=== PATIENT | female | born 1945 | race Caucasian/White ===

== ENCOUNTER → 2021-02-19 12:51 | Outpatient (BNVA) | payer MEDICARE, SELFPAY | PROVIDERS: PCP Internal Medicine; Visit Provider Hospitalist | DX: J41.0 Simple chronic bronchitis (principal); J18.9 Pneumonia, unspecified organism; R91.8 Other nonspecific abnormal finding of lung field | CPT/HCPCS: 99212 ==

== ENCOUNTER → 2021-11-19 12:44 | Outpatient (BNVA) | payer MEDICARE, SELFPAY | PROVIDERS: PCP Internal Medicine; Visit Provider Hospitalist | DX: J41.0 Simple chronic bronchitis (principal); J18.9 Pneumonia, unspecified organism; R91.8 Other nonspecific abnormal finding of lung field | CPT/HCPCS: 99212 ==

== ENCOUNTER → 2022-08-15 13:11 | Outpatient (BNVA) | payer MEDICARE, SELFPAY | PROVIDERS: PCP Internal Medicine; Visit Provider Hospitalist | DX: J41.0 Simple chronic bronchitis (principal); R91.8 Other nonspecific abnormal finding of lung field; J18.9 Pneumonia, unspecified organism | CPT/HCPCS: 99212 ==

== ENCOUNTER → 2022-11-26 08:20 | Outpatient (BNVA) | payer MEDICARE, SELFPAY | PROVIDERS: PCP Internal Medicine; Visit Provider Hospitalist | DX: J44.0 Chronic obstructive pulmonary disease with (acute) lower respiratory infection (principal); J18.9 Pneumonia, unspecified organism; R91.8 Other nonspecific abnormal finding of lung field; Z79.52 Long term (current) use of systemic steroids; Z79.899 Other long term (current) drug therapy | CPT/HCPCS: 99212 ==

== ENCOUNTER → 2023-01-27 13:59 | Outpatient (BNVA) | payer MEDICARE, SELFPAY | PROVIDERS: PCP Internal Medicine; Visit Provider Hospitalist | DX: J44.0 Chronic obstructive pulmonary disease with (acute) lower respiratory infection (principal); J18.9 Pneumonia, unspecified organism; R91.8 Other nonspecific abnormal finding of lung field | CPT/HCPCS: 99212 ==

== ENCOUNTER → 2023-05-07 13:11 | Outpatient (BNVA) | payer MEDICARE, SELFPAY | PROVIDERS: PCP Internal Medicine; Visit Provider Nurse Practitioner Family | DX: Z01.811 Encounter for preprocedural respiratory examination (principal); J44.0 Chronic obstructive pulmonary disease with (acute) lower respiratory infection; R91.8 Other nonspecific abnormal finding of lung field | CPT/HCPCS: 99212 ==

== ENCOUNTER 2023-07-31 14:06 | Outpatient (AMB) | payer MEDICARE, SELFPAY ==
[2023-07-31 14:14] VITALS: BP 128/60; PULSE 81; O2SAT 99; BMI 24.2
--- NOTE | 2023-07-31 14:14 | MHC.OFFVIS ---
Intake Vital Signs 07/31/23 14:14 Height 5 ft 6 in Weight 150 lb BMI 24.2 BP 128/60 Blood Pressure Location Lt brachial Position Sitting Pulse 81 Pulse Source Pulse Oximeter Pulse Oximetry (%) 99 Oxygen Delivery Method Room Air Intake Visit Reasons: COPD Hitcher Required: No Allergies Penicillins Allergy (Severe, Uncoded 07/31/23 14:17) Rash and Hives Sulfa Drugs Allergy (Severe, Uncoded 07/31/23 14:17) Rash and Hives HPI HPI Comments History of Present Illness Details The patient is a 78-year-old woman known COPD and pulmonary nodules. Apparently the last time is are was back in March and she required a prednisone taper. After that visit the patient apparently developed worsening respiratory symptoms was admitted to [facility] with influenza B and sepsis. She was treated for pneumonia. She was subsequently discharged. Overall she stabilized and she had a repeat CT scan of the chest in June of 2019 demonstrating stable subsolid pulmonary nodules. In August she had knee surgery which she had without any difficulties. More recently she did have influenza a and she was treated appropriately at home for that. She is now recovering feeling back to close to her baseline. Unfortunately, her daughter who lives with her started having fevers and was concerned for the possibility of covid 19 infection. At this point she will be monitor her temperature for any evidence of infection herself. In the meantime respiratory status has been stable on the current respiratory regimen. She was recently hospitalized at [facility] with the COVID-19 illness. She developed hypoxic respiratory failure and currently discharged on oxygen 2 L at rest and 3 L with activity. She is complaining a course of doxycycline. She already completed azythromycin and Plaquenil. Did review her chest x-ray demonstrating patchy areas of hazy opacities consistent with viral pneumonia. Her white count was elevated also inflammatory marker for elevated. I will make sure to repeat those. She is at home she still having a barky cough. She feels better. We talked about wake prone in which is going to tried home. She was stopped using the incentive spirometer. 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 08/07/2020 the patient is here for pulmonary follow-up visit. Overall the patient is doing lot better. The oxygen was discontinued and she has been doing very well on room air. Her respiratory medications have not changed. She denies any significant coughing or any shortness of breath. She does not have any residual symptoms from the COVID-19 infection. She did undergo a repeat CT scan of the chest demonstrating interval decrease in the right upper lobe ground-glass the nodular density which is reassuring. This may have been a remnant from her previous pneumonia back in 2017 when she presented to the hospital with a postviral multilobar pneumonia. 02/19/2021 the patient is here for pulmonary follow-up visit. Overall the patient has been doing better. She has not recovered completely from COVID-19. The patient had been using oxygen for appeared of time but now the oxygen has been removed in the house. The cough is improved dramatically. The patient has continued to use her respiratory therapy. She has not required any prednisone. We did review her last CT scan of the chest demonstrating interval improvement of the ground-glass opacities. However, the changes are still present. Therefore, the patient should have a repeat CT scan of the chest sometime in the fall 2020. She should have an same place. The patient is otherwise without any other complaints. 11/19/2021 the patient is here for a pulmonary follow-up visit. Overall the patient is doing well from a respiratory status. She continues use her Symbicort with good effect. She has not require her short-acting beta agonist. She again did undergo a CT scan of the chest. It appears that her ground-glass nodular density has increased in size from 5 mm not to 8 mm in size. At this point is still too small for any type of invasive diagnostic intervention. I also believe is too small to undergo PET scan. Therefore will follow the CT scan in 8 months to see if there is any progression. In the meantime the patient develops any worsening respiratory symptoms prior to that she is to call for an earlier evaluation. 08/15/2022 the patient is here for a pulmonary follow-up visit. Overall she is doing well from a respiratory status. She continues uses Symbicort daily. She has not had to use her rescue inhaler. She has not had any exacerbations. She is wondering about her diagnosis of COPD. Explained to her that she has not had pulmonary function studies and while. Indeed she does have a component of obstructive airway disease. She is currently taking a very small dose of Symbicort. Will plan to continue that dose specially since she has had recent surgery. Will have her return in a year and will perform pulmonary function studies to see if she can wean off completely from the Symbicort. In the meantime she is status post laminectomy and has significant back pain postoperatively. She actually was admitted to the hospital with severe pain she could not walk. Now she is doing a little better she is tolerating some physical therapy. She will be following up with neurosurgeon soon. We did review her CT scan of the chest. Appears that her ground-glass nodular densities still measuring about 8 mm in size. It appears to wax and wane some. No solid component. At this point will plan to follow-up up with at 1 year based on the fact that smoldering malignancies are still differential. 11/26/2022 the patient is here for a hospital follow-up visit. The patient overall has been doing a little better. She was exposed to a family member with RSV. Ultimately ended up with COPD exacerbation. She was admitted to [facility]. There she did have a CT scan of the chest demonstrating bronchiolitis which is consistent with her RSV infection. She also had her underlying nodular density. She completed a course of Vantin. The patient also is on prednisone 30 mg with a taper. She still complained of cough in addition to shortness of breath. She is using her nebulizer several times a day. Will go ahead and extend her prednisone course. Will also switch her antibiotics to doxycycline to treat her for postviral strep and staph infections. The patient also should be getting a cough syrup. She did bring a copy of the CT scan. I will going to try to look at the images myself. In the meantime it appears that the findings are consistent with her acute infectious process. 01/27/2023 the patient is here for a pulmonary follow-up visit. She is doing a lot better. She is back to her baseline. She is not with prednisone and the antibiotics. She continues use respiratory therapy. We did review get her CT scan that she had at [facility] demonstrating the 9 mm right upper lobe ground-glass nodular density. We also compare that to her previous CT scan from the summer of 2021 demonstrating stability in that ground-glass nodular density without any solid component which is reassuring. The other nodules are stable. Her breathing is back baseline. At this point going to continue with respiratory therapy and will plan to repeat the CT scan in 6 months. 07/31/2023 the patient is here for pulmonary follow-up visit. Overall the patient has been feeling much better. 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 This resulted in significant pain discomfort for the patient. Finally she is feeling better. Her respiratory status was stable throughout the whole period. She continues on the Symbicort. She has been able to cut down significantly. The patient had RSV back in the winter. At this point I did recommend she vaccinated for RSV in addition to the flu and for that matter COVID-19. The patient is also up-to-date with pneumonia vaccine. We did review her recent CT scan of the chest. She does have a ground-glass subsolid nodule. It appears to be unchanged from last year. In view of the ground-glass the nature of the nodule and the size of a cm will plan to repeat it in a year's time. If the patient develops any new or concerning symptoms she is to call the office for an earlier assessment. [facility] Medical History (Updated 05/07/23 @ 13:56 by Sarah Parker NP) Pneumonitis Pulmonary nodules COVID-19 COPD (chronic obstructive pulmonary disease) Social History (Updated 11/19/21 @ 13:11 by SHABNAM Grant) Patient Tobacco Use Status: Former Tobacco user Tobacco use type: Cigarette Years Smoked: 30 years Review of Systems Const Reports difficulty sleeping and Denies night sweats ENT Denies change in voice, Denies lip swelling, Denies mouth pain, Reports nasal congestion, Reports nasal discharge and Denies tongue swelling Card Denies chest pain Resp Reports chest congestion, Reports cough and Reports wheezing GI Denies abdominal pain Musc Reports back pain, Reports arthralgias and Reports joint swelling Neuro Denies Neuro-related abnormal movements Psych Denies no additional complaints Raf/Lymph Denies easy bleeding and Denies lymphadenopathy Aller/Immun Denies lip swelling, Denies tongue swelling and Reports wheezing Physical Exam Vital Signs: Last Vital Signs Pulse 81 07/31/23 14:14 BP 128/60 07/31/23 14:14 Pulse Ox 99 07/31/23 14:14 Oxygen Delivery Method Room Air 07/31/23 14:14 BMI result Body Mass Index 24.2 Const General: alert Neck Neck: Yes normal visual inspection, Yes full ROM and Yes no lymphadenopathy Chest Chest palpation & inspection: normal inspection of the chest Resp Auscultation: no rhonchi, no wheezes and diminished lung sounds Cardio Rate: regular rate Rhythm: regular rhythm Heart sounds: S1 normal heart sound present and S2 normal heart sound present GI Palpation (GI): Soft to palpation and nontender Auscultation: normal bowel sounds Skin General skin exam: rashes and/or lesions noted Assessment & Plan Assessment & Plan (1) COPD (chronic obstructive pulmonary disease): Code(s): J44.9 - Chronic obstructive pulmonary disease, unspecified Qualifiers: COPD type: COPD with acute lower respiratory infection Qualified Code(s): J44.0 - Chronic obstructive pulmonary disease with (acute) lower respiratory infection (2) Pulmonary nodules: Code(s): R91.8 - Other nonspecific abnormal finding of lung field (3) Pneumonitis: Code(s): J18.9 - Pneumonia, unspecified organism Plan Repeat CT scan of the chest in 07/2024 continue Symbicort continue short-acting beta agonist as needed F/U 12 months Orders: Orders CT chest wo IV con 06/21/24 R91.8 - Other nonspecific abnormal finding of lung field Coding Level of Care Code Est Pt Level 4 (88423) Diagnoses Chronic obstructive pulmonary disease with acute lower respiratory infection J44.0 COPD type: COPD with acute lower respiratory infection Pulmonary nodules R91.8 Pneumonitis J18.9 Time Spent (min) 18
== END 2023-07-31 14:38 | disposition home or self-care (01) ==
PROVIDERS: PCP Internal Medicine; Visit Provider Hospitalist
DX: J44.0 Chronic obstructive pulmonary disease with (acute) lower respiratory infection (principal); R91.8 Other nonspecific abnormal finding of lung field; J18.9 Pneumonia, unspecified organism
CPT/HCPCS: 99214

== ENCOUNTER → 2023-07-31 14:06 | Outpatient (BNVA) | payer MEDICARE, SELFPAY | PROVIDERS: PCP Internal Medicine; Visit Provider Hospitalist | DX: J44.0 Chronic obstructive pulmonary disease with (acute) lower respiratory infection (principal); J18.9 Pneumonia, unspecified organism; R91.8 Other nonspecific abnormal finding of lung field | CPT/HCPCS: 99212 ==

== ENCOUNTER 2024-07-09 14:15 | Outpatient (REF) | payer MEDICARE, SELFPAY ==
--- NOTE | ~2024-07-09 | CT_ITS ---
EXAMINATION: CT CHEST WITHOUT CONTRAST CLINICAL INFORMATION: Nodule. Abnormal finding in the lung. COMPARISON: CT dated November 20, 2022 TECHNIQUE: Multidetector volumetric CT imaging of the chest was done. Axial MIP volume rendering provided. Sagittal and coronal reformatted images were obtained. This CT examination was performed using dose optimization techniques as appropriate, variously including the following: *Automated exposure control *Adjustment of mA and/or kV according to patient size (this includes techniques or standardized protocols for targeted exams where dose is matched to indication/reason for exam; i.e. extremities or head) *Use of iterative reconstruction technique DLP: 127 mGy-cm FINDINGS: LUNGS: 8 mm patchy groundglass, right upper lobe. No bronchiectasis. No honeycombing. Subsegmental atelectasis versus scarring, lung bases and lingula. Upper respiratory airway is patent. MEDIASTINUM: No lymphadenopathy. No pericardial effusion. Calcified plaque throughout the thoracic aorta wall and its main branches. Calcified mitral valve.. CORONARY ARTERY CALCIFICATION: Calcified plaques in the coronary arteries. PLEURA: No pleural effusion or pneumothorax. AXILLA: No lymphadenopathy. UPPER ABDOMEN: Multifocal different size partially calcified cystic lesions in the kidneys. Calcified plaques in the abdominal aorta wall of the origin of the main renal arteries and to the mesenteric arteries. Dystrophic calcifications in the left hepatic lobe. Punctate calcifications in the right thyroid lobe. OSSEOUS STRUCTURES: Multilevel spondylosis more conspicuous at T8-9 and T9-10 levels without acute fracture or listhesis S-shaped curvature of the thoracolumbar spine. No lytic or blastic lesions. CT/CT chest wo IV con IMPRESSION: Focal airspace disease, right upper lobe. Neoplasm cannot be excluded. Coronary artery disease and atherosclerosis disease. Calcified mitral valve. Complex cystic lesions in the kidneys. Calcified plaques in the origin main renal arteries. Fleischner guidelines were followed. Electronically signed by: Chriss Shah MD 09/15/2024 03:15 PM EDT
== END 2024-07-09 14:16 | disposition home or self-care (01) ==
LOC: HO.CT 14:15
PROVIDERS: PCP Internal Medicine; Visit Provider Hospitalist
DX: R91.8 Other nonspecific abnormal finding of lung field (principal)
CPT/HCPCS: 71250

== ENCOUNTER → 2024-07-09 14:17 | Outpatient (BNV) | payer MEDICARE, SELFPAY | PROVIDERS: PCP Internal Medicine; Visit Provider Radiology Diagnostic Radiology | DX: R91.8 Other nonspecific abnormal finding of lung field (principal) | CPT/HCPCS: 71250 ==

== ENCOUNTER 2024-08-26 09:45 | Outpatient (AMB) | payer MEDICARE, SELFPAY ==
[2024-08-26 10:13] VITALS: BP 126/60; PULSE 80; O2SAT 99; BMI 26.0
--- NOTE | 2024-08-26 10:13 | MHC.OFFVIS ---
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 Apparently the last time is are was back in March and she required a prednisone taper. After that visit the patient apparently developed worsening respiratory symptoms was admitted to [facility] with influenza B and sepsis. She was treated for pneumonia. She was subsequently discharged. Overall she stabilized and she had a repeat CT scan of the chest in June of 2019 demonstrating stable subsolid pulmonary nodules. In August she had knee surgery which she had without any difficulties. More recently she did have influenza a and she was treated appropriately at home for that. She is now recovering feeling back to close to her baseline. Unfortunately, her daughter who lives with her started having fevers and was concerned for the possibility of covid 19 infection. At this point she will be monitor her temperature for any evidence of infection herself. In the meantime respiratory status has been stable on the current respiratory regimen. She was recently hospitalized at [facility] with the COVID-19 illness. She developed hypoxic respiratory failure and currently discharged on oxygen 2 L at rest and 3 L with activity. She is complaining a course of doxycycline. She already completed azythromycin and Plaquenil. Did review her chest x-ray demonstrating patchy areas of hazy opacities consistent with viral pneumonia. Her white count was elevated also inflammatory marker for elevated. I will make sure to repeat those. She is at home she still having a barky cough. She feels better. We talked about wake prone in which is going to tried home. She was stopped using the incentive spirometer. She does have the Tessalon Perles not appear to be effective and she is going to last picker some Mucinex DM. 08/07/2020 the patient is here for pulmonary follow-up visit. Overall the patient is doing lot better. The oxygen was discontinued and she has been doing very well on room air. Her respiratory medications have not changed. She denies any significant coughing or any shortness of breath. She does not have any residual symptoms from the COVID-19 infection. She did undergo a repeat CT scan of the chest demonstrating interval decrease in the right upper lobe ground-glass the nodular density which is reassuring. This may have been a remnant from her previous pneumonia back in 2017 when she presented to the hospital with a postviral multilobar pneumonia. 02/19/2021 the patient is here for pulmonary follow-up visit. Overall the patient has been doing better. She has not recovered completely from COVID-19. The patient had been using oxygen for appeared of time but now the oxygen has been removed in the house. The cough is improved dramatically. The patient has continued to use her respiratory therapy. She has not required any prednisone. We did review her last CT scan of the chest demonstrating interval improvement of the ground-glass opacities. However, the changes are still present. Therefore, the patient should have a repeat CT scan of the chest sometime in the fall 2020. She should have an same place. The patient is otherwise without any other complaints. 11/19/2021 the patient is here for a pulmonary follow-up visit. Overall the patient is doing well from a respiratory status. She continues use her Symbicort with good effect. She has not require her short-acting beta agonist. She again did undergo a CT scan of the chest. It appears that her ground-glass nodular density has increased in size from 5 mm not to 8 mm in size. At this point is still too small for any type of invasive diagnostic intervention. I also believe is too small to undergo PET scan. Therefore will follow the CT scan in 8 months to see if there is any progression. In the meantime the patient develops any worsening respiratory symptoms prior to that she is to call for an earlier evaluation. 08/15/2022 the patient is here for a pulmonary follow-up visit. Overall she is doing well from a respiratory status. She continues uses Symbicort daily. She has not had to use her rescue inhaler. She has not had any exacerbations. She is wondering about her diagnosis of COPD. Explained to her that she has not had pulmonary function studies and while. Indeed she does have a component of obstructive airway disease. She is currently taking a very small dose of Symbicort. Will plan to continue that dose specially since she has had recent surgery. Will have her return in a year and will perform pulmonary function studies to see if she can wean off completely from the Symbicort. In the meantime she is status post laminectomy and has significant back pain postoperatively. She actually was admitted to the hospital with severe pain she could not walk. Now she is doing a little better she is tolerating some physical therapy. She will be following up with neurosurgeon soon. We did review her CT scan of the chest. Appears that her ground-glass nodular densities still measuring about 8 mm in size. It appears to wax and wane some. No solid component. At this point will plan to follow-up up with at 1 year based on the fact that smoldering malignancies are still differential. 11/26/2022 the patient is here for a hospital follow-up visit. The patient overall has been doing a little better. She was exposed to a family member with RSV. Ultimately ended up with COPD exacerbation. She was admitted to [facility]. There she did have a CT scan of the chest demonstrating bronchiolitis which is consistent with her RSV infection. She also had her underlying nodular density. She completed a course of Vantin. The patient also is on prednisone 30 mg with a taper. She still complained of cough in addition to shortness of breath. She is using her nebulizer several times a day. Will go ahead and extend her prednisone course. Will also switch her antibiotics to doxycycline to treat her for postviral strep and staph infections. The patient also should be getting a cough syrup. She did bring a copy of the CT scan. I will going to try to look at the images myself. In the meantime it appears that the findings are consistent with her acute infectious process. 01/27/2023 the patient is here for a pulmonary follow-up visit. She is doing a lot better. She is back to her baseline. She is not with prednisone and the antibiotics. She continues use respiratory therapy. We did review get her CT scan that she had at [facility] demonstrating the 9 mm right upper lobe ground-glass nodular density. We also compare that to her previous CT scan from the summer of 2021 demonstrating stability in that ground-glass nodular density without any solid component which is reassuring. The other nodules are stable. Her breathing is back baseline. At this point going to continue with respiratory therapy and will plan to repeat the CT scan in 6 months. 07/31/2023 the patient is here for pulmonary follow-up visit. Overall the patient has been feeling much better. 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 This resulted in significant pain discomfort for the patient. Finally she is feeling better. Her respiratory status was stable throughout the whole period. She continues on the Symbicort. She has been able to cut down significantly. The patient had RSV back in the winter. At this point I did recommend she vaccinated for RSV in addition to the flu and for that matter COVID-19. The patient is also up-to-date with pneumonia vaccine. We did review her recent CT scan of the chest. She does have a ground-glass subsolid nodule. It appears to be unchanged from last year. In view of the ground-glass the nature of the nodule and the size of a cm will plan to repeat it in a year's time. If the patient develops any new or concerning symptoms she is to call the office for an earlier assessment. 08/26/2024 the patient is here for a pulmonary follow-up visit. Overall the patient has been doing okay. She was recently diagnosed with CMML and initially her white count was elevated but then significantly increased. She did follow-up with bread distributor and she was started on hydroxyurea were now the white count coming down nicely. Denies any shortness of breath denies any ongoing respiratory symptoms. She did undergo a CT scan of the chest that I personally reviewed. It appears that the ground-glass nodular densities stable in size. This is compared to the CT scan from last year. Will go ahead and plan to repeat the CT scan again in a year's time. If the patient develops any worsening symptoms prior to the next visit she will call for an earlier assessment. [facility] Medical History (Updated 05/07/23 @ 13:56 by Sarah Parker NP) Pneumonitis Pulmonary nodules COVID-19 COPD (chronic obstructive pulmonary disease) Social History (Updated 11/19/21 @ 13:11 by SHABNAM Grant) Patient Tobacco Use Status: Former Tobacco user Tobacco use type: Cigarette Years Smoked: 30 years Review of Systems Const Reports difficulty sleeping and Denies night sweats ENT Denies change in voice, Denies lip swelling, Denies mouth pain, Reports nasal congestion, Reports nasal discharge and Denies tongue swelling Card Denies chest pain Resp Denies chest congestion, Reports cough and Denies wheezing GI Denies abdominal pain Musc Reports back pain, Reports arthralgias and Reports joint swelling Neuro Denies Neuro-related abnormal movements Psych Denies no additional complaints Raf/Lymph Denies easy bleeding and Denies lymphadenopathy Aller/Immun Denies lip swelling, Denies tongue swelling and Denies wheezing Physical Exam Vital Signs: Last Vital Signs Pulse 80 08/26/24 10:13 BP 126/60 08/26/24 10:13 Pulse Ox 99 08/26/24 10:13 Oxygen Delivery Method Room Air 08/26/24 10:13 BMI result Body Mass Index 26.0 Const General: alert Neck Neck: Yes normal visual inspection, Yes full ROM and Yes no lymphadenopathy Chest Chest palpation & inspection: normal inspection of the chest Resp Effort & Inspection: normal respiratory effort Auscultation: clear to auscultation bilaterally, no rhonchi and no wheezes Cardio Rate: regular rate Rhythm: regular rhythm Heart sounds: S1 normal heart sound present and S2 normal heart sound present GI Palpation (GI): Soft to palpation and nontender Auscultation: normal bowel sounds Skin General skin exam: rashes and/or lesions noted Assessment & Plan Assessment & Plan (1) COPD (chronic obstructive pulmonary disease): Code(s): J44.9 - Chronic obstructive pulmonary disease, unspecified Category: Medical Qualifiers: COPD type: COPD with acute lower respiratory infection Qualified Code(s): J44.0 - Chronic obstructive pulmonary disease with (acute) lower respiratory infection (2) Pulmonary nodules: Code(s): R91.8 - Other nonspecific abnormal finding of lung field Category: Medical (3) Pneumonitis: Code(s): J18.9 - Pneumonia, unspecified organism Category: Medical Plan Repeat CT scan of the chest in 07/2025 (awaiting final read of CT chest) continue Symbicort continue short-acting beta agonist as needed F/U 12 months Orders: Orders CT chest wo IV con 1 Year R91.8 - Other nonspecific abnormal finding of lung field Coding Level of Care Code Est Pt Level 4 (95997) Diagnoses Chronic obstructive pulmonary disease with acute lower respiratory infection J44.0 COPD type: COPD with acute lower respiratory infection Pulmonary nodules R91.8 Pneumonitis J18.9 Time Spent (min) 17
== END 2024-08-26 10:35 | disposition home or self-care (01) ==
PROVIDERS: PCP Internal Medicine; Visit Provider Hospitalist
DX: J44.0 Chronic obstructive pulmonary disease with (acute) lower respiratory infection (principal); R91.8 Other nonspecific abnormal finding of lung field; J18.9 Pneumonia, unspecified organism
CPT/HCPCS: 99214

== ENCOUNTER → 2024-08-26 09:45 | Outpatient (BNVA) | payer MEDICARE, SELFPAY | PROVIDERS: PCP Internal Medicine; Visit Provider Hospitalist | DX: J44.0 Chronic obstructive pulmonary disease with (acute) lower respiratory infection (principal); J18.9 Pneumonia, unspecified organism; R91.8 Other nonspecific abnormal finding of lung field | CPT/HCPCS: 99212 ==

== ENCOUNTER 2025-01-26 15:46 | Outpatient (REF) | payer MEDICARE, SELFPAY ==
--- NOTE | ~2025-01-26 | XR_ITS ---
EXAMINATION: XR SCREENING FILM FOR MR HISTORY: pre mri x-ray- [facility] COMPARISON: There are no prior studies for comparison. FINDINGS: Two supine views of the abdomen are submitted. The bowel gas pattern is unremarkable, without evidence of mechanical obstruction. There are vascular calcifications in the pelvis. Rounded calcifications in the pelvis likely represent retained contrast within colonic diverticula. The patient is status post right total hip arthroplasty. There are embolization coils in the right inguinal region. There is degenerative disc disease of the spine. XR/XR pre mri screening IMPRESSION: Status post right total hip arthroplasty. Embolization coils in the right inguinal region. Electronically signed by: Jayden Snider MD 01/27/2025 07:47 AM EDT
--- NOTE | ~2025-01-26 | MR_ITS ---
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 Subsequently, fat suppressed axial and coronal T1-weighted images were obtained after the intravenous administration of 7 mL Gadavist. FINDINGS: There is no significant loss of signal intensity within the liver on opposed phase imaging to suggest steatosis. There is an 8 mm T2 hyperintense focus in the right lobe which does not enhance, and may represent a small cyst. The hepatic and portal veins are patent. There is no intra or extrahepatic biliary ductal dilatation. The gallbladder is unremarkable. There is a 1.5 cm T2 hyperintense rim enhancing lesion in the spleen which may represent a hemangioma. The pancreas and adrenal glands are unremarkable. There is a cluster of cysts at the upper pole of the right kidney. The largest cyst measures 2.9 x 2.3 x 1.9 cm. There is an additional 2.0 cm cyst and a subcentimeter cyst. A 10 mm cyst is noted at the upper pole of the left kidney. No enhancing renal mass is identified. No retroperitoneal lymphadenopathy or ascites is identified in the upper abdomen. There is scoliosis and degenerative disc disease of the spine. MR/MR abdomen wo/w con IMPRESSION: 1. Cluster of cysts at the upper pole of the right kidney. No suspicious renal lesion is identified. 2. Probable 1.5 cm splenic hemangioma. Electronically signed by: Jayden Snider MD 01/27/2025 07:28 AM EDT
[2025-01-26] MEDS: gadobutroL 7.5 ML VIAL IVPUSH (17:11)
--- OUTSIDE RECORDS SUMMARY | 2025-01-26 18:24 | XMS_ITS | Encounter Summary ---
Author Organization [facility] Address [address] [place] [address] Care Team Providers Care Apprentice Stylist Name Role Phone Giles Campo MD Primary Care Provider [phone] Reason for Visit * Reason Comments Weakness - Generalized Dizziness Encounter Details Date Type Department Care Team ([facility] st Contact Info) Description 01/10/2025 2:34 PM EST - 01/10/2025 7:49 PM EST Emergency [facility] Emergency [address] [place] [id number] Shahram Tripathi MD [address] [place] [address] Secondary hypertension (Primary Dx) Discharge Disposition: Home or Self Care Social History Tobacco Use Types Packs/Day Years Used Date Smoking Tobacco: Former Cigarettes 2 32 0 11/17/1962 - 11/17/1994 Smokeless Tobacco: Never Alcohol Use Standard Drinks/Week Comments Yes 0 (1 standard drink = 0.6 oz pur e alcohol) Housing Instability Answer Date Recorde d Are you worried that in the next 2 months you may not have stable housing? No 11/29/2024 Food Access & Nutrition Answer Date Rec orded Do you have access to a vari ety of food including fruits and vegetables? Yes 11/29/2024 Access to Healthcare Answer Date Record ed Within the last 3 months, shira w many times did you visit the emergency department for your medical care? 1 11/29/2024 Health Literacy Answer Date Recorded How often do you need to hav e someone help you when you read instructions, pamphlets, or other written material from your doctor or pharmacy? Never 11/29/2024 Caregiver: How often do you need to have someone help you when you read instructions, pamphlets, or other written material from your doctor or pharmacy? Not on file 11/29/2024 Financial Risk Answer Date Recorded How hard is it for you to pa y for the very basics like food, housing, medical care, and air conditioning / heating? Not very hard 11/29/2024 Transportation Answer Date Recorded Has the lack of transportati on kept you from meetings, work, or from getting things needed for daily living? No Has the lack of transportati on kept you from medical appointments or from getting medications? No 11/29/2024 Social Isolation Answer Date Recorded How often do you feel lonely or isolated from th ose around you? Never 11/29/2024 Food Risk Answer Date Recorded Within the past 12 months we worried whether our food would run out before we got money to buy more. Never true 11/29/2024 Within the past 12 months th e food we bought just didn't last and we didn't have money to get more. Never true 11/29/2024 Dependent Care Answer Date Recorded Do you need help finding or paying for care for your loved ones. For example, child and family counselor or elderly care for an older adult? No 11/29/2024 Education Answer Date Recorded Do you think completing more education or training, like finishing a GED, going to college, or learning a trade, would be helpful for you? No 11/29/2024 Employment and Income Answer Date Recor ded During the last four weeks, have you been actively looking for work? No 11/29/2024 Living Situation Answer Date Recorded What is your living situation? 0 11/29/2024 Comments No Sex and Gender Information Value Date Recorded Sex Assigned at Female 12/22/2024 12:47 PM EST Legal Sex Female 10:31 AM EST Gender Identity Female 12/22/2024 12:47 PM EST Sexual Orientation Straight 12/22/2024 12 :47 PM EST documented as of this encounter Last Filed Vital Signs Vital Sign Reading Time Taken Comments Blood Pressure 125/65 01/10/2025 6:24 PM EST Pulse 71 01/10/2025 6:24 PM EST Temperature 37 ??C (98.6 ??F) 01/10/2025 6:24 PM EST Respiratory Rate 18 01/10/2025 6:24 PM EST Oxygen Saturation 97% 01/10/2025 6:24 PM EST Inhaled Oxygen Concentration - - Weight 68 kg (150 lb) 01/10/2025 2:39 PM EST Height 165.1 cm (5' 5 ) 01/10/2025 2:39 PM EST Body Mass Index 24.96 01/10/2025 2:39 PM EST documented in this encounter Discharge Instructions * Discharge Instructions* TITI Ragland - 01/10/2025 7:07 PM EST You were seen in the ER today for an episode of high blood pressure after surgery. We did do a fullworkup including lab work. Most of your lab work appeared to be at its normal baseline. I believe you could have had a reaction to the surgery or this could be a pain response from the surgery, either way your blood pressure has returned to normal and safe level at 125/80. Please follow-up with your PCP. Please return immediately for chest pain, shortness of breath, dizziness, headache, or lightheadedness. It was a pleasure caring for you today in the emergency department. Please return to the emergency department if you begin to experience any new onset chest pain, shortness of breath, uncontrolled fevers, severe abdominal pain, loss of consciousness, uncontrolled vomiting, uncontrolled diarrhea, or for any other reason you feel is necessary. Please follow-up with your PCP about this visit. Examination and treatment you received in the emergency department has been rendered on an EMERGENCY basis only. It is not intended to be a substitute for or an effort to provide complete medical care. You should follow-up with your primary care provider. Please report to your physician any new or remaining problems, because it is impossible to recognize and treat all elements of injury or illness in a single emergency department visit. If you do not have a primary care provider or require a referral, a follow-up doctor legal entity controller for the emergency department will be provided in your discharge packet. In the event that you're unable to obtain a followup appointment in a timely fashion, OR you are not getting any better, OR you are getting worse, OR you develop any symptoms of concern, please return here immediately for further evaluation. The emergency department is open 24 hours a day, 7 days aweek. Your discharge report is based on information that was available when you were in the emergency department If you do not have a primary care provider, please contact one of the following to make arrangements to follow up. Keyanna Ashby Keyanna Lopez Keyannakeyon Rodriguez Keyanna Lakesha * Attachments The following attachments cannot be sent through Care Everywhere. * Hypertension: General Info (Thai) documented in this encounter Medications at Time of Discharge albuterol HFA (PROAIR HFA ; PROVENTIL HFA ; VENTOLIN HFA) 90 mcg/actuation inhaler Inhale 2 puffs by mouth every 4 (four) hours if needed. amLODIPine (NORVASC) 2.5 mg tablet Take 1 tablet (2.5 mg total) by mouth 1 (one) time each day. 90 tablet 10/28/2024 aspirin 81 mg EC tablet Take 1 tablet (81 mg total) by mouth 1 (one) time each day. 11/23/2022 budesonide-formoter oL (SYMBICORT) 160-4.5 mcg/actuation inhaler 1 inhalation. daily. 10/26/2021 calcium carbonate-vitamin D3 600 mg-12.5 mcg (500 unit) capsule Take 1,500 mg by mouth. cetirizine (ZyrTEC) 10 mg tablet Take 1 tablet (10 mg total) by mouth 1 (one) time each day. 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 Swallow tablet whole; do not cut, crush, or chew. Administer on an empty stomach. Take for 5 days and then 23 days off in a 28 day cycle. 5 tablet 5 01/13/2025 12:08 PM EST 12/06/2024 ipratropium (ATROVENT) 42 mcg (0.06 %) nasal spray USE 1 SPRAY NASALLY 3 TIMES DAILY 60 mL 2 11/18/2024 ketorolac (ACULAR) 0.5 % ophthalmic solution Administer 1 drop into both eyes 4 (four) times a day. 12/13/2024 loperamide (IMODIUM A-D) 2 mg tablet Take 1 tablet (2 mg total) by mouth lovastatin (MEVACOR) 20 mg tablet TAKE 1 TABLET BY MOUTH AT BEDTIME 100 tablet 1 12/31/2024 melatonin-theanine 10-5.5 mg tablet Take by mouth. metoprolol succinate (TOPROL-XL) 25 mg 24 hr tablet TAKE 1 TABLET BY MOUTH ONCE DAILY 100 tablet 1 12/31/2024 documented as of this encounter Discharge Disposition Disposition Code Departure Means Destination Comment s Home or Self Care documented in this encounter Progress Notes * Perla Beltrán RN - 01/10/2025 2:36 PM EST Pt arrives via ems from Dr Gamble office s/p lt eye cataract surgery. After surgery she stared to feel weak and her bp was elevated and they gave Metoprolol 5mg IVP. She also received Versed 1mg and Fentanyl 50mcg prior to surgery. This morning she received a platelet transfusion. * Shahram Tripathi MD - 01/10/2025 2:20 PM EST Emergency Medicine Note Patient Name: eL Salcido Initial Evaluation: 01/10/2025 : 1945 Patient's PCP: Giles Campo MD Emergency Physician: TITI Ragland History of Present Illness Chief Complaint: Chief Complaint Patient presents with Weakness - Generalized Dizziness HPI: This 79-year-old female patient history of CML, asthma, COPD, hyperlipidemia, hypertension, osteopenia, underwent cataract surgery this morning by Dr. Gamble, presents to the ER sent in by Dr. Gamble's office for elevated blood pressure after surgery with reported sensation of dizziness. Patient reports that she had a platelet transfusion this morning prior to her cataract surgery. Review ofchart shows that patient tolerated the transfusion very well and had stable vitals, blood pressure of 148/82 at that time. Patient reports that after her cataract surgery and she woke up from anesthesia that she had elevated blood pressure. Did speak with Dr. Gamble's legal entity controller RN who reports that the anesthesiologist did give the patient 5 mg of IV metoprolol for elevated blood sugar of 196/94. Patient reports that at that time she was feeling dizzy, she believes from the anesthesia. She also reports she only slept 2 hours last night as she had trouble sleeping and was nervous for the cataract surgery today. Reports she has not had anything to eat or drink since yesterday and that is why shebelieves she is feeling unwell. Denies any associated headache, vision changes to her good eye, chest pain, shortness of breath. At time my evaluation patient has no complaints. Denying any dizzinessat the time even with movement and head turning. Denies fever or chills. ROS: I have performed a ROS with the pertinent positives and negatives documented in the history ofpresent illness. Previous History Past Medical History: Diagnosis Date Anemia DX:Anemia Asthma DX:Asthma COPD (chronic obstructive pulmonary disease) ([facility]/HCC) DX:COPD (chronic obstructive pulmonary disease) ([facility]) HLD (hyperlipidemia) DX:HLD (hyperlipidemia) HTN (hypertension) DX:HTN (hypertension) Hypertension DX:Hypertension Osteopenia DX:Osteopenia Pneumonia DX:Pneumonia Sigmoid diverticulosis DX:Sigmoid diverticulosis Stenosis of left subclavian artery (CMS/HCC) DX:Stenosis of left subclavian artery (HCC);COMMENT:followed by Vascular Thrombocytopenia (CMS/HCC) DX:Thrombocytopenia (HCC) Thrombocytopenia (CMS/HCC) 06/30/2017 DX:Thrombocytopenia (HCC) Vitamin D deficiency DX:Vitamin D deficiency Past Surgical History: Procedure Laterality Date BACK SURGERY 06/2022 PROCEDURE:BACK SURGERY;COMMENT:LAMINECTOMY COLONOSCOPY PROCEDURE:COLONOSCOPY TONSILLECTOMY PROCEDURE:TONSILLECTOMY TOTAL KNEE ARTHROPLASTY Left 08/2019 PROCEDURE:TOTAL KNEE ARTHROPLASTY TUBAL LIGATION PROCEDURE:TUBAL LIGATION Social History Tobacco Use Smoking status: Former Current packs/day: 0.00 Average packs/day: 2.0 packs/day for 32.0 years (64.0 ttl pk-yrs) Types: Cigarettes Start date: 11/17/1962 Quit date: 11/17/1994 Years since quittin.1 Smokeless tobacco: Never Substance Use Topics Alcohol use: Yes Drug use: No No family history on file. is allergic to penicillins and sulfa (sulfonamide antibiotics). Current Facility-Administered Medications on File Prior to Encounter Medication Dose Route Frequency Provider Last Rate Last Admin sodium chloride 0.9 % infusion 20 mL/hr intravenous PRN Jairo Garvey MD Current Outpatient Medications on File Prior to Encounter Medication Sig Dispense Refill albuterol HFA (PROAIR HFA ; PROVENTIL HFA ; VENTOLIN HFA) 90 mcg/actuation inhaler Inhale 2 puffs by mouth every 4 (four) hours if needed. amLODIPine (NORVASC) 2.5 mg tablet Take 1 tablet (2.5 mg total) by mouth 1 (one) time each day. 90 tablet 0 aspirin 81 mg EC tablet Take 1 tablet (81 mg total) by mouth 1 (one) time each day. budesonide-formoteroL (SYMBICORT) 160-4.5 mcg/actuation inhaler 1 inhalation. daily. calcium carbonate-vitamin D3 600 mg-12.5 mcg (500 unit) capsule Take 1,500 mg by mouth. cetirizine (ZyrTEC) 10 mg tablet Take 1 tablet (10 mg total) by mouth 1 (one) time each day. [] decitabine-cedazuridine (INQOVI) 35-100 mg Take 1 tablet (35 mg total) by mouth 1 (one) time each day. Swallow tablet whole; do not cut, crush, or chew. Administer on an empty stomach. Takefor 5 days and then 23 days off in a 28 day cycle. 5 tablet 5 ipratropium (ATROVENT) 42 mcg (0.06 %) nasal spray USE 1 SPRAY NASALLY 3 TIMES DAILY 60 mL 2 ketorolac (ACULAR) 0.5 % ophthalmic solution Administer 1 drop into both eyes 4 (four) times a day. loperamide (IMODIUM A-D) 2 mg tablet Take 1 tablet (2 mg total) by mouth lovastatin (MEVACOR) 20 mg tablet TAKE 1 TABLET BY MOUTH AT BEDTIME 100 tablet 1 melatonin-theanine 10-5.5 mg tablet Take by mouth. metoprolol succinate (TOPROL-XL) 25 mg 24 hr tablet TAKE 1 TABLET BY MOUTH ONCE DAILY 100 tablet 1 Physical Exam Physical Exam Constitutional: General: She is not in acute distress. Appearance: Normal appearance. She is not ill-appearing, toxic-appearing or diaphoretic. HENT: Head: Normocephalic and atraumatic. Ears: Comments: Left eye has a vision guard, pupil is dilated at 5 mm compared to the right pupil which is more so constricted at 2 to 3 mm. Eyes: Extraocular Movements: Extraocular movements intact. Pupils: Pupils are equal, round, and reactive to light. Cardiovascular: Rate and Rhythm: Normal rate and regular rhythm. Pulmonary: Effort: Pulmonary effort is normal. No respiratory distress. Breath sounds: Normal breath sounds. No stridor. No wheezing, rhonchi or rales. Abdominal: General: Abdomen is flat. Palpations: Abdomen is soft. Tenderness: There is no abdominal tenderness. There is no guarding. Skin: General: Skin is warm. Neurological: General: No focal deficit present. Mental Status: She is alert and oriented to person, place, and time. Mental status is at baseline. Cranial Nerves: No cranial nerve deficit. Sensory: No sensory deficit. Motor: No weakness. Coordination: Coordination normal. Gait: Gait normal. Deep Tendon Reflexes: Reflexes normal. Psychiatric: Mood and Affect: Mood normal. Behavior: Behavior normal. Thought Content: Thought content normal. Judgment: Judgment normal. ED Triage Vitals [01/10/25 1517] Temp Heart Rate Resp BP 36.9 ??C (98.4 ??F) 73 16 (!) 177/78 SpO2 Temp Source Heart Rate Source Patient Position 97 % Oral -- -- BP Location FiO2 (%) -- -- Results Labs Reviewed CBC AND DIFFERENTIAL Narrative: The following orders were created for panel order CBC and differential. Procedure Abnormality Status --------- ------ CBC auto differential[[id number]] Please view results for these tests on the individual orders. BASIC METABOLIC PANEL MAGNESIUM CBC WITH AUTO DIFFERENTIAL POCT GLUCOSE, BLOOD Abnormal Labs Reviewed - No abnormal labs to display No orders to display I have discussed the incidental/abnormal imaging and/or lab abnormalities with the patient and haveinstructed them the need for further evaluation and workup with their primary care doctor. I have provided the patient with a paper copy of the abnormality. The laboratory results, imaging results and other diagnostic exam results were reviewed in the EMR. EKG Interpretation Critical Care Time None ? Medical Decision Making Medications ondansetron ODT (ZOFRAN-ODT) disintegrating tablet 4 mg (4 mg oral Given 01/10/251625) Medical Decision Making Differential diagnose include but not limited to: Hypertension Hypertensive emergency Medication reaction Pain response In short 79-year-old female patient presenting to the ER today after cataract surgery for hypertension. On arrival patient is hypertensive at 177/78, heart rate of 73, nontoxic no acute distress, afebrile. Patient sitting comfortably in bed without any complaints and no focal neurologic deficits, denying any chest pain, dizziness, shortness of breath. Did discuss with nursing staff blood pressure was 196/94 and metoprolol was given. Will get basic labs, screening EKG. Patient is reporting that she is very hungry and has not had anything to eat or drink today. Will give some Zofran, gentle p.o. hydration and crackers, and ambulate patient. Will anticipate discharge home pending full workup. ED Course as of 01/10/251906 Mon Jan 10, [id number] EKG shows sinus rhythm at a rate of 72, evidence of left bundle branch block as seen on previous as well. Sgarbossa negative, no evidence of ischemia, nondiagnostic for STEMI. [ES] 182 patient given patient passed ambulation trial without difficulty. Not reporting any dizziness and steady on her feet. Repeat blood pressure is 125/65. Blood sugar 110, leukopenia at 4.3 otherwise lab work appears to be at baseline. Pending BMP and magnesium, anticipate discharge home. [ES] 1904 BMP is back, no electrolyte abnormalities. Magnesium is 2.3.Will discharge patient homeWith follow-up to your PCP. Patient evaluated by Dr. Tripathi as well. Given strict return precautions and agrees with plan. [ES] ED Course User Index [ES] TITI Ragland Clinical Impressions as of 01/10/251906 Secondary hypertension Procedures Procedures Diagnosis No diagnosis found. Disposition Data Unavailable ED Prescriptions None Physician Attestation This is a split/shared visit with TITI Ragland. I personally performed the medical decision making (MDM) for the care of this patient on 01/10/25 as documented below 79-year-old female with a past medical history as below now presents with a chief complaint of weakness and dizziness. Patient reports that all the symptoms started immediately after she got medications for her left eye cataract surgery that she had this morning. The surgery was done under an anesthesiologist. She was hypertensive to 190s and was given IV metoprolol 5 mg. During this time, she did feel dizziness. She also reports that she did not sleep well last night. On my evaluation, patientdenies any complaints of headache, neck stiffness, chest pain, shortness of breath, abdominal pain,nausea, vomiting or diarrhea. Patient denies any numbness of the upper extremities or lower extremities. Patient denies any focal weakness. Patient with that she has ambulated in the emergency department to the bathroom. Shahram Tripathi MD 01/10/25 7:08 PM EST Shahram Tripathi MD Past Medical History: Diagnosis Date Anemia DX:Anemia Asthma DX:Asthma COPD (chronic obstructive pulmonary disease) ([facility]) DX:COPD (chronic obstructive pulmonary disease) ([facility]) HLD (hyperlipidemia) DX:HLD (hyperlipidemia) HTN (hypertension) DX:HTN (hypertension) Hypertension DX:Hypertension Osteopenia DX:Osteopenia Pneumonia DX:Pneumonia Sigmoid diverticulosis DX:Sigmoid diverticulosis Stenosis of left subclavian artery ([facility]) DX:Stenosis of left subclavian artery ([facility]);COMMENT:followed by Vascular Thrombocytopenia ([facility]) DX:Thrombocytopenia (HCC) Thrombocytopenia ([facility]) 06/30/2017 DX:Thrombocytopenia ([facility]) Vitamin D deficiency DX:Vitamin D deficiency GENERAL: Well-Appearing, well-nourished patient. SKIN: [place], warm, dry. No rashes. HEENT: No stridor, no lymphadenopathy. NECK: Soft, supple, full ROM. CHEST: Heart regular rate and rhythm. PULMONARY: Clear to auscultation bilaterally without any adventitious lung sounds. ABDOMINAL: Soft, nondistended non-tender. MUSCULOSKELETAL: Normal tone full range of motion, 5 x 5 motor. NEURO: Alert and oriented x3, Cranial nerves II through XII are intact, extraocular motions are intact, bicipital reflexes and patellar reflexes are normal. PSYCHIATRIC: Normal affect, fluid speech, good eye contact and appropriate demeanor. Patient has a nonfocal neuroexam. She is asymptomatic on our evaluation. Her labs are overall unremarkable, and shows chronic findings. Patient to be discharged. Patient was given strict return cautions. Patient was advised to follow-up with primary care doctor. Patient understood and agreed with plan. TITI Ragland 01/10/25 1620 TITI Ragland 01/10/25 1630 Shahram Tripathi MD 01/10/25 1911 documented in this encounter Plan of Treatment Upcoming Encounters Date Type Department Care Team (Late st Contact Info) Description 02/28/2025 2:45 PM EDT Office Visit [facility] Hematology Oncology [address] [place] [phone] Jairo Bosch MD [address] [place] [phone] 04/28/2025 2:30 PM EDT Office Visit Internal Medicine - [facility] [address] [place] [address] Giles Campo MD [address] [place] [id number] 11/11/2025 3:30 PM EST Office Visit Vascular Surgery - [place] [address] [address] Winston Barrett MD [address] [address] documented as of this encounter Procedures Procedure Name Priority Date/Time Associated Diagnosis Comments POCT GLUCOSE BLOOD Routine 01/10/2025 5: 59 PM EST CBC WITH AUTO DIFFERENTIAL STAT 01/10/2025 5:55 PM EST CBC AND DIFFERENTIAL STAT 01/10/2025 5:55 PM EST MAGNESIUM STAT 01/10/2025 5:55 PM EST BASIC METABOLIC PANEL STAT 01/10/2025 5:55 PM EST documented in this encounter Results * (ABNORMAL) POCT Glucose, blood (01/10/2025 5:59 PM EST) Pathologist [facility] [place] Glucose POCT 110(H) 70 - 100 mg/dL 01/10/2025 5:[address] [facility] Blood Capillary blood specimen / Unknown 01/10/2025 5:59 PM EST 01/10/2025 6:[address] [facility] POINT OF CARE TE ST DOCKED DEVICE UNSOLICITED RESULTS Final Result [facility] [address] [place] [address], * (ABNORMAL) CBC auto differential (01/10/2025 5:55 PM EST) [facility] WBC 4.3(L) 4.8 - 10.8 K/mcL LAB HEMETOLOGY METHOD 01/10/2025 6:26 PM [facility] RBC 3.30(L) 3.80 - 4.80 M/mcL LAB HEMETOLOGY METHOD 01/10/2025 6:26 PM [facility] Hemoglobin 10.8(L) 11.5 - 16.0 g/dL LAB HEMETOLOGY METHOD 01/10/2025 6:26 PM [facility] Hematocrit 34.2(L) 35.0 - 47.0 % LAB HEMETOLOGY METHOD 01/10/2025 6:26 PM [facility] MCV 104.3(H) 79.0 - 98.0 FL LAB HEMETOLOGY METHOD 01/10/2025 6:26 PM [facility] MCH 32.9(H) 27.0 - 32.0 pcg LAB HEMETOLOGY METHOD 01/10/2025 6:26 PM [facility] MCHC 31.6(L) 32.0 - 37.0 g/dL LAB HEMETOLOGY METHOD 01/10/2025 6:26 PM [facility] RDW 16.7(H) 11.0 - 15.0 % LAB HEMETOLOGY METHOD 01/10/2025 6:26 PM [facility] Platelets 59(L) 130 - 400 K/mcL LAB HEMETOLOGY METHOD 01/10/2025 6:26 PM [facility] Comment:previously verified by slide MPV 11.8(H) 7.0 - 11.0 FL LAB HEMETOLOGY METHOD 01/10/2025 6:26 PM [facility] NRBC 0.0 <1.0 % LAB HEMETOLOGY METHOD 01/10/2025 6:26 PM [facility] NRBC Absolute 0.00 <0.10 K/mcL LAB HEMETOLOGY METHOD 01/10/2025 6:26 PM [facility] Neutrophils Relative 86.0 % LAB HEMETOLOGY METHOD 01/10/2025 6:26 PM [facility] Lymphocytes Relative 8.1 % LAB HEMETOLOGY METHOD 01/10/2025 6:26 PM [facility] Monocytes Relative 4.0 % LAB HEMETOLOGY METHOD 01/10/2025 6:26 PM [facility] Eosinophils Relative 0.0 % LAB HEMETOLOGY METHOD 01/10/2025 6:26 PM [facility] Basophils Relative 0.0 % LAB HEMETOLOGY METHOD 01/10/2025 6:26 PM [facility] [facility] Immature Granulocytes Relative 1.9 % LAB HEMETOLOGY METHOD 01/10/2025 6:26 PM [facility] Neutrophils Absolute 3.70 1.50 - 7.00 K/mcL LAB HEMETOLOGY METHOD 01/10/2025 6:[address] [facility] Lymphocytes Absolute 0.35(L) 1.00 - 5.00 K/mcL LAB HEMETOLOGY METHOD 01/10/2025 6:[address] [facility] Monocytes Absolute 0.17(L) 0.20 - 1.00 K/[facility] LAB HEMETOLOGY METHOD 01/10/2025 6:[address] [facility] Eosinophils Absolute 0.00 0.00 - 0.50 K/[facility] HEMETOLOGY METHOD 01/10/2025 6:[address] [facility] Basophils Absolute 0.00 0.00 - 0.20 K/[facility] HEMETOLOGY METHOD 01/10/2025 6:[address] [facility] Immature Granulocytes Absolute 0.08(H) 0.00 - 0.03 K/[facility] LAB HEMETOLOGY METHOD 01/10/2025 6:[address] [facility] Blood Venous blood specimen / Unknown Venipuncture / Unknown 01/10/2025 5:55 PM EST 01/10/2025 6:05 PM EST Shahram Tripathi MD LAB BLOOD ORDERABLES Final Resu lt [facility]) [facility] [address] [place] [address], * Magnesium (01/10/2025 5:55 PM EST) Magnesium 2.3 1.9 - 2.6 mg/dL LAB CHEMISTRY METHOD 01/10/2025 6:[address] [facility] Blood Venous blood specimen / Unknown Venipuncture / Unknown 01/10/2025 5:55 PM EST 01/10/2025 6:05 PM EST us Shahram Tripathi MD LAB BLOOD ORDERABLES Final Resu lt [facility] [address] [place] [address], * (ABNORMAL) Basic metabolic panel (01/10/2025 5:55 PM EST) Sodium 138 133 - 145 mmol/L LAB CHEMISTRY METHOD 01/10/2025 6:[address] [facility] Potassium 4.8 3.5 - 5.5 mmol/L LAB CHEMISTRY METHOD 01/10/2025 6:36 PM [facility] Chloride 106 96 - 110 mmol/L LAB CHEMISTRY METHOD 01/10/2025 6:36 PM [facility] CO2 25 21 - 32 mmol/L LAB CHEMISTRY METHOD 01/10/2025 6:36 PM [facility] Anion Gap 7 3 - 11 LAB CHEMISTRY METHOD 01/10/2025 6:36 PM [facility] Glucose 130(H) 70 - 100 mg/dL LAB CHEMISTRY METHOD 01/10/2025 6:36 PM [facility] BUN 13 5 - 25 mg/dL LAB CHEMISTRY METHOD 01/10/2025 6:36 PM [facility] Creatinine 0.76 0.50 - 1.10 mg/dL LAB CHEMISTRY METHOD 01/10/2025 6:36 PM [facility] eGFR 80 >=60 mL/min/1. 73m2 LAB CHEMISTRY METHOD 01/10/2025 6:36 PM [facility] Comment:Calculation based on the??Chronic Kidney Disease Epidemiology Collaboration (CKD-EPI) equation refit??without adjustment for race. BUN/Creatinine Ratio 17.1 LAB CHEMISTRY METHOD 01/10/2025 6:36 PM [facility] Calcium 9.4 8.5 - 10.5 mg/dL LAB CHEMISTRY METHOD 01/10/2025 6:[address] [facility] Blood Venous blood specimen / Unknown Venipuncture / Unknown 01/10/2025 5:55 PM EST 01/10/2025 6:05 PM EST us Shahram Avinash Tripathi MD LAB BLOOD ORDERABLES Final Resu lt [facility] [address] [place] [address], [place] [phone] documented in this encounter Visit Diagnoses Diagnosis Secondary hypertension- Primary Other secondary hypertension, unspecified documented in this encounter Administered Medications Inactive Administered Medications - up to 3 most recent administrations Medication Order MAR Action Action Date Dose Rate Site ondansetron ODT (ZOFRAN-ODT) disintegrating tablet 4 mg 4 mg, oral, Once, On Fri01/10/25 at 1622, For 1 dose Given 01/10/2025 4:26 PM EST 4 mg documented in this encounter Active and Recently Administered Medications Times are shown in EST. Scheduled Medication Order 01/08/2025 01/09/2025 01/10/2025 ondansetron ODT (ZOFRAN-ODT) disintegrating tablet 4 mg (COMPLETED) 4 mg, oral, Once, On Fri01/10/25 at 1622, For 1 dose 1626 (Given - Provid er: Jennifer Jordan RN) documented in this encounter Orders Medications Ordered That Kirit ht Not Have Been Administered Count Last Ordered Date First Ordered Date ondansetron ODT (ZOFRAN-ODT) disintegrating tablet 4 mg 1 01/10/2025 Lab Orders Without Results Count Last Ordered D ate First Ordered Date POCT GLUCOSE, BLOOD 1 01/10/2025 EKG Orders Without Results Count Last Ordered D ate First Ordered Date ECG 12-LEAD 1 01/10/2025 Nursing Count Last Ordered Date First Orde red Date ACTIVITY 01/10/2025 documented in this encounter Additional Health Concerns Assessment Noted Time PHQ-9 Depression Total Score: 0 12/30/19 12:00 PM EST documented as of this encounter Care Teams Apprentice Stylist Relationship Specialty Start Date End Date Giles Campo MD [address] [place] [phone] PCP - General Internal Medicine 02/07/17 documented as of this encounter
--- OUTSIDE RECORDS SUMMARY | 2025-01-26 18:24 | XMS_ITS | Encounter Summary ---
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 For example, children's aide or elderly care for an older adult? [...] Sign Reading Time Taken Comments Blood Pressure 146/82 01/10/2025 9:48 AM EST Pulse 80 01/10/2025 9:48 AM EST Temperature 36.7 ??C (98.1 ??F) 01/10/2025 9:48 AM ES T Respiratory Rate 12 01/10/2025 9:48 AM EST Oxygen Saturation 100% 01/10/2025 8:10 AM EST Inhaled Oxygen Concentration - - Weight - - Height - - Body Mass Index - - documented in this encounter Medications at Time [...] Discharge Disposition Disposition Code Departure Means Destination Home or Self Care documented in this encounter Progress Notes * Renu Alexander RN - 01/10/2025 8:00 AM EST 0810 Patient arrives ambulatory with daughter for platelet infusion prior to cataract surgery today. Pt reports feeling well, she reports bruising to bilat arms/hands but no active bleeding. She denies gums bleeding, nose bleeding, or bleeding when using the bathroom. She states she has her procedure today 01/10/25 1130 and is NPO after 930am. Pt given water to sip prior to npo status. 0830 Peripheral IV started in left upper forearm, pt tolerated well. Pt asking when she needs to come for her next lab draw, message sent to and pt has an appt Wednesday 01/17 and per ok for labs to be done that Wednesday 01/17. This was explained to pt and daughter and she knows to have labs prior to appointment. 0856 Platelet transfusion began, pt feeling well and comfortable chairside. Daughter present with pt anddeepak grubbs within reach. 0912 Vitals obtained and infusion continuing. Pt feels comfortable chairside, no needs at this time. 0948 Platelet transfusion complete, pt tolerated well. No adverse reaction noted. Flush running. Pt aware of her appt on 01/17 and labs prior. 0953 Peripheral IV removed without difficulty, dry dressing applied. Pt ambulated to bathroom prior to leaving. 0955 Pt ambulated off unit in stable condition for cataract surgery. documented in this encounter Plan of Treatment Upcoming Encounters Date Type Department Care Team (Late st Contact Info) Description 02/28/2025 2:45 PM EDT Office Visit [facility] Hematology Oncology [address] [place] [phone] Jairo Bosch MD [address] [place] [phone] 04/28/2025 2:30 PM EDT Office Visit Internal Medicine - [facility] [address] [place] [address] Giles Campo MD [address] [place] [phone] 11/11/2025 3:30 PM EST Office Visit Vascular Surgery - [place] [address] [phone] Winston Barrett MD [address] [phone] documented as of this encounter Procedures Procedure Name Priority Date/Time Associated Diagnosis Comments TRANSFUSE PLATELETS Routine 01/10/2025 8:57 AM EST 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) Thrombocytopenia (CMS/HCC) PREPARE PLATELETS Routine 01/10/2025 8:1 9 AM EST 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) Thrombocytopenia (CMS/HCC) documented in this encounter Results * Transfuse platelets (01/10/2025 9:49 AM EST) us Subramony Danitza KENNEDY BLOOD TRANSFUSION O RDERABLES Final Result * Transfuse platelets: 1 Product (01/10/2025 9:49 AM EST) us Jairo Bosch MD BLOOD TRANSFUSION O RDERABLES Final Result * Prepare platelets: 1 Product (01/10/2025 8:19 AM EST) Product Code [id number] 01/10/2025 8:56 AM EST [facility] Unit Number [id number] 01/10/20 8:56 AM EST [facility] Dispense Status Transfused 01/10/2025 8:56 AM [facility] Unit ABO Rh APOS 01/10/2025 8:56 AM EST [facility] Unit Expiration Date Time [id number] 01/10/2025 8:56 AM EST [facility] Unit Blood Type 6200 01/10/2025 8:56 AM [facility] Blood Venous blood specimen / Unknown 01/10/2025 8:19 AM EST us Subramony Danitza KENNEDY BLOOD BANK PRODUCT ORDERABLES Final Result [facility] [address] [place] [address], documented in this encounter Visit Diagnoses Diagnosis 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)- Primary Thrombocytopenia (CMS/HCC) Unspecified thrombocytopenia documented in this encounter Orders Medications Ordered That Kirit ht Not Have Been Administered Count Last Ordered Date First Ordered Date sodium chloride 0.9 % infusion 1 01/10/2025 Nursing Count Last Ordered Date First Orde red Date ONC NURSING COMMUNICATION 10 1 01/10/2025 ONC NURSING COMMUNICATION 5 1 01/10/2025 ONC NURSING COMMUNICATION TRANSFUSION 1 documented in this encounter Additional Health Concerns Assessment Noted Time PHQ-9 Depression Total Score: 0 12/30/19 25 12:00 PM EST documented as of this encounter Care Teams Sporting Goods Salesperson Relationship Specialty Start Date End Date Giles Campo MD [address] [place] [phone] PCP - General Internal Medicine 02/07/17 documented as of this encounter
--- OUTSIDE RECORDS SUMMARY | 2025-01-26 18:24 | XMS_ITS | Data Portability ---
Author Organization [place] [facility] [place] Address [address] [place] [address] Care Team Providers Care Package Worker Name Role Phone GALLITO DEAN Primary Care Provider Assessment Encounter Date Assessment Date Assessment LastModified by Organization Details LastModified Time 06/17/2023 06/17/2023 Stiven MAN, 05/22/23 CJRI. Patient was last seen in [facility] ER on 06/11/2023 with CAT scan which revealed a ill-defined hematoma within the anterior aspect of the right hip arthroplasty with subcutaneous edema around the right hip. Patient notes notable improvement she is having discomfort however tolerable level. She will continue with her physical therapy exercise she can go back to physical therapy formally s. She understands will take antibiotic prophylaxis. She will start back on her 81 mg baby aspirin daily. She can discontinue her morphine sulfate that was prescribed by the emergency department. She has a scheduled follow-up visit at the end of the month with Dr. Roy should she have any questions or concerns she should contact our office. Regarding her dizziness I did recommend that she be seen at the ER for further work-up for which she declined which was witnessed by Shey Noriega. She understands that if she has worsening symptoms she should call an ambulance for transport. nonsteroidal anti-inflammatory regimen (discussed were the pros, cons, benefits and risks as well as any black box warnings) in patients over 60 years old they should be very cautious in taking these medications due to potential decreased kidney function and or elevated blood pressure. - Analgesic pain medication for pain suppression (discussed were the pros, cons, benefits and risks as well as any black box warnings) - The use of topical pain relieving medication were discussed - The use of ice to decrease inflammation and pain - The use of assistive ambulatory devices for ambulation and fall prevention - Formal specific guided physical therapy program I reviewed my findings at length with the patient today. ? ? ?We discussed the nature and etiology of this problem along with current treatment options. We discussed the expected course and outcomes and what to expect. We also discussed risks and benefits. ? ? ? All of their questions were answered today, and there was exhibited understanding and comprehension of all that was discussed. Time Spent: 10 minutes were spent reviewing previous imaging and charting. ? ? ?10 minutes were spent obtaining patient history. ? ? ?5 minutes were spent on physical exam. ? ? ?5? ? ?minutes were spent explaining diagnosis and assessment. Today's documentation was made using voice recognition software. This note may contain grammatical errors secondary to the software. [email or web address] Not available 06/17/2023 13:14:32 07/04/2023 07/04/2023 HPI : Patient is here for follow-up for her right hip pain. She has had a difficult course. 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 She is now recovering appropriately at rehab. Pain is improving. Thigh swelling is improving. Physical Exam : Patient is well nourished, well- developed, in no acute distress, with appropriate mood and affect. The patient is AAOx3. The patient demonstrates good hip motion and strength. The incision is well healing. Thigh swelling is down compared to last week. She is neurovascular intact. Assessment/Plan : The patient is functioning well 6 weeks from total hip arthroplasty. That was complicated by development of pseudo aneurysm that required embolization. I recommend weightbearing as tolerated. I recommend range of motion as tolerated. Okay to go to pool exercises. I recommend staying off aspirin for the next 2 weeks. I will see her again in 1 month for recheck. Not available 07/04/2023 14:08:32 08/01/2023 08/01/2023 Pat is feeling much better now about 2 months from right total hip replacement, that was complicated by development of pseudoaneurysm. She has really minimal to no pain about the hip. She is building up her strength. She is stretching. She is working with physical therapy. Incision is clean dry intact. There is no significant hematoma over the right thigh. She does have some SI area pain. She had had that preoperatively. Happy with her progress. Continue physical therapy as needed. Follow-up in 2 months with x-rays of the right hip at that time. Not available 08/01/2023 11:34:27 09/26/2023 09/26/2023 HPI : ? Patient is here for 4 month(s) follow-up for a RIGHT total hip replacement.? this was complicated by development of hematoma which required pseudoaneurysm embolization. Overall she reports really no pain around the hip. She does have occasional groin discomfort. She does have SI joint pain with known SI joint issues in the past. She does report numbness laterally. She says standing up she feels unsteady at first. She has been working with physical therapy. Overall, patient reports good pain relief in the hip and satisfactory sabianist of function in terms of activities of daily living. Physical Exam : Patient is well nourished, well-developed, in no acute distress, with appropriate mood and affect. The patient is oriented to time, place, and person. Respirations are even and unlabored. There is no inguinal adenopathy. Examination of the contralateral hip shows normal range of motion, strength, no tenderness, and intact skin. The operative limb is well-perfused, with well healed skin incision. The patient demonstrates good hip motion, stability, and strength. There is no pain with ROM Muscle strength is normal. Pedal pulses are palpable. Assessment/Plan : This patient is functioning well after RIGHT total hip arthroplasty. Continue to work on hip conditioning exercises. Qvwi-gax-ophbves medications as needed. We discussed things that I expect improved. We discussed that having numbness laterally is normal and this will shrink with time although there will be an area that is always numb. We discussed that I encouraged her to continue to work on strengthening. We discussed some of the discomforts do go away throughout 1 year from surgery. Ultimate failure may occur due to mechanical wear, loosening or breakage. Follow-up is recommended to assess for the possibility of failure. Follow-up at 1 year from surgery with repeat x-rays of the right hip at that time. Not available 09/26/2023 10:15:00 05/28/2024 05/28/2024 HPI : ? Patient is here for 1 year follow-up from right total hip replacement which was complicated by hematoma formation. She has recovered very well now. She states earlier after January 2024 was when she really turned a corner. She is walking well. She has minimal pain at baseline. Certain movements can cause some increase in pain although it is minor. Overall patient reports good pain relief in the hip and satisfactory sabianist of function in terms of activities of daily living. Physical Exam : Patient is well nourished, well-developed, in no acute distress, with appropriate mood and affect. The patient is oriented to time, place, and person. Respirations are even and unlabored. There is no inguinal adenopathy. Examination of the contralateral hip shows normal range of motion, strength, no tenderness, and intact skin. The operative limb is well-perfused, with well healed skin incision. The patient demonstrates good hip motion, stability, and strength. There is no pain with ROM Muscle strength is normal. Pedal pulses are palpable. Assessment/Plan : This patient is functioning well after RIGHT total hip arthroplasty. Continue to work on hip conditioning exercises. Fane-wbn-qbyfasa medications as needed. Ultimate failure may occur due to mechanical wear, loosening or breakage. Follow-up is recommended to assess for the possibility of failure. Plan for follow-up at 5 years from surgery with repeat x-rays of the right hip at that time. Not available 05/28/2024 13:29:40 Plan of Treatment Reminders Order Date Submit Date Provider Last Modified By Organization Details Last Modified Time Details Appointments None record ed. Lab None record ed. Referral None record ed. Procedures None record ed. Surgeries None record ed. Imaging XR, hip, unilat eral, 2 or 3 view 024 05/28/20 24 [email or web address] [facility], [address], [address], [place], [address], 4 13:41:39 XR, hip, unilat eral, 2 or 3 view 023 09/26/20 23 YAZAN [facility], [address], [address], [place], [address], 3 10:15:37 Medication Orders None record ed. Patient TargetsNo targets recorded. Patient Instructions Encounter Date Encounter Id Patient Instructions Last Modified By Organization Details Last Modified Time 09/26/2023 [id number] AP pelvis, AP an d lateral radiographs of the right hip taken today demonstrate a right total hip replacement with components in appropriate position without any signs of hardware related complication. Not available 09/26/2023 10:15:32 05/28/2024 [id number] AP pelvis, AP an d lateral radiographs of the right hip taken today demonstrate a right total hip replacement with components in appropriate position without any signs of hardware related complication. Not available 05/28/2024 13:29:53 Reason for Referral None Reported. Results Created Date Observation Date Name Description Value Unit Range Abnormal Flag Note LastModifiedBy Organization Detail LastModifiedTime 07/07/2006/28/2023 imagi ng/helder thaoos tic resul t No observ ation record ed. [email or web address] [facility] ([facility]) [address], [place], [address], 07/08/2023 09:28:44 Result Notes None recorded. Problems Name Problem SNOMED Code Status Onset Date Resolution Date Notes Provider Name and Address Organization Details Recorded Time History of total replacement of right hip joint 6213955597325 00 Active [address] [place] - [facility] 3 13:45:12 Electrocard iogram abnormal 477473435 Active [address] [place] - [facility] 3 13:45:12 Benign essential hypertensio n 0443048 Active [address] [place] - [facility] 3 13:45:12 Chronic obstructive pulmonary disease 64715088 Active [address] [place] - [facility] 3 13:45:12 History of artificial joint 060452818 Active 2022 Sharath Li null, [place] - [facility] 3 13:45:12 Monocytosis 33273253 Active 2016 Sharath Li null, [place] - [facility] 3 13:45:12 Gastroesoph ageal reflux disease without esophagitis 290388419 Active 2017 Sharath Li null, [place] - [facility] 3 13:45:12 Mixed hyperlipide ana 301798585 Active 2022 Sharath Li null, [place] - [facility] 3 13:45:12 First degree atrioventri cular block 561056962 Active 2022 Sharath Li null, [place] - [facility] 3 13:45:12 Subclavian artery stenosis 638493630 Active 2022 Sharath Li null, [place] - [facility] 3 13:45:12 Thrombocyto penic disorder 573897192 Active 2016 Sharath Li null, [place] [facility] 13:45:12 Osteopenia 621325968 Active 2016 Sharath Li null, [place] - [facility] 3 13:45:12 Midline cystocele 064372530 Active 2017 Sharath Li null, [place] - [facility] 3 13:45:12 Coronary atheroscler osis 813249860 Active 2017 Sharath Li null, [place] - [facility] 3 13:45:12 Tubular adenoma of colon 381821553 Active 2017 Sharath Li null, [place] - [facility] 3 13:45:12 Multiple nodules of lung 564519506 Active 2016 Sharath Li null, [place] - [facility] 3 13:45:12 Preprocedur al examination done 1413691238492 04 Active 2022 Sharath Li null, [place] - [facility] 3 13:45:12 Hyperlipide ana 10003432 Active 2016 Sharath Beattynchard null, [place] [facility] 13:45:12 Dyspnea on exertion 91164900 Active 2022 Sharathpete BeattyLi null, [place] - [facility] 3 13:45:12 Allergic rhinitis 56316718 Active 2016 Sharath Li null, [place] - [facility] 3 13:45:12 Simple chronic bronchitis 46851395 Active 2019 Sharathpete BeattyLi [facility], [facility] 13:45:12 Left bundle branch block 81893335 Active 2022 Sharath Li jeanne, [place] - [facility] 13:45:12 Osteoarthri tis of right hip joint 7112684456577 07 Active 2022 Sharath Beattynchard [facility], [place] [facility] 3 13:45:12 Problem Notes None recorded. Procedures Surgical History Date Name Laterality Status Provider Name and Address Organization Details Recorded Time Knee Surgery completed Sharath Boateng - [facility] 04/11/2023 14:02:59 Imaging Results Imaging Date Name Status LastModified by Organiz ation Details LastModified Time 06/28/2023 imaging/diag nostic result completed [email or web address] [facility] ([facility] [address] [facility], [place], [address], 07/08/2023 09:28:44 Procedure Notes None recorded. Medical Equipment None Reported. Allergies Allergen ID Allergen Name Allergen Category Reaction Reaction Severity Criticality Documentation Date Start Date Code Code System Note Provider Name and Address Organization Details Recorded Time 4541 Substance with sulfonami de structure and antibacte rial mechanism of action (substanc e) medicatio n Not available Not available Not available 04/11/2023 20041 8003 SNOMED Sharath angel, [place] - [facility] 3 14:01:47 4542 Product containin g penicilli n (product) medicatio n Not available Not available Not available 04/11/2023 66243 8001 SNOMED Sharath Milianhard [facility], [place] - [facility] 3 14:01:56 Medications Name Sig Start Date Stop Date Status Note LastModified by Organization Details LastModified Time nystatin 100,000 unit/mL oral suspension SHAKE LIQUID AND TAKE 5 ML BY MOUTH FOUR TIMES DAILY FOR 10 DAYS 05/27 completed Not Available Not Available Not Available prednisone 10 mg tablet TAKE 3 TABLETS BY MOUTH EVERY DAY FOR 3 DAYS THEN 2 EVERY DAY FOR 3 DAYS THEN 1 EVERY DAY FOR 3 DAYS 05/27 completed Not Available Not Available Not Available doxycycline hyclate 100 mg capsule TAKE 1 CAPSULE BY MOUTH TWICE DAILY FOR 10 DAYS 05/27 completed Not Available Not Available Not Available albuterol sulfate 2.5 mg/3 mL (0.083 %) solution for nebulizatio n Inhale 2.5 mg every 6 hours by inhalatio n route. 09/26 completed Not Available Not Available Not Available cetirizine 10 mg tablet 10 mg by oral route. active Not Available Not Available No t Available cefpodoxime 200 mg tablet TAKE 1 TABLET BY MOUTH TWICE DAILY. START 11/24/22 MORNING 05/27 completed Not Available Not Available Not Available benzonatate 200 mg capsule TAKE 1 CAPSULE BY MOUTH EVERY 8 HOURS FOR 7 DAYS NEEDED FOR COUGH 05/27 completed Not Available Not Available Not Available diclofenac ER 100 mg tablet,exte nded release 24 hr 05/11 completed Not Available Not Available Not Available prednisone 20 mg tablet TAKE 1 TABLET BY MOUTH DAILY FOR 5 DAYS 05/27 completed Not Available Not Available Not Available loperamide 2 mg tablet 2 mg as needed by oral route. active Not Available Not Available No t Available clindamycin HCl 150 mg capsule TAKE 4 CAPSULES BY MOUTH 1 HOUR PRIOR TO DENTAL APPOINTME NT active Not Available Not Available No t Available amlodipine 2.5 mg tablet TAKE 1 TABLET BY MOUTH DAILY active Not Available Not Available No t Available aspirin 81 mg tablet,andres yed release TAKE 1 TABLET BY MOUTH DAILY active Not Available Not Available No t Available tramadol 50 mg tablet TAKE 1 TABLET BY MOUTH DAILY NEEDED FOR PAIN active Not Available Not Available No t Available acetaminoph en 500 mg tablet Take 1000 mg as needed by oral route. 09/26 completed Not Available Not Available Not Available ondansetron 8 mg disintegrat ing tablet 8 mg every 8 hours by oral route. 09/20 completed Not Available Not Available Not Available meloxicam 7.5 mg tablet 09/20 completed Not Available Not Available Not Available famotidine 20 mg tablet TAKE 1 TABLET BY MOUTH TWICE DAILY WHILE ON STEROIDS 05/27 completed Not Available Not Available Not Available methocarbam ol 750 mg tablet 750 mg every 6 hours by oral route. 06/30 completed Not Available Not Available Not Available Ear Wax Removal Drops 6.5 % PLACE 5 DROPS INTO BOTH EARS 2 TIMES DAILY FOR 10 DAYS. TILT HEAD SO EAR TO BE TREATED POINTS TOWARDS CEILING. HOLD MEDICATIO N IN EAR USING COTTON 05/27 completed Not Available Not Available Not Available dexamethaso ne 2 mg tablet TAKE 1 TABLET BY MOUTH THREE TIMES DAILY WITH MEALS FOR 3 DAYS 05/27 completed Not Available Not Available Not Available oseltamivir 75 mg capsule TAKE 1 CAPSULE BY MOUTH TWICE DAILY FOR 5 DAYS active Not Available Not Available No t Available lidocaine 5 % topical patch 05/27 completed Not Available Not Available Not Available docusate sodium 100 mg capsule TAKE 1 CAPSULE BY MOUTH TWICE DAILY 05/27 completed Not Available Not Available Not Available gabapentin 300 mg capsule 05/27 completed Not Available Not Available Not Available metoprolol succinate ER 25 mg tablet,exte nded release 24 hr 25 mg by oral route. active Not Available Not Available No t Available lorazepam 1 mg tablet TAKE 1 TABLET BY MOUTH NEEDED FOR ANXIETY FOR UP TO 2 DOSES. TAKE 1 TABLET JUST PRIOR TO IMAGING PROCEDURE 05/27 completed Not Available Not Available Not Available lovastatin 20 mg tablet 20 mg by oral route. active Not Available Not Available No t Available ipratropium bromide 42 mcg (0.06 %) nasal spray USE 1 SPRAY IN EACH NOSTRIL THREE TIMES DAILY active Not Available Not Available No t Available morphine 15 mg immediate release tablet TAKE 1 TABLET BY MOUTH EVERY 4 TO 6 HOURS NEEDED FOR PAIN 09/20 completed Not Available Not Available Not Available ondansetron 4 mg disintegrat ing tablet DISSOLVE 1 TABLET ON THE TONGUE EVERY 8 HOURS NEEDED FOR NAUSEA 09/20 completed Not Available Not Available Not Available fluticasone propionate 50 mcg/actuati on nasal spray,suspe nsion INSTILL 2 SPRAYS IN EACH NOSTRIL DAILY FOR 30 DAYS 05/27 completed Not Available Not Available Not Available oxycodone 5 mg tablet TAKE 1 TO 2 TABLETS BY MOUTH EVERY 4 HOURS NEEDED FOR MODERATE PAIN SCALE 4-6 05/27 completed Not Available Not Available Not Available azithromyci n 500 mg tablet TAKE 1 TABLET BY MOUTH DAILY FOR 5 DAYS active Not Available Not Available No t Available Senokot-S 8.6 mg-50 mg tablet 1 {tbl} by oral route. 06/30 completed Not Available Not Available Not Available tizanidine 2 mg capsule TAKE 1 CAPSULE BY MOUTH EVERY 6 HOURS NEEDED FOR MUSCLE SPASMS 05/27 completed Not Available Not Available Not Available Symbicort 160 mcg-4.5 mcg/actuati on HFA aerosol inhaler INHALE 2 PUFFS INTO THE LUNGS TWICE DAILY active Not Available Not Available No t Available Calcium 500 + D 500 mg-10 mcg (400 unit) tablet 2 tablets every day by oral route. active Not Available Not Available No t Available BinaxNOW COVID-19 Ag Self Test kit TEST DIRECTED TODAY 09/20 completed Not Available Not Available Not Available Vitals Date Recorded Body height Body mass index (BMI) Body weight Provider Name and Address Organization Details Last Updated DateTime 09/26/2023 165.1 cm 26.1 kg/m2 [id number] jame Sharath Li [facility] 09/26/2023 09:44:49 Date Recorded Body height Body mass index (BMI) Body weight Provider Name and Address Organization Details Last Updated DateTime 07/04/2023 165.1 cm 26.1 kg/m2 31035 g Sharath Li [facility], [facility] 07/04/2023 13:45:22 Social History Question Answer Notes LastModified by Organizat ion Details LastModified Time Tobacco Smoking Status Former Smoker Sharath angel, [facility] 04/11/2023 14:02:34 What Is Your Level Of Alcohol Consumption? Occasional [email or web address] Information not available 04/11/2023 How Many Times Per Week Do You Consume Alcohol? Less Than 1 Time Per Week [email or web address] Information not available 04/11/2023 When Did You Quit Smoking? 16+yearssincel carl [email or web address] Information not available 09/26/2023 Do You Use Any Illicit Or Recreational Drugs? No [email or web address] Information not available 04/11/2023 How Many Years Have You Smoked Tobacco? 32 [email or web address] Information not available 04/11/2023 Do You Or Have You Ever Used Any Other Forms Of Tobacco Or Nicotine? No [email or web address] Information not available 04/11/2023 Sex: Unknown Functional Status None recorded. Mental Status None recorded. Family History Nothing Reported. Medical History Condition Response COPD Y Hypertension Y Gynecological HistoryNo gynecological history recorded. Obstetrics History GPAL:G 0 P 0 0 0 0 Past Encounters Encounter ID Performer Location Encounter Start Date Encounter Closed Date Diagnosis/Indication Diagnosis SNOMED-CT Code Diagnosis ICD10 Code Diagnosis Note [id number] MD MEJIA Armenta [address] [facility] [address] [place] [address] 04/11/2023 13:23:30 04/11/2023 14:50:49 Pain in right hip joint 6473470408 66835 M25.551 Osteoarthr itis of right hip joint 4882819685 27046 M16.11 Arthritis of hip 2696462 6 M13.859 [id number] [facility] [address] [facility] [address] [place] [address] 06/02/2023 12:58:32 06/02/2023 13:30:34 History of total replacement of right hip joint 7740598153 98991 Z96.641 [id number] MD MEJIA Armenta [address] [facility] [address] [place] [address] 06/17/2023 12:43:59 06/17/2023 13:08:42 Postoperative care 803540311 Z48.89 [id number] MD MEJIA Armenta [address] [facility] [address] [place] [address] 07/04/2023 13:39:38 07/04/2023 14:09:49 Aftercare 763673723 Z47.1 History of total replacement of right hip joint 3046808281 06046 Z96.641 [id number] MD MEJIA Armenta [facility] [address] [facility] [address] [place] [address] 08/01/2023 11:27:00 08/01/2023 11:43:18 Aftercare 345376740 Z47.1 History of total replacement of right hip joint 1510328045 21183 Z96.641 [id number] MD MEJIA Armenta [facility] [address] [address] 09/26/2023 09:38:26 09/26/2023 10:10:26 History of right hip replacement 4294656643 366732 Z96.641 Aftercare 176731994 Z47. 1 [id number] MD MEJIA Armenta [facility] [address] [address] 05/28/2024 13:01:40 05/28/2024 13:32:47 History of repair of hip joint 926467001 Z96.641 Additional diagnosis detail: History of right hip replacemen t Surgical follow-up 55041 4000 Z47.1 Z96.641 Additional diagnosis detail: Aftercare following right hip joint replacemen t surgery Health Concerns Section Related Observation LastModified by Organization Detai ls LastModified Time None Recorded Concern Status LastModified by Organization Details LastModified Time None Recorded Advance Directives Directive None Recorded Payers Encounter Date Sequence Insurance Name Policy Number Policy Price Covered Member ID Price Member ID Guarantor Name 06/17/[address] [facility] (MEDICARE REPLACEMENT/A DVANTAGE - PPO) [id number] [place] [id number] [place] 07/04/[address] [facility] (MEDICARE REPLACEMENT/A DVANTAGE - PPO) [id number] [place] [id number] [place] 08/01/[address] [facility] (MEDICARE REPLACEMENT/A DVANTAGE - PPO) [id number] [place] [id number] [place] 09/26/[address] [facility] (MEDICARE REPLACEMENT/A DVANTAGE - PPO) [id number] [place] [id number] [place] 05/28/[address] [facility] (MEDICARE REPLACEMENT/A DVANTAGE - PPO) [id number] [place] [id number] [place] Notes Date Note Type Note Provider Name and Address Organization Details Recorded Time 06/17/2023 text/html Last Note : This is a very pleasant 78-year-old female status post Stiven robotic assisted right total hip arthroplasty by Dr. Roy on 03/22/2023.?Patient states she was doing well up until the last 24 hours. She states she did her second physical therapy she had sudden onset of right hip pain and notable swelling which prompted her to go to [facility] ER.?In the ER did a full work-up which included plain x-rays as well as a CAT scan which revealed a ill-defined hematoma within the anterior aspect of the right hip arthroplasty with subcutaneous edema around the right hip.?Her emergency care was managed by Dr. Sprgaue. He did a work-up which included ESR and CRP.?ESR was 3, CRP was 0.3. She did not exhibit any red flag symptoms. Denies paresthesia. Should her pain control was with oral morphine in the ER which gave her good relief.?Patient ER room 16.?Awake alert and oriented x3 no acute distress. She appears to be comfortable she is with her daughter.?There was an Taran wrap on the right thigh. This was taken down she has a well-healed surgical anterior incision within the groin without obvious signs of infection she has minimal discomfort. She does not have any tenderness, erythema or induration. Gentle range of motion of the hip appears to be normal. She is neurovascularly intact distally.?Taran wrap was reapplied with neurovascularity checked afterwards for which she has strong DP and PT pulses and excellent sensation.?She notes notable improvement.?Curr ent plan after speaking with the ER attending as well as Dr. Roy's patient is to go home she can hold off on physical therapy. She can discontinue her 81 mg baby aspirin twice daily per Dr. Roy.?I will see her back in my office next week for reevaluation. Should her symptoms worsen she should contact our office immediately or go to the ER if it is significant discomfort.?Debi d,?Patti Medina MS, BLANCA HPI:Female technical service rep present throughout the interview, exam and exiting the room was Shey Noriega 78-year-old female following up on her ER visit 06/11/2023 for which she had hematoma anterior right thigh. She discontinued her 81 mg baby aspirin twice daily at that time due to the finding. Her pain is well under control she is states she no longer wants to take her morphine sulfate which they prescribed her in the ER. She did states some intermittent dizziness today however she is not dizzy now denies chest pain, shortness of breath, jaw pain back pain or arm pain. She is also requesting to start back on 181 mg baby aspirin for her known subclavian artery occlusion managed by vascular surgery here at [facility]. PATTI MEDINA PA-C [address] [place] [address], [place], [address], [place] [facility], P 06/17/2023 13:14:39 OBGyn Episode No OBEpisode recorded.
--- OUTSIDE RECORDS SUMMARY | 2025-01-26 18:24 | XMS_ITS | Encounter Summary ---
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 For example, summer child caregiver or elderly care for an older adult? [...] Sign Reading Time Taken Comments Blood Pressure 110/64 12/30/2024 3:37 PM EST Pulse 67 12/30/2024 3:37 PM EST Temperature 37.4 ??C (99.3 ??F) 12/30/2024 3:37 PM ES T Respiratory Rate 18 12/30/2024 3:37 PM EST Oxygen Saturation 100% 12/30/2024 11:00 AM EST Inhaled Oxygen Concentration - - [...] MOUTH ONCE DAILY 100 tablet 1 12/31/2024 lovastatin (MEVACOR) 20 mg tablet Take 1 tablet (20 mg total) by mouth 1 (one) time each day. 02/06/2023 metoprolol succinate (TOPROL-XL) 25 mg 24 hr tablet Take 1 tablet (25 mg total) by mouth. 12/16/2017 5 documented as of this encounter Discharge Disposition Disposition Code Departure Means Destination Home or Self Care documented in this encounter Progress Notes * Amelia Marcus MA - 12/30/2024 11:00 AM ESTEncounter addended by: Amelia Marcus MA on: 01/04/2025 2:54 PM Actions taken: Charge Capture section accepted * Shruthi Cordova RN - 12/30/2024 11:00 AM EST Pt arrives for blood transfusion for Hgb 7.9 on 12/28. Pt reports some dizziness with changing positions too quickly as well as mild fatigue. Pt reports I actually feel better now than I have in the past 4 years. Pt notes she had cataract surgery on right eye 12/27 and second one will be on 01/10. Pt will continue weekly labs- confirmed with Dr Garvey she should have next labs on Wednesday 01/03. Pt agrees to plan. Pt on new medication regimen per Dr Garvey. See home med list. Pt resting with items in reach. Type and screen bracelet applied and tube sent down stat. Pt had blood transfusion previously during a hospital admission last year. Education provided and consent obtained. 1230- Pt enjoyed lunch with friend, Carlos at side. Watching Tv, resting comfortably. 1338- Blood ready and now infusing. Pt resting with items in reach. Will call with any concerns. 1545- Pt completed blood transfusion without incident. Pt left ambulatory in stable condition with Carlos at side. Steady, strong gait observed/. documented in this encounter Plan of Treatment Upcoming Encounters Date Type Department Care Team (Late st Contact Info) Description 02/28/2025 2:45 PM EDT Office Visit [facility] Hematology Oncology [address] [place] [phone] Ivan-Jairo Garvey MD [address] [place] [phone] 04/28/2025 2:30 PM EDT Office Visit Internal Medicine - [address] [phone] Giles Campo MD [address] [place] [address] 11/11/2025 3:30 PM EST Office Visit Vascular Surgery - [place] [address] [address] Winston Barrett MD [address] [address] documented as of this encounter Procedures Procedure Name Priority Date/Time Associated Diagnosis Comments TRANSFUSE RED BLOOD CELLS Routine 12/30/2024 1:38 PM EST 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) Thrombocytopenia (CMS/HCC) TYPE AND SCREEN Routine 12/30/2024 11:13 AM EST 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) Thrombocytopenia (CMS/HCC) PREPARE RBC Routine 12/30/2024 11:12 AM EST 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) Thrombocytopenia (CMS/HCC) documented in this encounter Results * Transfuse RBC: 1 Units (12/30/2024 3:38 PM EST) us Jairo Bosch MD BLOOD TRANSFUSION O RDERABLES Final Result * Transfuse RBC (12/30/2024 3:38 PM EST) us Jairo Bosch MD BLOOD TRANSFUSION O RDERABLES Final Result * Type and screen (12/30/2024 11:13 AM EST) ABO Group A 12/30/2024 1:27 PM EST [facility] Rh Type Negative 12/30/2024 1:27 PM EST [facility] Antibody Screen Negative 12/30/2024 1:27 PM EST [facility] Blood Venous blood specimen / Unknown Venipuncture / Unknown 12/30/2024 11:13 AM EST 12/30/2024 11:24 AM EST us Jairo Bosch MD LAB BLOOD BANK TEST ORDERABLES Final Result Performing Organization Address City/State/[facility] Co de Phone Number [facility] [address] [place] [address], * Prepare RBC: 1 Units (12/30/2024 11:12 AM EST) Product Code [id number] 12/30/2024 1:42 PM EST [facility] Unit Number [id number] 12/30/19 1:42 PM EST [facility] Crossmatch Compatible 12/30/2024 1:30 PM EST [facility] Dispense Status Transfused 12/30/2024 1:42 PM [facility] Unit ABO Rh ANEG 12/30/2024 1:42 PM EST [facility] Unit Expiration Date Time [id number] 12/30/2024 1:42 PM EST [facility] Unit Blood Type 0600 12/30/2024 1:42 PM EST [facility] Blood Venous blood specimen / Unknown 12/30/2024 11:12 AM EST 12/27/2024 8:30 AM EST Jairo Bosch MD BLOOD BANK PRODUCT ORDERABLES Final Result [facility]) [facility] [address] [place] [address], documented in this encounter Visit Diagnoses Diagnosis 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
--- OUTSIDE RECORDS SUMMARY | 2025-01-26 18:24 | XMS_ITS ---
Author Organization [facility] Address [address] [place] [address] Phone Care Team Providers Care Tire And Lube Technician Name Role Phone Giles Campo MD Primary Care Provider [phone] [phone] Active Problems Problem Noted Date Diagnosed Date Abnormal EKG 08/05/2024 Chronic myelomonocytic leuke ana not having achieved remission 08/05/2024 Dyspnea on exertion 08/05/2024 Essential hypertension, benign 08/05/2024 First degree AV block 08/05/2024 Gastroesophageal reflux disease without esophagi tis 08/05/2024 HLD (hyperlipidemia) 08/05/2024 Mixed hyperlipidemia 08/05/2024 Kidney cysts 06/15/2024 S/P joint replacement 06/28/2023 Osteoarthritis of right hip 05/15/2023 Subclavian artery stenosis, left 01/14/2023 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 Salcido returns for her second postop visit since an L2-3 decompression with a right L4-5 decompression foraminotomy on 07/08/2022. Unfortunately, she was readmitted for 8 days after her initial discharge due to excruciating back pain. She is now home and doing better than that but not too much better than her baseline. She is currently in physical therapy and trying to keep up with her aquatic classes and doing more exercise at home. Overall, her activity tolerance is improving and she states that just yesterday was the first time that she used a grocery cart instead of a scooter and she was able to do some vacuuming. She continues to describe transverse lower back pain into her buttock and right proximal leg/hip. She has had rare episodes of losing control of her bowels. She has some urinary urgency but maintains sensation and control. She has not noticed any improvement in her pain on gabapentin. Taking 400 mg of Motrin at night helps her sleep. On exam, her incision is well-healed with slight fullness at the cranial end which is typical of some muscle crowding at that point. There is no fluctuance or erythema. She is mildly tender over the bilateral SI joints and her transverse back pain is at this level. Strength is 5 out of 5 except right hip flexion at 4+/5. She stands and walks with her feet pointed in neutral, and improvement from when the right foot turned laterally. I encouraged Ms. Salcido to continue her physical therapy and to use good body mechanics while performing activities at home. It can take up to a year to see the full benefits of surgery. We discussed how to taper off of her gabapentin over the next 1 to 2 weeks and I recommended that she take the Motrin 400 mg twice a day as this will also help her during the daytime. She has a prescription for diclofenac which she was taking preoperatively, she cannot double up on these it is either diclofenac or Motrin. Cervical spondylosis 11/30/2021 Overview (01/02/2024): Last Assessment & Plan: This is a 76-year-old woman who describes a 2-1/2-week history of severe neck pain and intense headache starting on September 22, 2021. She reports that the pain has since resolved. She has tried nonsteroidals in the past and been to physical therapy for her low back and had some chiropractic treatments for her neck. Unfortunately nothing was helping with this problem. Fortunately it did seem to resolve on its own. Given her a prescription for physical therapy including cervical traction which she will use at her discretion. I also gave her a paper on natural anti- inflammatory agents for pain relief in athletes as she takes diclofenac but can only take it every other day. She will call us for follow-up if her pain returns. 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 Diverticulosis 12/25/2017 Overview (01/02/2024): Moderate 11/2015 Fatty liver 12/25/2017 Overview (01/02/2024): 05/2016 Tubular adenoma of colon 12/25/2017 Overview (01/02/2024): L colon tubular adenoma 08/2000, hyperplastic polyp 05/2004, 2009 and 08/2016 neg. Overview: L colon tubular adenoma 08/2000, hyperplastic polyp 05/2004, 2009 and 08/2016 neg. Nephrolithiasis 12/25/2017 Overview (01/02/2024): and renal cysts R kidney 05/2016 DDD (degenerative disc disease), lumbosacral 06/2018 Overview (01/02/2024): L3-4, L5-S1 Actinic keratosis 12/25/2017 Overview (01/02/2024): forehead and face 08/2017 Rupture of biceps tendon 12/25/2017 Overview (01/02/2024): R shoulder, 03/2015 Coronary atherosclerosis 12/01/2017 HTN (hypertension) 12/01/2017 COPD (chronic obstructive pulmonary disease) 01/2018 Overview (01/02/2024): 08/18/2017 hospitalized [place], COPD exacerbation secondary to rhinovirus/enterovirus resp infection. Allergic rhinitis 09/15/2017 Pneumonitis 09/15/2017 Multiple pulmonary nodules 09/15/2017 Thrombocytopenia 06/30/2017 Overview (01/02/2024): Onc(06/22/18): followed by Dr Telles.continue surveillance for thrombocytopenia. F/u in 4 months Onc (02/23/18): counts stable. Current level of thrombocytopenia or monocytois does not warrant treatment initiation. Return in 3 months and repeat labs in 3 months with PCP. Due to recurrent infections, will evlauate for humoral immunodeficiency and hypogammaglobulinemia, she may need IV Ig. Hem/onc(12/22/17): mild lymphocytosis and thrombocytopenia. Differential include MDS vs ITP vs CMML. Counts were stable, recent elevation in WBC 2/2 infection. Continue to monitor without intervention, f/u in 3 months. Does not warrant treatment with current level of thrombocytopenia or monocytosis. Repeat CBC in 3 months with PCP and if levels decline , refere back. Due to Recurrent infections , will be evaluated for humoral immunodeficiency and hypogammaglobulinemia. She may need IVIG. Overview: Currently, Hem/onc(12/22/17): mild lymphocytosis and thrombocytopenia. Differential include MDS vs ITP vs CMML. Counts were stable, recent elevation in WBC 2/2 infection. Continue to monitor without intervention, f/u in 3 months. Does not warrant treatment with current level of thrombocytopenia or monocytosis. Repeat CBC in 3 months with PCP and if levels decline , refere back. Due to Recurrent infections , will be evaluated for humoral immunodeficiency and hypogammaglobulinemia. She may need IVIG. Overview: Onc (02/23/18): counts stable. Current level of thrombocytopenia or monocytois does not warrant treatment initiation. Return in 3 months and repeat labs in 3 months with PCP. Due to recurrent infections, will evlauate for humoral immunodeficiency and hypogammaglobulinemia, she may need IV Ig. Hem/onc(12/22/17): mild lymphocytosis and thrombocytopenia. Differential include MDS vs ITP vs CMML. Counts were stable, recent elevation in WBC 2/2 infection. Continue to monitor without intervention, f/u in 3 months. Does not warrant treatment with current level of thrombocytopenia or monocytosis. Repeat CBC in 3 months with PCP and if levels decline , refere back. Due to Recurrent infections , will be evaluated for humoral immunodeficiency and hypogammaglobulinemia. She may need IVIG. Overview: Onc(06/22/18): followed by Dr Telles.continue surveillance for thrombocytopenia. F/u in 4 months Onc (02/23/18): counts stable. Current level of thrombocytopenia or monocytois does not warrant treatment initiation. Return in 3 months and repeat labs in 3 months with PCP. Due to recurrent infections, will evlauate for humoral immunodeficiency and hypogammaglobulinemia, she may need IV Ig. Hem/onc(12/22/17): mild lymphocytosis and thrombocytopenia. Differential include MDS vs ITP vs CMML. Counts were stable, recent elevation in WBC 2/2 infection. Continue to monitor without intervention, f/u in 3 months. Does not warrant treatment with current level of thrombocytopenia or monocytosis. Repeat CBC in 3 months with PCP and if levels decline , refere back. Due to Recurrent infections , will be evaluated for humoral immunodeficiency and hypogammaglobulinemia. She may need IVIG. Monocytosis 06/30/2017 Vasomotor rhinitis 03/24/2017 Hypercholesterolemia 03/14/2017 Osteopenia 03/14/2017 Overview (01/02/2024): 07/2020: 10 year major fracture risk 14.7%, 10 year hip fracture risk 4.2% Current Oncology Plans OUTPATIENT TRANSFUSION (PRN)* Plan Start Date:12/22/2024 Plan Provider:Jairo Bosch MD Linked Problems Chronic myelomonocytic leuke ana not having achieved remission (CMS/HCC)Thrombocytopenia (CMS/HCC) Treatment Medications No medications scheduled. Past Plans No past plan information found. Radiation Treatments * No radiation treatments are documented for this patient in [facility]. Treatments may have been administered in another system.
--- OUTSIDE RECORDS SUMMARY | 2025-01-26 18:24 | XMS_ITS | Encounter Summary ---
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 For example, child support officer or elderly care for an older adult? [...] Sign Reading Time Taken Comments Blood Pressure 104/52 12/27/2024 10:32 AM EST Pulse 75 12/27/2024 10:32 AM EST Temperature 36.9 ??C (98.4 ??F) 12/27/2024 10:[address] Respiratory Rate 12 12/27/2024 10:32 AM EST Oxygen Saturation 100% 12/27/2024 10:10 AM EST Inhaled Oxygen Concentration - - [...] 1 tablet (2 mg total) by mouth melatonin-theanine 10-5.5 mg tablet Take by mouth. lovastatin (MEVACOR) 20 mg tablet Take 1 tablet (20 mg total) by mouth 1 (one) time each day. 02/06/2023 5 metoprolol succinate (TOPROL-XL) 25 mg 24 hr tablet Take 1 tablet (25 mg total) by mouth. 12/16/2017 5 documented as of this encounter Discharge Disposition Disposition Code Departure Means Destination Home or Self Care documented in this encounter Progress Notes * Renu Alexander RN - 12/27/2024 8:00 AM EST 0810 Patient arrives ambulatory with for platelet transfusion. She feels in her usual state of health, she has a cataract surgery scheduled for 1130am today and is receiving this prior to procedure. She is aware we will draw a type and screen and then infuse platelets once ready. She is comfortable chairside and agrees with the plan for treatment. 0820 Peripheral IV started in left upper arm, labs drawn as needed and typenex band applied. Platelets released and blood bank called to notify. 0943 Call received from blood bank, platelets are ready. Slip printed and platelets requested for pick and shovel worker. 0955 Platelet infusion began, pt reviewed transfusion reaction signs and instructed to use call grubbs if she has any symptoms. She is aware vitals will be rechecked in 15 mins. She is comfortable chairsidewith no needs at this time. 1032 Platelet infusion complete with no adverse reaction noted. Pt continues to feel in her usual state of health. Vitals obtained, line flushed with NS 1040 Peripheral IV removed and dry dressing applied. Pt feels well and will leave her and go to the cataract center to have her procedure. 1045 Pt ambulated off unit with . documented in this encounter Plan of Treatment Upcoming Encounters Date Type Department Care Team (Late st Contact Info) Description 02/28/2025 2:45 PM EDT Office Visit [facility] Hematology Oncology [address] [place] [phone] Jairo Bosch MD [address] [place] [phone] 04/28/2025 2:30 PM EDT Office Visit Internal Medicine - [facility] [address] [place] [address] Giles Camop MD [address] [place] [address] 11/11/2025 3:30 PM EST Office Visit Vascular Surgery - [place] [address] [place] [phone] Winston Barrett MD [address] [address] documented as of this encounter Procedures Procedure Name Priority Date/Time Associated Diagnosis Comments TRANSFUSE PLATELETS Routine 12/27/2024 9:55 AM EST 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) Thrombocytopenia (CMS/HCC) PREPARE PLATELETS Routine 12/27/2024 8:2 9 AM EST 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) Thrombocytopenia (CMS/HCC) TYPE AND SCREEN Routine 12/27/2024 8:24 AM EST 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) Thrombocytopenia (CMS/HCC) documented in this encounter Results * Transfuse platelets (12/27/2024 10:41 AM EST) us Jairo Bosch MD BLOOD TRANSFUSION O RDERABLES Final Result * Transfuse platelets: 1 Product (12/27/2024 10:41 AM EST) us Jairo Bosch MD BLOOD TRANSFUSION O RDERABLES Final Result * Prepare platelets: 1 Product (12/27/2024 8:29 AM EST) Product Code [id number] 12/27/2024 9:57 AM EST [facility] Unit Number [id number] 12/27/19 9:57 AM [facility] Dispense Status Transfused 12/27/2024 9:57 AM [facility] Unit ABO Rh APOS 12/27/2024 9:57 AM [facility] Unit Expiration Date Time [id number] 12/27/2024 9:57 AM [facility] Unit Blood Type 6200 12/27/2024 9:57 AM [facility] Blood Venous blood specimen / Unknown 12/27/2024 8:29 AM EST Subramsamara Bosch MD BLOOD BANK PRODUCT ORDERABLES Final Result [facility] [address] [place] [address], [place] [phone] * Type and screen (12/27/2024 8:24 AM EST) ABO Group A 12/27/2024 9:21 AM EST [facility] Rh Type Negative 12/27/2024 9:21 AM EST [facility] Antibody Screen Negative 12/27/2024 9:21 AM EST [facility] Blood Venous blood specimen / Unknown Venipuncture / Unknown 12/27/2024 8:24 AM EST 12/27/2024 8:30 AM EST us Subramsamara Bosch MD LAB BLOOD BANK TEST ORDERABLES Final Result [facility] [address] [place] [address], [place] [phone] documented in this encounter Visit Diagnoses Diagnosis Thrombocytopenia (CMS/HCC)- Primary Unspecified thrombocytopenia 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
--- OUTSIDE RECORDS SUMMARY | 2025-01-26 18:24 | XMS_ITS | Encounter Summary ---
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 [address] & [address] [place] [phone] Phone: tel: fax: Referral ID Status Reason Start Date Expiration Date Visits Requested Visits Authorized [id number] Authorized Specialty Services Required 01/18/2025 01/18/2026 10 10 Scheduling Instructions CI to schedule consult appt direct with the patient. 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 For example, child caregiver or elderly care for an [...] Sign Reading Time Taken Comments Blood Pressure 143/67 01/17/2025 3:26 PM EST Pulse 70 01/17/2025 3:26 PM EST Temperature 36.7 ??C (98.1 ??F) 01/17/2025 3:26 PM ES T Respiratory Rate - - Oxygen Saturation 100% 01/17/2025 3:26 PM EST Inhaled Oxygen Concentration - - Weight 70.7 kg (155 lb 12.8 oz) 01/17/2025 3:26 PM EST Height - - Body Mass Index 25.93 01/10/2025 2:39 PM EST documented in this encounter Progress Notes * Emilia Gan RN - 01/17/2025 3:15 PM ESTAddended by: EMILIA GAN on: 01/18/2025 01:46 PM Modules accepted: Orders * Jairo Bosch MD - 01/17/2025 3:15 PM EST Images from the original note were not included. CHIEF COMPLAINT: Chief Complaint Patient presents with Follow-up CMML Monocytosis Anemia, thrombocytopenia Regimen #2-Xylbkv-unxwflldlml/side effects, DC 11/2024 Regimen #2-Inqovi Cycle #1-November 2024-12/06/2024 cycle #2-planned for-01/17/2025 IDENTIFIER:Le Salcido is a 79 y.o. female. HPI: The patient returns for follow up of CMML, leukocytosis For details of initial diagnosis and follow up until SEP 17, 2024- please refer to notes from prior [facility] EMR last note dated 08/04/2024 The patient returns for follow up of hematology abnormalities, low platelet count and elevated monocyte count She had a recent bone marrow aspiration/biopsy and was diagnosed with CMML. Patient was started on hydroxyurea. However 2 weeks later she had lab work that showed WBC count dropping to 3 and anemia. hydroxyurea was held then thereafter restarted it-take 1 tablet 500 Mg on Friday, Friday, Friday 3 times a week previously was on 2 tablets daily. However she developed progressive thrombocytopenia with a worsening leukocytosis therefore Hydrea was discontinued In November, discussed with patient regarding potential treatment with intravenous hypomethylating agent out of the oral form, decitabine/Inqovi. Side effects are discussed in detail. She is likely toexperience fatigue, low blood counts, may need transfusions, at risk for febrile neutropenia. Risk of transformation to acute myeloid leukemia approximately 20%, also discussed with her CMML risk stratification-reviewed She started cycle #1 of treatment on 12/06/2024. Thereafter she had profound thrombocytopenia. She had excellent response with drop in WBC count. She needed platelet transfusion prior to cataract surgery as a precautionary measure. She has now completed cataract surgery. She continues to feel well other than mild fatigue. She is planning a trip to [place]. Discussion today regarding bone marrow transplant evaluation. Patient is concerned her age. She does not have any siblings. Discussed regarding the principles of unrelated matched such. Patient had questions whether her daughter would be a potential transplant donor. That will be haploidentical, will defer discussion to team at [facility] Patient was started on oral medication, Inqovi, first dose on 12/06/2024. Platelet count reviewed from today has returned to normal range Discussed with patient regarding potential need for evaluation at that transplant program and allogenic bone marrow transplantation, she is agreeable but wishes to defer it to the spring Patient's daughter again had a question about the use of ivermectin for this condition. Unfortunately not to my knowledge, but surprisingly looks like a lot of progress in the research as we are heading in that direction in the next few months The following is copied, reviewed and edited Cancer Staging No matching staging information was found for the patient. Oncology History No history exists. 01/2020 - Dr Telles 74 y.o. year old female who returns for scheduled follow up visit. She follows with me for mild monocytosis and thrombocytopenia Patient has been experiencing elevated WBC counts. It was first noticed in August 2019. I had checked her labs on August 23, 2019 where her WBC count was 11.2 absolute monocytes 9900. On August she had knee surgery and on September 02 her total WBC count was elevated to 31.2 a differentialcount was not checked at that time. Patient was told that her white blood cell count is high from her knee surgery which is a reasonable explanation. More recently she had labs done in the ER because she was sick with influenza A. WBC count was 25,000 at that time and absolute monocyte count was 6000 absolute neutrophil count was 17,000 platelets stable at 111 hemoglobin 13.9. Patient is still recovering from her new symptoms but feels a lot better 1. PLAN -- Although differential diagnosis of CML/CMML and MDS is possible every time we check her WBC count it is during infective episode. Therefore I would recommend a repeat CBC in 3 to 4 weeks and her symptoms have completely resolved 10/2023 - Patient returns after a year. During this time she had back surgery, laminectomy in June that sherecovered quickly. Thereafter she also had hospitalization for pneumonia in November after being sick for about 10 days. WBC count was quite high. She also developed a mild anemia. Thereafter lab workin January revealed normalization of WBC count, and normal platelets as well. Monocyte count which had increased significantly has returned to slightly above normal At the last visit patient was advised to continue follow-up with PCP and return as needed. In May 2023, she underwent right total hip replacement. On 06/28/2023, she presented with increasing swelling and pain of the right leg/thigh. She had an angiogram that showed bleeding femoral vessel and a pos toperative hematoma. There was a pseudoaneurysm. She completed an IR procedure at [facility] on 06/29 and was thereafter discharged. During the last 4 months, the swelling has decreased significantly. During that time she was noted to have thrombocytopenia down to 97, and thereafter had serial lab work that showed resolution of thrombocytopenia. Currently she feels well except for intermittent pain in the right leg. She is ambulatory using a cane for stability. She has completed physical therapy. Latest lab work is reviewed and a copy is provided to her 10/2024 - Patient is accompanied by her daughter today, who had questions regarding use of ivermectin for CMML. I do not recommend it ROS: GENERAL: No malaise, significant weight loss or fever NECK: No lumps, goiter, pain or significant neck swelling RESPIRATORY: No cough, wheezing or shortness of breath CARDIOVASCULAR: No chest pain, leg swelling or palpitations GI: No abdominal discomfort, blood in stools or black stools MUSCULOSKELETAL: No joint pain or swelling, back pain, or muscle pain. HEMATOLOGY/LYMPHOLOGY No prolonged bleeding, easy bruisability or swollen nodes Other Systems review is non contributory PAST MEDICAL HISTORY: Active Ambulatory Problems Diagnosis Date Noted Coronary atherosclerosis 12/01/2017 HTN (hypertension) 12/01/2017 Internal hemorrhoids 12/25/2017 Left bundle branch block (LBBB) 04/19/2019 Subclavian artery stenosis, left ([facility]) 01/14/2023 Hypercholesterolemia 03/14/2017 Diverticulosis 12/25/2017 Fatty liver 12/25/2017 Thrombocytopenia ([facility]) 06/30/2017 Tubular adenoma of colon 12/25/2017 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 07/17/2021 Monocytosis 06/30/2017 Nephrolithiasis 12/25/2017 Osteopenia 03/14/2017 DDD (degenerative disc disease), lumbosacral 12/25/2017 Cervical spondylosis 11/30/2021 Spinal stenosis of lumbar region with radiculopathy 06/13/2022 Osteoarthritis of right hip 05/15/2023 Allergic rhinitis 09/15/2017 Vasomotor rhinitis 03/24/2017 Actinic keratosis 12/25/2017 COPD (chronic obstructive pulmonary disease) ([facility]) 11/19/2017 Pneumonitis 09/15/2017 Multiple pulmonary nodules 09/15/2017 Rupture of biceps tendon 12/25/2017 S/P total knee arthroplasty, left 09/20/2019 History of COVID-19 02/24/2020 Midline cystocele 09/29/2018 Simple chronic bronchitis ([facility]) 07/31/2020 Kidney cysts 06/15/2024 S/P joint replacement 06/28/2023 Abnormal EKG 08/05/2024 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 ([facility]) 08/05/2024 Dyspnea on exertion 08/05/2024 Essential hypertension, benign 08/05/2024 First degree AV block 08/05/2024 Gastroesophageal reflux disease without esophagitis 08/05/2024 HLD (hyperlipidemia) 08/05/2024 Mixed hyperlipidemia 08/05/2024 Resolved Ambulatory Problems Diagnosis Date Noted No Resolved Ambulatory Problems Past Medical History: Diagnosis Date Anemia Asthma Hypertension Pneumonia Sigmoid diverticulosis Stenosis of left subclavian artery ([facility]) Vitamin D deficiency SOCIAL HISTORY: Social History Tobacco Use Smoking status: Former Current packs/day: 0.00 Average packs/day: 2.0 packs/day for 32.0 years (64.0 ttl pk-yrs) Types: Cigarettes Start date: 11/17/1962 Quit date: 11/17/1994 Years since quittin.1 Smokeless tobacco: Never Substance Use Topics Alcohol use: Yes FAMILY HISTORY: No family history on file. Current Outpatient Medications: albuterol HFA (PROAIR HFA ; PROVENTIL HFA ; VENTOLIN HFA) 90 mcg/actuation inhaler, Inhale 2 puffs by mouth every 4 (four) hours if needed., Disp: , Rfl: amLODIPine (NORVASC) 2.5 mg tablet, Take 1 tablet (2.5 mg total) by mouth 1 (one) time each day., Disp: 90 tablet, Rfl: 0 aspirin 81 mg EC tablet, Take 1 tablet (81 mg total) by mouth 1 (one) time each day., Disp: , Rfl: budesonide-formoteroL (SYMBICORT) 160-4.5 mcg/actuation inhaler, 1 inhalation. daily., Disp: , Rfl: calcium carbonate-vitamin D3 600 mg-12.5 mcg (500 unit) capsule, Take 1,500 mg by mouth., Disp: , Rfl: cetirizine (ZyrTEC) 10 mg tablet, Take 1 tablet (10 mg total) by mouth 1 (one) time each day., Disp: , Rfl: decitabine-cedazuridine (INQOVI) 35-100 mg, Take 1 tablet (35 mg total) by mouth 1 (one) time each day. Swallow tablet whole; do not cut, crush, or chew. Administer on an empty stomach. Take for 5 days and then 23 days off in a 28 day cycle., Disp: 5 tablet, Rfl: 5 ipratropium (ATROVENT) 42 mcg (0.06 %) nasal spray, USE 1 SPRAY NASALLY 3 TIMES DAILY, Disp: 60 mL,Rfl: 2 ketorolac (ACULAR) 0.5 % ophthalmic solution, Administer 1 drop into both eyes 4 (four) times a day., Disp: , Rfl: loperamide (IMODIUM A-D) 2 mg tablet, Take 1 tablet (2 mg total) by mouth, Disp: , Rfl: lovastatin (MEVACOR) 20 mg tablet, TAKE 1 TABLET BY MOUTH AT BEDTIME, Disp: 100 tablet, Rfl: 1 melatonin-theanine 10-5.5 mg tablet, Take by mouth., Disp: , Rfl: metoprolol succinate (TOPROL-XL) 25 mg 24 hr tablet, TAKE 1 TABLET BY MOUTH ONCE DAILY, Disp: 100 tablet, Rfl: 1 Allergies Allergen Reactions Penicillins Itching and Rash Other reaction(s): RASH ALL OVER BODY Sulfa (Sulfonamide Antibiotics) Patient not sure of the side effect PHYSICAL EXAM: Visit Vitals BP (!) 143/67 (BP Location: Left arm, Patient Position: Sitting, BP Cuff Size: Small adult) Pulse 70 Temp 36.7 ??C (98.1 ??F) (Temporal) Wt 70.7 kg (155 lb 12.8 oz) SpO2 100% BMI 25.93 kg/m?? OB Status Postmenopausal Smoking Status Former BSA 1.78 m?? APPEARANCE: Alert and in no acute distress EYES: PERRL, conjunctiva pink and sclera are Normal without icterus ORAL CAVITY: No erythema or exudates NECK: Neck supple, no adenopathy, HEART: RRR with normal S1 and S2, no murmurs, no gallops, no JVD appreciated LUNG: clear to auscultation bilaterally Percussion note normal LYMPH NODES: No palpable superficial adenopathy ABDOMEN: Bowel sounds normoactive, no bruits, soft, non-tender, without organomegaly or palpable masses EXTREMITIES: Extremities warm and well perfused without clubbing, cyanosis, rash or edema NEURO: Oriented X 3, no focal weakness; sensation is normal LABS: Review of Lab results , interpreted Lab Results Component Value Date WBC 5.7 01/17/2025 HGB 11.3 (L) 01/17/2025 HCT 36.5 01/17/2025 MCV 103.1 (H) 01/17/2025 PLT 196 01/17/2025 Lab Results Component Value Date NA 141 01/17/2025 K 4.0 01/17/2025 CL 108 01/17/2025 CO2 27 01/17/2025 GLUCOSE 78 01/17/2025 BUN 20 01/17/2025 CREATININE 0.88 01/17/2025 CALCIUM 9.2 01/17/2025 PROT 6.8 01/17/2025 ALBUMIN 3.9 01/17/2025 BILITOT 0.5 01/17/2025 AST 21 01/17/2025 ALT 16 01/17/2025 MG 2.3 01/10/2025 ALKPHOS 81 01/17/2025 EGFR 67 01/17/2025 CMML restratification Absolute monocyte count-17, 1 point, Circulating immature cells-myelocytes 20, 1 point, Low hemoglobin less than 10, 1 point Low platelets less than 100,000, 1 point Mutation-ASX L1-1 point -Greater than 3 points, therefore high risk, overall survival approximately 16 months CPSS-MRI scoring CMML-proliferative subtype, WBC count greater than 13, 1 point Blasts-bone marrow not increased 0 Transfusion requirement-none, 0 Cytogenetic risk-normal, 0 Mutations-ASX 1-1 point, R UN X1-2 points Total points-4, high risk, overall survival approximately 17 months Review of Imaging, interpreted CT NECK ANGIOGRAPHY [facility] Diagnostic Imaging Department [address] [place] [address] Patient: LE SALCIDO/Age/Sex: 1945 - 79 - F Unit#: [id number] Location/Status: SPDICAT/REG CLI Mnemonic/Ordering Site: CTANECK/SPCT Ordering Physician: CARLY MEEHAN CT Neck Angiography - 09/09/24 - 1547 Report Status:Signed CT angiogram of the neck, 09/09/2024. HISTORY: B/L CAROTID STENOSIS. COMPARISON: 06/19/2023. TECHNIQUE: CT angiogram of the neck with multiplanar reformats. IV contrast dose: 90 mL ISOVUE. Dose length product: 349 mGy-cm. FINDINGS: Moderate atherosclerotic calcification of the aortic arch. Common origin of the brachiocephalic trunk and left common carotid artery. Scattered calcified plaque in the right subclavian artery without associated stenosis. There is both hard and soft plaque in the left subclavian artery, with a large amount of soft plaque in the proximal subclavian (proximal to the left vertebral artery origin) narrowing the lumen by approximately 50%. The appearance is similar to the previous exam. Atherosclerotic plaque in the proximal left internal carotid artery results in luminal irregularity with approximately 50% stenosis. This area is suboptimally evaluated on the previous study due to streak artifact; the degree of narrowing is similar. There is prominent calcified plaque at the left carotid bulb but no associated stenosis. Dominant left vertebral artery. Atherosclerotic plaque in the left V4 segment results in at least moderate stenosis. The right vertebral artery terminates in the PICA. Visualized portions of the brain appear normal. Minimal hyperostosis frontalis interna. Paranasal sinuses are clear. Mastoids and middle ear spaces are clear. Debris in the external auditory canals. Mild degenerative changes of the temporomandibular joints. Small calcification in the right thyroid lobe. Soft tissues of the neck are otherwise unremarkable. Visualized portions of the superior mediastinum are normal. There is a small ill-defined area of groundglass opacity in the right upper lobe of the lung (series 4, image 116) which appears similar to the previous exam. Multilevel degenerative changes of the cervical and upper thoracic spine, most prominent at C4-5 and C5-6. IMPRESSION: 1. Stable approximately 50% stenosis of the proximal left subclavian artery. 2. No significant change in approximately 50% stenosis of the proximal right internal carotid artery. 3. Calcified plaque results in at least moderate stenosis of the left V4 segment. The right vertebral artery terminates in the PICA. 4. Nonspecific focus of groundglass opacity in the right upper lobe of the lung, similar to the previous exam. Dictating Physician: MAMADOU JACK MD Electronically Signed by: MAMADOU JACK MD Dic Date/Time: 09/09/24 1559 Sign date/Time: 09/09/24 8619 Review of External Documentation Notes from PCP office Tests ordered - Lab work will be done weekly when she starts Inqovi IMPRESSION: 1. 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 Thrombocytopenia (CMS/HCC) 3. Monocytosis 4. Simple chronic bronchitis (CMS/HCC) 5. Spinal stenosis of lumbar region with radiculopathy PLAN: #1 CMML--in clinical remission after cycle #1 of Inqovi Type I, no increase in blasts, reassured However final scoring after cytogenetics/FISH demonstrates high risk CMML Bone marrow aspiration/biopsy results reviewed in detail with the patient and a copy provided. BCR-ABL was negative Patient has initially started on hydroxyurea, however had to dose reduce due to drop in blood counts -- Poor response to lower dose of hydroxyurea -- Therefore I recommend switching to oral hypomethylating agent, Inqovi Oral/decitabine 35 Mg dose day 1-5, q. 28-day cycles 11/2024-patient received the medication, nurse navigator involved in obtaining a saleem, it has been approved for a year, Cycle #1 started on , tolerating well with expected side effects particularly thrombocytopenia mild fatigue and bruising Further cycle is delayed due to severe thrombocytopenia, and also patient's need for cataract surgery which has now been completed Discussed with patient regarding resuming to either this week or next, platelet count has improved,now in the normal range Discussed regarding further cycles of treatment, she has cataract surgery appointment on 12/27/2024 After 3-4 cycles of treatment, can obtain another bone marrow evaluation to assess response Will need to consider bone marrow transplant evaluation as well, with her advanced age, at risk fordevelopment of acute leukemia, however would not tolerate standard aloe transplant may be a candidate for reduced intensity conditioning. After discussion today, patient agrees to referral #2 thrombocytopenia Likely part of the CMML Resolved nearly 6 weeks after completion of first cycle of Inqovi She received platelet transfusion prior to cataract surgeries #3 anemia-monitor closely transfuse PRBC if hematocrit less than 25 Hold off now #4 arthritis-completed hip replacement, however her recovery was punctuated by. Postoperative hematoma, and pseudoaneurysm formation that was embolized by IR #5-plans for cataract surgery noted, okay to go ahead with ophthalmology evaluation, will monitor the pattern of blood counts over the next month #6 further plans of care, discussed with the patient regarding potential need for evaluation at thetransplant center and allogenic bone marrow transplantation, she is accepting the need for consultation but wishes to defer to the spring after her travel in January. -- Patient's daughter requests referral to a center in [place], will refer to 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 Infusion room team involved for supportive care Pain Control--no issues Health Care Proxy--her daughter Jairo Bosch MD Cc Giles Campo MD documented in this encounter Plan of Treatment Upcoming Encounters Date Type Department Care Team (Late st Contact Info) Description 02/28/2025 2:45 PM EDT Office Visit [facility] Hematology Oncology [address] [place] [phone] Jairo Bosch MD [address] [place] [phone] 04/28/2025 2:30 PM EDT Office Visit Internal Medicine - [facility] [address] [place] [address] Giles Campo MD [address] [place] [phone] 11/11/2025 3:30 PM EST Office Visit Vascular Surgery - [place] [address] [place] [phone] Winston Barrett MD [address] [facility] [address] [place] [address] Scheduled Referrals Name Type Priority Associated Diagnoses Orde r Schedule Ambulatory referral to Hematology / Oncology Outpatient Referral Routine 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) Expected: 02/01/2025, Expires: 01/18/2026 documented as of this encounter Visit Diagnoses Diagnosis 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
--- OUTSIDE RECORDS SUMMARY | 2025-01-26 18:24 | XMS_ITS ---
Author Name [facility] Organization Unknown History of Medication Use Medication Directions Dispensed Refills Start Date End Date Stat Stimulant Laxative Plus 8.6 mg-50 mg tablet active prednisone 10 mg tablet TAKE 3 TABLETS BY MOUTH EVERY DAY FOR 3 DAYS THEN 2 EVERY DAY FOR 3 DAYS THEN 1 EVERY DAY FOR 3 DAYS 05/27/2023 completed Ear Wax Removal Drops 6.5 % PLACE 5 DROPS INTO BOTH EARS 2 TIMES DAILY FOR 10 DAYS. TILT HEAD SO EAR TO BE TREATED POINTS TOWARDS CEILING. HOLD MEDICATION IN EAR USING COTTON 05/27/2023 completed benzonatate 200 mg capsule TAKE 1 CAPSULE BY MOUTH EVERY 8 HOURS FOR 7 DAYS NEEDED FOR COUGH 05/27/2023 completed oseltamivir 75 mg capsule TAKE 1 CAPSULE BY MOUTH TWICE DAILY FOR 5 DAYS active lidocaine 5 % topical patch 05/27/2023 completed [id number] COVID-19 Ag Self Test kit TEST DIRECTED TODAY 09/20/2023 completed ipratropium bromide 42 mcg (0.06 %) nasal spray 08/18/2017 active albuterol sulfate 2.5 mg/3 mL (0.083 %) solution for nebulization INHALE 1 VIAL VIA NEBULIZER EVERY 4 HOURS NEEDED FOR SHORTNESS OF BREATH OR WHEEZING 09/26/2023 active tramadol 50 mg tablet Take 1 tablet every 6 hours by oral route. 05/23/2023 06/30/2023 active nystatin 100,000 unit/mL oral suspension SHAKE LIQUID AND TAKE 5 ML BY MOUTH FOUR TIMES DAILY FOR 10 DAYS 05/27/2023 completed meloxicam 7.5 mg tablet 09/20/2023 active Allergies Allergen Reaction Severity Comment Documented Date Source Statu s SULFA (SULFONAMIDE ANTIBIOTICS) [facility] PENICILLINS [facility] Problems Problem Status Onset Date Problem Type Date of Resoluti on Source Osteoarthritis of right hip joint active 2023-04-11 ProblemAct [facility] Allergic rhinitis active 2017-09-15 ProblemAct [facility] Tubular adenoma of colon active 2017-12-25 ProblemAct [facility] Subclavian artery stenosis active 2023-05-12 ProblemAct [facility] Hyperlipidemia active 2017-03-14 ProblemAct [facility] Mixed hyperlipidemia active 2023-05-12 ProblemAct [facility] Left bundle branch block active 2023-05-12 ProblemAct [facility] Multiple nodules of lung active 2017-09-15 ProblemAct [facility] Gastroesophageal reflux disease without esophagitis active 2017-11-19 ProblemAct [facility] Electrocardiogram abnormal active 2023-05-12 ProblemAct [facility] History of artificial joint active 2023-06-28 ProblemAct [facility] Osteopenia active 2017-03-14 ProblemAct [facility] E[facility] Preprocedural examination done active 2023-05-12 ProblemAct [facility] Midline cystocele active 2018-09-29 ProblemAct [facility] Simple chronic bronchitis active 2020-07-31 ProblemAct [facility] Chronic obstructive pulmonary disease active 2017-11-19 ProblemAct [facility] Thrombocytopenic disorder active 2017-06-30 ProblemAct [facility] Coronary atherosclerosis active 2017-12-01 ProblemAct [facility] Monocytosis active 2017-06-30 ProblemAct [facility] NE[facility] Dyspnea on exertion active 2023-05-12 ProblemAct [facility] History of total replacement of right hip joint active 2023-06-02 ProblemAct [facility] First degree atrioventricular block active 2023-05-12 ProblemAct [facility] Benign essential hypertension active 2017-12-01 ProblemAct [facility] Encounters Encounter Type Encounter Reason Primary Diagnosis Location Date Ambulatory [facility] 05/31/2024 Ambulatory [facility] 05/28/2024 Ambulatory [facility] 05/27/2024 Ambulatory [facility] 09/26/2023 Ambulatory [facility] 08/05/2023 Ambulatory [facility] 07/04/2023 Ambulatory [facility] 07/03/2023 Inpatient Presence of unspecified orthopedic joint implant Presence of unspecified orthopedic joint implant [facility] 06/28/2023 Ambulatory [facility] 06/17/2023 Ambulatory [facility] 06/17/2023 Ambulatory [facility] 06/16/2023 Ambulatory [facility] 06/13/2023 Ambulatory [facility] 05/27/2023 Ambulatory Left bundle-bran ch block, unspecified [facility] 05/22/2023 Ambulatory [facility] 05/14/2023 Ambulatory [facility] 05/13/2023 Ambulatory [facility] 04/11/2023 Ambulatory [facility] 04/11/2023 Ambulatory [facility] 04/11/2023 Ambulatory [facility] 04/11/2023 Ambulatory [facility] 04/05/2023 Care Team Organization Name Specialty Phone Email Start Date End Da te [facility] 12/07/2023 [facility] 05/07/2023 [facility] GALLITO DEAN Primary Care 04/29/2023 04/29/2023
--- OUTSIDE RECORDS SUMMARY | 2025-01-26 18:24 | XMS_ITS | Encounter Summary ---
Author Organization [facility] Address [address] [place] [address] Care Team Providers Care Hemodialysis Charge Nurse Name Role Phone Giles Campo MD Primary Care Provider [phone] Reason for Visit * Reason Onset Date Comments Referral Anne Carter 01/18/2025 Encounter Details Date Type Department Care Team (Late st Contact Info) Description 01/18/2025 Telephone Hematology Oncology [address] [place] [address] Emilia Hebert, county adviser Anne Carter Social History Tobacco Use Types Packs/Day Years [...] for your loved ones. For example, child welfare social worker or elderly care for an older adult? [...] PM EST documented as of this encounter Progress Notes * Emilia Hebert RN - 01/24/2025 9:53 AM EDT Future Appointments 01/24/2025 - 03/04/2029 Date Visit Type Department Provider 01/26/2025 8:30 AM FINANCIAL COUNSELING DF ACCESS MANAGEMENT Arrive at: PHONE APPOINTMENT DF BMT FINANCIAL COUNSELOR Appointment Notes: allo HLA referred by Dr. 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 * Emilia Hebert RN - 01/18/2025 8:58 AM EST ----- Message from Chance Bosch MD sent at 01/17/2025 3:42 PM EST ----- Please refer to [facility] - _ Myeloid leukemia division -- CMML , on [place], to discuss re: [place] transplant documented in this encounter Plan of Treatment Upcoming Encounters Date Type Department Care Team (Late st Contact Info) Description 02/28/2025 2:45 PM EDT Office Visit Hematology Oncology [address] [place] [address] Jairo Bosch MD [address] [place] [id number] 04/28/2025 2:30 PM EDT Office Visit Internal Medicine - [facility] [address] [place] [address] Giles Campo MD [address] [place] [id number] 11/11/2025 3:30 PM EST Office Visit Vascular Surgery - [place] [address] [place] [phone] Winston Barrett MD [address] [address] documented as of this encounter Visit Diagnoses Not on filedocumented in this encounter Additional Health Concerns Assessment Noted Time PHQ-9 Depression Total Score: 0 12/30/19 25 12:00 PM EST documented as of this encounter Care Teams Hemodialysis Charge Nurse Relationship Specialty Start Date End Date Giles Campo MD [address] [place] [id number] PCP - General Internal Medicine 02/07/17 documented as of this encounter
--- OUTSIDE RECORDS SUMMARY | 2025-01-26 18:25 | XMS_ITS ---
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 Coronary atherosclerosis 12/01/2017 Essential hypertension, benign 12/01/2017 COPD (chronic obstructive pulmonary disease) 01/2018 Gastroesophageal reflux disease without esophagi tis 11/19/2017 Allergic rhinitis 09/15/2017 Multiple pulmonary nodules 09/15/2017 Thrombocytopenia 06/30/2017 Overview: Overview: Currently, Hem/onc(12/22/17): mild lymphocytosis and thrombocytopenia. [...] hypogammaglobulinemia. She may need IVIG. Monocytosis 06/30/2017 Hyperlipidemia 03/14/2017 Osteopenia 03/14/2017 Current Oncology Plans No current plan information found. Past Plans No past plan information found. Radiation Treatments * No radiation treatments are documented for this patient in [facility]. Treatments may have been administered in another system. Lifetime Dose Tracking * Chemical Lifetime Dose Automatic Entry Manual Entr y Radiation 192.17 mSv 192.17 mSv 0 mSv
--- OUTSIDE RECORDS SUMMARY | 2025-01-26 18:25 | XMS_ITS | Clinical Summary ---
Author Organization [facility] Address [address] [place] [address] Phone Care Team Providers Care Vehicle Dismantler Name Role Phone Giles Dean MD Primary Care Provider [phone] Allergies Active Allergy Reactions Criticality Noted Date Comments Penicillins Itching,Rash Medium 12/01/2015 Other reaction(s): RASH ALL OVER BODY Sulfa (Sulfonamide Antibiotics) 03/14/2017 Patient not sure of the side effect Medications albuterol HFA (PROAIR HFA ; PROVENTIL HFA ; VENTOLIN HFA) 90 mcg/actuation inhaler Inhale 2 puffs by mouth every 4 (four) hours if needed. Active aspirin 81 mg EC tablet Take 1 tablet (81 mg total) by mouth 1 (one) time each day. 11/23/19 23 Active cetirizine (ZyrTEC) 10 mg tablet Take 1 tablet (10 mg total) by mouth 1 (one) time each day. Active loperamide (IMODIUM A-D) 2 mg tablet Take 1 tablet (2 mg total) by mouth Active budesonide-formot Sridhar (SYMBICORT) 160-4.5 mcg/actuation inhaler 1 inhalation. daily. 10/26/20 21 Active calcium carbonate-vitamin D3 600 mg-12.5 mcg (500 unit) capsule Take 1,500 mg by mouth. Active amLODIPine (NORVASC) 2.5 mg tablet Take 1 tablet (2.5 mg total) by mouth 1 (one) time each day. 90 tablet 10/28/20 24 Active ipratropium (ATROVENT) 42 mcg (0.06 %) nasal spray USE 1 SPRAY NASALLY 3 TIMES DAILY 60 mL 2 11/18/19 25 Active melatonin-theanin e 10-5.5 mg tablet Take by mouth. 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 Swallow tablet whole; do not cut, crush, or chew. Administer on an empty stomach. Take for 5 days and then 23 days off in a 28 day cycle. 5 tablet 5 5 12:08 PM EST 12/06/19 25 2024 Active ketorolac (ACULAR) 0.5 % ophthalmic solution Administer 1 drop into both eyes 4 (four) times a day. 12/13/19 25 Active lovastatin (MEVACOR) 20 mg tablet TAKE 1 TABLET BY MOUTH AT BEDTIME 100 tablet 1 12/31/19 25 Active metoprolol succinate (TOPROL-XL) 25 mg 24 hr tablet TAKE 1 TABLET BY MOUTH ONCE DAILY 100 tablet 1 12/31/19 25 Active lovastatin (MEVACOR) 20 mg tablet Take 1 tablet (20 mg total) by mouth 1 (one) time each day. 02/07/20 23 2024 Discontinued metoprolol succinate (TOPROL-XL) 25 mg 24 hr tablet Take 1 tablet (25 mg total) by mouth. 12/16/19 18 2024 Discontinued Active Problems Problem Noted Date Diagnosed Date [...] Overview (01/02/2024): Last Assessment & Plan: Ms. Camargo returns for her second postop visit since [...] right foot turned laterally. I encouraged Ms. 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) (Primary Dx); Thrombocytopenia (CMS/HCC); Monocytosis; Simple chronic bronchitis (CMS/HCC); Spinal stenosis of lumbar region with radiculopathy 01/10/2025 2:34 PM EST - 01/10/2025 7:49 PM EST Emergency [facility] Emergency [address] [place] [phone] Shahram Tripathi MD Secondary hypertension (Primary Dx) Discharge Disposition: Home or Self Care 01/10/2025 8:00 AM EST - 01/10/2025 11:59 PM EST Hospital Encounter [facility] [address] [place] [phone] Fengramonia-Iy Jairo kahn MD 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) (Primary Dx); Thrombocytopenia (CMS/HCC) Discharge Disposition: Home or Self Care 12/30/2024 10:57 AM EST - 12/30/2024 11:59 PM EST Hospital Encounter [facility] [address] [place] [phone] Fengramonia-Iy Jairo kahn MD 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) (Primary Dx); Thrombocytopenia (CMS/HCC) Discharge Disposition: Home or Self Care 12/27/2024 7:47 AM EST - 12/27/2024 11:59 PM EST Hospital Encounter [facility] [address] [place] [phone] Ivan-Iy Jairo kahn MD Thrombocytopenia (CMS/HCC) (Primary Dx); 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) Discharge Disposition: Home or Self Care 12/22/2024 3:00 PM EST Office Visit [facility] Hematology Oncology [address] [place] [phone] Ivan-Iy Jairo kahn MD 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) (Primary Dx); Monocytosis; Thrombocytopenia (CMS/HCC); Osteopenia of multiple sites; Gastroesophageal reflux disease without esophagitis; Simple chronic bronchitis (CMS/HCC); Multiple pulmonary nodules; First degree AV block; Essential hypertension, benign 12/22/2024 12:50 PM EST - 12/22/2024 11:59 PM EST Hospital Encounter [address] [phone] Ivan-Iy Jairo kahn MD 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) (Primary Dx); Thrombocytopenia (CMS/HCC) Discharge Disposition: Home or Self Care 12/16/2024 10:00 AM EST Consult Internal Medicine - [address] [phone] Giles Dean MD Preop examination (Primary Dx) 12/06/2024 1:05 PM EST Lab Draw Station - [address] 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) 12/02/2024 Telephone Internal Medicine - [address] [phone] Giles Dean MD Pre-op Visit 11/25/2024 11:15 AM EST Office Visit [facility] Hematology Oncology [address] [place] [phone] Jairo Landry MD 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) (Primary Dx); Multiple pulmonary nodules; Simple chronic bronchitis (CMS/HCC); Spinal stenosis of lumbar region with radiculopathy; Essential hypertension, benign; First degree AV block 11/11/2024 3:30 PM EST Office Visit [facility] - [place] [address] [place] [phone] Winston Barrett MD Subclavian artery stenosis, left (CMS/HCC) (Primary Dx) 11/03/2024 Telephone [facility] Hematology Oncology [address] [place] [phone] Jairo Landry MD 10/28/2024 Telephone Internal Medicine - [facility] [address] [place] [phone] Giles Dean MD Pre-op Visit from Last 3 Months Immunizations Name Administration Dates Next Due Influenza trivalent, 0.5mL ( Fluzone High-dose) 65yo and older 07/17/2021,08/02/2020,08/13/2019,09/08,09/05/2017 Influenza trivalent, with pr eservative (Fluzone; Afluria) 6mo and older 08/15/2014 Moderna SARS-CoV-2 COVID-19, mRNA, LNP-S, preservative free 08/16/2022,04/18/2022,09/11/2021 Pneumococcal conjugate 13 va lent (Prevnar 13, PCV13) 2mo and older 09/21/2014,02/11/2011 Pneumococcal polysaccharide 23 valent (Pneumovax 23) 2yo and older 01/19/2018 Td Tetanus diptheria (Tdvax) 7yo and older 07/31/2010 Tdap Tetanus diptheria acell ular pertussis (Boostrix; Adacel) 7yo and older 10/26/2015 Zoster Live 06/04/2013 Surgical History Surgery Date Site/Laterality Comments TONSILLECTOMY PROCEDURE:TONSILLECTOMY TUBAL LIGATION PROCEDURE:TUBAL LIGATION COLONOSCOPY PROCEDURE:COLONOSCOPY TOTAL KNEE ARTHROPLASTY 08/2019 Left PROCEDURE:TOTAL KNEE ARTHROPLASTY BACK SURGERY 06/2022 PROCEDURE:BACK SURGERY;COMMENT:LAMINECTOMY Medical History Medical History Date Comments Anemia DX:Anemia Thrombocytopenia (CMS/HCC) DX:Th rombocytopenia (HCC) Hypertension DX:Hypertension Pneumonia DX:Pneumonia Asthma DX:Asthma Osteopenia DX:Osteopenia Sigmoid diverticulosis DX:Sigmoi d diverticulosis Vitamin D deficiency DX:Vitamin D deficiency Thrombocytopenia (CMS/HCC) 06/30/2017 DX:Th rombocytopenia (HCC) COPD (chronic obstructive pu lmonary disease) (CMS/HCC) DX:COPD (chronic obstructive pulmonary disease) (HCC) Stenosis of left subclavian artery (CMS/HCC) DX:Stenosis of left subclavi an artery (HCC);COMMENT:followed by Vascular HTN (hypertension) DX:HTN (hyper tension) HLD (hyperlipidemia) DX:HLD (hyp erlipidemia) Social History Tobacco Use Types Packs/Day Years [...] ed Within the last 3 months, shira godoy many times did you visit the emergency [...] care for your loved ones. For example, early childhood teacher assistant or elderly care for an older adult? [...] Orientation Straight 12/22/2024 12 :47 PM EST Obstetrics History Last Filed Vital Signs Vital Sign Reading Time Taken Comments Blood Pressure 143/67 01/17/2025 3:26 PM EST Pulse 70 01/17/2025 3:26 PM EST Temperature 36.7 ??C (98.1 ??F) 01/17/2025 3:26 PM ES T Respiratory Rate 18 01/10/2025 6:24 PM EST Oxygen Saturation 100% 01/17/2025 3:26 PM EST Inhaled Oxygen Concentration - - Weight 70.7 kg (155 lb 12.8 oz) 01/17/2025 3:26 PM EST Height 165.1 cm (5' 5 ) 01/10/2025 2:39 PM EST Body Mass Index 25.93 01/10/2025 2:39 PM EST Plan of Treatment Upcoming Encounters Date Type Department Care Team (Late st Contact Info) Description 02/28/2025 2:45 PM EDT Office Visit [facility] Hematology Oncology [address] [place] [phone] Jairo Bosch MD [address] [place] [phone] 04/28/2025 2:30 PM EDT Office Visit Internal Medicine - [facility] [address] [place] [phone] Giles eDan MD [address] [place] [address] 11/11/2025 3:30 PM EST Office Visit [facility] - [place] [address] [place] [phone] Winston Barrett MD [address] [phone] Health Maintenance Due Date Last Done Comments Hepatitis A Vaccines (1 of 2 - Risk 2-dose series) 1964 Hepatitis B Vaccines (1 of 3 - Risk 3-dose series) 2005 Hepatitis C Screening 10/24/2022 Medicare Annual Wellness Visit 10/24/2022 COVID-19 Vaccine ( season) 2024 08/18/2024, 08/12/2024, 04/21/2024, Additional history exists Osteoporosis Screening (Bone Density Screening) 01/24/2025 01/24/2023, 01/23/2023, 07/31/2020, Additional history exists DTaP,Tdap,and Td Vaccines (3 - Td or Tdap) 10/26/2025 10/26/2015, 07/31/2010 Social Influencers of Health Screening 11/29/2025 11/29/2024 Depression Screening 12/30/2025 12/30/2024 Falls Risk Assessment 01/10/2026 01/10/2025, 025 Hypertension/CHF/CAD Annual BMP Blood Test 01/17/2026 01/17/2025, 01/10/2025, 01/03/2025, Additional history exists Cholesterol Screening (Lipid Panel) 12/16/2028 12/16/2023 Pneumococcal Vaccine: 50+ Years Completed 08/10/2023, 01/19/2018, 09/21/2014, Additional history exists RSV Immunization Patients 60+ Years Old Completed 08/17/2023 Zoster Vaccines Completed 03/26/2024, 02/2024, 09/11/2023, Additional history exists Influenza Vaccine Completed 08/18/2024, , 08/16/2022, Additional history exists HIB Vaccines Aged Out No longer eligi ble based on patient's age to complete this topic HPV Vaccines Aged Out No longer eligi ble based on patient's age to complete this topic IPV Vaccines Aged Out No longer eligi ble based on patient's age to complete this topic MMR Vaccines Aged Out No longer eligi ble based on patient's age to complete this topic Meningococcal ACWY Vaccine Aged Out N o longer eligible based on patient's age to complete this topic Meningococcal B Vacine Aged Out No lo nger eligible based on patient's age to complete this topic RSV Immunization Patients Under 20 months Aged Out No longer eligible based on patient's age to complete this topic Varicella Vaccines Aged Out No longer eligible based on patient's age to complete this topic Medical Devices Implanted Type Area Wafer Production Lead Worker Device Identifier Shelf Expiration Date Model / Serial / Lot Liner Trident X3 0 Deg 36mm 5.9mm Sz E [facility] [id number] Implanted:Qty: 1 on 05/22/2023 by Edmundo Roy MD [employer] [id number] 02/19/2028 723-00-36E / / [id number] Cement Bone Surg Simplex Radiopq [facility] [id number] Implanted:Qty: 1 on 05/22/2023 by Edmundo Roy MD Right: Hip [employer] [id number] 6191-1-010 / / [id number] Cement Bone Surg Simplex Radiopq Stry-Howm [id number] 092 Implanted:Qty: 1 on 05/22/2023 by Edmundo Roy MD Right: Hip [employer] [id number] / / [id number] Tritanium Cluster Hole Shell 52mm Stry-Howm [id number] Implanted:Qty: 1 on 05/22/2023 by Edmundo Roy MD Right: Hip [employer] [id number] 01/14/2028 702-04-52E / / [id number] Lp Hex Screw 6.5x25mm Stry-Howm [id number] 58 Implanted:Qty: 1 on 05/22/2023 by Edmundo Roy MD Right: Hip [employer] [id number] 03/01/2028 [id number] / / [id number] Lp Hex Screw 6.5x20mm Stry-Howm [id number] Implanted:Qty: 1 on 05/22/2023 by Edumndo Roy MD Right: Hip [employer] [id number] 01/07/20283349-8222 / / [id number] Lp Hex Screw 6.5x20mm Stry-Howm [id number] 57 Implanted:Qty: 1 on 05/22/2023 by Edmundo Roy MD Right: Hip [employer] [id number] 01/30/2028 [id number] / / [id number] Hip Spacer Distl Univ 11mm Stry-Howm [id number] 61 Implanted:Qty: 1 on 05/22/2023 by Edmundo Roy MD Right: Hip [employer] [id number] 03/25/20284611-3041 / / [id number] Hip Stem Acco-C 132deg #5 Stry-Howm [id number] Implanted:Qty: 1 on 05/22/2023 by Edmundo Roy MD Right: Hip [employer] [id number] 07/29/2027 [id number] / / [id number] Kit Prep Total Hip Bone Imp Smn-Orth [id number] Implanted:Qty: 1 on 05/22/2023 by Edmundo Roy MD Right: Hip [employer] [id number] 11/09/2032 [id number] / / [id number] Description:Medium plug Hip Head Delta Dorcas 36mm +2.5 Stry-Howm [id number] [id number] Implanted:Qty: 1 on 05/22/2023 by Edmundo Roy MD Right: Hip [employer] [id number] 08/18/2027 6570-0-536 / / [id number] Coil Penumbra 400 [id number] Soft Pnbr-Manu [id number] Implanted:Qty: 2 on 06/29/2023 by Raul Trejo MD [employer] 04/22/2031 [id number] / / [id number] Coil Penumbra 400 [id number] Soft Pnbr-Manu [id number] Implanted:Qty: 1 on 06/29/2023 by Raul Trejo MD [employer] 03/30/2031 [id number] / / [id number] Procedures Procedure Name Priority Date/Time Associated Diagnosis Comments MANUAL DIFFERENTIAL - [facility] Routine 01/24/2025 1:48 PM EDT 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) Thrombocytopenia (CMS/HCC) CBC WITH AUTO DIFFERENTIAL Routine 01/24/2025 1:48 PM EDT 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) Thrombocytopenia (CMS/HCC) CBC AND DIFFERENTIAL Routine 01/24/2025 1:48 PM EDT 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) Thrombocytopenia (CMS/HCC) MANUAL DIFFERENTIAL - [facility] WAM Routine 01/17/2025 3:59 PM EST 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) CBC WITH AUTO DIFFERENTIAL Routine 01/17/2025 3:59 PM EST 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) TYPE AND SCREEN Routine 01/17/2025 3:59 PM EST 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) Thrombocytopenia (CMS/HCC) COMPREHENSIVE METABOLIC PANEL Routine 01/17/2025 3:59 PM EST 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) CBC AND DIFFERENTIAL Routine 01/17/2025 3:59 PM EST 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) POCT GLUCOSE BLOOD Routine 01/10/2025 5: 59 PM EST CBC WITH AUTO DIFFERENTIAL STAT 01/10/2025 5:55 PM EST MAGNESIUM STAT 01/10/2025 5:55 PM EST BASIC METABOLIC PANEL STAT 01/10/2025 5:55 PM EST CBC AND DIFFERENTIAL STAT 01/10/2025 5:55 PM EST TRANSFUSE PLATELETS Routine 01/10/2025 8 :57 AM EST 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) Thrombocytopenia (CMS/HCC) PREPARE PLATELETS Routine 01/10/2025 8:1 9 AM EST 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) Thrombocytopenia (CMS/HCC) CBC WITH AUTO DIFFERENTIAL Routine 01/07/2025 1:32 PM EST 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) Thrombocytopenia (CMS/HCC) CBC AND DIFFERENTIAL Routine 01/07/2025 1:32 PM EST 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) Thrombocytopenia (CMS/HCC) TYPE AND SCREEN Routine 01/07/2025 1:32 PM EST 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) Thrombocytopenia (CMS/HCC) LACTATE DEHYDROGENASE Routine 01/03/2025 1:55 PM EST 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) CBC WITH AUTO DIFFERENTIAL Routine 01/03/2025 1:55 PM EST 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) COMPREHENSIVE METABOLIC PANEL Routine 01/03/2025 1:55 PM EST 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) CBC AND DIFFERENTIAL Routine 01/03/2025 1:55 PM EST 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) TRANSFUSE RED BLOOD CELLS Routine 12/30/2024 1:38 PM EST 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) Thrombocytopenia (CMS/HCC) TYPE AND SCREEN Routine 12/30/2024 11:13 AM EST 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) Thrombocytopenia (CMS/HCC) PREPARE RBC Routine 12/30/2024 11:12 AM EST 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) Thrombocytopenia (CMS/HCC) CBC WITH AUTO DIFFERENTIAL Routine 12/28/2024 1:12 PM EST 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) Thrombocytopenia (CMS/HCC) CBC AND DIFFERENTIAL Routine 12/28/2024 1:12 PM EST 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) Thrombocytopenia (CMS/HCC) TRANSFUSE PLATELETS Routine 12/27/2024 9 :55 AM EST 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) Thrombocytopenia (CMS/HCC) PREPARE PLATELETS Routine 12/27/2024 8:2 9 AM EST 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) Thrombocytopenia (CMS/HCC) TYPE AND SCREEN Routine 12/27/2024 8:24 AM EST 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) Thrombocytopenia (CMS/HCC) MANUAL DIFFERENTIAL - [facility] WAM Routine 12/24/2024 10:36 AM EST 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) Thrombocytopenia (CMS/HCC) CBC WITH AUTO DIFFERENTIAL Routine 12/24/2024 10:36 AM EST 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) Thrombocytopenia (CMS/HCC) CBC AND DIFFERENTIAL Routine 12/24/2024 10:36 AM EST 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) Thrombocytopenia (CMS/HCC) TRANSFUSE PLATELETS Routine 12/22/2024 1 :31 PM EST 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) Thrombocytopenia (CMS/HCC) PREPARE PLATELETS Routine 12/22/2024 12: 52 PM EST 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) Thrombocytopenia (CMS/HCC) TYPE AND SCREEN Routine 12/21/2024 12:47 PM EST 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) Thrombocytopenia (CMS/HCC) MANUAL DIFFERENTIAL - SYSMEX WAM Routine 12/20/2024 12:18 PM EST 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) CBC WITH AUTO DIFFERENTIAL Routine 12/20/2024 12:18 PM EST 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) COMPREHENSIVE METABOLIC PANEL Routine 12/20/2024 12:18 PM EST 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) LACTATE DEHYDROGENASE Routine 12/20/2024 12:18 PM EST 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) CBC AND DIFFERENTIAL Routine 12/20/2024 12:18 PM EST 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) MANUAL DIFFERENTIAL - S[facility]MEX WAM Routine 12/13/2024 1:01 PM EST 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) CBC WITH AUTO DIFFERENTIAL Routine 12/13/2024 1:01 PM EST 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) LACTATE DEHYDROGENASE Routine 12/13/2024 1:01 PM EST 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) CBC AND DIFFERENTIAL Routine 12/13/2024 1:01 PM EST 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) COMPREHENSIVE METABOLIC PANEL Routine 12/13/2024 1:01 PM EST 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) MANUAL DIFFERENTIAL - SYSMEX WAM Routine 12/06/2024 1:10 PM EST 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) CBC WITH AUTO DIFFERENTIAL Routine 12/06/2024 1:10 PM EST 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) LACTATE DEHYDROGENASE Routine 12/06/2024 1:10 PM EST 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) CBC AND DIFFERENTIAL Routine 12/06/2024 1:10 PM EST 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) COMPREHENSIVE METABOLIC PANEL Routine 12/06/2024 1:10 PM EST 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) ..MISCELLANEOUS REFERENCE LAB TEST 12/06/2024 MANUAL DIFFERENTIAL - [facility] WAM Routine 11/29/2024 12:13 PM EST 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) CBC WITH AUTO DIFFERENTIAL Routine 11/29/2024 12:13 PM EST 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) LACTATE DEHYDROGENASE Routine 11/29/2024 12:13 PM EST 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) COMPREHENSIVE METABOLIC PANEL Routine 11/29/2024 12:13 PM EST 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) CBC AND DIFFERENTIAL Routine 11/29/2024 12:13 PM EST 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) MANUAL DIFFERENTIAL - [facility] WAM Routine 11/15/2024 12:06 PM EST 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) CBC WITH AUTO DIFFERENTIAL Routine 11/15/2024 12:06 PM EST 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) CBC AND DIFFERENTIAL Routine 11/15/2024 12:06 PM EST 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) COMPREHENSIVE METABOLIC PANEL Routine 11/15/2024 12:06 PM EST 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) LACTATE DEHYDROGENASE Routine 11/15/2024 12:06 PM EST 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) MANUAL DIFFERENTIAL - [facility] WAM Routine 11/01/2024 11:42 AM EST 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) CBC WITH AUTO DIFFERENTIAL Routine 11/01/2024 11:42 AM EST 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) CBC AND DIFFERENTIAL Routine 11/01/2024 11:42 AM EST 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 Neutrophils % 39.0 % LAB HEMETOLOGY METHOD 5 3:40 PM EDT [facility] Bands % 13.0 % LAB HEMETOLOGY METHOD 5 3:40 PM EDT [facility] Lymphocytes % 12.0 % LAB HEMETOLOGY METHOD 5 3:40 PM EDT [facility] Monocytes % 13.0 % LAB HEMETOLOGY METHOD 5 3:40 PM EDT [facility] Eosinophils % 1.0 % LAB HEMETOLOGY METHOD 5 3:40 PM EDT [facility] Basophils % 0.0 % LAB HEMETOLOGY METHOD 5 3:40 PM EDT [facility] Metamyelocytes % 3.0(H) % LAB HEMETOLOGY METHOD 5 3:40 PM EDT [facility] Myelocytes % 19.0(H) % LAB HEMETOLOGY METHOD 5 3:40 PM EDT [facility] Neutrophils Absolute Manual 15.33(H) 1.50 - 7.00 K/mcL LAB HEMETOLOGY METHOD 5 3:40 PM EDT [facility] Bands Absolute Manual 5.11(H) 0.00 - 0.00 K/mcL LAB HEMETOLOGY METHOD 5 3:40 PM EDT [facility] Lymphocytes Absolute 4.72 1.00 - 5.00 K/mcL LAB HEMETOLOGY METHOD 5 3:40 PM EDT [facility] Monocytes Absolute Manual 5.11(H) 0.20 - 1.00 K/mcL LAB HEMETOLOGY METHOD 5 3:40 PM EDT [facility] Eosinophils Absolute Manual 0.39 0.00 - 0.50 K/mcL LAB HEMETOLOGY METHOD 5 3:40 PM EDT [facility] Basophils Absolute Manual 0.00 0.00 - 0.20 K/mcL LAB HEMETOLOGY METHOD 5 3:40 PM EDT [facility] Metamyelocytes Absolute Manual 1.18(H) 0.00 - 0.00 K/mcL LAB HEMETOLOGY METHOD 5 3:40 PM EDT [facility] Myelocytes Absolute Manual 7.47(H) 0.00 - 0.00 K/mcL LAB HEMETOLOGY METHOD 5 3:40 PM EDT [facility] Rbc Morphology Consistent with indices Consistent with indices, Normal for [place] LAB HEMETOLOGY METHOD 5 3:40 PM EDT [facility] Platelet Morphology - WAM Large Platelets Seen(A) Normal LAB HEMETOLOGY METHOD 5 3:40 PM EDT [facility] Blood Venous blood specimen / Unknown Venipuncture / Unknown 01/24/2025 1:48 PM EDT 01/24/2025 1:48 PM EDT Jairo Bosch MD LAB BLOOD ORDERABLE S Final Result [facility] [address] [place] [address], * (ABNORMAL) CBC auto differential (01/24/2025 1:48 PM EDT) Only the most recent of13 resultswithin the time period is included. WBC 39.3(H) 4.8 - 10.8 K/mcL LAB HEMETOLOGY METHOD 01/24/2025 3:40 PM EDT [facility] RBC 4.00 3.80 - 4.80 M/mcL LAB HEMETOLOGY METHOD 01/24/2025 3:40 PM EDT [facility] Hemoglobin 12.5 11.5 - 16.0 g/dL LAB HEMETOLOGY METHOD 01/24/2025 3:40 PM EDT [facility] Hematocrit 40.8 35.0 - 47.0 % LAB HEMETOLOGY METHOD 01/24/2025 3:40 PM EDT [facility] MCV 101.7(H) 79.0 - 98.0 FL LAB HEMETOLOGY METHOD 01/24/2025 3:40 PM EDT [facility] MCH 31.2 27.0 - 32.0 pcg LAB HEMETOLOGY METHOD 01/24/2025 3:40 PM EDT [facility] MCHC 30.6(L) 32.0 - 37.0 g/dL LAB HEMETOLOGY METHOD 01/24/2025 3:40 PM EDT [facility] RDW 17.4(H) 11.0 - 15.0 % LAB HEMETOLOGY METHOD 01/24/2025 3:40 PM EDT [facility] Platelets 200 130 - 400 K/mcL LAB HEMETOLOGY METHOD 01/24/2025 3:40 PM EDT [facility] MPV 12.7(H) 7.0 - 11.0 FL LAB HEMETOLOGY METHOD 01/24/2025 3:40 PM EDT [facility] NRBC 0.0 <1.0 % LAB HEMETOLOGY METHOD 01/24/2025 3:40 PM EDT [facility] NRBC Absolute 0.00 <0.10 K/mcL LAB HEMETOLOGY METHOD 01/24/2025 3:40 PM EDT [facility] Blood Venous blood specimen / Unknown Venipuncture / Unknown 01/24/2025 1:48 PM EDT 01/24/2025 1:48 PM EDT us Jairo Bosch MD LAB BLOOD ORDERABLE S Final Result Performing Organization Address City/State/[facility] Co de Phone Number [facility] [address] [place] [address], [place] [phone] * Type and screen (01/17/2025 3:59 PM EST) Only the most recent of5 resultswithin the time period is included. ABO Group A 01/18/2025 8:09 AM EST [facility] Rh Type Negative 01/18/2025 8:09 AM EST [facility] Antibody Screen Negative 01/18/2025 8:09 AM EST [facility] Blood Venous blood specimen / Unknown Venipuncture / Unknown 01/17/2025 3:59 PM EST 01/17/2025 5:15 PM EST us Jairo Bosch MD LAB BLOOD BANK TEST ORDERABLES Final Result [facility] [address] [place] [address], * Comprehensive metabolic panel (01/17/2025 3:59 PM EST) Only the most recent of8 resultswithin the time period is included. Sodium 141 133 - 145 mmol/L LAB CHEMISTRY METHOD 01/17/2025 6:21 PM [facility] Potassium 4.0 3.5 - 5.5 mmol/L LAB CHEMISTRY METHOD 01/17/2025 6:21 PM [facility] Chloride 108 96 - 110 mmol/L LAB CHEMISTRY METHOD 01/17/2025 6:21 PM [facility] CO2 27 21 - 32 mmol/L LAB CHEMISTRY METHOD 01/17/2025 6:21 PM [facility] Anion Gap 6 3 - 11 LAB CHEMISTRY METHOD 01/17/2025 6:21 PM [facility] Glucose 78 70 - 100 mg/dL LAB CHEMISTRY METHOD 01/17/2025 6:21 PM [facility] BUN 20 5 - 25 mg/dL LAB CHEMISTRY METHOD 01/17/2025 6:21 PM [facility] Creatinine 0.88 0.50 - 1.10 mg/dL LAB CHEMISTRY METHOD 01/17/2025 6:21 PM [facility] eGFR 67 >=60 mL/min/1. 73m2 LAB CHEMISTRY METHOD 01/17/2025 6:21 PM [facility] Comment:Calculation based on the??Chronic Kidney Disease Epidemiology Collaboration (CKD-EPI) equation refit??without adjustment for race. BUN/Creatinine Ratio 22.7 LAB CHEMISTRY METHOD 01/17/2025 6:21 PM [facility] Calcium 9.2 8.5 - 10.5 mg/dL LAB CHEMISTRY METHOD 01/17/2025 6:21 PM [facility] AST (SGOT) 21 10 - 42 unit/L LAB CHEMISTRY METHOD 01/17/2025 6:21 PM EST [facility] ALT (SGPT) 16 10 - 60 unit/L LAB CHEMISTRY METHOD 01/17/2025 6:21 PM EST [facility] Alkaline Phosphatase 81 42 - 121 unit/L LAB CHEMISTRY METHOD 01/17/2025 6:21 PM [facility] Total Protein 6.8 6.0 - 8.0 g/dL LAB CHEMISTRY METHOD 01/17/2025 6:21 PM EST [facility] Albumin 3.9 3.2 - 5.0 g/dL LAB CHEMISTRY METHOD 01/17/2025 6:21 PM [facility] Total Bilirubin 0.5 0.0 - 1.4 mg/dL LAB CHEMISTRY METHOD 01/17/2025 6:21 PM EST [facility] Blood Venous blood specimen / Unknown Venipuncture / Unknown 01/17/2025 3:59 PM EST 01/17/2025 5:21 PM EST Jairo Bosch MD LAB BLOOD ORDERABLE S Final Result Performing Organization Address [facility]/ZIP Co de Phone Number [facility] [address] [place] [address], [place] [phone] * (ABNORMAL) POCT Glucose, blood (01/10/2025 5:59 PM EST) Glucose POCT 110(H) 70 - 100 mg/dL 01/10/2025 5:59 PM EST [facility] Blood Capillary blood specimen / Unknown 01/10/2025 5:59 PM EST 01/10/2025 6:00 PM EST us Shahram Tripathi MD LAB POINT OF CARE TE ST DOCKED DEVICE UNSOLICITED RESULTS Final Result Performing Organization Address City/[facility]/ZIP Co de Phone Number [facility] [address] [place] [address], [place] [phone] * Magnesium (01/10/2025 5:55 PM EST) [facility] Magnesium 2.3 1.9 - 2.6 mg/dL LAB CHEMISTRY METHOD 01/10/2025 6:36 PM EST [facility] Blood Venous blood specimen / Unknown Venipuncture / Unknown 01/10/2025 5:55 PM EST 01/10/2025 6:05 PM EST [facility] Avinash Tripathi MD LAB BLOOD ORDERABLES Final Resu lt [facility] [address] [place] [address], [place] [phone] * (ABNORMAL) Basic metabolic panel (01/10/2025 5:55 PM EST) [facility] Sodium 138 133 - 145 mmol/L LAB CHEMISTRY METHOD 01/10/2025 6:36 PM [facility] Potassium 4.8 3.5 - 5.5 mmol/L LAB CHEMISTRY METHOD 01/10/2025 6:36 PM [facility] Chloride 106 96 - 110 mmol/L LAB CHEMISTRY METHOD 01/10/2025 6:36 PM [facility] CO2 25 21 - 32 mmol/L LAB CHEMISTRY METHOD 01/10/2025 6:36 PM [facility] Anion Gap 7 3 - 11 LAB CHEMISTRY METHOD 01/10/2025 6:36 PM [facility] Glucose 130(H) 70 - 100 mg/dL LAB CHEMISTRY METHOD 01/10/2025 6:36 PM [facility] BUN 13 5 - 25 mg/dL LAB CHEMISTRY METHOD 01/10/2025 6:36 PM [facility] Creatinine 0.76 0.50 - 1.10 mg/dL LAB CHEMISTRY METHOD 01/10/2025 6:36 PM EST [facility] eGFR 80 >=60 mL/min/1. 73m2 LAB CHEMISTRY METHOD 01/10/2025 6:36 PM EST [facility] Comment:Calculation based on the??Chronic Kidney Disease Epidemiology Collaboration (CKD-EPI) equation refit??without adjustment for race. BUN/Creatinine Ratio 17.1 LAB CHEMISTRY METHOD 01/10/2025 6:36 PM EST [facility] Calcium 9.4 8.5 - 10.5 mg/dL LAB CHEMISTRY METHOD 01/10/2025 6:36 PM [facility] Blood Venous blood specimen / Unknown Venipuncture / Unknown 01/10/2025 5:55 PM EST 01/10/2025 6:05 PM EST Shahram Tripathi MD LAB BLOOD ORDERABLES Final Resu lt [facility] [address] [place] [address], * Transfuse platelets (01/10/2025 9:49 AM EST) Only the most recent of3 resultswithin the time period is included. Jairo Bosch MD BLOOD TRANSFUSION O RDERABLES Final Result * Prepare platelets: 1 Product (01/10/2025 8:19 AM EST) Only the most recent of3 resultswithin the time period is included. Product Code [id number] 01/10/2025 8:56 AM [facility] Unit Number [id number] 01/10/20 8:56 AM [facility] Dispense Status Transfused 01/10/2025 8:56 AM [facility] Unit ABO Rh APOS 01/10/2025 8:56 AM [facility] Unit Expiration Date Time [id number] 01/10/2025 8:56 AM EST [facility] Unit Blood Type 6200 01/10/2025 8:56 AM EST [facility] Blood Venous blood specimen / Unknown 01/10/2025 8:19 AM EST us Jairo Bosch MD BLOOD BANK PRODUCT ORDERABLES Final Result Performing Organization Address City/[facility]/ZIP Co de Phone Number [facility] [address] [place] [address], [place] [phone] * (ABNORMAL) Lactate dehydrogenase (01/03/2025 1:55 PM EST) Only the most recent of7 resultswithin the time period is included. [facility] LDH 87(L) 120 - 246 unit/L LAB CHEMISTRY METHOD 01/03/2025 4:08 PM EST [facility] Blood Venous blood specimen / Unknown Venipuncture / Unknown 01/03/2025 1:55 PM EST 01/03/2025 1:55 PM EST Subjoel Bosch MD LAB BLOOD ORDERABLE S Final Result Performing Organization Address City/[facility]/ZIP Co de Phone Number [facility] [address] [place] [address], [place] [phone] * Transfuse RBC (12/30/2024 3:38 PM EST) Jairo Bosch MD BLOOD TRANSFUSION O RDERABLES Final Result * Prepare RBC: 1 Units (12/30/2024 11:12 AM EST) Pathologist [facility] Product Code [id number] 12/30/2024 1:42 PM EST [facility] Unit Number [id number] 12/30/19 1:42 PM EST [facility] Crossmatch Compatible 12/30/2024 1:30 PM EST [facility] Dispense Status Transfused 12/30/2024 1:42 PM EST [facility] Unit ABO Rh ANEG 12/30/2024 1:42 PM [facility] Unit Expiration Date Time [id number] 12/30/2024 1:42 PM [facility] Unit Blood Type 0600 12/30/2024 1:42 PM [facility] Blood Venous blood specimen / Unknown 12/30/2024 11:12 AM EST 12/27/2024 8:30 AM EST Jairo Bosch MD BLOOD BANK PRODUCT ORDERABLES Final Result [facility] [address] [place] [address], * Miscellaneous reference lab test (12/06/2024) Provider Onbase LAB BLOOD ORDERABLES Final Re sult * Lipid panel (12/16/2023) LDL/HDL Ratio 3 Triglycerides 90 mg/dL Cholesterol 138 mg/dL HDL 48 mg/dL LDL Cholesterol 72 mg/dL Blood Venous blood specimen / Unknown Historical Provider LAB BLOOD ORDERABLES Viviana l Result * AGNES DEXA AXIAL SKELETON (01/24/2023 8:50 AM EST) Anatomical Region Laterality Modality Mammography 01/23/2023 3:07 PM EST Narrative 01/24/2023 8:50 AM EST [facility] Diagnostic Imaging Department [address] [place] [address] Patient: ??KATHRYN CAMARGO ?/Age/Sex: 1945 - 77 - F Unit#: ??[id number] ? Location/Status: ??SPDIMAM/REG CLI ? Mnemonic/Ordering Site: ??MAMDEXAAX/SPMAM Ordering Physician: ??GILES DEAN MD Agnes Dexa Axial Skeleton - 01/23/231533 HISTORY: ??The patient is a 77-year-old postmenopausal female with clinical concern for metabolic bone disease. FINDINGS: ??Dual energy x-ray absorptiometry of the lumbar spine and femurs is performed. The mean bone mineral density at L1-2 is 1.186 gm/cm2 which is 102% of that of young normals and 122% of that of age matched controls. This yields a T-score of 0.2 and a Z-score of 1.8 and there is therefore no evidence of osteoporosis or osteopenia here. The mean bone mineral density of the femurs bilaterally is 0.793 gm/cm2 which is 79% of that of young normals and 101% of that of age matched controls. ??This yields a T-score of -1.7 and a Z-score of 0.0 which is diagnostic of osteopenia. IMPRESSION: 1. Osteopenia. ??There has been a decrease of 2.2% in bone mineral density in the lumbar spine since the prior examination of 07/31/2020. ??There has been an increase of 0.7% in bone mineral density in the right femur and an increase of 4.6% in bone mineral density in the left femur. 2. FRAX analysis yields a 10-year probability of major osteoporotic fracture of 10.5% and a 10-year probability of hip fracture of 1.8%. Code 17258 Dictating Physician: ??HILDA MONTERO MD Electronically Signed by: ??HILDA MONTERO MD Dic Date/Time: ??01/24/2349 Sign date/Time: ??01/24/23 0850 Procedure Note Hilda Montero MD - 12/19/2023 [facility] Diagnostic Imaging Department [address] [place], [place] [id number] Patient: KATHRYN CAMARGO D.O.B./Age/Sex: 1945 - 77 - F Unit#: [id number] [facility] Ordering Physician: GILES DEAN MD [facility] Dexa Axial Skeleton - 01/23/23 9964 HISTORY: The patient is a 77-year-old postmenopausal female withclinical concern for metabolic bone disease. FINDINGS: Dual energy x-ray absorptiometry of the lumbar spine and femursis performed. The mean bone mineral density at L1-2 is 1.186 gm/cm2 which is102% of that of young normals and 122% of that of age matched controls. Thisyields a T-score of 0.2 and a Z-score of 1.8 and there is therefore no evidenceof osteoporosis or osteopenia here. The mean bone mineral density of the femurs bilaterally is 0.793 gm/ys8yjblf is 79% of that of young normals and 101% of that of age matched controls.This yields a T-score of -1.7 and a Z-score of 0.0 which is diagnostic ofosteopenia. IMPRESSION: 1. Osteopenia. There has been a decrease of 2.2% in bone mineral densityin the lumbar spine since the prior examination of 07/31/2020. There has beenan increase of 0.7% in bone mineral density in the right femur and anincrease of 4.6% in bone mineral density in the left femur. 2. FRAX analysis yields a 10-year probability of major osteoporoticfracture of 10.5% and a 10-year probability of hip fracture of 1.8%. 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 (hx) 07/16/2022 AD VITAL DIRECTIVE Health Care Decision (hx) 07/16/2022 AD VITAL DIRECTIVE Health Care Decision (hx) 07/16/2022 AD VITAL DIRECTIVE Health Care Decision (hx) 07/16/2022 AD VITAL DIRECTIVE Health Care Decision (hx) 07/16/2022 AD VITAL DIRECTIVE Health Care Decision (hx) 07/16/2022 AD VITAL DIRECTIVE Health Care Decision (hx) 07/16/2022 AD VITAL DIRECTIVE Health Care Decision (hx) 07/16/2022 AD VITAL DIRECTIVE Health Care Decision (hx) 07/16/2022 AD VITAL DIRECTIVE Health Care Decision (hx) 07/16/2022 AD VITAL DIRECTIVE Health Care Decision (hx) 07/16/2022 AD VITAL DIRECTIVE Health Care Decision (hx) 02/22/2020 AD VITAL DIRECTIVE Health Care Decision (hx) 02/22/2020 AD VITAL DIRECTIVE Health Care Decision (hx) 02/22/2020 AD IVTAL DIRECTIVE Health Care Decision (hx) 02/22/2020 AD VITAL DIRECTIVE Health Care Decision (hx) 02/22/2020 AD VITAL DIRECTIVE Health Care Decision (hx) 02/22/2020 AD VITAL DIRECTIVE Health Care Decision (hx) 02/22/2020 AD VITAL DIRECTIVE Health Care Decision (hx) 02/22/2020 AD VITAL DIRECTIVE Health Care Decision (hx) 02/22/2020 AD VITAL DIRECTIVE Health Care Decision (hx) 02/22/2020 AD VITAL DIRECTIVE Health Care Decision (hx) 02/22/2020 AD VITAL DIRECTIVE Health Care Decision (hx) 02/22/2020 AD VITAL DIRECTIVE Health Care Decision (hx) 02/22/2020 AD VITAL DIRECTIVE Health Care Decision (hx) 02/22/2020 AD VITAL DIRECTIVE Health Care Decision (hx) 02/22/2020 AD VITAL DIRECTIVE Health Care Decision (hx) 02/22/2020 AD VITAL DIRECTIVE Health Care Decision (hx) 02/22/2020 AD VITAL DIRECTIVE Health Care Decision (hx) 02/22/2020 AD VITAL DIRECTIVE Health Care Decision (hx) 02/22/2020 AD VITAL DIRECTIVE Health Care Decision (hx) 02/22/2020 AD VITAL DIRECTIVE Health Care Decision (hx) 02/22/2020 AD VITAL DIRECTIVE Health Care Decision (hx) 02/22/2020 AD VITAL DIRECTIVE Health Care Decision (hx) 02/22/2020 AD VITAL DIRECTIVE Health Care Decision (hx) 02/22/2020 AD VITAL DIRECTIVE Health Care Decision (hx) 02/22/2020 AD VITAL DIRECTIVE Health Care Decision (hx) 02/22/2020 AD VITAL DIRECTIVE Health Care Decision (hx) 02/22/2020 AD VITAL DIRECTIVE Health Care Decision (hx) 02/22/2020 AD VITAL DIRECTIVE Health Care Decision (hx) 02/22/2020 AD VITAL DIRECTIVE Health Care Decision (hx) 02/22/2020 AD VITAL DIRECTIVE Health Care Decision (hx) 02/22/2020 AD VITAL DIRECTIVE Health Care Decision (hx) 02/22/2020 AD VITAL DIRECTIVE Health Care Decision (hx) 02/22/2020 AD VITAL DIRECTIVE Health Care Decision (hx) 02/22/2020 AD VITAL DIRECTIVE Health Care Decision (hx) 02/22/2020 AD VITAL DIRECTIVE Health Care Decision (hx) 02/22/2020 AD VITAL DIRECTIVE Health Care Decision (hx) 02/22/2020 AD VITAL DIRECTIVE Health Care Decision (hx) 02/22/2020 AD VITAL DIRECTIVE Health Care Decision (hx) 02/22/2020 AD VITAL DIRECTIVE Health Care Decision (hx) 02/22/2020 AD VITAL DIRECTIVE Health Care Decision (hx) 02/22/2020 AD VITAL DIRECTIVE Health Care Decision (hx) 02/22/2020 AD VITAL DIRECTIVE Health Care Decision (hx) 02/22/2020 AD VITAL DIRECTIVE Health Care Decision (hx) 02/22/2020 AD VITAL DIRECTIVE Health Care Decision (hx) 02/22/2020 AD VITAL DIRECTIVE Health Care Decision (hx) 02/22/2020 AD VITAL DIRECTIVE Health Care Decision (hx) 02/22/2020 AD VITAL DIRECTIVE Health Care Decision (hx) 02/22/2020 AD VITAL DIRECTIVE Health Care Decision (hx) 02/22/2020 AD VITAL DIRECTIVE Health Care Decision (hx) 02/22/2020 AD VITAL DIRECTIVE Health Care Decision (hx) 02/22/2020 AD VITAL DIRECTIVE Health Care Decision (hx) 02/22/2020 AD VITAL DIRECTIVE Health Care Decision (hx) 02/22/2020 AD VITAL DIRECTIVE Health Care Decision (hx) 02/22/2020 AD VITAL DIRECTIVE Health Care Decision (hx) 02/08/2017 AD VITAL DIRECTIVE Health Care Decision (hx) 02/08/2017 AD VITAL DIRECTIVE Health Care Decision (hx) 02/08/2017 AD VITAL DIRECTIVE Health Care Decision (hx) 02/08/2017 AD VITAL DIRECTIVE Health Care Decision (hx) 02/08/2017 AD VITAL DIRECTIVE Health Care Decision (hx) 02/08/2017 AD VITAL DIRECTIVE Health Care Decision (hx) 02/08/2017 AD VITAL DIRECTIVE Health Care Decision (hx) 02/08/2017 AD VITAL DIRECTIVE Health Care Decision (hx) 02/08/2017 AD VITAL DIRECTIVE Health Care Decision (hx) 02/08/2017 AD VITAL DIRECTIVE Health Care Decision (hx) 02/08/2017 AD VITAL DIRECTIVE Health Care Decision (hx) 02/08/2017 AD VITAL DIRECTIVE Health Care Decision (hx) 02/08/2017 AD VITAL DIRECTIVE Health Care Decision (hx) 02/08/2017 AD VITAL DIRECTIVE Health Care Decision (hx) 02/08/2017 AD VITAL DIRECTIVE Health Care Decision (hx) 02/08/2017 AD VITAL DIRECTIVE Health Care Decision (hx) 02/08/2017 AD VITAL DIRECTIVE Health Care Decision (hx) 02/08/2017 AD VITAL DIRECTIVE Health Care Decision (hx) 02/08/2017 AD VITAL DIRECTIVE Health Care Decision (hx) 02/08/2017 AD VITAL DIRECTIVE Health Care Decision (hx) 02/08/2017 AD VITAL DIRECTIVE Health Care Decision (hx) 02/08/2017 AD VITAL DIRECTIVE Health Care Decision (hx) 02/08/2017 AD VITAL DIRECTIVE Health Care Decision (hx) 02/08/2017 AD VITAL DIRECTIVE Health Care Decision (hx) 02/08/2017 AD VITAL DIRECTIVE Health Care Decision (hx) 02/08/2017 AD VITAL DIRECTIVE Health Care Decision (hx) 02/08/2017 AD VITAL DIRECTIVE Health Care Decision (hx) 02/08/2017 AD VITAL DIRECTIVE Health Care Decision (hx) 02/08/2017 AD VITAL DIRECTIVE Health Care Decision (hx) 02/08/2017 AD VITAL DIRECTIVE Health Care Decision (hx) 02/08/2017 AD VITAL DIRECTIVE Care Teams Vehicle Dismantler Relationship Specialty Start Date End Date Giles Dean MD [address] [place] [id number] PCP - General Internal Medicine 02/07/17
--- OUTSIDE RECORDS SUMMARY | 2025-01-26 18:25 | XMS_ITS | Clinical Summary ---
Author Organization [facility] Address [address] [place] [address] Care Team Providers Care Mechanical Maintenance Instructor Name Role Phone Giles Campo MD Primary Care Provider [phone] Allergies Active Allergy Reactions Criticality Noted Date Comments Penicillins Rash Medium 12/01/2015 Other reaction(s): RASH ALL OVER BODY Oxycodone-Acetaminophen Nausea And Vomiting Sulfa Antibiotics 12/01/2015 Other reaction(s): UNKNOWN Medications Medication Sig Dispensed Refills Start Date End Date Status Calcium Carbonate-Vitamin D (CALCIUM 600/VITAMIN D PO) Take 1,500 mg by mouth daily. 0 Active metoprolol succinate (TOPROL-XL) 24 hr tablet 25 mg Take 1 tablet (25 mg total) by mouth. 0 12/16/2017 Active cetirizine (ZyrTEC) 10 MG tablet Take 1 tablet (10 mg total) by mouth daily. 0 Active budesonide-formotero l (SYMBICORT) 160-4.5 MCG/ACT inhaler 1 inhalation. daily. 0 Active ipratropium (ATROVENT) 0.06 % nasal spray 2-3 Times Daily 0 08/18/2017 Active loperamide (IMODIUM A-D) 2 MG tablet Take 1 tablet (2 mg total) by mouth. 0 Active lovastatin (MEVACOR) 20 MG tablet Take 1 tablet (20 mg total) by mouth daily. 0 02/06/2023 Active Albuterol Sulfate (PROAIR HFA IN) Inhale into the lungs. 0 Active amLODIPine (NORVASC) tablet 2.5 mg Take 1 tablet (2.5 mg total) by mouth daily. 0 Active hydroxyurea (Hydrea) 500 MG capsule Take 1 capsule (500 mg total) by mouth 2 (two) times a day 60 capsule 1 08/17/2024 Active Active Problems Problem Noted Date Diagnosed Date [...] need IVIG. Overview: Onc(06/22/18): followed by Dr Telels.continue surveillance for thrombocytopenia. F/u in 4 months [...] IVIG. Monocytosis 06/30/2017 Hyperlipidemia 03/14/2017 Osteopenia 03/14/2017 Social History Tobacco Use Types Packs/Day Years Used Date Smoking Tobacco: Former Cigarettes 2 64 1 963 - 1994 Smokeless Tobacco: Never Tobacco Cessation:Counseling Given: Not Answered Alcohol Use Standard Drinks/Week Comments Yes 0 (1 standard drink = 0.6 oz pur e alcohol) social ONE A MONTH Sex and Gender Information Value Date Recorded Sex Assigned at Female 04/29/2023 11:36 AM EDT Gender Identity Female 04/29/2023 11:36 AM EDT Sexual Orientation Choose not to disclose 2022 6:00 AM EDT Job Start Date Occupation Industry Not on file Not on file Not on file Last Filed Vital Signs Vital Sign Reading Time Taken Comments Blood Pressure 145/76 08/04/2024 2:26 PM EDT Pulse 71 08/04/2024 2:26 PM EDT Temperature 37.1 ??C (98.8 ??F) 08/04/2024 2:26 PM ED T Respiratory Rate 20 07/01/2023 3:21 PM EDT Oxygen Saturation 100% 08/04/2024 2:26 PM EDT Inhaled Oxygen Concentration - - Weight 71.2 kg (157 lb) 08/04/2024 2:26 PM EDT Height 165.1 cm (5' 5 ) 06/28/2023 8:19 PM EDT Body Mass Index 26.13 06/28/2023 8:19 PM EDT Plan of Treatment Health Maintenance Due Date Last Done Comments Hepatitis C Screening 1945 COVID-19 Vaccine (#1) 1950 Depression Screening 1957 Preventative Health Evaluation 1963 Shingrix-Zoster Vaccine (1 of 2) 1964 Fall Risk Assessment 2010 Osteoporosis Screening (DEXA Scan) 2010 RSV Adult > 60+ Yrs or (1 - 1-dose 75+ series) 2020 Influenza Vaccine (#1) 2024 , 08/02/2020, 08/13/2019, Additional history exists DTap / Tdap / Td (2 - Td or Tdap) 10/26/2025 10/26/2015, 07/31/2010 Pneumococcal Vaccine Completed 01/19/2018, 09/21/2014, 09/21/2014, Additional history exists Hepatitis B Vaccines Aged Out No long er eligible based on patient's age to complete this topic RSV Ped < 20 months Aged Out No longe r eligible based on patient's age to complete this topic Medical Devices Implanted Type Area Wrapper Stemmer Operator Device Identifier Shelf Expiration Date Model / Serial / Lot Liner Trident X3 0 Deg 36mm 5.9mm Sz E [facility] [id number] - [id number] Implanted:Qty: 1 on 05/22/2023 by Edmundo Roy MD [place] [facility] [employer] [id number] 02/19/2028 723-00-36E / / [id number] Cement Bone Surg Simplex Radiopq [facility] 7234-0-516-114 092 - [id number] Implanted:Qty: 1 on 05/22/2023 by Edmundo Roy MD at [facility] Right: Hip [employer] [id number] 6191-1-010 / / [id number] Cement Bone Surg Simplex Radiopq Stry-Howm 1497-5-009-114 092 - [id number] Implanted:Qty: 1 on 05/22/2023 by Edmundo Roy MD at [facility] Right: Hip [employer] [id number] 6191-1-010 / / [id number] Tritanium Cluster Hole Shell 52mm Stry-Howm 994-55-62k-770 473 - [id number] Implanted:Qty: 1 on 05/22/2023 by Edmundo Roy MD at [facility] Right: Hip [employer] [id number] 01/14/2028 702-04-52E / / [id number] Lp Hex Screw 6.5x25mm Stry-Howm 3780-4709-3598 58 - [id number] Implanted:Qty: 1 on 05/22/2023 by Edmundo Roy MD at [facility] Right: Hip [employer] [id number] 03/01/2028 2679-9650 / / [id number] Lp Hex Screw 6.5x20mm Stry-Howm 6971-1701-7405 57 - [id number] Implanted:Qty: 1 on 05/22/2023 by Edmundo Roy MD at [facility] Right: Hip [employer] [id number] 01/07/2028 4309-8296 / / [id number] Lp Hex Screw 6.5x20mm Stry-Howm 2703-4251-8811 57 - [id number] Implanted:Qty: 1 on 05/22/2023 by Edmundo Roy MD at [facility] Right: Hip [employer] [id number] 01/30/2028 8103-7248 / / [id number] Hip Spacer Distl Univ 11mm Stry-Howm 5843-6824-1159 61 - [id number] Implanted:Qty: 1 on 05/22/2023 by Edmundo Roy MD at [facility] Right: Hip [employer] [id number] 03/25/2028 2564-0299 / / [id number] Hip Stem Acco-C 132deg #5 Stry-Howm 7738-3261x-247 232 - [id number] Implanted:Qty: 1 on 05/22/2023 by Edmundo Roy MD at [facility] Right: Hip [employer] [id number] 07/29/2027 6058-0537D / / [id number] Kit Prep Total Hip Bone Imp [facility]Or[facility] [id number] - [id number] Implanted:Qty: 1 on 05/22/2023 by Edmundo Roy MD at [facility] Right: Hip [employer] [id number] 11/09/2032 [id number] / / [id number] Description:Medium plug Hip Head Delta Dorcas 36mm +2.5 Stry-How 4557-5-151-532 963 - [id number] Implanted:Qty: 1 on 05/22/2023 by Edmundo Roy MD at [facility] Right: Hip [employer] [id number] 08/18/2027 6570-0-536 / / [id number] Coil Penumbra 400 [id number] Soft Pnbr-Manu [id number] 93 - [id number] Implanted:Qty: 2 on 06/29/2023 by Raul Trejo MD at [facility] [employer] 04/22/2031 [id number] / / [id number] Coil Penumbra 400 [id number] Soft Pnbr-Manu [id number] 93 - [id number] Implanted:Qty: 1 on 06/29/2023 by Raul Trejo MD at [facility] [employer] 03/30/2031 [id number] / / [id number] Advance Directives For more information, please contact: [phone] Latest Code Status on File Code Status Date Activated Date Inactivated Comments Full Code 06/28/2023 7:20 PM 07/01/2023 11:24 PM This code status was ascertained in the following way: discussion with healthcare sales promotion representative . Code Status History Code Status Date Activated Date Inactivated Comments Full Code 05/22/2023 8:47 AM 05/23/2023 9:36 PM This co de status was ascertained in the following way: discussion with patient . Full Code 05/22/2023 5:51 AM 05/22/2023 8:47 AM This co de status was ascertained in the following way: discussion with patient . Care Teams Mechanical Maintenance Instructor Relationship Specialty Start Date End Date Giles Campo MD [address] [place] [id number] PCP - General Internal Medicine 12/22/17
== END 2025-01-26 15:47 | disposition home or self-care (01) ==
LOC: HO.MRI 15:46
PROVIDERS: PCP Internal Medicine; Visit Provider Urology
DX: D41.00 Neoplasm of uncertain behavior of unspecified kidney (principal)
CPT/HCPCS: 74183; A9585

== ENCOUNTER → 2025-01-26 16:47 | Outpatient (BNV) | payer MEDICARE, SELFPAY | PROVIDERS: PCP Internal Medicine; Visit Provider Radiology Diagnostic Radiology | DX: N28.1 Cyst of kidney, acquired (principal); D18.03 Hemangioma of intra-abdominal structures | CPT/HCPCS: 74183 ==

== ENCOUNTER 2025-08-10 12:48 | Outpatient (REF) | payer MEDICARE, SELFPAY ==
--- OUTSIDE RECORDS SUMMARY | 2025-08-07 07:03 | XMS_ITS | Encounter Summary ---
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 Role Phone Cori Simmons MD Primary Care Provider [phone] Reason for Referral * Consultation (Routine) - Closed Specialty Diagnoses / Procedures Referred By Yen topete Referred To Contact Urology Diagnoses Renal colic on right side Kidney stone Vaibhav Elizabeth MD [address] [place] [phone] Phone: tel: fax: [facility] [address] [address] Phone: tel: fax: Referral ID Status Reason Start Date Expiration Date V isits Requested Visits Authorized [id number] Closed Specialty Services Required 08/07/2025 08/07/2026 1 1 Reason for Visit * Reason Comments Back Pain Since 330am Encounter Details Date Type Department Care Team (Late st Contact Info) Description 08/07/2025 7:03 AM EDT - 08/07/2025 11:[address] [facility] Emergency [address] [place] [address] Vaibhav Elizabeth MD [address] [place] [id number] Renal colic on right side (Primary Dx); Kidney stone Discharge Disposition: Home or Self Care Social History Tobacco Use Types Packs/Day Years Used Date Smoking Tobacco: Former Cigarettes 2 32 0 11/17/1962 - 11/17/1994 Smokeless Tobacco: Never Alcohol Use Standard Drinks/Week Comments Yes 0 (1 standard drink = 0.6 oz pur e alcohol) rarely Housing Instability Answer Date Recorde d Are you worried that in the next 2 months you may not have stable housing? No 04/21/2025 Food Access & Nutrition Answer Date Rec orded Do you have access to a vari ety of food including fruits and vegetables? Yes 04/21/2025 Access to Healthcare Answer Date Record ed Within the last 3 months, ho w many times did you visit the emergency department for your medical care? 1 04/21/2025 Health Literacy Answer Date Recorded How often do you need to hav e someone help you when you read instructions, pamphlets, or other written material from your doctor or pharmacy? Never 04/21/2025 Caregiver: How often do you need to have someone help you when you read instructions, pamphlets, or other written material from your doctor or pharmacy? Not on file 04/21/2025 Financial Risk Answer Date Recorded How hard is it for you to pa y for the very basics like food, housing, medical care, and air conditioning / heating? Not very hard 04/21/2025 Transportation Answer Date Recorded Has the lack of transportati on kept you from meetings, work, or from getting things needed for daily living? No Has the lack of transportati on kept you from medical appointments or from getting medications? No 04/21/2025 Social Isolation Answer Date Recorded How often do you feel lonely or isolated from th ose around you? Never 04/21/2025 Food Risk Answer Date Recorded Within the past 12 months we worried whether our food would run out before we got money to buy more. Never true 04/21/2025 Within the past 12 months th e food we bought just didn't last and we didn't have money to get more. Never true 04/21/2025 Dependent Care Answer Date Recorded Do you need help finding or paying for care for your loved ones. For example, child day care teacher or elderly care for an older adult? No 04/21/2025 Education Answer Date Recorded Do you think completing more education or training, like finishing a GED, going to college, or learning a trade, would be helpful for you? No 04/21/2025 Employment and Income Answer Date Recor ded During the last four weeks, have you been actively looking for work? No 04/21/2025 Living Situation Answer Date Recorded What is your living situation? 0 04/21/2025 Comments No Sex and Gender Information Value Date Recorded Sex Assigned at Female 12/22/2024 12:47 PM EST Legal Sex Female 10:31 AM EST Gender Identity Female 12/22/2024 12:47 PM EST Sexual Orientation Straight 12/22/2024 12 :47 PM EST documented as of this encounter Last Filed Vital Signs Vital Sign Reading Time Taken Comments Blood Pressure 144/69 08/07/2025 11:36 AM EDT Pulse 82 08/07/2025 11:36 AM EDT Temperature 36.7 C (98 F) 08/07/2025 7:09 AM EDT Respiratory Rate 15 08/07/2025 11:36 AM EDT Oxygen Saturation 95% 08/07/2025 11:36 AM EDT Inhaled Oxygen Concentration - - Weight 67.1 kg (148 lb) 08/07/2025 7:09 AM EDT Height 165.1 cm (5' 5 ) 08/07/2025 7:09 AM EDT Body Mass Index 24.63 08/07/2025 7:09 AM EDT documented in this encounter Discharge Instructions * Attachments The following attachments cannot be sent through Care Everywhere. * Kidney Stone (Setswana) documented in this encounter Medications at Time of Discharge albuterol HFA (PROAIR HFA ; PROVENTIL HFA ; VENTOLIN HFA) 90 mcg/actuation inhaler Inhale 2 puffs by mouth every 4 (four) hours if needed. amLODIPine (NORVASC) 2.5 mg tablet TAKE 1 TABLET BY MOUTH DAILY 100 tablet 1 02/21/2025 aspirin 81 mg EC tablet Take 1 tablet (81 mg total) by mouth 1 (one) time each day. budesonide-formot Sridhar (SYMBICORT) 160-4.5 mcg/actuation inhaler 1 inhalation. daily. 10/26/2021 calcium carbonate-vitamin D3 600 mg-12.5 mcg (500 unit) capsule Take 1,500 mg by mouth. cetirizine (ZyrTEC) 10 mg tablet Take 1 tablet (10 mg total) by mouth 1 (one) time each day. ipratropium (ATROVENT) 42 mcg (0.06 %) nasal spray USE 1 SPRAY NASALLY 3 TIMES DAILY 60 mL 2 11/18/2024 loperamide (IMODIUM A-D) 2 mg tablet Take 1 tablet (2 mg total) by mouth lovastatin (MEVACOR) 20 mg tablet TAKE 1 TABLET BY MOUTH AT BEDTIME 90 tablet 1 06/24/2025 melatonin-theanin e 10-5.5 mg tablet Take by mouth. metoprolol succinate (TOPROL-XL) 25 mg 24 hr tablet TAKE 1 TABLET BY MOUTH ONCE DAILY 100 tablet 1 12/31/2024 documented as of this encounter Ordered Prescriptions Prescription Sig Dispense Quantity Refills Last Filled Start Date End Date ondansetron ODT (ZOFRAN-ODT) 4 mg disintegrating tabletIndications:Re nal colic on right side Dissolve 1 tablet (4 mg total) on top of the tongue every 8 (eight) hours if needed for nausea or vomiting for up to 7 days. 20 tablet 08/07/2025 5 tamsulosin (FLOMAX) 0.4 mg 24 hr capsule Take 1 capsule (0.4 mg total) by mouth 1 (one) time each day for 14 days. Capsules should be taken 30 minutes following the same meal each day. 14 each 08/07/2025 5 ibuprofen (ADVIL,MOTRIN) 600 mg tablet Take 1 tablet (600 mg total) by mouth every 6 (six) hours if needed for mild pain (for pain) for up to 10 days. 30 tablet 08/07/2025 5 HYDROcodone-acetamin ophen (NORCO) 5-325 mg per tablet Take 1 tablet by mouth every 6 (six) hours if needed for severe pain for up to 3 days. Max Daily Amount: 4 tablets 12 tablet 08/07/2025 5 tamsulosin (FLOMAX) 0.4 mg 24 hr capsule Take 1 capsule (0.4 mg total) by mouth 1 (one) time each day for 14 days. Capsules should be taken 30 minutes following the same meal each day. 14 each 08/07/2025 5 ibuprofen (ADVIL,MOTRIN) 600 mg tablet Take 1 tablet (600 mg total) by mouth every 6 (six) hours if needed for mild pain (for pain) for up to 10 days. 30 tablet 08/07/2025 5 HYDROcodone-acetamin ophen (NORCO) 5-325 mg per tablet Take 1 tablet by mouth every 6 (six) hours if needed for severe pain for up to 3 days. Max Daily Amount: 4 tablets 12 tablet 08/07/2025 5 documented in this encounter Discharge Disposition Disposition Code Departure Means Destination Comment s Home or Self Snf Reviewed discharge instructions with patient who verbalizes understanding. Patient educated on medications being sent to the pharmacy and advised to follow up with urology. Patient seen ambulating out of ED with steady gait and no acute distress. documented in this encounter Progress Notes * Cassia Wilkins RN - 08/07/2025 7:05 AM EDT Patient comes in from home via Ems for back pain since 330 this AM. States she got up to use the bathroom and when she got back into bed she could not get comfortable. Per Ems, patient reported back and hip surgeries in past. Patient states it feels like the pain is 8/[address] around her waist. Ems gave 1000mg tylenol and patient endorses some relief. A/O x4, ambulatory * Vaibhav Elizabeth MD - 08/07/2025 7:00 AM EDT Images from the original note were not included. [facility] EMERGENCY EMERGENCY DEPARTMENT ENCOUNTER Patient: Le Salcido MR# [id number] Time of Service: 08/07/2025 7:03 AM History PCP: Cori Simmons MD. Chief Complaint Patient presents with Back Pain Since 330am Le Salcido is a 80 y.o. female who presents to the ED with chief complaint Back Pain (Since 330am) 80-year-old female with past medical history of CML hypertension, hyperlipidemia, COPD, diverticulosis presenting with lower abdominal pain. Patient states this morning at 3:30 AM she woke up to urinate, after going to the bathroom she began noting worsening pain in the lower abdominal quadrants. States she laid back in bed and could not get comfortable. States pain began worsening and she began feeling like it was radiating into her low back. States it felt like she was severely constipated, had numerous small volume formed bowel movements however pain seemed to worsen. She also had some associated nausea, denies vomiting. She denies chest pain, upper back pain. She denies pain radiating into her upper and lower extremities. States she ate 2 ears of corn with dinner last night. She denies fever, chills. She denies dysuria, hematuria, urinary urgency or frequency. Received 1000 mg Tylenol with EMS and symptoms now improving ROS Negative except for HPI. Allergies: Penicillins, Fentanyl, and Sulfa (sulfonamide antibiotics) Past Medical History: Diagnosis Date Anemia DX:Anemia Asthma DX:Asthma Bilateral carotid artery stenosis 07/12/2025 COPD (chronic obstructive pulmonary disease) ([facility] V24, [facility] V28) DX:COPD (chronic obstructive pulmonary disease) ([facility]) HLD (hyperlipidemia) DX:HLD (hyperlipidemia) HTN (hypertension) DX:HTN (hypertension) Hypertension DX:Hypertension Osteopenia DX:Osteopenia Pneumonia DX:Pneumonia Sigmoid diverticulosis DX:Sigmoid diverticulosis Stenosis of left subclavian artery ([facility] V24) DX:Stenosis of left subclavian artery (HCC);COMMENT:followed by Vascular Thrombocytopenia ([facility] V24) DX:Thrombocytopenia (HCC) Thrombocytopenia ([facility] V24) 06/30/2017 DX:Thrombocytopenia (HCC) Vitamin D deficiency DX:Vitamin D deficiency Patient Active Problem List Diagnosis Coronary atherosclerosis HTN (hypertension) Internal hemorrhoids Left bundle branch block (LBBB) Subclavian artery stenosis, left ([facility] V24) Hypercholesterolemia Diverticulosis Fatty liver Thrombocytopenia ([facility] V24) Tubular adenoma of colon 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 Monocytosis Nephrolithiasis Osteopenia DDD (degenerative disc disease), lumbosacral Cervical spondylosis Spinal stenosis of lumbar region with radiculopathy Osteoarthritis of right hip Allergic rhinitis Vasomotor rhinitis Actinic keratosis COPD (chronic obstructive pulmonary disease) (CMS/HCC V24, CMS/[facility] V28) Pneumonitis Multiple pulmonary nodules Rupture of biceps tendon S/P total knee arthroplasty, left History of COVID-19 Midline cystocele Simple chronic bronchitis (CMS/HCC V24, CMS/HCC V28) Kidney cysts S/P joint replacement Abnormal EKG 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 V24, CMS/HCC V28) Dyspnea on exertion Essential hypertension, benign First degree AV block Gastroesophageal reflux disease without esophagitis HLD (hyperlipidemia) Mixed hyperlipidemia Bilateral carotid artery stenosis Past Surgical History: Procedure Laterality Date ART COMP PSEUDO ANEURYSM Right with repair BACK SURGERY 06/2022 PROCEDURE:BACK SURGERY;COMMENT:LAMINECTOMY COLONOSCOPY PROCEDURE:COLONOSCOPY OTHER SURGICAL HISTORY N/A Oral surgery, 6 teeth wired together after fall and broken upper jaw REPLACEMENT TOTAL HIP LATERAL POSITION Right TONSILLECTOMY PROCEDURE:TONSILLECTOMY TOTAL KNEE ARTHROPLASTY Left 08/2019 PROCEDURE:TOTAL KNEE ARTHROPLASTY TUBAL LIGATION PROCEDURE:TUBAL LIGATION Family History Adopted: Yes Problem Relation Name Age of Onset Alcohol abuse Daughter AA for approx 15 years No Known Problems Son Social History Tobacco Use Smoking status: Former Current packs/day: 0.00 Average packs/day: 2.0 packs/day for 32.0 years (64.0 ttl pk-yrs) Types: Cigarettes Start date: 11/17/1962 Quit date: 11/17/1994 Years since quittin.7 Smokeless tobacco: Never Substance Use Topics Alcohol use: Yes Comment: rarely Drug use: No Physical Exam Vitals: 08/07/25 0709 08/07/25 0824 08/07/25 1136 BP: (!) 141/70 (!) 142/72 (!) 144/69 BP Location: Right arm;Upper Patient Position: Sitting Sitting Pulse: 84 84 82 Resp: 15 Temp: 36.7 ??C (98 ??F) TempSrc: Oral SpO2: 97% 97% 95% Weight: 67.1 kg (148 lb) Height: 1.651 m (65 ) General Appearance: No acute distress Skin: Dry Eyes: EOMI, no scleral icterus HENT: Normocephalic, atraumatic, moist mucous membranes Neck: Supple, normal range of motion Cardiovascular: Regular rate and rhythm, no murmur, 2+ radial pulses Respiratory: Lungs clear to auscultation bilaterally, no respiratory distress, no wheezing or rhonchi Abdomen: Soft, mild discomfort with the patient of lower abdominal quadrants, no rebound or guarding, non-distended MSK: No edema or tenderness Neurologic: Awake, alert, no obvious deficits, moving all extremities Psychiatric: Appropriate, cooperative Results Results for orders placed or performed during the hospital encounter of 08/07/25 Comprehensive metabolic panel Collection Time: 08/07/25 7:47 AM Result Value Ref Range Sodium 138 133 - 145 mmol/L Potassium 3.4 (L) 3.5 - 5.5 mmol/L Chloride 104 96 - 110 mmol/L CO2 28 21 - 32 mmol/L Anion Gap 6 3 - 11 Glucose 107 (H) 70 - 100 mg/dL BUN 27 (H) 5 - 25 mg/dL Creatinine 1.26 (H) 0.50 - 1.10 mg/dL eGFR 43 (L) >=60 mL/min/1.73m2 BUN/Creatinine Ratio 21.4 Calcium 8.9 8.5 - 10.5 mg/dL AST (SGOT) 22 10 - 42 unit/L ALT (SGPT) 12 10 - 60 unit/L Alkaline Phosphatase 66 42 - 121 unit/L Total Protein 6.7 6.0 - 8.0 g/dL Albumin 4.0 3.2 - 5.0 g/dL Total Bilirubin 0.5 0.0 - 1.4 mg/dL Magnesium Collection Time: 08/07/25 7:47 AM Result Value Ref Range Magnesium 2.1 1.9 - 2.6 mg/dL CBC auto differential Collection Time: 08/07/25 7:47 AM Result Value Ref Range WBC 245.7 (HH) 4.8 - 10.8 K/mcL RBC 2.30 (L) 3.80 - 4.80 M/mcL Hemoglobin 7.7 (L) 11.5 - 16.0 g/dL Hematocrit 24.2 (L) 35.0 - 47.0 % MCV 104.3 (H) 79.0 - 98.0 FL MCH 33.2 (H) 27.0 - 32.0 pcg MCHC 31.8 (L) 32.0 - 37.0 g/dL RDW 19.4 (H) 11.0 - 15.0 % Platelets 38 (L) 130 - 400 K/mcL MPV 13.5 (H) 7.0 - 11.0 FL NRBC 0.2 <1.0 % NRBC Absolute 0.48 (H) <0.10 K/mcL Manual differential Collection Time: 08/07/25 7:47 AM Result Value Ref Range Neutrophils % 59.0 % Bands % 8.0 % Lymphocytes % 8.0 % Monocytes % 6.0 % Eosinophils % 0.0 % Basophils % 0.0 % Metamyelocytes % 6.0 (H) % Myelocytes % 10.0 (H) % Promyelocytes % 2.0 (H) % Blasts % 1.0 (H) % Neutrophils Absolute Manual 144.96 (H) 1.50 - 7.00 K/mcL Bands Absolute Manual 19.66 (H) 0.00 - 0.00 K/mcL Lymphocytes Absolute 19.66 (H) 1.00 - 5.00 K/mcL Monocytes Absolute Manual 14.74 (H) 0.20 - 1.00 K/mcL Eosinophils Absolute Manual 0.00 0.00 - 0.50 K/mcL Basophils Absolute Manual 0.00 0.00 - 0.20 K/mcL Metamyelocytes Absolute Manual 14.74 (H) 0.00 - 0.00 K/mcL Myelocytes Absolute Manual 24.57 (H) 0.00 - 0.00 K/mcL Promyelocytes Absolute Manual 4.91 (H) 0.00 - 0.00 K/mcL Blasts Absolute 2.46 (H) 0.00 - 0.00 K/mcL Rbc Morphology Consistent with indices Consistent with indices, Normal for [place] Platelet Morphology - WAM Large Platelets Seen (A) Normal Urinalysis with reflex microscopic Collection Time: 08/07/25 8:11 AM Result Value Ref Range Specific [place] Urine 1.012 1.003 - 1.030 pH, Urine 5.5 5.0 - 8.0 pH Leukocytes, Urine Moderate (A) Negative Nitrite, Urine Negative Negative Protein, Urine 30 (A) <=Trace mg/dL Glucose, Urine Negative Negative mg/dL Ketones, Urine Negative Negative mg/dL Urobilinogen, Urine 0.2 0.2 - 1.0 mg/dL Bilirubin, Urine Negative Negative Blood, Urine Large (A) Negative RBC, Urine 23.8 (H) 0 - 4 /HPF WBC, Urine 46.4 (H) 0 - 4 /HPF Squamous Epithelial, Urine 80 (H) 0 - 60 /LPF Bacteria, Urine Few (A) Negative /HPF Hyaline Casts, Urine 14.4 (H) 0 - 3 /LPF CT Abdomen Pelvis w Contrast Final Result Multiple abnormalities. No CT evidence of acute diverticulitis. Dilation of the collecting system of the right urinary tract to the level of the distal ureter/UVJ.Artifact limits detail but a calculus could be present. There is asymmetric delay in the right nephrogram. Hepatosplenomegaly with some new focal lesions in the spleen. There is a history of CML. Artifact limits detail. -------- FINAL REPORT -------- Dictated By: Caden Leslie Dictated Date: 08/07/2025 09:17 ET Assigned Physician: Caden Leslie Reviewed and Electronically Signed By: Caden Leslie Signed Date: 08/07/2025 09:30 ET Workstation ID: [id number] Transcribed By: Self Edit Transcribed Date: 08/07/2025 09:17 ET Procedures Medical Decision Making 80-year-old female with past medical history as noted above presenting with lower quadrant abdominal pain starting overnight tonight with some radiation to low back as well as associated nausea. She is overall clinically well-appearing and nontoxic, exam. Her vitals are reassuring, she is hemodynamically stable and afebrile, saturating well on room air. Physical exam is notable for some mild discomfort with palpation of lower abdominal quadrants, there is no rebound or guarding to raise concernfor peritonitis/acute abdomen. Differential includes constipation, diverticulitis, UTI/cystitis, other. Will plan for labs, CT abdomen pelvis to further evaluate Reassessment: Labs with several abnormalities which are overall stable compared to prior. There is significant leukocytosis to 240 which is stable, anemia with hemoglobin 7.7, slightly decreased from prior, thrombocytopenia with platelets 38, also slightly decreased. These abnormalities appear chronic secondary to patient's CML. Renal function is mildly impaired, overall improved compared to previous. No significant electrolyte derangements. CT abdomen pelvis is negative for diverticulitis, there is evidenceof right-sided hydronephrosis/hydroureter, artifact from right hip prosthetic obscures whether a stone is present. Patient's UA does have evidence of blood, no evidence of infection. In discussion with patient again, she does state that pain seems to be localized more to the right side. The kidney stone would explain the UA findings, CT findings, and right sided abdominal pain radiating to back that she experienced this morning after urinating. [place] was given and patient states pain is controlled at this time. There is no indication for admission currently, will plan for discharge. Urology referral was provided. Patient also advised that she should contact her oncologist for ongoing management of her CML. ED return precautions given. Patient agreeable with plan of care Labs and imaging ordered in ED independently reviewed by me. My interpretation of the labs and/or imaging per ED course. Medications Administered Medications sodium chloride 0.9 % bolus 500 mL (0 mL intravenous Stopped 08/07/25 0828) morphine 2 mg/mL injection 2 mg (2 mg intravenous Given 08/07/25 0826) sodium chloride 0.9 % flush 10 mL (10 mL intravenous Given 08/07/25 0835) iopamidoL (ISOVUE-370) 370 mg iodine /mL (76 %) injection 90 mL (90 mL intravenous Given 08/07/25 0835) HYDROcodone-acetaminophen (NORCO) 5-325 mg per tablet 1 tablet (1 tablet oral Given 08/07/25 1008) Clinical Impressions as of 08/07/25 1225 Renal colic on right side Kidney stone External Charts Reviewed: Prior notes, labs, imaging Additional History from Independent Historian: None Additional labs considered but not ordered: None Additional imaging considered but not ordered: None Chronic conditions that impact care: CML Care affected by social determinants: None Discussed management with other providers: None Prescription management: In addition to any applicable prescriptions, the patient was counseled by me regarding [id number] medications that can be used at home. Discharge Medication List as of 08/07/2025 11:30 AM START taking these medications Details HYDROcodone-acetaminophen (NORCO) 5-325 mg per tablet Take 1 tablet by mouth every 6 (six) hours ifneeded for severe pain for up to 3 days. Max Daily Amount: 4 tablets, Starting 08/07/2025, UntilWed 08/10/2025 at 2359, Normal ibuprofen (ADVIL,MOTRIN) 600 mg tablet Take 1 tablet (600 mg total) by mouth every 6 (six) hours ifneeded for mild pain (for pain) for up to 10 days., Starting 08/07/2025, Until Fri08/17/2025 at 2359, Normal tamsulosin (FLOMAX) 0.4 mg 24 hr capsule Take 1 capsule (0.4 mg total) by mouth 1 (one) time each day for 14 days. Capsules should be taken 30 minutes following the same meal each day., Starting 08/07/2025, Until 08/21/2025, Normal Disposition: Discharge CLINICAL IMPRESSION: 1. Renal colic on right side 2. Kidney stone 08/07/2025 MD Vaibhav Ojeda MD 08/07/25 0119 Vaibhav Elizabeth MD 08/07/25 1229 documented in this encounter Miscellaneous Notes * ED Bed Hold Note - Jacklyn Lozada RN - 08/07/2025 7:03 AM EDT Bed: [facility] Expected date: Expected time: Means of arrival: Comments: 80F 8/10 back pain radiating to ABD documented in this encounter Plan of Treatment Upcoming Encounters Date Type Department Care Team (Late st Contact Info) Description 09/02/2025 1:30 PM EDT Office Visit Internal Medicine - [address] [phone] Giuseppe Lee NP [address] [place] [address] 09/09/2025 2:30 PM EDT Office Visit [facility] Hematology Oncology [address] [place] [phone] Ivan-Jairo Garvey MD [address] [place] [phone] 09/15/2025 1:00 PM EDT Office Visit [facility] - [place] [address] [facility] [address] [place] [phone] Marita Matthews MD [address] [facility] [address] [place] [address] 09/27/2025 2:30 PM EST Office Visit Internal Medicine - [facility] [address] [place] [address] Giuseppe Lee NP [address] [place] [address] 11/11/2025 3:30 PM EST Office Visit Vascular Surgery - [place] [address] [place] [address] Winston Barrett MD [address] [place] [phone] Scheduled Referrals Name Type Priority Associated Diagnoses Order Schedule Ambulatory referral to Urology Outpatient Referral Routine Expected: 08/21/2025, Expires: 08/07/2026 documented as of this encounter Procedures Procedure Name Priority Date/Time Associated Diagnosis Comments CT ABDOMEN PELVIS W CONTRAST STAT 08/07/2025 8:37 AM EDT URINALYSIS WITH REFLEX MICROSCOPIC STAT 08/07/2025 8:11 AM EDT URINALYSIS WITH REFLEX MICROSCOPIC STAT 08/07/2025 8:11 AM EDT MANUAL DIFFERENTIAL - SYSMEX WAM STAT 08/07/2025 7:47 AM EDT CBC WITH AUTO DIFFERENTIAL STAT 08/07/2025 7:47 AM EDT CBC AND DIFFERENTIAL STAT 08/07/2025 7:47 AM EDT MAGNESIUM STAT 08/07/2025 7:47 AM EDT COMPREHENSIVE METABOLIC PANEL STAT 08/07/2025 7:47 AM EDT documented in this encounter Results * CT Abdomen Pelvis w Contrast (08/07/2025 8:37 AM EDT) Anatomical Region Laterality Modality Body Computed Tomogra phy 08/07/2025 9:17 AM EDT Impressions 08/07/2025 9:30 AM EDT Multiple abnormalities. No CT evidence of acute diverticulitis. Dilation of the collecting system of the right urinary tract to the level of the distal ureter/UVJ. Artifact limits detail but a calculus could be present. There is asymmetric delay in the right nephrogram. Hepatosplenomegaly with some new focal lesions in the spleen. There is a history of CML. Artifact limits detail. -------- FINAL REPORT -------- Dictated By: Caden Leslie Dictated Date: 08/07/2025 09:17 ET Assigned Physician: Caden Leslie Reviewed and Electronically Signed By: Caden Leslie Signed Date: 08/07/2025 09:30 ET Workstation ID: [id number] Transcribed By: Self Edit Transcribed Date: 08/07/2025 09:17 ET Narrative 08/07/2025 9:30 AM EDT EXAMINATION: CT ABDOMEN/PELVIS WITH IV CONTRAST CLINICAL INFORMATION: Clinical concern for diverticulitis. Lower abdomen pain COMPARISON: Portions of previous CT 09/09/22 TECHNIQUE: Multidetector CT. Helical examination of the abdomen and pelvis. Imaging performed after the IV administration of contrast. Reformatting in the coronal and sagittal planes. DLP: 895 mGy-cm Dose optimization was performed including the use of low-dose iterative reconstruction technique with automatic exposure control based on patient size. Type of contrast: ISOVUE 370 Volume of IV contrast: 90 mL Volume of contrast discarded: 0 mL FINDINGS: LIVER: The right lobe of the liver measures 22.2 cm. There is a poorly defined approximately 1.4 cm lesion in the left lobe of the liver. There was an abnormality in this region in 2021. Possibilities include hemangioma. There is an abnormality in the periphery of the right lobe abutting the capsule with some internal hyperdensity. This could be calcification. No suspicious interval change. There is calcification in the deep aspect of the left lobe of the liver similar to previous. No new suspicious focal liver lesion. BILIARY TRACT: No opaque gallstone. No biliary dilation. SPLEEN: The spleen measures at least 16.7 cm. There are some low attenuating focal lesions. The largest posteriorly and superiorly measures at least 2.5 cm. This appears new. There is an approximately 1.6 cm low attenuating lesion in the periphery of the spleen (3/32) which was not present in 2021. There is an approximately 1.5 cm low attenuating lesion in the periphery of the posterior lower spleen (pre-/40) was not present in 2021. PANCREAS: No suspicious abnormality. ADRENAL GLANDS: No suspicious abnormality. KIDNEYS: There is moderate dilation of the intrarenal collecting system and ureter on the right. There is asymmetric decreased in the right nephrogram. There is extensive artifact in the region of the distal ureter. There are some calcifications in the deep pelvis. A distal right ureteral calculus or ureterovesical junction calculus could be present. Circumscribed low attenuating lesions in the upper kidneys may represent cysts. There is fullness of the collecting system on the left with at least partial duplication. The distal left ureter is not well evaluated. URINARY BLADDER: Limited by artifact. PELVIC VISCERA: Heterogeneous uterus. No large adnexal mass or collection. GASTROINTESTINAL TRACT: Limited by artifact. There is luminal narrowing with wall thickening and diverticula in the sigmoid. No localized pericolonic fat stranding. No CT evidence of acute appendicitis. There is semisolid material within the small bowel which can be seen with stasis. The stomach is not well distended. ABDOMINAL WALL: No significant hernia is appreciated. LYMPHOVASCULAR STRUCTURES AND FLUID: Extensive arterial calcifications. No evidence of retroperitoneal hemorrhage or aneurysm. No measurably enlarged lymph nodes. The portal vein enhances. There is no definite abscess or significant free intraperitoneal fluid. VISUALIZED LOWER CHEST: There is calcification in the region of the aortic valve and mitral annulus. There is some nonspecific left lung base opacity which could be atelectasis. MUSCULOSKELETAL: No acute or suspicious osseous abnormality. Artifact related to the right hip instrumentation. Scoliosis with associated degenerative change. Procedure Note Caden Leslie MD - 08/07/2025 EXAMINATION: CT ABDOMEN/PELVIS WITH IV CONTRAST CLINICAL INFORMATION: Clinical concern for diverticulitis. Lower abdomen pain COMPARISON: Portions of previous CT 09/09/22 TECHNIQUE: Multidetector CT. Helical examination of the abdomen and pelvis. Imaging performed after the IV administration of contrast. Reformatting in the coronal and sagittal planes. DLP: 895 mGy-cm Dose optimization was performed including the use of low-dose iterativereconstruction technique with automatic exposure control based on patientsize. Type of contrast: ISOVUE 370 Volume of IV contrast: 90 mL Volume of contrast discarded: 0 mL FINDINGS: LIVER: The right lobe of the liver measures 22.2 cm. There is a poorlydefined approximately 1.4 cm lesion in the left lobe of the liver. Therewas an abnormality in this region in 202. Possibilities includehemangioma. There is an abnormality in the periphery of the right lobe abutting thecapsule with some internal hyperdensity. This could be calcification. Nosuspicious interval change. There is calcification in the deep aspect ofthe left lobe of the liver similar to previous. No new suspicious focal liver lesion. BILIARY TRACT: No opaque gallstone. No biliary dilation. SPLEEN: The spleen measures at least 16.7 cm. There are some lowattenuating focal lesions. The largest posteriorly and superiorly measuresat least 2.5 cm. This appears new. There is an approximately 1.6 cm lowattenuating lesion in the periphery of the spleen (3/32) which was notpresent in 202. There is an approximately 1.5 cm low attenuating lesionin the periphery of the posterior lower spleen (pre-/40) was not presentin 2021. PANCREAS: No suspicious abnormality. ADRENAL GLANDS: No suspicious abnormality. KIDNEYS: There is moderate dilation of the intrarenal collecting systemand ureter on the right. There is asymmetric decreased in the rightnephrogram. There is extensive artifact in the region of the distal ureter. There aresome calcifications in the deep pelvis. A distal right ureteral calculusor ureterovesical junction calculus could be present. Circumscribed low attenuating lesions in the upper kidneys may representcysts. There is fullness of the collecting system on the left with at leastpartial duplication. The distal left ureter is not well evaluated. URINARY BLADDER: Limited by artifact. PELVIC VISCERA: Heterogeneous uterus. No large adnexal mass orcollection. GASTROINTESTINAL TRACT: Limited by artifact. There is luminal narrowingwith wall thickening and diverticula in the sigmoid. No localizedpericolonic fat stranding. No CT evidence of acute appendicitis. There is semisolid material withinthe small bowel which can be seen with stasis. The stomach is not well distended. ABDOMINAL WALL: No significant hernia is appreciated. LYMPHOVASCULAR STRUCTURES AND FLUID: Extensive arterial calcifications. Noevidence of retroperitoneal hemorrhage or aneurysm. No measurably enlarged lymph nodes. The portal vein enhances. There is no definite abscess or significant free intraperitoneal fluid. VISUALIZED LOWER CHEST: There is calcification in the region of the aorticvalve and mitral annulus. There is some nonspecific left lung base opacitywhich could be atelectasis. MUSCULOSKELETAL: No acute or suspicious osseous abnormality. Artifactrelated to the right hip instrumentation. Scoliosis with associateddegenerative change. IMPRESSION: Multiple abnormalities. No CT evidence of acute diverticulitis. Dilation of the collecting system of the right urinary tract to the levelof the distal ureter/UVJ. Artifact limits detail but a calculus could bepresent. There is asymmetric delay in the right nephrogram. Hepatosplenomegaly with some new focal lesions in the spleen. 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 Artifact limits detail. -------- FINAL REPORT -------- Dictated By: Caden Leslie Dictated Date: 08/07/2025 09:17 ET Assigned Physician: Caden Leslie Reviewed and Electronically Signed By: Caden Leslie Signed Date: 08/07/2025 09:30 ET Workstation ID: [id number] Transcribed By: Self Edit Transcribed Date: 08/07/2025 09:17 ET Vaibhav Elizabeth MD [facility] CT PROCEDURES Final Result * (ABNORMAL) Urinalysis with reflex microscopic (08/07/2025 8:11 AM EDT) Specific [place] Urine 1.012 1.003 - 1.030 LAB URINALYSIS - AUTOMATED METHOD 08/07/2025 8:43 AM EDT [facility] pH, Urine 5.5 5.0 - 8.0 pH LAB URINALYSIS - AUTOMATED METHOD 08/07/2025 8:43 AM [facility] Leukocytes, Urine Moderate(A) Negative LAB URINALYSIS - AUTOMATED METHOD 08/07/2025 8:43 AM [facility] Nitrite, Urine Negative Negative LAB URINALYSIS - AUTOMATED METHOD 08/07/2025 8:43 AM [facility] Protein, Urine 30(A) <=Trace mg/dL LAB URINALYSIS - AUTOMATED METHOD 08/07/2025 8:43 AM [facility] Glucose, Urine Negative Negative mg/dL LAB URINALYSIS - AUTOMATED METHOD 08/07/2025 8:43 AM [facility] Ketones, Urine Negative Negative mg/dL LAB URINALYSIS - AUTOMATED METHOD 08/07/2025 8:43 AM [facility] Urobilinogen , Urine 0.2 0.2 - 1.0 mg/dL LAB URINALYSIS - AUTOMATED METHOD 08/07/2025 8:43 AM [facility] Bilirubin, Urine Negative Negative LAB URINALYSIS - AUTOMATED METHOD 08/07/2025 8:43 AM [facility] Blood, Urine Large(A) Negative LAB URINALYSIS - AUTOMATED METHOD 08/07/2025 8:43 AM [facility] RBC, Urine 23.8(H) 0 - 4 /HPF LAB URINALYSIS - AUTOMATED METHOD 08/07/2025 8:43 AM [facility] WBC, Urine 46.4(H) 0 - 4 /HPF LAB URINALYSIS - AUTOMATED METHOD 08/07/2025 8:43 AM [facility] Squamous Epithelial, Urine 80(H) 0 - 60 /LPF LAB URINALYSIS - AUTOMATED METHOD 08/07/2025 8:43 AM [facility] Bacteria, Urine Few(A) Negative /HPF LAB URINALYSIS - AUTOMATED METHOD 08/07/2025 8:43 AM [facility] Hyaline Casts, Urine 14.4(H) 0 - 3 /LPF LAB URINALYSIS - AUTOMATED METHOD 08/07/2025 8:43 AM [facility] Urine Urine specimen obtained by clean catch procedure / Unknown Non-blood Collection / Unknown 08/07/2025 8:11 AM EDT 08/07/2025 8:33 AM EDT Vaibhav Elizabeth MD LAB URINE ORDERABLES Final Resul t [facility] [address] [place] [address], * (ABNORMAL) Manual differential (08/07/2025 7:47 AM EDT) Neutrophils % 59.0 % LAB HEMETOLOGY METHOD 5 9:00 AM [facility] Bands % 8.0 % LAB HEMETOLOGY METHOD 5 9:00 AM [facility] Lymphocytes % 8.0 % LAB HEMETOLOGY METHOD 5 9:00 AM [facility] Monocytes % 6.0 % LAB HEMETOLOGY METHOD 5 9:00 AM [facility] Eosinophils % 0.0 % LAB HEMETOLOGY METHOD 5 9:00 AM [facility] Basophils % 0.0 % LAB HEMETOLOGY METHOD 5 9:00 AM [facility] Metamyelocytes % 6.0(H) % LAB HEMETOLOGY METHOD 5 9:00 AM [facility] Myelocytes % 10.0(H) % LAB HEMETOLOGY METHOD 5 9:00 AM [facility] Promyelocytes % 2.0(H) % LAB HEMETOLOGY METHOD 5 9:00 AM [facility] Blasts % 1.0(H) % LAB HEMETOLOGY METHOD 5 9:00 AM [facility] Neutrophils Absolute Manual 144.96(H) 1.50 - 7.00 K/mcL LAB HEMETOLOGY METHOD 5 9:00 AM [facility] Bands Absolute Manual 19.66(H) 0.00 - 0.00 K/mcL LAB HEMETOLOGY METHOD 5 9:00 AM [facility] Lymphocytes Absolute 19.66(H) 1.00 - 5.00 K/mcL LAB HEMETOLOGY METHOD 5 9:00 AM [facility] Monocytes Absolute Manual 14.74(H) 0.20 - 1.00 K/mcL LAB HEMETOLOGY METHOD 5 9:00 AM [facility] Eosinophils Absolute Manual 0.00 0.00 - 0.50 K/mcL LAB HEMETOLOGY METHOD 5 9:00 AM [facility] Basophils Absolute Manual 0.00 0.00 - 0.20 K/mcL LAB HEMETOLOGY METHOD 5 9:00 AM [facility] Metamyelocytes Absolute Manual 14.74(H) 0.00 - 0.00 K/mcL LAB HEMETOLOGY METHOD 5 9:00 AM [facility] Myelocytes Absolute Manual 24.57(H) 0.00 - 0.00 K/mcL LAB HEMETOLOGY METHOD 5 9:00 AM [facility] Promyelocytes Absolute Manual 4.91(H) 0.00 - 0.00 K/mcL LAB HEMETOLOGY METHOD 5 9:00 AM [facility] Blasts Absolute 2.46(H) 0.00 - 0.00 K/mcL LAB HEMETOLOGY METHOD 5 9:00 AM [facility] Rbc Morphology Consistent with indices Consistent with indices, Normal for LAB HEMETOLOGY METHOD 9:00 AM EDT [facility] Platelet Morphology - WAM Large Platelets Seen(A) Normal LAB HEMETOLOGY METHOD 9:00 AM [facility] Blood Venous blood specimen / Unknown Venipuncture / Unknown 08/07/2025 7:47 AM EDT 08/07/2025 7:57 AM EDT us Vaibhav Elizabeth MD LAB BLOOD ORDERABLES Final Resul t [facility] [address] [place] [address], * (ABNORMAL) CBC auto differential (08/07/2025 7:47 AM EDT) WBC 245.7(HH) 4.8 - 10.8 K/mcL LAB HEMETOLOGY METHOD 08/07/2025 9:00 AM [facility] RBC 2.30(L) 3.80 - 4.80 M/mcL LAB HEMETOLOGY METHOD 08/07/2025 9:00 AM [facility] Hemoglobin 7.7(L) 11.5 - 16.0 g/dL LAB HEMETOLOGY METHOD 08/07/2025 9:00 AM [facility] Hematocrit 24.2(L) 35.0 - 47.0 % LAB HEMETOLOGY METHOD 08/07/2025 9:00 AM [facility] MCV 104.3(H) 79.0 - 98.0 FL LAB HEMETOLOGY METHOD 08/07/2025 9:00 AM [facility] MCH 33.2(H) 27.0 - 32.0 pcg LAB HEMETOLOGY METHOD 08/07/2025 9:00 AM [facility] MCHC 31.8(L) 32.0 - 37.0 g/dL LAB HEMETOLOGY METHOD 08/07/2025 9:00 AM EDT [facility] RDW 19.4(H) 11.0 - 15.0 % LAB HEMETOLOGY METHOD 08/07/2025 9:00 AM EDT [facility] Platelets 38(L) 130 - 400 K/mcL LAB HEMETOLOGY METHOD 08/07/2025 9:00 AM EDT [facility] Comment:previously verified by slide MPV 13.5(H) 7.0 - 11.0 FL LAB HEMETOLOGY METHOD 08/07/2025 9:00 AM EDT [facility] NRBC 0.2 <1.0 % LAB HEMETOLOGY METHOD 08/07/2025 9:00 AM EDT [facility] NRBC Absolute 0.48(H) <0.10 K/mcL LAB HEMETOLOGY METHOD 08/07/2025 9:00 AM EDT [facility] Blood Venous blood specimen / Unknown Venipuncture / Unknown 08/07/2025 7:47 AM EDT 08/07/2025 7:57 AM EDT us Vaibhav Elizabeth MD LAB BLOOD ORDERABLES Final Resul t [facility] [address] [place] [address], * Magnesium (08/07/2025 7:47 AM EDT) Magnesium 2.1 1.9 - 2.6 mg/dL LAB CHEMISTRY METHOD 08/07/2025 8:21 AM EDT [facility] Blood Venous blood specimen / Unknown Venipuncture / Unknown 08/07/2025 7:47 AM EDT 08/07/2025 7:57 AM EDT us Vaibhav Elizabeth MD LAB BLOOD ORDERABLES Final Resul t [facility] [address] [place] [address], * (ABNORMAL) Comprehensive metabolic panel (08/07/2025 7:47 AM EDT) Sodium 138 133 - 145 mmol/L LAB CHEMISTRY METHOD 08/07/2025 8:21 AM [facility] Potassium 3.4(L) 3.5 - 5.5 mmol/L LAB CHEMISTRY METHOD 08/07/2025 8:21 AM [facility] Chloride 104 96 - 110 mmol/L LAB CHEMISTRY METHOD 08/07/2025 8:21 AM [facility] CO2 28 21 - 32 mmol/L LAB CHEMISTRY METHOD 08/07/2025 8:21 AM [facility] Anion Gap 6 3 - 11 LAB CHEMISTRY METHOD 08/07/2025 8:21 AM [facility] Glucose 107(H) 70 - 100 mg/dL LAB CHEMISTRY METHOD 08/07/2025 8:21 AM [facility] BUN 27(H) 5 - 25 mg/dL LAB CHEMISTRY METHOD 08/07/2025 8:21 AM [facility] Creatinine 1.26(H) 0.50 - 1.10 mg/dL LAB CHEMISTRY METHOD 08/07/2025 8:21 AM [facility] eGFR 43(L) >=60 mL/min/1. 73m2 LAB CHEMISTRY METHOD 08/07/2025 8:21 AM [facility] Comment:Calculation based on the Chronic Kidney Disease Epidemiology Collaboration (CKD-EPI) equation refit without adjustment for race. BUN/Creatinine Ratio 21.4 LAB CHEMISTRY METHOD 08/07/2025 8:21 AM [facility] Calcium 8.9 8.5 - 10.5 mg/dL LAB CHEMISTRY METHOD 08/07/2025 8:21 AM T [facility] AST (SGOT) 22 10 - 42 unit/L LAB CHEMISTRY METHOD 08/07/2025 8:21 AM [facility] ALT (SGPT) 12 10 - 60 unit/L LAB CHEMISTRY METHOD 08/07/2025 8:21 AM [facility] Alkaline Phosphatase 66 42 - 121 unit/L LAB CHEMISTRY METHOD 08/07/2025 8:21 AM T [facility] Total Protein 6.7 6.0 - 8.0 g/dL LAB CHEMISTRY METHOD 08/07/2025 8:21 AM T [facility] Albumin 4.0 3.2 - 5.0 g/dL LAB CHEMISTRY METHOD 08/07/2025 8:21 AM [facility] Total Bilirubin 0.5 0.0 - 1.4 mg/dL LAB CHEMISTRY METHOD 08/07/2025 8:21 AM T [facility] Blood Venous blood specimen / Unknown Venipuncture / Unknown 08/07/2025 7:47 AM EDT 08/07/2025 7:57 AM EDT us Vaibhav Elizabeth MD LAB BLOOD ORDERABLES Final Resul t [facility] [address] [place] [address], documented in this encounter Visit Diagnoses Diagnosis Renal colic on right side- Primary Renal colic Kidney stone Calculus of kidney documented in this encounter Administered Medications Inactive Administered Medications - up to 3 most recent administrations Medication Order MAR Action Action Date Dose Rate Site HYDROcodone-acetaminophen (NORCO) 5-325 mg per tablet 1 tablet 1 tablet, oral, Once, On 08/07/25 at 0958, For 1 dose Given 08/07/2025 10:08 AM EDT 1 tablet iopamidoL (ISOVUE-370) 370 mg iodine /mL (76 %) injection 90 mL 90 mL, intravenous, Once in imaging, Starting on 08/07/25 at 0834, For 1 dose Given 08/07/2025 8:35 AM EDT 90 mL morphine 2 mg/mL injection 2 mg 2 mg, intravenous, Once, On 08/07/25 at 0813, For 1 dose Given 08/07/2025 8:26 AM EDT 2 mg sodium chloride 0.9 % bolus 500 mL 500 mL, intravenous, at 1,000 mL/hr, Administer over 30 Minutes, Once, On 08/07/25 at 0743, For 1 dose New Bag 08/07/2025 7:47 AM EDT 500 mL 1000 mL/hr sodium chloride 0.9 % flush 10 mL 10 mL, intravenous, Once, On 08/07/25 at 0835, For 1 dose Given 08/07/2025 8:35 AM EDT 10 mL documented in this encounter Discontinued Medications Medication Sig Discontinue Reason Start Date End Da te HYDROcodone-acetaminoph en (NORCO) 5-325 mg per tablet Take 1 tablet by mouth every 6 (six) hours if needed for severe pain for up to 3 days. Max Daily Amount: 4 tablets 08/07/2025 08/07/2025 ibuprofen (ADVIL,MOTRIN) 600 mg tablet Take 1 tablet (600 mg total) by mouth every 6 (six) hours if needed for mild pain (for pain) for up to 10 days. 08/07/2025 08/07/2025 tamsulosin (FLOMAX) 0.4 mg 24 hr capsule Take 1 capsule (0.4 mg total) by mouth 1 (one) time each day for 14 days. Capsules should be taken 30 minutes following the same meal each day. 08/07/2025 08/07/2025 documented as of this encounter Active and Recently Administered Medications Times are shown in EDT. Scheduled Medication Order 08/05/2025 08/06/2025 08/07/2025 HYDROcodone-acetaminophen (NORCO) 5-325 mg per tablet 1 tablet (COMPLETED) 1 tablet, oral, Once, On 08/07/25 at 0958, For 1 dose 1008 (Given - Provid er: Cassia Wilkins RN) iopamidoL (ISOVUE-370) 370 mg iodine /mL (76 %) injection 90 mL (COMPLETED) 90 mL, intravenous, Once in imaging, Starting on 08/07/25 at 0834, For 1 dose 0835 (Given - Provid er: Le Abbasi) morphine 2 mg/mL injection 2 mg (COMPLETED) 2 mg, intravenous, Once, On 08/07/25 at 0813, For 1 dose 0826 (Given - Provid er: Cassia Wilkins, YVETTE) sodium chloride 0.9 % bolus 500 mL (COMPLETED) 500 mL, intravenous, at 1,000 mL/hr, Administer over 30 Minutes, Once, On 08/07/25 at 0743, For 1 dose 0747 (New Bag - Prov ider: Cassia Wilkins, RN)0828 (Stopped - Provider: Cassia Wilkins, YVETTE) sodium chloride 0.9 % flush 10 mL (COMPLETED) 10 mL, intravenous, Once, On 08/07/25 at 0835, For 1 dose 0835 (Given - Provid er: Le Abbasi) documented in this encounter Additional Health Concerns Assessment Noted Time PHQ-9 Depression Total Score: 0 04/21/20 1:28 PM EDT documented as of this encounter Care Teams [employer] Relationship Specialty Start Date End Date Cori Simmons MD [address] [place] [id number] PCP - General Internal Medicine 06/27/25 documented as of this encounter
--- OUTSIDE RECORDS SUMMARY | 2025-08-09 13:55 | XMS_ITS | Encounter Summary ---
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 For example, early childhood educator aide or elderly care for an older [...] as of this encounter Progress Notes * Noelle Goldsmith RN - 08/09/2025 1:55 PM EDT Critical lab result called from Johanne Harris in the hematology department. WBC today is 258.1, Plts 32K.Secure message sent to Dr Garvey, who read back the message and stated no additional orders. documented in this encounter Plan of Treatment Upcoming Encounters Date Type Department Care Team (Late st Contact Info) Description 09/02/2025 1:30 PM EDT Office Visit Internal Medicine - [address] [phone] Giuseppe Lee NP [address] [place] [phone] 09/09/2025 2:30 PM EDT Office Visit [facility] Hematology Oncology [address] [place] [phone] Ivan-Jairo Garvey MD [address] [place] [phone] 09/15/2025 1:00 PM EDT Office Visit [facility] [place] [address] [facility] [address] [place] [phone] Marita Matthews MD 19 [facility] [address] [place] [address] 09/27/2025 2:30 PM EST Office Visit Internal Medicine - [address] [phone] Giuseppe Lee NP [address] [place] [phone] 11/11/2025 3:30 PM EST Office Visit Vascular Surgery - [place] [address] [facility] [address] [place] [phone] Winston Barrett MD [address] [place] [phone] Scheduled Orders Name Type Priority Associated Diagnoses Orde r Schedule Culture urine Microbiology Routine Hematuria, unspecified type 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 V24, CMS/HCC V28) Thrombocytopenia (CMS/HCC V24) 1 Occurrences starting 08/09/2025 until 08/09/2026 documented as of this encounter Procedures Procedure Name Priority Date/Time Associated Diagnosis Comments MURO URINE CULTURE TUBE Routine 08/09/2025 3:37 PM EDT Hematuria, unspecified type 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 V24, CMS/HCC V28) Thrombocytopenia (CMS/HCC V24) URINALYSIS WITH REFLEX MICROSCOPIC AND CULTURE Routine 08/09/2025 3:36 PM EDT Hematuria, unspecified type 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 V24, CMS/HCC V28) Thrombocytopenia (CMS/HCC V24) URINALYSIS WITH REFLEX MICROSCOPIC AND CULTURE Routine 08/09/2025 3:36 PM EDT Hematuria, unspecified type 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 V24, CMS/HCC V28) Thrombocytopenia (CMS/HCC V24) CULTURE URINE Routine 08/09/2025 3:36 PM EDT Hematuria, unspecified type 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 V24, CMS/HCC V28) Thrombocytopenia (CMS/HCC V24) C ANTIGEN TYPE Routine 08/09/2025 2:12 PM EDT 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 V24, CMS/HCC V28) Thrombocytopenia (CMS/HCC V24) MANUAL DIFFERENTIAL - [facility] WAM Routine 08/09/2025 2:12 PM EDT 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 V24, CMS/HCC V28) Thrombocytopenia (CMS/HCC V24) CBC WITH AUTO DIFFERENTIAL Routine 08/09/2025 2:12 PM EDT 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 V24, CMS/HCC V28) Thrombocytopenia (CMS/HCC V24) ANTIBODY IDENTIFICATION Routine 08/09/2025 2:12 PM EDT 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 V24, CMS/HCC V28) Thrombocytopenia (CMS/HCC V24) ACTIVATED PARTIAL THROMBOPLASTIN TIME Routine 08/09/2025 2:12 PM EDT Hematuria, unspecified type PROTHROMBIN TIME WITH INR Routine 08/09/2025 2:12 PM EDT Hematuria, unspecified type CBC AND DIFFERENTIAL Routine 08/09/2025 2:12 PM EDT 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 08/09/2025 7:01 PM EDT [facility] Comment:Auto resulted. Urine Urine specimen obtained by clean catch procedure / Unknown Non-blood Collection / Unknown 08/09/2025 3:37 PM EDT 08/09/2025 3:37 PM EDT us Subramony Danitza KENNEDY LAB URINE ORDERABLE S Final Result [facility] [address] [place] [address], [place] [phone] * Culture urine (08/09/2025 3:36 PM EDT) Culture, Urine No growth 08/10/2025 1:48 PM EDT [facility] Urine Urine specimen obtained by clean catch procedure / Unknown Non-blood Collection / Unknown 08/09/2025 3:36 PM EDT 08/09/2025 6:41 PM EDT Jairo Bosch MD LAB MICROBIOLOGY - GENERAL ORDERABLES Final Result [facility] [address] [place] [address], [place] [phone] * (ABNORMAL) Urinalysis with reflex microscopic and culture (08/09/2025 3:36 PM EDT) Specific Hugo Urine 1.020 1.003 - 1.030 LAB URINALYSIS - AUTOMATED METHOD 08/09/2025 6:41 PM [facility] pH, Urine 6.5 5.0 - 8.0 pH LAB URINALYSIS - AUTOMATED METHOD 08/09/2025 6:41 PM [facility] Leukocytes, Urine Moderate(A) Negative LAB URINALYSIS - AUTOMATED METHOD 08/09/2025 6:41 PM [facility] Nitrite, Urine Positive(A) Negative LAB URINALYSIS - AUTOMATED METHOD 08/09/2025 6:41 PM [facility] Protein, Urine >=300(A) <=Trace mg/dL LAB URINALYSIS - AUTOMATED METHOD 08/09/2025 6:41 PM [facility] Glucose, Urine Negative Negative mg/dL LAB URINALYSIS - AUTOMATED METHOD 08/09/2025 6:41 PM [facility] Ketones, Urine Negative Negative mg/dL LAB URINALYSIS - AUTOMATED METHOD 08/09/2025 6:41 PM [facility] Urobilinogen , Urine 1.0 0.2 - 1.0 mg/dL LAB URINALYSIS - AUTOMATED METHOD 08/09/2025 6:41 PM EDT [facility] Bilirubin, Urine Moderate(A) Negative LAB URINALYSIS - AUTOMATED METHOD 08/09/2025 6:41 PM EDT [facility] Blood, Urine Large(A) Negative LAB URINALYSIS - AUTOMATED METHOD 08/09/2025 6:41 PM EDT [facility] RBC, Urine >100(H) 0 - 4 /HPF 08/09/2025 6:41 PM EDT [facility] WBC, Urine 30(H) 0 - 4 /HPF 08/09/2025 6:41 PM EDT [facility] Squamous Epithelial, Urine 15 0 - 60 /LPF 08/09/2025 6:41 PM T [facility] Bacteria, Urine Moderate(A) Negative /HPF [facility] Hyaline Casts, Urine 5(H) 0 - 3 /LPF 08/09/2025 6:41 PM EDT [facility] Yeast, Urine Present(A) None /HPF 08/09/2025 6:41 PM EDT [facility] Urine Urine specimen obtained by clean catch procedure / Unknown Non-blood Collection / Unknown 08/09/2025 3:36 PM EDT 08/09/2025 3:36 PM EDT Jairo Bosch MD LAB URINE ORDERABLE S Final Result [facility] [address] [place] [address], * C antigen type (08/09/2025 2:12 PM EDT) C Antigen Negative 08/10/2025 11:31 AM EDT [facility] Blood Venous blood specimen / Unknown Venipuncture / Unknown 08/09/2025 2:12 PM EDT 08/09/2025 2:12 PM EDT us Jairo Bosch MD LAB BLOOD BANK TEST ORDERABLES Final Result [facility] [address] [place] [address], [place] [phone] * Antibody identification (08/09/2025 2:12 PM EDT) Pathologist [facility] Antibody Identification C Antibody( RH2) 08/10/2025 11:29 AM EDT [facility] Antibody Identification E Antibody( RH3) 08/10/2025 11:29 AM EDT [facility] Blood Venous blood specimen / Unknown Venipuncture / Unknown 08/09/2025 2:12 PM EDT 08/09/2025 2:12 PM EDT Jairo Bosch MD LAB BLOOD BANK TEST ORDERABLES Final Result Performing Organization Address City/[facility]/ZIP Co de Phone Number [facility] [address] [place] [address], [place] [phone] * (ABNORMAL) Manual differential (08/09/2025 2:12 PM EDT) Neutrophils % 47.0 % LAB HEMETOLOGY METHOD 5 5:47 PM EDT [facility] Bands % 11.0 % LAB HEMETOLOGY METHOD 5 5:47 PM EDT [facility] Lymphocytes % 4.0 % LAB HEMETOLOGY METHOD 5 5:47 PM EDT [facility] Monocytes % 6.0 % LAB HEMETOLOGY METHOD 5 5:47 PM EDT [facility] Eosinophils % 0.0 % LAB HEMETOLOGY METHOD 5 5:47 PM [facility] Basophils % 0.0 % LAB HEMETOLOGY METHOD 5 5:47 PM [facility] Metamyelocytes % 15.0(H) % LAB HEMETOLOGY METHOD 5 5:47 PM [facility] Myelocytes % 14.0(H) % LAB HEMETOLOGY METHOD 5 5:47 PM [facility] Promyelocytes % 2.0(H) % LAB HEMETOLOGY METHOD 5 5:47 PM [facility] Blasts % 1.0(H) % LAB HEMETOLOGY METHOD 5 5:47 PM [facility] Neutrophils Absolute Manual 121.31(H) 1.50 - 7.00 K/mcL LAB HEMETOLOGY METHOD 5 5:47 PM [facility] Bands Absolute Manual 28.39(H) 0.00 - 0.00 K/mcL LAB HEMETOLOGY METHOD 5 5:47 PM [facility] Lymphocytes Absolute 10.32(H) 1.00 - 5.00 K/mcL LAB HEMETOLOGY METHOD 5 5:47 PM [facility] Monocytes Absolute Manual 15.49(H) 0.20 - 1.00 K/mcL LAB HEMETOLOGY METHOD 5 5:47 PM [facility] Eosinophils Absolute Manual 0.00 0.00 - 0.50 K/mcL LAB HEMETOLOGY METHOD 5 5:47 PM [facility] Basophils Absolute Manual 0.00 0.00 - 0.20 K/mcL LAB HEMETOLOGY METHOD 5 5:47 PM [facility] Metamyelocytes Absolute Manual 38.72(H) 0.00 - 0.00 K/[facility] LAB HEMETOLOGY METHOD 5 5:47 PM EDT [facility] Myelocytes Absolute Manual 36.13(H) 0.00 - 0.00 K/[facility] LAB HEMETOLOGY METHOD 5 5:47 PM EDT [facility] Promyelocytes Absolute Manual 5.16(H) 0.00 - 0.00 K/[facility] LAB HEMETOLOGY METHOD 5 5:47 PM EDT [facility] Blasts Absolute 2.58(H) 0.00 - 0.00 K/[facility] 5:47 PM EDT [facility] Rbc Morphology Consistent with indices Consistent with indices, Normal for [place] LAB HEMETOLOGY METHOD 5 5:47 PM EDT [facility] Platelet Morphology - WAM Large Platelets Seen(A) Normal LAB [facility] 5 5:47 PM EDT [facility] Blood Venous blood specimen / Unknown Venipuncture / Unknown 08/09/2025 2:12 PM EDT 08/09/2025 2:12 PM EDT us Subramony SubJimbo KENNEDY LAB BLOOD ORDERABLE S Final Result [facility] [address] [place] [address], * (ABNORMAL) CBC auto differential (08/09/2025 2:12 PM EDT) WBC 258.1(HH) 4.8 - 10.8 K/[facility] HEMETOLOGY METHOD 08/09/2025 5:46 PM EDT [facility] RBC 2.40(L) 3.80 - 4.80 M/[facility] HEMETOLOGY METHOD 08/09/2025 5:46 PM EDT [facility] Hemoglobin 8.0(L) 11.5 - 16.0 g/dL LAB HEMETOLOGY METHOD 08/09[facility]2025 5[facility] Hematocrit 26.0(L) 35.0 - 47.0 % LAB HEMETOLOGY METHOD 08/09/2025 5:[facility] MCV 106.6(H) 79.0 - 98.0 FL LAB HEMETOLOGY METHOD 08/09/2025 5[facility] MCH 32.8(H) 27.0 - 32.0 pcg LAB HEMETOLOGY METHOD 08/09/2025 5:[facility] MCHC 30.8(L) 32.0 - 37.0 g/dL LAB HEMETOLOGY METHOD 08/09/2025 5:46 PM [facility] RDW 19.2(H) 11.0 - 15.0 % LAB HEMETOLOGY METHOD 08/09/2025 5:[facility] Platelets 32(L) 130 - 400 K/mcL LAB HEMETOLOGY METHOD 08/09/2025 5:[facility] Comment:reviewed by slide MPV 12.2(H) 7.0 - 11.0 FL LAB HEMETOLOGY METHOD 08/09/2025 5:[facility] NRBC 0.2 <1.0 % LAB HEMETOLOGY METHOD 08/09/2025 5:46 PM [facility] NRBC Absolute 0.60(H) <0.10 K/mcL LAB HEMETOLOGY METHOD 08/09/2025 5:46 PM [facility] Blood Venous blood specimen / Unknown Venipuncture / Unknown 08/09/2025 2:12 PM EDT 08/09/2025 2:12 PM EDT us Jairo Bosch MD LAB BLOOD ORDERABLE S Final Result Performing Organization Address [facility] Co de Phone Number [facility] [address] [place] [address], [place] [phone] * Type and screen (08/09/2025 2:12 PM EDT) ABO Group A 08/10/2025 8:54 AM EDT [facility] Rh Type Negative 08/10/2025 8:54 AM EDT [facility] Antibody Screen Positive 08/10/2025 8:54 AM EDT [facility] Blood Venous blood specimen / Unknown Venipuncture / Unknown 08/09/2025 2:12 PM EDT 08/09/2025 2:12 PM EDT Jairo Bosch MD LAB BLOOD BANK TEST ORDERABLES Final Result Performing Organization Address [facility] de Phone Number [facility] [address] [place] [address], [place] [phone] * Prothrombin time with INR (08/09/2025 2:12 PM EDT) Protime 12.1 10.6 - 13.9 sec LAB COAGULATION METHOD 08/09/2025 3:48 PM EDT [facility] INR 1.0 LAB COAGULATION METHOD 08/09/2025 3:48 PM EDT [facility] Blood Venous blood specimen / Unknown Venipuncture / Unknown 08/09/2025 2:12 PM EDT 08/09/2025 2:12 PM EDT us Jairo Bosch MD LAB BLOOD ORDERABLE S Final Result Performing Organization Address City/[facility]/ZIP Co de Phone Number [facility] [address] [place] [address], [place] [phone] * Activated partial thromboplastin time (08/09/2025 2:12 PM EDT) aPTT 26.6 24.1 - 39.3 sec LAB COAGULATION METHOD 08/09/2025 3:48 PM EDT [facility] Blood Venous blood specimen / Unknown Venipuncture / Unknown 08/09/2025 2:12 PM EDT 08/09/2025 2:12 PM EDT Jairo Bosch MD LAB BLOOD ORDERABLE S Final Result [facility] [address] [place] [address], documented in this encounter Visit Diagnoses Diagnosis Hematuria, unspecified type 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
--- NOTE | ~2025-08-10 | CT_ITS ---
EXAMINATION: CT CHEST WITHOUT CONTRAST CLINICAL INFORMATION: R91.8 - Other nonspecific abnormal finding of lung field COMPARISON: July 09, 2024 TECHNIQUE: Multidetector volumetric CT imaging of the chest was done. Axial MIP volume rendering provided. Sagittal and coronal reformatted images were obtained. This CT examination was performed using dose optimization techniques as appropriate, variously including the following: *Automated exposure control *Adjustment of mA and/or kV according to patient size (this includes techniques or standardized protocols for targeted exams where dose is matched to indication/reason for exam; i.e. extremities or head) *Use of iterative reconstruction technique FINDINGS: LUNGS: Axial CT #3 image 25/63: Right upper lobe nodule demonstrates mostly groundglass density with curvilinear central solid density. The groundglass component measures 12 x 12 mm. Previously, it was more ill-defined groundglass density and measured approximately 8 mm. No new nodules are identified. MEDIASTINUM: The mediastinum is normal. CORONARY ARTERY CALCIFICATION: Present PLEURA: There is no pleural effusion. No pleural mass or thickening. AXILLA: No lymphadenopathy. UPPER ABDOMEN: Simple renal cysts are present involving the right kidney. Again seen is focal calcification in the anterior superior right hepatic segment. The spleen is incompletely imaged. It is increasing in size and bulk when compared to the prior examination and measures at least more than 13.2 cm There is a new focal hypodensity in the posterior dome of the spleen measuring 13 mm diameter. OSSEOUS STRUCTURES: Multilevel degenerative changes in the spine most advanced in the lower thoracic spine. CT/CT chest wo IV con IMPRESSION: Right upper lobe mostly groundglass density nodule is increasing in size and density when compared to the prior study performed 13 months ago. Today it measures 13 mm, previously 8 mm. Consider PET/CT or consultation for biopsy. Interval development of splenomegaly. Also, there is a new 13 mm low attenuating lesion in the posterior aspect of the spleen. Splenic lesions tend to be benign in nature, but metastatic disease or other aggressive etiology is not ruled out. Fleischner guidelines were followed. Electronically signed by: Eric Castro MD 08/10/2025 01:41 PM EDT
--- OUTSIDE RECORDS SUMMARY | 2025-08-10 15:17 | XMS_ITS ---
Author Name [facility] Organization Unknown History of Medication Use Medication Directions Dispensed Refills Start Date End Date Stat us tramadol 50 mg tablet Take 1 tablet every 6 hours by oral route. 05/23/2023 06/30/2023 active ipratropium bromide 42 mcg (0.06 %) nasal spray 08/18/2017 active albuterol sulfate 2.5 mg/3 mL (0.083 %) solution for nebulization INHALE 1 VIAL VIA NEBULIZER EVERY 4 HOURS NEEDED FOR SHORTNESS OF BREATH OR WHEEZING 09/26/2023 active BinaxNOW COVID-19 Ag Self Test kit TEST DIRECTED TODAY 09/20/2023 completed meloxicam 7.5 mg tablet 09/20/2023 active benzonatate 200 mg capsule TAKE 1 CAPSULE BY MOUTH EVERY 8 HOURS FOR 7 DAYS NEEDED FOR COUGH 05/27/2023 completed Ear Wax Removal Drops 6.5 % PLACE 5 DROPS INTO BOTH EARS 2 TIMES DAILY FOR 10 DAYS. TILT HEAD SO EAR TO BE TREATED POINTS TOWARDS CEILING. HOLD MEDICATION IN EAR USING COTTON 05/27/2023 completed lidocaine 5 % topical patch 05/27/2023 completed nystatin 100,000 unit/mL oral suspension SHAKE LIQUID AND TAKE 5 ML BY MOUTH FOUR TIMES DAILY FOR 10 DAYS 05/27/2023 completed prednisone 10 mg tablet TAKE 3 TABLETS BY MOUTH EVERY DAY FOR 3 DAYS THEN 2 EVERY DAY FOR 3 DAYS THEN 1 EVERY DAY FOR 3 DAYS 05/27/2023 completed oseltamivir 75 mg capsule TAKE 1 CAPSULE BY MOUTH TWICE DAILY FOR 5 DAYS active Stimulant Laxative Plus 8.6 mg-50 mg tablet active Allergies Allergen Reaction Severity Comment Documented Date Source Statu s [place] [facility] SULFA (SULFONAMIDE ANTIBIOTICS) [facility] Problems Problem Status Onset Date Problem Type Date of Resoluti on Source Osteoarthritis of right hip joint active 2023-04-11 ProblemAct [facility] Preprocedural examination done active 2023-05-12 ProblemAct [facility] History of total replacement of right hip joint active 2023-06-02 ProblemAct [facility] First degree atrioventricular block active 2023-05-12 ProblemAct [facility] ONECT Benign essential hypertension active 2017-12-01 ProblemAct [facility] Allergic rhinitis active 2017-09-15 ProblemAct [facility] Tubular adenoma of colon active 2017-12-25 ProblemAct [facility] Midline cystocele active 2018-09-29 ProblemAct [facility] Simple chronic bronchitis active 2020-07-31 ProblemAct [facility] Chronic obstructive pulmonary disease active 2017-11-19 ProblemAct [facility] Thrombocytopenic disorder active 2017-06-30 ProblemAct [facility] Coronary atherosclerosis active 2017-12-01 ProblemAct [facility] Subclavian artery stenosis active 2023-05-12 ProblemAct [facility] Hyperlipidemia active 2017-03-14 ProblemAct [facility] Mixed hyperlipidemia active 2023-05-12 ProblemAct [facility] Monocytosis active 2017-06-30 ProblemAct [facility] NE[facility] Left bundle branch block active 2023-05-12 ProblemAct [facility] Dyspnea on exertion active 2023-05-12 ProblemAct [facility] Multiple nodules of lung active 2017-09-15 ProblemAct [facility] Gastroesophageal reflux disease without esophagitis active 2017-11-19 ProblemAct [facility] Electrocardiogram abnormal active 2023-05-12 ProblemAct [facility] History of artificial joint active 2023-06-28 ProblemAct [facility] Osteopenia active 2017-03-14 ProblemAct [facility] ECT Encounters Encounter Type Encounter Reason Primary Diagnosis Location Date Ambulatory [facility] 08/27/2024 Ambulatory [facility] [place] 05/31/2024 Ambulatory [facility] [place] 05/28/2024 Ambulatory [facility] [place] 05/27/2024 Ambulatory [facility] [place] 09/26/2023 Ambulatory [facility] [place] 08/05/2023 Ambulatory [facility] [place] 07/04/2023 Ambulatory [facility] [place] 07/03/2023 Inpatient Presence of unspecified orthopedic joint implant Presence of unspecified orthopedic joint implant [facility] 06/28/2023 Ambulatory [facility] [place] 06/17/2023 Ambulatory [facility] [place] 06/17/2023 Ambulatory [facility] [place] 06/16/2023 Ambulatory [facility] [place] 06/13/2023 Ambulatory [facility] [place] 05/27/2023 Ambulatory Left bundle-bran ch block, unspecified [facility] 05/22/2023 Ambulatory [facility] [place] 05/14/2023 Ambulatory [facility] [place] 05/13/2023 Ambulatory [facility] [place] 04/11/2023 Ambulatory [facility] [place] 04/11/2023 Ambulatory [facility] [place] 04/11/2023 Ambulatory [facility] [place] 04/11/2023 Ambulatory [facility] [place] 04/05/2023 Care Team Organization Name Specialty Phone Email Start Date End José Luis Ramirez [facility] 03/12/2025 [facility] 12/07/2023 [facility] 05/07/2023 [facility] GALLITO DEAN Primary Care 04/29/2023 04/29/2023
--- OUTSIDE RECORDS SUMMARY | 2025-08-10 15:17 | XMS_ITS | Clinical Summary ---
Author Organization [facility] Address [address] [place] [address] Care Team Providers Care Heavy Equipment Diesel Mechanic Name Role Phone Giles Campo MD Primary Care Provider [phone] Allergies Active Allergy Reactions Criticality Noted Date [...] 71 08/04/2024 2:26 PM EDT Temperature 37.1 C (98.8 F) 08/04/2024 2:26 PM EDT Respiratory Rate 20 07/01/2023 3:21 PM EDT Oxygen Saturation 100% 08/04/2024 2:26 PM EDT Inhaled Oxygen Concentration - - Weight 71.2 kg (157 lb) 08/04/2024 2:26 PM EDT Height 165.1 cm (5' 5 ) 06/28/2023 8:19 PM EDT Body Mass Index 26.13 06/28/2023 8:19 PM EDT Plan of Treatment Health Maintenance Due Date Last Done Comments COVID-19 Vaccine (#1) 1950 Depression Screening 1957 Preventative Health Evaluation 1963 Shingrix-Zoster Vaccine (1 of 2) 1964 Fall Risk Assessment 2010 Osteoporosis Screening (DEXA Scan) 2010 RSV Adult > 60+ Yrs or (1 - 1-dose 75+ series) 2020 Influenza Vaccine (#1) 2025 , 08/02/2020, 08/13/2019, Additional history exists DTap [...] this topic Medical Devices Implanted Type Area Director Of Social Services Device Identifier Shelf Expiration Date Model / Serial / Lot Liner Trident X3 0 Deg 36mm 5.9mm Sz E [facility] [id number] - [id number] Implanted:Qty: 1 on 05/22/2023 by Edmundo Roy MD at [facility] [employer] [id number] 02/19/2028 723-00-36E / / [id number] Cement Bone Surg Simplex Radiopq [facility] 7668-2-225-114 092 - [id number] Implanted:Qty: 1 on 05/22/2023 by Edmundo Roy MD at [facility] Right: Hip [employer] [id number] 6191-1010 / / [id number] Cement Bone Surg Simplex Radiopq Stry-Howm 7967-1-253-114 092 - [id number] Implanted:Qty: 1 on 05/22/2023 by Edmundo Roy MD at [facility] Right: Hip [employer] [id number] 6191-1010 / / [id number] Tritanium Cluster Hole Shell 52mm Stry-Howm 029-11-62d-770 473 - [id number] Implanted:Qty: 1 on 05/22/2023 by Edmundo Roy MD at [facility] Right: Hip [employer] [id number] 01/14/2028 702-04-52E / / [id number] Lp Hex Screw 6.5x25mm Stry-Howm 0392-7800-0425 58 - [id number] Implanted:Qty: 1 on 05/22/2023 by Edmundo Roy MD at [facility] Right: Hip [employer] [id number] 03/01/2028 1259-9942 / / [id number] Lp Hex Screw 6.5x20mm Stry-Howm 5138-5644-2862 57 - [id number] Implanted:Qty: 1 on 05/22/2023 by Edmundo Roy MD at [facility] Right: Hip [employer] [id number] 01/07/2028 6239-7271 / / [id number] Lp Hex Screw 6.5x20mm Stry-Howm 1483-7577-6147 57 - [id number] Implanted:Qty: 1 on 05/22/2023 by Edmundo Roy MD at [facility] Right: Hip [employer] [id number] 01/30/2028 0234-2485 / / [id number] Hip Spacer Distl Univ 11mm Stry-Howm 2413-7447-5537 61 - [id number] Implanted:Qty: 1 on 05/22/2023 by Edmundo Roy MD at [facility] Right: Hip [employer] [id number] 03/25/2028 7889-9501 / / [id number] Hip Stem Acco-C 132deg #5 Stry-Howm 1677-1120k-729 232 - [id number] Implanted:Qty: 1 on 05/22/2023 by Edmundo Roy MD at [facility] Right: Hip [employer] [id number] 07/29/2027 6058-0537D / / [id number] Kit Prep Total Hip Bone Imp Smn-Orth 371368-625941 - [id number] Implanted:Qty: 1 on 05/22/2023 by Edmundo Roy MD at [facility] Right: Hip [employer] [id number] 11/09/2032 [id number] / / [id number] Description:Medium plug Hip Head Delta Dorcas 36mm +2.5 Stry-How 1653-3-171-532 963 - [id number] Implanted:Qty: 1 on 05/22/2023 by Edmundo Roy MD at [facility] Right: Hip [employer] [id number] 08/18/2027 6570-0-536 / / [id number] Coil Penumbra 400 [id number] Soft Pnbr-Manu Cgg8v7870-0323 93 - [id number] Implanted:Qty: 2 on 06/29/2023 by Raul Trejo MD at [facility] [employer] 04/22/2031 [id number] / / [id number] Coil Penumbra 400 [id number] Soft Pnbr-Manu Lua0u1364-7855 93 - [id number] Implanted:Qty: 1 on 06/29/2023 by Raul Trejo MD at [facility] [employer] 03/30/2031 [id number] / / [id number] Advance Directives For more information, please contact: [phone] Latest Code Status on File Code Status Date Activated Date Inactivated Comments Full Code 06/28/2023 7:20 PM 07/01/2023 11:24 PM This code status was ascertained in the following way: discussion with healthcare operations representative . Code Status History Code Status Date Activated Date Inactivated Comments Full Code 05/22/2023 8:47 AM 05/23/2023 9:36 PM This co de status was ascertained in the following way: discussion with patient . Full Code 05/22/2023 5:51 AM 05/22/2023 8:47 AM This co de status was ascertained in the following way: discussion with patient . Care Teams Heavy Equipment Diesel Mechanic Relationship Specialty Start Date End Date Giles Campo MD [address] [place] [id number] PCP - General Internal Medicine 12/22/17
--- OUTSIDE RECORDS SUMMARY | 2025-08-10 15:17 | XMS_ITS | Encounter Summary ---
Author Organization [facility] Address [address] [place] [address] Care Team Providers Care Learning And Development Specialist Name Role Phone Cori Simmons MD Primary Care Provider [phone] Reason for Visit * Reason Onset Date Comments Blood in Urine 08/08/2025 Encounter Details Date Type Department Care Team (Late st Contact Info) Description 08/08/2025 Telephone [facility] Hematology Oncology [address] [place] [address] Jairo Bosch MD [address] [place] [phone] Social History Tobacco Use Types Packs/Day Years [...] your loved ones. 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 [...] as of this encounter Progress Notes * Jairo Bosch MD - 08/08/2025 1:42 PM EDTAddended by: JAIRO MCKEON on: 08/08/2025 01:42 PM Modules accepted: Orders * Ledy Gomez RN - 08/08/2025 1:18 PM EDT Called patient and let her know Dr. Garvey's recommendation. She will go to [facility] up [facility] in [facility]. Note: Pain has resolved. Hematuria has resolved. * Ledy Gomez RN - 08/08/2025 1:16 PM EDT Images from the original note were not included. Urinalysis with reflex culture done in ER. Culture pending. * Jairo Bosch MD - 08/08/2025 10:02 AM EDT Differential diagnosis-May be related to her disease, CMML, coagulopathy, UTI Okay to recheck labs CBC-D I reviewed, platelet count appears okay, Will do PT PTT INR when she can come in Follow-up urinalysis/culture if any done in the ER Of note, patient was very clear that she did not wish to have any systemic therapy for her disease * Ledy Gomez RN - 08/08/2025 9:26 AM EDT Images from the original note were not included. Patient presented to [facility] ER yesterday 08/07 for c/o lower abdominal pain radiating around to her back. Symptoms began after waking up to urinate at 3:[address] scan of abdomen/pelvis done: Patient was treated for renal colic on right side and discharged home. Referral to urology was placed by ER. She calls this morning because she is experiencing some blood in her urine. Advised her to please follow up on her urology referral. Dr. Garvey - please review and advise. Patient reports - ER told her to call our office to follow up on her CML. Next FOV is 09/09/25. (Snip of ER labs) * Rickie Cavazos - 08/08/2025 8:33 AM EDT Pat was in [facility] ER yesterday 08/07 for possible kidney stones. Urine test was clear when done at the ER. Pt was d/c yesterday and upon returning home she noticed a deeper red blood in urine. Today, there is still blood in urine. Pt asks for a call at her home # [phone]. documented in this encounter Plan of Treatment Upcoming Encounters Date Type Department Care Team (Late st Contact Info) Description 09/02/2025 1:30 PM EDT Office Visit Internal Medicine - [address] [phone] Giuseppe Lee NP [address] [place] [address] 09/09/2025 2:30 PM EDT Office Visit [facility] Hematology Oncology [address] [place] [phone] Ivan-Jairo Garvey MD [address] [place] [phone] 09/15/2025 1:00 PM EDT Office Visit [facility] - [place] [address] [phone] Marita Matthews MD [address] [facility] [address] [place] [address] 09/27/2025 2:30 PM EST Office Visit Internal Medicine - [facility] [address] [place] [address] Giuseppe Lee NP [address] [place] [address] 11/11/2025 3:30 PM EST Office Visit Vascular Surgery - [facility] [address] [place] [phone] Winston Barrett MD [address] [place] [phone] Scheduled Orders Name Type Priority Associated Diagnoses Orde r Schedule CBC and differential Lab Routine 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 V24, CMS/[facility] V28) Hematuria, unspecified type 1 Occurrences starting 08/08/2025 until 08/08/2026 Prothrombin time with INR Lab Routine 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 ([facility] V24, [facility] V28) Hematuria, unspecified type 1 Occurrences starting 08/08/2025 until 08/08/2026 documented as of this encounter Results * Activated partial thromboplastin time (08/09/2025 2:12 PM EDT) aPTT 26.6 24.1 - 39.3 sec LAB COAGULATION METHOD 08/09/2025 3:48 PM EDT [facility] Blood Venous blood specimen / Unknown Venipuncture / Unknown 08/09/2025 2:12 PM EDT 08/09/2025 2:12 PM EDT us Jairo Bosch MD LAB BLOOD ORDERABLE S Final Result [facility] [address] [place] [address], [place] [phone] * Prothrombin time with INR (08/09/2025 2:12 PM EDT) Protime 12.1 10.6 - 13.9 sec LAB COAGULATION METHOD 08/09/2025 3:48 PM EDT [facility] INR 1.0 LAB COAGULATION METHOD 08/09/2025 3:48 PM EDT [facility] Blood Venous blood specimen / Unknown Venipuncture / Unknown 08/09/2025 2:12 PM EDT 08/09/2025 2:12 PM EDT us Subramony Danitza KENNEDY LAB BLOOD ORDERABLE S Final Result [facility] [address] [place] [address], documented in this encounter Visit Diagnoses Diagnosis 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 V24, CMS/HCC V28)- Primary Hematuria, unspecified type documented in this encounter Orders Lab Orders Without Results Count Last Ordered D ate First Ordered Date ACTIVATED PARTIAL THROMBOPLASTIN TIME 1 URINALYSIS WITH REFLEX MICRO SCOPIC AND CULTURE 1 08/08/2025 documented in this encounter Additional Health Concerns Assessment Noted Time PHQ-9 Depression Total Score: 0 04/21/20 1:28 PM EDT documented as of this encounter Care Teams Learning And Development Specialist Relationship Specialty Start Date End Date Cori Simmons MD [address] [place] [phone] PCP - General Internal Medicine 06/27/25 documented as of this encounter
--- OUTSIDE RECORDS SUMMARY | 2025-08-10 15:17 | XMS_ITS | Clinical Summary ---
Author Organization 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 Diastolic , nausea. Pt to ED. Dr. Reid is an allergy. Pt had no issue with Fentanyl on prior cataract surgery 2 weeks prior Penicillins Itching,Rash Medium 12/01/2015 Other reaction(s): RASH ALL OVER BODY Sulfa (Sulfonamide Antibiotics) 03/14/2017 Patient not sure of the side effect Medications albuterol HFA (PROAIR HFA ; PROVENTIL HFA ; VENTOLIN HFA) 90 mcg/actuation inhaler Inhale 2 puffs by mouth every 4 (four) hours if needed. Active cetirizine (ZyrTEC) 10 mg tablet Take 1 tablet (10 mg total) by mouth 1 (one) time each day. Active loperamide (IMODIUM A-D) 2 mg tablet Take 1 tablet (2 mg total) by mouth Active budesonide-formot Sridhar (SYMBICORT) 160-4.5 mcg/actuation inhaler 1 inhalation. daily. 10/26/20 21 Active calcium carbonate-vitamin D3 600 mg-12.5 mcg (500 unit) capsule Take 1,500 mg by mouth. Active ipratropium (ATROVENT) 42 mcg (0.06 %) nasal spray USE 1 SPRAY NASALLY 3 TIMES DAILY 60 mL 2 11/18/19 25 Active melatonin-theanin e 10-5.5 mg tablet Take by mouth. Active metoprolol succinate (TOPROL-XL) 25 mg 24 hr tablet TAKE 1 TABLET BY MOUTH ONCE DAILY 100 tablet 1 12/31/19 25 Active amLODIPine (NORVASC) 2.5 mg tablet TAKE 1 TABLET BY MOUTH DAILY 100 tablet 1 02/22/20 25 Active aspirin 81 mg EC tablet Take 1 tablet (81 mg total) by mouth 1 (one) time each day. Active lovastatin (MEVACOR) 20 mg tablet TAKE 1 TABLET BY MOUTH AT BEDTIME 90 tablet 1 06/24/20 25 Active HYDROcodone-aceta minophen (NORCO) 5-325 mg per tablet Take 1 tablet by mouth every 6 (six) hours if needed for severe pain for up to 3 days. Max Daily Amount: 4 tablets 12 tablet 08/07/20 25 025 Active ibuprofen (ADVIL,MOTRIN) 600 mg tablet Take 1 tablet (600 mg total) by mouth every 6 (six) hours if needed for mild pain (for pain) for up to 10 days. 30 tablet 08/07/20 25 025 Active tamsulosin (FLOMAX) 0.4 mg 24 hr capsule Take 1 capsule (0.4 mg total) by mouth 1 (one) time each day for 14 days. Capsules should be taken 30 minutes following the same meal each day. 14 each 08/07/20 25 025 Active ondansetron ODT (ZOFRAN-ODT) 4 mg disintegrating tabletIndications :Renal colic on right side Dissolve 1 tablet (4 mg total) on top of the tongue every 8 (eight) hours if needed for nausea or vomiting for up to 7 days. 20 tablet 08/07/20 25 025 Active HYDROcodone-aceta minophen (NORCO) 5-325 mg per tablet Take 1 tablet by mouth every 6 (six) hours if needed for severe pain for up to 3 days. Max Daily Amount: 4 tablets 12 tablet 08/07/20 25 025 Discontinued ibuprofen (ADVIL,MOTRIN) 600 mg tablet Take 1 tablet (600 mg total) by mouth every 6 (six) hours if needed for mild pain (for pain) for up to 10 days. 30 tablet 08/07/20 25 025 Discontinued tamsulosin (FLOMAX) 0.4 mg 24 hr capsule Take 1 capsule (0.4 mg total) by mouth 1 (one) time each day for 14 days. Capsules should be taken 30 minutes following the same meal each day. 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 She recently underwent blood work which still stores anemia but her hematocrit is above 25. Advised to speak to her per diem rn regarding further treatment. Dyspnea on exertion 08/05/2024 Essential hypertension, benign 08/05/2024 First degree AV block 08/05/2024 Gastroesophageal reflux disease without esophagi tis 08/05/2024 HLD (hyperlipidemia) 08/05/2024 Mixed hyperlipidemia 08/05/2024 Kidney cysts 06/15/2024 S/P joint replacement 06/28/2023 Osteoarthritis of right hip 05/15/2023 Subclavian artery stenosis, left ([facility] V24) 0 01/14/2023 Spinal stenosis of lumbar region with [...] skin of chest 07/17/2021 Simple chronic bronchitis ([facility] V24, [facility] V28) 07/31/2020 History of COVID-19 02/24/2020 S/P total [...] 03/2015 Coronary atherosclerosis 12/01/2017 HTN (hypertension) 12/01/2017 Assessment & Plan (06/27/2025 1:47 PM EDT): Follow low-sodium diet. Continue current regimen of amlodipine, metoprolol. Will do echocardiogram. Orders: Thyroid stimulating hormone with reflex to free t4 and free t3; Future Transthoracic echocardiogram (TTE) complete with PRN contrast, bubble, strain, and 3D order panel; Future COPD (chronic obstructive pu lmonary disease) ([facility] V24, [facility] V28) 11/19/2017 Overview (01/02/2024): 08/18/2017 hospitalized [place], COPD exacerbation secondary to rhinovirus/enterovirus resp infection. Assessment & Plan (06/27/2025 1:47 PM EDT): Continue Symbicort, albuterol. She follows up with Dr. Everett and is scheduled follow-up appointment with CT chest. Allergic rhinitis 09/15/2017 Pneumonitis 09/15/2017 Multiple pulmonary nodules 09/15/2017 Thrombocytopenia ([facility] V24) 06/30/2017 Overview (01/02/2024): Onc(06/22/18): followed by Dr [...] Monocytosis 06/30/2017 Vasomotor rhinitis 03/24/2017 Hypercholesterolemia 03/14/2017 Assessment & Plan (06/27/2025 1:47 PM EDT): Follow low-cholesterol diet and continue statin. 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 ([facility] V24, [facility] V28); Thrombocytopenia ([facility] V24) 08/08/2025 Telephone [facility] Hematology Oncology [address] [place] [phone] Ivan-Jairo Muller MD 08/07/2025 7:03 AM EDT - 08/07/2025 11:39 AM EDT Emergency [facility] Emergency [address] [place] [phone] Vaibhav Elizabeht MD Renal colic on right side (Primary Dx); Kidney stone Discharge Disposition: Home or Self Care 07/25/2025 Telephone Internal Medicine - [facility] [address] [place] [phone] Renu Molina MA 07/21/2025 11:05 AM EDT Lab Draw Station - [address] [phone] Hypercholesterolemia; Lightheadedness; Hypertension, unspecified type; 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 ([facility] V24, [facility] V28) 07/20/2025 Telephone [facility] Hematology Oncology [address] [place] [phone] Jairo Hatch MD 07/12/2025 10:21 AM EDT - 07/12/2025 11:59 PM EDT Hospital Encounter [facility] Density - [facility] [address] [place] [address] Menopause Discharge Disposition: Home or Self Care 07/12/2025 10:21 AM EDT - 07/12/2025 11:59 PM EDT Hospital Encounter Ultrasound - [facility] [address] [place], [place] [phone] Lightheadedness Discharge Disposition: Home or Self Care 07/11/2025 2:11 PM EDT - 07/11/2025 11:59 PM EDT Hospital [facility] [address] [phone] Encounter for screening mammogram for malignant neoplasm of breast Discharge Disposition: Home or Self Care 07/11/2025 Telephone Internal Medicine - [facility] [address] [place], [place] [phone] Cori Simmons MD 07/09/2025 Telephone Internal Medicine - [facility] [address] [place], [place] [phone] Giles Campo MD 06/27/2025 1:00 PM EDT Office Visit Internal Medicine - [facility] [address] [place], [place] [phone] Giles Campo MD 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 V24, CMS/HCC V28) (Primary Dx); Hematoma of right upper extremity; Chronic obstructive pulmonary disease, unspecified COPD type (CMS/HCC V24, CMS/HCC V28); Hypertension, unspecified type; Hypercholesterolemia; Menopause; Encounter for screening mammogram for malignant neoplasm of breast; Lightheadedness 06/02/2025 2:30 PM EDT Office Visit [facility] Hematology Oncology [address] [place] [phone] Jairo Hatch MD 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 (CMS/[facility] V24, [facility] V28) (Primary Dx) 05/27/2025 Telephone [facility] Infusion Center [address] [place] [address] Bel Hastings RN from Last 3 Months Immunizations Name Administration [...] KNEE ARTHROPLASTY BACK SURGERY 06/2022 PROCEDURE:BACK SURGERY;COMMENT:LAMINECTOMY OTHER SURGICAL HISTORY N/A Oral surgery, 6 teeth wired together after fall and broken upper jaw REPLACEMENT TOTAL HIP LATERA L POSITION Right ART COMP PSEUDO ANEURYSM Right with repair Medical History Medical History Date Comments Anemia DX:Anemia Thrombocytopenia ([facility]/HCC V24) D X:Thrombocytopenia (HCC) Hypertension DX:Hypertension Pneumonia DX:Pneumonia Asthma DX:Asthma Osteopenia DX:Osteopenia Sigmoid diverticulosis DX:Sigmoi d diverticulosis Vitamin D deficiency DX:Vitamin D deficiency Thrombocytopenia ([facility] V24) 06/30/2017 D X:Thrombocytopenia (HCC) COPD (chronic obstructive pu lmonary disease) ([facility] V24, [facility] V28) DX:COPD (chronic o bstructive pulmonary disease) ([facility]) Stenosis of left subclavian artery ([facility] V24) DX:Stenosis of left subclavi an artery (HCC);COMMENT:followed by Vascular HTN (hypertension) DX:HTN (hyper tension) HLD (hyperlipidemia) DX:HLD (hyp erlipidemia) Bilateral carotid artery stenosis 07/12/2025 Family History * Patient is adopted Medical History Relation Name Comments Alcohol abuse Daughter AA for approx 15 years No Known Problems Son Relation Name Status Comments Daughter Son Social History Tobacco Use Types Packs/Day Years [...] for your loved ones. For example, child study team director or elderly care for an older adult? [...] 12/22/2024 12 :47 PM EST Obstetrics History Para Term AB IAB SAB Ectopic Multiple Livin g Live Births 2 Last Filed Vital Signs Vital Sign Reading [...] Mass Index 24.63 08/07/2025 7:09 AM EDT Plan of Treatment Upcoming Encounters Date Type Department Care Team (Late st Contact Info) Description 09/02/2025 1:30 PM EDT Office Visit [facility] - [facility] [address] [facility] [place], [place] [phone] Giuseppe Lee NP [address] [place] [address] 09/09/2025 2:30 PM EDT Office Visit [facility] Hematology Oncology [address] [place] [phone] Jairo Bosch MD [address] [place] [phone] 09/15/2025 1:00 PM EDT Office Visit [facility] [place] [address] [place] [address] [address] [place] [address] Marita Matthews MD [address] [facility] [address] [place] [address] 09/27/2025 2:30 PM EST Office Visit Internal Medicine - [facility] [address], [place] [phone] Giuseppe Lee NP [address] [place] [address] 11/11/2025 3:30 PM EST Office Visit Vascular Surgery - [place] [address] [place] [phone] Winston Barrett MD [address] [place] [phone] Health Maintenance Due Date Last Done Comments Influenza Vaccine (#1) 2025 , 09/03/2023, 08/16/2022, Additional history exists COVID-19 Vaccine (10 - Moderna risk 2023- season) 2025 02/28/2025, 08/18/2024, 08/12/2024, Additional history exists DTaP,Tdap,and Td Vaccines (3 - Td or Tdap) 10/26/2025 10/26/2015, 07/31/2010 Medicare Annual Wellness Visit 04/21/2026 04/21/2025 Social Influencers of Health Screening 04/21/2026 04/21/2025 Falls Risk Assessment 06/27/2026 06/27/2025 , 04/28/2025, 04/21/2025, Additional history exists Hypertension/CHF/CAD Annual BMP Blood Test 08/07/2026 08/07/2025, 08/01/2025, 07/21/2025, Additional history exists Osteoporosis Screening (Bone Density Screening) 07/12/2027 07/12/2025, 01/24/2023, 01/23/2023, Additional history exists Cholesterol Screening (Lipid Panel) 07/21/2030 07/21/2025, 12/16/2023 Pneumococcal Vaccine: 50+ Years Completed 08/10/2023, 01/19/2018, 09/21/2014, Additional history exists RSV Immunization Adult Patients Completed 08/17/2023 Zoster Vaccines Completed 03/26/2024, 02/2024, 09/11/2023, Additional history exists Depression Screening Completed 06/20/2025 HIB Vaccines Aged Out No longer eligi ble based on patient's age to complete this topic HPV Vaccines Aged Out No longer eligi ble based on patient's age to complete this topic Hepatitis A Vaccines Aged Out No long er eligible based on patient's age to complete this topic Hepatitis B Vaccines Aged Out No long [...] age to complete this topic Meningococcal B Vaccine Aged Out No l onger eligible based on patient's age to complete this topic RSV Immunization Patients Under 20 months Aged Out No longer eligible based on patient's age to complete this topic Varicella Vaccines Aged Out No longer eligible based on patient's age to complete this topic Medical Devices Implanted Type Area Breastfeeding Program Coordinator Device Identifier Shelf Expiration Date Model / Serial / Lot Liner Trident X3 0 Deg 36mm 5.9mm Sz E [facility] [id number] Implanted:Qty: 1 on 05/22/2023 by Edmundo Roy MD [employer] [id number] 02/19/2028 723-00-36E / / [id number] Cement Bone Surg Simplex Radiopq Stry-Howm [id number] Implanted:Qty: 1 on 05/22/2023 by Edmundo Roy MD Right: Hip [employer] [id number] 6191- / / [id number] Cement Bone Surg Simplex Radiopq Stry-Howm [id number] 092 Implanted:Qty: 1 on 05/22/2023 by Edmundo Roy MD Right: Hip [employer] [id number] 6191-010 / / [id number] Tritanium Cluster Hole Shell 52mm Stry-Howm [id number] Implanted:Qty: 1 on 05/22/2023 by Edmundo Roy MD Right: Hip [employer] [id number] 01/14/2028 702-04-52E / / [id number] Lp Hex Screw 6.5x25mm Stry-Howm [id number] 58 Implanted:Qty: 1 on 05/22/2023 by Edmundo Roy MD Right: Hip [employer] [id number] 03/01/2028 0915-5847 / / [id number] Lp Hex Screw 6.5x20mm Stry-Howm [id number] 57 Implanted:Qty: 1 on 05/22/2023 by Edmundo Roy MD Right: Hip [employer] [id number] 01/07/2028 7905-7668 / / [id number] Lp Hex Screw 6.5x20mm Stry-Howm [id number] 57 Implanted:Qty: 1 on 05/22/2023 by Edmundo Roy MD Right: Hip [employer] [id number] 01/30/2028 0459-3773 / / [id number] Hip Spacer Distl Univ 11mm Stry-Howm [id number] 61 Implanted:Qty: 1 on 05/22/2023 by Edmundo Roy MD Right: Hip [employer] [id number] 03/25/2028 3884-3742 / / [id number] Hip Stem Acco-C 132deg #5 Stry-Howm [id number] 232 Implanted:Qty: 1 on 05/22/2023 by Edmundo Roy MD Right: Hip [employer] [id number] 07/29/2027 6058-0537D / / [id number] Prep Total Hip Bone Imp Smn-Orth [id number] Implanted:Qty: 1 on 05/22/2023 by Edmundo Roy MD Right: Hip [employer] [id number] 11/09/2032 [id number] / / [id number] Description:Medium plug Hip Head Delta Dorcas 36mm +2.5 Stry-Howm [id number] [id number] Implanted:Qty: 1 on 05/22/2023 by Edmundo Roy MD Right: Hip [employer] [id number] 08/18/2027 6570-0-536 / / [id number] Coil Penumbra 400 [id number] Soft Pnbr-Manu [id number] 93 Implanted:Qty: 2 on 06/29/2023 by Raul Trejo MD [employer] 04/22/2031 [id number] / / [id number] Coil Penumbra 400 [id number] Soft Pnbr-Manu [id number] 93 Implanted:Qty: 1 on 06/29/2023 by Raul Trejo MD [employer] 03/30/2031 [id number] / / [id number] Procedures Procedure Name Priority Date/Time Associated Diagnosis Comments EXTERNAL CT REPORT 08/10/2025 MURO URINE CULTURE TUBE Routine 08/09/2025 3:37 [...] V24, CMS/HCC V28) Thrombocytopenia (CMS/HCC V24) CBC AND DIFFERENTIAL Routine 08/09/2025 2:12 PM EDT 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 V24, CMS/HCC V28) Thrombocytopenia (CMS/HCC V24) PROTHROMBIN TIME WITH INR Routine 08/09/2025 2:12 PM EDT Hematuria, unspecified type ACTIVATED PARTIAL THROMBOPLASTIN TIME Routine 08/09/2025 2:12 PM EDT Hematuria, unspecified type CT ABDOMEN PELVIS W CONTRAST STAT 08/07/2025 8:37 AM EDT URINALYSIS WITH REFLEX MICROSCOPIC STAT 08/07/2025 8:11 AM EDT URINALYSIS WITH REFLEX MICROSCOPIC STAT 08/07/2025 8:11 AM EDT MANUAL DIFFERENTIAL - SYSMEX WAM STAT 08/07/2025 7:47 AM EDT CBC WITH AUTO DIFFERENTIAL STAT 08/07/2025 7:47 AM EDT MAGNESIUM STAT 08/07/2025 7:47 AM EDT COMPREHENSIVE METABOLIC PANEL STAT 08/07/2025 7:47 AM EDT CBC AND DIFFERENTIAL STAT 08/07/2025 7:47 AM EDT BASIC METABOLIC PANEL Routine 08/01/2025 10:34 AM EDT BETHANY (acute kidney injury) (CMS/HCC V24) MANUAL DIFFERENTIAL - SYSMEX WAM Routine 07/21/2025 11:05 AM EDT 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 V24, CMS/HCC V28) ANTIBODY IDENTIFICATION Routine 07/21/2025 11:05 AM EDT 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 V24, CMS/HCC V28) CBC WITH AUTO DIFFERENTIAL Routine 07/21/2025 11:05 AM EDT 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 V24, CMS/HCC V28) TYPE AND SCREEN Routine 07/21/2025 11:05 AM EDT 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 V24, CMS/HCC V28) CBC AND DIFFERENTIAL Routine 07/21/2025 11:05 AM EDT 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 V24, CMS/HCC V28) THYROID STIMULATING HORMONE WITH REFLEX TO FREE T4 AND FREE T3 Routine 07/21/2025 11:05 AM EDT Hypertension, unspecified type BASIC METABOLIC PANEL Routine 07/21/2025 11:05 AM EDT Lightheadedness LIPID PANEL WITH REFLEX TO DIRECT LDL Routine 07/21/2025 11:05 AM EDT Hypercholesterolemia BD BONE DENSITY DXA AXIAL SKELETON Routine 07/12/2025 11:27 AM EDT Menopause VAS US DUPLEX CAROTID BILATERAL Routine 07/12/2025 11:12 AM EDT Lightheadedness MG MAMMO DIGITAL SCREENING W MAN BILAT Routine 07/11/2025 2:26 PM EDT Encounter for screening mammogram for malignant neoplasm of breast ECG 12-LEAD Routine 06/27/2025 1:47 PM EDT Lightheadedness MANUAL DIFFERENTIAL - SYSMEX WAM Routine 06/24/2025 1:02 PM EDT 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 V24, CMS/HCC V28) Thrombocytopenia (CMS/HCC V24) CBC WITH AUTO DIFFERENTIAL Routine 06/24/2025 1:02 PM EDT 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 V24, CMS/HCC V28) Thrombocytopenia (CMS/HCC V24) CBC AND DIFFERENTIAL Routine 06/24/2025 1:02 PM EDT 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 V24, CMS/HCC V28) Thrombocytopenia (CMS/HCC V24) LACTATE DEHYDROGENASE Routine 06/24/2025 1:02 PM EDT 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 V24, CMS/HCC V28) MANUAL DIFFERENTIAL - S[facility] WAM Routine 05/27/2025 12:57 PM EDT 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 V24, CMS/HCC V28) CBC WITH AUTO DIFFERENTIAL Routine 05/27/2025 12:57 PM EDT 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 08/09/2025 7:[address] [facility] Comment:Auto resulted. Urine Urine specimen obtained by clean catch procedure / Unknown Non-blood Collection / Unknown 08/09/2025 3:37 PM EDT 08/09/2025 3:37 PM EDT Jairo Bosch MD LAB URINE ORDERABLE S Final Result [facility] [address] [place] [address], [place] [phone] * (ABNORMAL) Urinalysis with reflex microscopic and culture (08/09/2025 3:36 PM EDT) Specific [place] Urine 1.020 1.003 - 1.030 LAB URINALYSIS - AUTOMATED METHOD 08/09/2025 6:41 PM [facility] pH, Urine 6.5 5.0 - 8.0 pH LAB URINALYSIS - AUTOMATED METHOD 08/09/2025 6:41 PM [facility] Leukocytes, Urine Moderate(A) Negative LAB URINALYSIS - AUTOMATED METHOD 08/09/2025 6:41 PM [facility] Nitrite, Urine Positive(A) Negative LAB URINALYSIS - AUTOMATED METHOD 08/09/2025 6:41 PM [facility] Protein, Urine >=300(A) <=Trace mg/dL LAB URINALYSIS - AUTOMATED METHOD 08/09/2025 6:41 PM [facility] Glucose, Urine Negative Negative mg/dL LAB URINALYSIS - AUTOMATED METHOD 08/09/2025 6:41 PM [facility] Ketones, Urine Negative Negative mg/dL LAB URINALYSIS - AUTOMATED METHOD 08/09/2025 6:41 PM [facility] Urobilinogen , Urine 1.0 0.2 - 1.0 mg/dL LAB URINALYSIS - AUTOMATED METHOD 08/09/2025 6:41 PM [facility] Bilirubin, Urine Moderate(A) Negative LAB URINALYSIS - AUTOMATED METHOD 08/09/2025 6:41 PM EDT [facility] Blood, Urine Large(A) Negative LAB URINALYSIS - AUTOMATED METHOD 08/09/2025 6:41 PM EDT [facility] RBC, Urine >100(H) 0 - 4 /HPF 08/09/2025 6:41 PM EDT [facility] WBC, Urine 30(H) 0 - 4 /HPF 08/09/2025 6:41 PM EDT [facility] Squamous Epithelial, Urine 15 0 - 60 /LPF 08/09/2025 6:41 PM EDT [facility] Bacteria, Urine Moderate(A) Negative /HPF 08/09/2025 6:41 PM EDT [facility] Hyaline Casts, Urine 5(H) 0 - 3 /LPF 08/09/2025 6:41 PM EDT [facility] Yeast, Urine Present(A) None /HPF 08/09/2025 6:41 PM EDT [facility] Urine Urine specimen obtained by clean catch procedure / Unknown Non-blood Collection / Unknown 08/09/2025 3:36 PM EDT 08/09/2025 3:36 PM EDT Jairo Bosch MD LAB URINE ORDERABLE S Final Result [facility] [address] [place] [address], * Culture urine (08/09/2025 3:36 PM EDT) Culture, Urine No growth 08/10/2025 1:48 PM EDT [facility] Urine Urine specimen obtained by clean catch procedure / Unknown Non-blood Collection / Unknown 08/09/2025 3:36 PM EDT 08/09/2025 6:41 PM EDT Jairo Bosch MD LAB MICROBIOLOGY - GENERAL ORDERABLES Final Result [facility] [address] [place] [address], [place] [phone] * C antigen type (08/09/2025 2:12 PM EDT) [facility] C Antigen Negative 08/10/2025 11:31 AM EDT [facility] Blood Venous blood specimen / Unknown Venipuncture / Unknown 08/09/2025 2:12 PM EDT 08/09/2025 2:12 PM EDT [facility] MD LAB BLOOD BANK TEST ORDERABLES Final Result Performing Organization Address [facility]/ZIP Co de Phone Number [facility] [address] [place] [address], [place] [phone] * (ABNORMAL) Manual differential (08/09/2025 2:12 PM EDT) Only the most recent of5 resultswithin the time period is included. [facility] Neutrophils % 47.0 % LAB HEMETOLOGY METHOD 5 5:47 PM EDT [facility] Bands % 11.0 % LAB HEMETOLOGY METHOD 5 5:47 PM EDT [facility] Lymphocytes % 4.0 % LAB HEMETOLOGY METHOD 5 5:47 PM EDT [facility] Monocytes % 6.0 % LAB HEMETOLOGY METHOD 5 5:47 PM EDT [facility] Eosinophils % 0.0 % LAB HEMETOLOGY METHOD 5 5:47 PM EDT [facility] Basophils % 0.0 % LAB HEMETOLOGY METHOD 5 5:47 PM [facility] Metamyelocytes % 15.0(H) % LAB HEMETOLOGY METHOD 5 5:47 PM [facility] Myelocytes % 14.0(H) % LAB HEMETOLOGY METHOD 5 5:47 PM [facility] Promyelocytes % 2.0(H) % LAB HEMETOLOGY METHOD 5 5:47 PM [facility] Blasts % 1.0(H) % LAB HEMETOLOGY METHOD 5 5:47 PM [facility] Neutrophils Absolute Manual 121.31(H) 1.50 - 7.00 K/mcL LAB HEMETOLOGY METHOD 5 5:47 PM [facility] Bands Absolute Manual 28.39(H) 0.00 - 0.00 K/mcL LAB HEMETOLOGY METHOD 5 5:47 PM [facility] Lymphocytes Absolute 10.32(H) 1.00 - 5.00 K/mcL LAB HEMETOLOGY METHOD 5 5:47 PM [facility] Monocytes Absolute Manual 15.49(H) 0.20 - 1.00 K/mcL LAB HEMETOLOGY METHOD 5 5:47 PM [facility] Eosinophils Absolute Manual 0.00 0.00 - 0.50 K/mcL LAB HEMETOLOGY METHOD 5 5:47 PM [facility] Basophils Absolute Manual 0.00 0.00 - 0.20 K/mcL LAB HEMETOLOGY METHOD 5 5:47 PM [facility] Metamyelocytes Absolute Manual 38.72(H) 0.00 - 0.00 K/mcL LAB HEMETOLOGY METHOD 5 5:47 PM [facility] Myelocytes Absolute Manual 36.13(H) 0.00 - 0.00 K/mcL LAB HEMETOLOGY METHOD 5 5:47 PM EDT [facility] Promyelocytes Absolute Manual 5.16(H) 0.00 - 0.00 K/mcL LAB HEMETOLOGY METHOD 5 5:47 PM EDT [facility] Blasts Absolute 2.58(H) 0.00 - 0.00 K/[facility] LAB HEMETOLOGY METHOD 5 5:47 PM EDT [facility] Rbc Morphology Consistent with indices Consistent with indices, Normal for LAB HEMETOLOGY METHOD 5 5:47 PM EDT [facility] Platelet Morphology - WAM Large Platelets Seen(A) Normal [facility]47 PM EDT [facility] Blood Venous blood specimen / Unknown Venipuncture / Unknown 08/09/2025 2:12 PM EDT 08/09/2025 2:12 PM EDT Jairo Bosch MD LAB BLOOD ORDERABLE S Final Result [facility] [address] [place] [address], * (ABNORMAL) CBC auto differential (08/09/2025 2:12 PM EDT) Only the most recent of5 resultswithin the time period is included. WBC 258.1(HH) 4.8 - 10.8 [facility] LAB HEMETOLOGY METHOD 08/09/2025 5:46 PM EDT [facility] RBC 2.40(L) 3.80 - 4.80 M/mcL LAB HEMETOLOGY METHOD 08/09/2025 5:46 PM EDT [facility] Hemoglobin 8.0(L) 11.5 - 16.0 g/dL LAB HEMETOLOGY METHOD 08/09/2025 5:46 PM EDT [facility] Hematocrit 26.0(L) 35.0 - 47.0 % LAB HEMETOLOGY METHOD 08/09/2025 5:46 PM EDT [facility] MCV 106.6(H) 79.0 - 98.0 FL LAB HEMETOLOGY METHOD 08/09/2025 5:46 PM EDT [facility] MCH 32.8(H) 27.0 - 32.0 pcg LAB HEMETOLOGY METHOD 08/09/2025 5:46 PM EDT [facility] MCHC 30.8(L) 32.0 - 37.0 g/dL LAB HEMETOLOGY METHOD 08/09/2025 5:46 PM [facility] RDW 19.2(H) 11.0 - 15.0 % LAB HEMETOLOGY METHOD 08/09/2025 5:46 PM EDT [facility] Platelets 32(L) 130 - 400 K/mcL LAB HEMETOLOGY METHOD 08/09/2025 5:46 PM EDT [facility] Comment:reviewed by slide MPV 12.2(H) 7.0 - 11.0 FL LAB HEMETOLOGY METHOD 08/09/2025 5:46 PM [facility] NRBC 0.2 <1.0 % LAB HEMETOLOGY METHOD 08/09/2025 5:46 PM EDT [facility] NRBC Absolute 0.60(H) <0.10 K/mcL LAB HEMETOLOGY METHOD 08/09/2025 5:46 PM [facility] Blood Venous blood specimen / Unknown Venipuncture / Unknown 08/09/2025 2:12 PM EDT 08/09/2025 2:12 PM EDT Subramony Danitza KENNEDY LAB BLOOD ORDERABLE S Final Result Performing Organization Address [facility] Co de Phone Number [facility] [address] [place] [address], [place] [phone] * Antibody identification (08/09/2025 2:12 PM EDT) Only the most recent of2 resultswithin the time period is included. [facility] Antibody Identification C Antibody( RH2) 08/10/2025 11:29 AM EDT [facility] Antibody Identification E Antibody( RH3) 08/10/2025 11:29 AM EDT [facility] Blood Venous blood specimen / Unknown Venipuncture / Unknown 08/09/2025 2:12 PM EDT 08/09/2025 2:12 PM EDT us Jairo Bosch MD LAB BLOOD BANK TEST ORDERABLES Final Result Performing Organization Address [facility] Co de Phone Number [facility] [address] [place] [address], [place] [phone] * Activated partial thromboplastin time (08/09/2025 2:12 PM EDT) [facility] aPTT 26.6 24.1 - 39.3 sec LAB COAGULATION METHOD 08/09/2025 3:48 PM EDT [facility] Blood Venous blood specimen / Unknown Venipuncture / Unknown 08/09/2025 2:12 PM EDT 08/09/2025 2:12 PM EDT us Jairo Bosch MD LAB BLOOD ORDERABLE S Final Result Performing Organization Address [facility] Co de Phone Number [facility] [address] [place] [address], [place] [phone] * Prothrombin time with INR (08/09/2025 2:12 PM EDT) [facility] Protime 12.1 10.6 - 13.9 sec LAB COAGULATION METHOD 08/09/2025 3:48 PM EDT [facility] INR 1.0 LAB COAGULATION METHOD 08/09/2025 3:48 PM EDT [facility] Blood Venous blood specimen / Unknown Venipuncture / Unknown 08/09/2025 2:12 PM EDT 08/09/2025 2:12 PM EDT Jairo Bosch MD LAB BLOOD ORDERABLE S Final Result [facility] [address] [place] [address], * Type and screen (08/09/2025 2:12 PM EDT) Only the most recent of2 resultswithin the time period is included. ABO Group A 08/10/2025 8:54 AM EDT [facility] Rh Type Negative 08/10/2025 8:54 AM EDT [facility] Antibody Screen Positive 08/10/2025 8:54 AM EDT [facility] Blood Venous blood specimen / Unknown Venipuncture / Unknown 08/09/2025 2:12 PM EDT 08/09/2025 2:12 PM EDT Jairo Bosch MD LAB BLOOD BANK TEST ORDERABLES Final Result [facility] [address] [place] [address], [place] [phone] * CT Abdomen Pelvis w Contrast (08/07/2025 [...] Signed Date: 08/07/2025 09:30 ET Workstation ID: [id number] Transcribed By: Self Edit Transcribed Date: 08/07/2025 [...] Therewas an abnormality in this region in 2021. Possibilities includehemangioma. There is an abnormality in [...] the spleen (3/32) which was notpresent in 2021. There is an approximately 1.5 [...] Signed Date: 08/07/2025 09:30 ET Workstation ID: [id number] Transcribed By: Self Edit Transcribed Date: 08/07/2025 09:17 ET Vaibhav Elizabeth MD [facility] CT PROCEDURES Final Result * (ABNORMAL) Urinalysis with reflex microscopic (08/07/2025 8:11 AM EDT) Pathologist [facility] Specific [place] Urine 1.012 1.003 - 1.030 LAB URINALYSIS - AUTOMATED METHOD 08/07/2025 8:43 AM [facility] pH, Urine 5.5 5.0 - 8.0 pH LAB URINALYSIS - AUTOMATED METHOD 08/07/2025 8:43 AM [facility] Leukocytes, Urine Moderate(A) Negative LAB URINALYSIS - AUTOMATED METHOD 08/07/2025 8:43 AM [facility] Nitrite, Urine Negative Negative LAB URINALYSIS - AUTOMATED METHOD 08/07/2025 8:43 AM [facility] Protein, Urine 30(A) <=Trace mg/dL LAB URINALYSIS - AUTOMATED METHOD 08/07/2025 8:43 AM [facility] Glucose, Urine Negative Negative mg/dL LAB URINALYSIS - AUTOMATED METHOD 08/07/2025 8:43 AM [facility] Ketones, Urine Negative Negative mg/dL LAB URINALYSIS - AUTOMATED METHOD 08/07/2025 8:43 AM [facility] Urobilinogen , Urine 0.2 0.2 - 1.0 mg/dL LAB URINALYSIS - AUTOMATED METHOD 08/07/2025 8:43 AM [facility] Bilirubin, Urine Negative Negative LAB URINALYSIS - AUTOMATED METHOD 08/07/2025 8:43 AM [facility] Blood, Urine Large(A) Negative LAB URINALYSIS - AUTOMATED METHOD 08/07/2025 8:43 AM [facility] RBC, Urine 23.8(H) 0 - 4 /HPF LAB URINALYSIS - AUTOMATED METHOD 08/07/2025 8:43 AM [facility] WBC, Urine 46.4(H) 0 - 4 /HPF LAB URINALYSIS - AUTOMATED METHOD 08/07/2025 8:43 AM [facility] Squamous Epithelial, Urine 80(H) 0 - 60 /LPF LAB URINALYSIS - AUTOMATED METHOD 08/07/2025 8:43 AM [facility] Bacteria, Urine Few(A) Negative /HPF LAB URINALYSIS - AUTOMATED METHOD 08/07/2025 8:43 AM [facility] Hyaline Casts, Urine 14.4(H) 0 - 3 /LPF LAB URINALYSIS - AUTOMATED METHOD 08/07/2025 8:43 AM [facility] Urine Urine specimen obtained by clean catch procedure / Unknown Non-blood Collection / Unknown 08/07/2025 8:11 AM EDT 08/07/2025 8:33 AM EDT us Vaibhav Elizabeth MD LAB URINE ORDERABLES Final Resul t Performing Organization Address City/[facility]/ZIP Co de Phone Number [facility] [address] [place] [address], [place] [phone] * Magnesium (08/07/2025 7:47 AM EDT) Magnesium 2.1 1.9 - 2.6 mg/dL LAB CHEMISTRY METHOD 08/07/2025 8:21 AM EDT [facility] Blood Venous blood specimen / Unknown Venipuncture / Unknown 08/07/2025 7:47 AM EDT 08/07/2025 7:57 AM EDT us Vaibhav Eliazbeth MD LAB BLOOD ORDERABLES Final Resul t Performing Organization Address [facility]/ZIP Co de Phone Number [facility] [address] [place] [address], [place] [phone] * (ABNORMAL) Comprehensive metabolic panel (08/07/2025 7:47 AM EDT) Sodium 138 133 - 145 mmol/L LAB CHEMISTRY METHOD 08/07/2025 8:21 AM [facility] Potassium 3.4(L) 3.5 - 5.5 mmol/L LAB CHEMISTRY METHOD 08/07/2025 8:21 AM [facility] Chloride 104 96 - 110 mmol/L LAB CHEMISTRY METHOD 08/07/2025 8:21 AM [facility] CO2 28 21 - 32 mmol/L LAB CHEMISTRY METHOD 08/07/2025 8:21 AM [facility] Anion Gap 6 3 - 11 LAB CHEMISTRY METHOD 08/07/2025 8:21 AM [facility] Glucose 107(H) 70 - 100 mg/dL LAB CHEMISTRY METHOD 08/07/2025 8:21 AM [facility] BUN 27(H) 5 - 25 mg/dL LAB CHEMISTRY METHOD 08/07/2025 8:21 AM [facility] Creatinine 1.26(H) 0.50 - 1.10 mg/dL LAB CHEMISTRY METHOD 08/07/2025 8:21 AM [facility] eGFR 43(L) >=60 mL/min/1. 73m2 LAB CHEMISTRY METHOD 08/07/2025 8:21 AM [facility] Comment:Calculation based on the Chronic Kidney Disease Epidemiology Collaboration (CKD-EPI) equation refit without adjustment for race. BUN/Creatinine Ratio 21.4 LAB CHEMISTRY METHOD 08/07/2025 8:21 AM [facility] Calcium 8.9 8.5 - 10.5 mg/dL LAB CHEMISTRY METHOD 08/07/2025 8:21 AM [facility] AST (SGOT) 22 10 - 42 unit/L LAB CHEMISTRY METHOD 08/07/2025 8:21 AM [facility] ALT (SGPT) 12 10 - 60 unit/L LAB CHEMISTRY METHOD 08/07/2025 8:21 AM [facility] Alkaline Phosphatase 66 42 - 121 unit/L LAB CHEMISTRY METHOD 08/07/2025 8:21 AM [facility] Total Protein 6.7 6.0 - 8.0 g/dL LAB CHEMISTRY METHOD 08/07/2025 8:21 AM [facility] Albumin 4.0 3.2 - 5.0 g/dL LAB CHEMISTRY METHOD 08/07/2025 8:21 AM [facility] Total Bilirubin 0.5 0.0 - 1.4 mg/dL LAB CHEMISTRY METHOD 08/07/2025 8:21 AM [facility] Blood Venous blood specimen / Unknown Venipuncture / Unknown 08/07/2025 7:47 AM EDT 08/07/2025 7:57 AM EDT Vaibhav Elizabeth MD LAB BLOOD ORDERABLES Final Resul t [facility] [address] [place] [address], * (ABNORMAL) Basic metabolic panel (08/01/2025 10:34 AM EDT) Only the most recent of2 resultswithin the time period is included. Sodium 138 133 - 145 mmol/L LAB CHEMISTRY METHOD 08/01/2025 2:49 PM EDT [facility] Potassium 3.6 3.5 - 5.5 mmol/L LAB CHEMISTRY METHOD 08/01/2025 2:49 PM [facility] Chloride 102 96 - 110 mmol/L LAB CHEMISTRY METHOD 08/01/2025 2:49 PM [facility] CO2 27 21 - 32 mmol/L LAB CHEMISTRY METHOD 08/01/2025 2:49 PM [facility] Anion Gap 9 3 - 11 LAB CHEMISTRY METHOD 08/01/2025 2:49 PM [facility] Glucose 140(H) 70 - 100 mg/dL LAB CHEMISTRY METHOD 08/01/2025 2:49 PM [facility] BUN 32(H) 5 - 25 mg/dL LAB CHEMISTRY METHOD 08/01/2025 2:49 PM [facility] Creatinine 1.40(H) 0.50 - 1.10 mg/dL LAB CHEMISTRY METHOD 08/01/2025 2:49 PM [facility] eGFR 38(L) >=60 mL/min/1. 73m2 LAB CHEMISTRY METHOD 08/01/2025 2:49 PM [facility] Comment:Calculation based on the Chronic Kidney Disease Epidemiology Collaboration (CKD-EPI) equation refit without adjustment for race. BUN/Creatinine Ratio 22.9 LAB CHEMISTRY METHOD 08/01/2025 2:49 PM [facility] Calcium 9.8 8.5 - 10.5 mg/dL LAB CHEMISTRY METHOD 08/01/2025 2:49 PM EDT [facility] Blood Venous blood specimen / Unknown Venipuncture / Unknown 08/01/2025 10:34 AM EDT 08/01/2025 10:34 AM EDT iGles Campo MD LAB BLOOD ORDERABLES Viviana l Result Performing Organization Address [facility] Co de Phone Number [facility] [address] [place] [address], [place] [phone] * Thyroid stimulating hormone with reflex to free t4 and free t3 (07/21/2025 11:05 AM EDT) TSH 3.44 0.40 - 4.00 mcIU/mL LAB CHEMISTRY METHOD 07/21/2025 2:04 PM EDT [facility] Blood Venous blood specimen / Unknown Venipuncture / Unknown 07/21/2025 11:05 AM EDT 07/21/2025 11:24 AM EDT Giles Campo MD LAB BLOOD ORDERABLES Viviana l Result Performing Organization Address [facility] de Phone Number [facility] [address] [place] [address], [place] [phone] * (ABNORMAL) Lipid panel with reflex to direct LDL (07/21/2025 11:05 AM EDT) Cholesterol 124 0 - 200 mg/dL LAB CHEMISTRY METHOD 07/21/2025 1:27 PM EDT [facility] Triglycerides 157(H) 0 - 150 mg/dL LAB CHEMISTRY METHOD 07/21/2025 1:27 PM EDT [facility] HDL 25(L) >=40 mg/dL LAB CHEMISTRY METHOD 07/21/2025 1:27 PM EDT [facility] LDL Calculated 68 0 - 100 mg/dL LAB CHEMISTRY METHOD 07/21/2025 1:27 PM EDT [facility] Comment:Estimated LDL Calcul ated using equation: Total cholesterol - HDL cholesterol - (Triglycerides/5) VLDL Cholesterol Roberto 31.4 mg/dL LAB CHEMISTRY METHOD 07/21/2025 1:27 PM EDT [facility] Non HDL Chol. (LDL+VLDL) 99 <145 mg/dL LAB CHEMISTRY METHOD 07/21/2025 1:27 PM EDT [facility] Chol/HDL Ratio 5.0(H) 0.0 - 4.4 LAB CHEMISTRY METHOD 07/21/2025 1:27 PM EDT [facility] Blood Venous blood specimen / Unknown Venipuncture / Unknown 07/21/2025 11:05 AM EDT 07/21/2025 11:24 AM EDT us Giles Campo MD LAB BLOOD ORDERABLES Viviana l Result [facility] [address] [place] [address], * BD Bone Density DXA Axial Skeleton (07/12/2025 11:27 AM EDT) Anatomical Region Laterality Modality Wrist, Hip, L-spine Bone Densito metry 07/12/2025 11:4 8 AM EDT Impressions 07/12/2025 11:50 AM EDT Impression: Patient is considered to have osteopenia by WHO criteria. This patient has a 24% risk of major osteoporotic fracture and a 8.2% risk of hip fracture over the next 10 years. (World Health Organization Fracture Risk Assessment) [facility] Department of Internal Medicine recommends using National Osteoporosis Foundation (NOF) guidelines in treatment decisions related to osteoporosis. NOF guidelines suggest considering treatment for postmenopausal women and men aged 50 or older presenting with the following: History of hip or vertebral fracture. T-score = -2.5 (DXA) at the femoral neck, total hip, or spine, after appropriate evaluation to exclude secondary causes. Low bone mass (T-score between -1.0 and -2.5 at the femoral neck or spine) AND a 10-year probability of a hip fracture = 3% OR a 10-year probability of a major osteoporosis-related fracture = 20% based on the [place]-adapted WHO algorithm Please note that all treatment decisions require clinical judgment and consideration of individual patient factors, including patient preferences, co-morbidities, previous drug use, risk factors not captured in the FRAX model (e.g., frailty, falls, vitamin D deficiency, increased bone turnover, interval significant decline in bone density) and possible under- or over-estimation of fracture risk by FRAX. Optional alternative screening schedule based on judy Armendariz., [facility] December 05, 2011 for patients with osteopenia (based on hip BMD T-score) is as follows: * advanced osteopenia (T scores -2.00 to -2.49), BMD testing every year * moderate osteopenia (T scores -1.50 to -1.99), BMD testing every 5 years mild osteopenia or normal BMD (T scores -1.50 and higher), BMD testing every 15 years -------- FINAL REPORT -------- Dictated By: Alexa Olivo Dictated Date: 07/12/2025 11:48 ET Assigned Physician: Alexa Olivo Reviewed and Electronically Signed By: Alexa Olivo Signed Date: 07/12/2025 11:50 ET Workstation ID: [id number] Transcribed By: Self Edit Transcribed Date: 07/12/2025 11:48 ET Narrative 07/12/2025 11:50 AM EDT BONE DENSITY (DEXA) Lumbar Spine T-score is 0.5. (SD relative to 20-29 y/o adult) Z-score is 3.2. (SD relative to age matched peers) This is considered normal by WHO criteria. Left Hip T-score is -2.1. Z-score is 0.2. This is considered osteopenia by WHO criteria. There is mild dextroscoliosis of the lumbar spine. Procedure Note Alexa Olivo MD - 07/12/2025 BONE DENSITY (DEXA) Lumbar Spine T-score is 0.5. (SD relative to 20-29 y/o adult) Z-score is 3.2. (SD relative to age matched peers) This is considered normal by WHO criteria. Left Hip T-score is -2.1. Z-score is 0.2. This is considered osteopenia by WHO criteria. There is mild dextroscoliosis of the lumbar spine. IMPRESSION: Impression: Patient is considered to have osteopenia by WHO criteria. This patient hasa 24% risk of major osteoporotic fracture and a 8.2% risk of hip fractureover the next 10 years. (World Health Organization Fracture RiskAssessment) [facility] Department of Internal Medicine recommendsusing National Osteoporosis Foundation (NOF) guidelines in treatmentdecisions related to osteoporosis. NOF guidelines suggest consideringtreatment for postmenopausal women and men aged 50 or older presentingwith the following: History of hip or vertebral fracture. T-score = -2.5 (DXA) at the femoral neck, total hip, or spine, afterappropriate evaluation to exclude secondary causes. Low bone mass (T-score between -1.0 and -2.5 at the femoral neck or spine)AND a 10-year probability of a hip fracture = 3% OR a 10-year probabilityof a major osteoporosis-related fracture = 20% based on the [place]-adapted WHOalgorithm Please note that all treatment decisions require clinical judgment andconsideration of individual patient factors, including patientpreferences, co-morbidities, previous drug use, risk factors not capturedin the FRAX model (e.g., frailty, falls, vitamin D deficiency, increasedbone turnover, interval significant decline in bone density) and possibleunder- or over-estimation of fracture risk by FRAX. Optional alternative screening schedule based on judy Armednariz., NEJMJanuary 2011 for patients with osteopenia (based on hip BMD T-score)is as follows: * advanced osteopenia (T scores -2.00 to -2.49), BMD testing every year * moderate osteopenia (T scores -1.50 to -1.99), BMD testing every 5years mild osteopenia or normal BMD (T scores -1.50 and higher), BMD testingevery 15 years -------- FINAL REPORT -------- Dictated By: Alexa Olivo Dictated Date: 07/12/2025 11:48 ET Assigned Physician: Alexa Olivo Reviewed and Electronically Signed By: Alexa Olivo Signed Date: 07/12/2025 11:50 ET Workstation ID: [id number] Transcribed By: Self Edit Transcribed Date: 07/12/2025 11:48 ET us Giles Campo MD IMG DXA PROCEDURES Final Result * Vascular US duplex carotid bilateral (07/12/2025 11:12 AM EDT) Anatomical Region Laterality Modality Vascular, Abdomen Ultrasound 07/12/2025 3:15 PM EDT Impressions 07/12/2025 3:28 PM EDT Bilateral internal carotid stenoses of 50-69%. Patent vertebral arteries. POS - [id number] -------- FINAL REPORT -------- Dictated By: Inge Austin Dictated Date: 07/12/2025 15:15 ET Assigned Physician: Inge Austin Reviewed and Electronically Signed By: Inge Austin Signed Date: 07/12/2025 15:28 ET Workstation ID: [id number] Transcribed By: Self Edit Transcribed Date: 07/12/2025 15:15 ET Narrative 07/12/2025 3:28 PM EDT EXAM: Ultrasound extracranial arteries. HISTORY: Lightheadedness. COMPARISON: None CAROTID ULTRASOUND FINDINGS: RIGHT: Peak external carotid artery: 92 cm/sec Peak vertebral: 76 cm/sec and antegrade Carotid artery morphology: Moderate degree of mixed echogenicity atherosclerotic plaque in the bulb extending into the proximal ICA and ECA. Degree of luminal narrowing approaches 50%. Peak systolic and diastolic velocity common carotid artery: 113/28 cm/sec Peak systolic and diastolic velocity internal carotid artery: 162/53 cm/sec Normal ICA/CCA peak systolic ratio. LEFT: Peak external carotid artery: 111 cm/sec Peak vertebral: 69 cm/sec and antegrade Carotid artery morphology: Moderate degree of mixed echogenicity atherosclerotic plaque in the bulb extending into the proximal ICA and ECA. Plaquing also present in the mid ICA. Degree of luminal narrowing approaches 50%. Peak systolic and diastolic velocity common carotid artery: 125/35 cm/sec Peak systolic and diastolic velocity internal carotid artery: 140/45 cm/sec Normal ICA/CCA peak systolic ratio. Any stenosis measurement is relative to the distal ICA diameters. Procedure Note Inge Austin MD - 07/12/2025 EXAM: Ultrasound extracranial arteries. HISTORY: Lightheadedness. COMPARISON: None CAROTID ULTRASOUND FINDINGS: RIGHT: Peak external carotid artery: 92 cm/sec Peak vertebral: 76 cm/sec and antegrade Carotid artery morphology: Moderate degree of mixed echogenicityatherosclerotic plaque in the bulb extending into the proximal ICA andECA. Degree of luminal narrowing approaches 50%. Peak systolic and diastolic velocity common carotid artery: 113/28cm/sec Peak systolic and diastolic velocity internal carotid artery: 162/53cm/sec Normal ICA/CCA peak systolic ratio. LEFT: Peak external carotid artery: 111 cm/sec Peak vertebral: 69 cm/sec and antegrade Carotid artery morphology: Moderate degree of mixed echogenicityatherosclerotic plaque in the bulb extending into the proximal ICA andECA. Plaquing also present in the mid ICA. Degree of luminal narrowingapproaches 50%. Peak systolic and diastolic velocity common carotid artery: 125/35cm/sec Peak systolic and diastolic velocity internal carotid artery: 140/45cm/sec Normal ICA/CCA peak systolic ratio. Any stenosis measurement is relative to the distal ICA diameters. IMPRESSION: Bilateral internal carotid stenoses of 50-69%. Patent vertebralarteries. POS - [id number] -------- FINAL REPORT -------- Dictated By: Inge Austin Dictated Date: 07/12/2025 15:15 ET Assigned Physician: Inge Austin Reviewed and Electronically Signed By: Inge Austin Signed Date: 07/12/2025 15:28 ET Workstation ID: [id number] Transcribed By: Self Edit Transcribed Date: 07/12/2025 15:15 ET us Giles Campo MD CV VASCULAR PROCEDURES Fi nal Result * MG Mammo Digital Screening w Man bilat (07/11/2025 2:26 PM EDT) Anatomical Region Laterality Modality Breast Bilateral Mammography 07/11/2025 3:06 PM EDT Impressions 07/11/2025 3:22 PM EDT No mammographic evidence of malignancy. No suspicious interval change. A negative mammogram in the presence of a clinically suspicious palpable abnormality does not preclude the possibility of malignancy or alter the indications for biopsy. ASSESSMENT: BI-RADS 2: BENIGN RECOMMENDATION(S): 1: Routine screening mammogram BILATERAL in 1 year. [facility] Mammography at [address], [address] -------- FINAL REPORT -------- Dictated By: Caden Leslie Dictated Date: 07/11/2025 15:06 ET Assigned Physician: Caden Leslie Reviewed and Electronically Signed By: Caden Leslie Signed Date: 07/11/2025 15:22 ET Workstation ID: [id number] Transcribed By: Self Edit Transcribed Date: 07/11/2025 15:06 ET Narrative 07/11/2025 3:22 PM EDT EXAM: SCREENING MAMMOGRAPHY, BILATERAL HISTORY: SCREENING. No additional history. COMPARISON: 01/27/24, 01/23/23, 01/16/22, 05/26/20 TECHNIQUE: Synthesized CC and MLO projections of each breast. Tomosynthesis of each breast in the CC and MLO projections. ADDITIONAL IMAGING: None Computer-aided detection was employed with the [employer] AI 3-D. TISSUE DENSITY: There are scattered areas of fibroglandular density. (BI-RADS category B) FINDINGS: RIGHT BREAST: No suspicious mass. No suspicious calcification. No distortion. There is an unchanged low density focal asymmetry in the superficial upper outer right breast. LEFT BREAST: No suspicious mass. No suspicious calcification. No distortion. No additional suspicious left breast findings Procedure Note Caden Leslie MD - 07/11/2025 EXAM: SCREENING MAMMOGRAPHY, BILATERAL HISTORY: SCREENING. No additional history. COMPARISON: 01/27/24, 01/23/23, 01/16/22, 05/26/20 TECHNIQUE: Synthesized CC and MLO projections of each breast.Tomosynthesis of each breast in the CC and MLO projections. ADDITIONAL IMAGING: None Computer-aided detection was employed with the [employer] 3-D. TISSUE DENSITY: There are scattered areas of fibroglandular density.(BI-RADS category B) FINDINGS: RIGHT BREAST: No suspicious mass. No suspicious calcification. No distortion. There isan unchanged low density focal asymmetry in the superficial upper outerright breast. LEFT BREAST: No suspicious mass. No suspicious calcification. No distortion. Noadditional suspicious left breast findings IMPRESSION: No mammographic evidence of malignancy. No suspicious interval change. A negative mammogram in the presence of a clinically suspicious palpableabnormality does not preclude the possibility of malignancy or alter theindications for biopsy. ASSESSMENT: BI-RADS 2: BENIGN RECOMMENDATION(S): 1: Routine screening mammogram BILATERAL in 1 year. [facility] location[facility] [address], [address] -------- FINAL REPORT -------- Dictated By: Caden Leslie Dictated Date: 07/11/2025 15:06 ET Assigned Physician: Caden Leslie Reviewed and Electronically Signed By: Caden Leslie Signed Date: 07/11/2025 15:22 ET Workstation ID: [id number] Transcribed By: Self Edit Transcribed Date: 07/11/2025 15:06 ET Giles Campo MD IMG BI PROCEDURES Final R esult * ECG 12 lead (06/27/2025 1:47 PM EDT) Giles Ann MD - 06/27/2025 1:47 PM EDT Reviewed by Dr Campo us Giles Campo MD ECG ORDERABLES Final Res ult * (ABNORMAL) Lactate dehydrogenase (06/24/2025 1:02 PM EDT) Only the most recent of2 resultswithin the time period is included. LDH 306(H) 120 - 246 unit/L LAB CHEMISTRY METHOD 06/24/2025 3:[address] 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
--- OUTSIDE RECORDS SUMMARY | 2025-08-10 15:17 | XMS_ITS | Clinical Summary ---
Author Organization [facility] Address [address] [place] [phone] Phone Care Team Providers Care Airline Reservation Agent Name Role Phone Giles Campo MD Primary Care Provider [phone] Jairo Bosch MD Unavailable [phone] Allergies Active Allergy Reactions Criticality Noted Date Comments Penicillin Rash Low 02/14/2025 Medications amLODIPine (NORVASC) 2.5 MG tablet Take 1 tablet by mouth daily. 09/10/2024 Active aspirin 81 MG EC tablet Take 1 tablet by mouth daily. Active SYMBICORT 160-4.5 mcg/actuation inhaler Inhale 1 puff into the lungs daily. Active calcium carbonate-vitam in D3 1,500 mg (600 mg elemental)-200 units Tab Take 2 tablets by mouth daily. Active cetirizine (ZYRTEC) 10 MG tablet Take 10 mg by mouth daily. Active ipratropium (ATROVENT) 42 mcg (0.06 %) nasal spray 2 sprays by Nasal route daily. 09/10/2024 Active lovastatin (MEVACOR) 20 MG tablet Take 20 mg by mouth nightly at bedtime. Active melatonin-thean ine 10-5.5 mg Tab Take 20 mg by mouth nightly at bedtime. Active metoprolol succinate (TOPROL-XL) 25 MG 24 hr tablet Take 25 mg by mouth daily. 07/29/2024 Active Social History Tobacco Use Types Packs/Day Years Used Date Smoking Tobacco: Former Cigarettes 1.5 34 1 962 - 1996 Smokeless Tobacco: Never Tobacco Cessation:Counseling Given: Not Answered Alcohol Use Standard Drinks/Week Comments Not Currently 0 (1 standard drink = 0.6 oz pur e alcohol) Education Answer Date Recorded Are you interested in more education? Not on samy e 01/19/2025 Are you concerned about learning? Not on file 01/19/2025 No 01/19/2025 No 01/19/2025 Digital Access Answer Date Recorded No 01/19/2025 No 01/19/2025 Reliable internet access at home? Not on file 01/19/2025 Device with a working camera? Not on file Comments Unknown Sex and Gender Information Value Date Recorded Sex Assigned at Female 01/18/2025 4:03 PM EST Legal Sex Female 5:39 AM EST Gender Identity Female 01/18/2025 4:03 PM EST Sexual Orientation Straight 01/18/2025 4: 03 PM EST Last Filed Vital Signs Vital Sign Reading Time Taken Comments Blood Pressure 126/72 02/14/2025 1:28 PM EDT Pulse 80 02/14/2025 1:28 PM EDT Temperature 36.3 C (97.3 F) 02/14/2025 1:28 PM EDT Respiratory Rate 18 02/14/2025 1:27 PM EDT Oxygen Saturation 99% 02/14/2025 1:28 PM EDT Inhaled Oxygen Concentration - - Weight 69.9 kg (154 lb 1.6 oz) 02/14/2025 1:27 P M EDT Height 162.1 cm (5' 3.82 ) 02/14/2025 1:27 PM ED T Body Mass Index 26.6 02/14/2025 1:27 PM EDT Plan of Treatment Health Maintenance Due Date Last Done Comments DEPRESSION SCREENING 1957 OSTEOPOROSIS SCREENING INITIAL (ONE-TIME) 2010 INFLUENZA VACCINE (#1) 2025 , 09/03/2023, 08/16/2022, Additional history exists COVID-19 VACCINE ( season) 2025 02/28/2025, 08/18/2024, 08/12/2024, Additional history exists Adult Td,Tdap Booster 10/26/2025 10/26/2015, 010 LIPID PANEL 12/16/2028 12/16/2023 PNEUMOCOCCAL VACCINES (50+ years) Completed 08/10/2023, 01/19/2018, 09/21/2014, Additional history exists RSV VACCINE Completed 08/17/2023 ZOSTER VACCINES Completed 03/26/2024, 02/2024, 09/11/2023, Additional history exists SMOKING STATUS SCREENING (Once After 26 Yrs) Completed 02/14/2025 HEPATITIS A VACCINES Aged Out No long er eligible based on patient's age to complete this topic HIB VACCINES Aged Out No longer eligi ble based on patient's age to complete this topic MENINGOCOCCAL VACCINES (ACWY) Aged Out No longer eligible based on patient's age to complete this topic MENINGOCOCCAL VACCINES (B) Aged Out N o longer eligible based on patient's age to complete this topic Medical Devices Not on file Insurance MEDICARE [place] [address] [place] [address] MEDICARE REPLACEMENT Member Subscriber Plan / Payer (Ef fective 2024-Present) Name:[place]ido Relation to Subscriber:Self Name:Le Salcido Payer ID:[id number] (NAIC) Type:Medicare Address: [place] [id number] MEDICARE REPLACEMENT Member Subscriber Plan / Payer (Ef fective 2024-Present) Name:Le Salcido Relation to Subscriber:Self Name:Le Salcido Payer ID:[id number] (NAIC) Type:Medicare Address: [place] [id number] MEDICARE REPLACEMENT MEDICARE REPLACEMENT [facility] MEDICARE REPLACEMENT [facility] MEDICARE REPLACEMENT Member Subscriber Plan / Payer (Ef fective 2024-Present) Name:Le Salcido Relation to Subscriber:Self Name:Nancy Salcidomanish Da Silva Payer ID:[id number] (NAIC) Type:Medicare Address: [place] [phone] Care Teams Airline Reservation Agent Relationship Specialty Start Date End Date Giles Campo MD [address] [place] [phone] PCP - General Internal Medicine 01/18/25 Ivan-Jairo Garvey MD [address] [place] [phone] [email or web address] Referring Physician Internal Medicine 01/18/25 Additional Source Comments The information contained in this document represents components of the legal health record. It is not the complete legal health record.[facility]
--- OUTSIDE RECORDS SUMMARY | 2025-08-10 15:17 | XMS_ITS ---
Author Organization 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 She recently underwent blood work which still stores anemia but her hematocrit is above 25. Advised to speak to her national sales manager regarding further treatment. Dyspnea on exertion 08/05/2024 Essential hypertension, benign 08/05/2024 First degree AV block 08/05/2024 Gastroesophageal reflux disease without esophagi tis 08/05/2024 HLD (hyperlipidemia) 08/05/2024 Mixed hyperlipidemia 08/05/2024 Kidney cysts 06/15/2024 S/P joint replacement 06/28/2023 Osteoarthritis of right hip 05/15/2023 Subclavian artery stenosis, left (CMS/HCC V24) 0 01/14/2023 Spinal stenosis of lumbar [...] skin of chest 07/17/2021 Simple chronic bronchitis (CMS/HCC V24, CMS/HCC V28) 07/31/2020 History of COVID-19 02/24/2020 S/P [...] Future COPD (chronic obstructive pu lmonary disease) (CMS/HCC V24, CMS/HCC V28) 11/19/2017 Overview (01/02/2024): 08/18/2017 hospitalized [place], COPD exacerbation secondary to rhinovirus/enterovirus resp infection. Assessment & Plan (06/27/2025 1:47 PM EDT): Continue Symbicort, albuterol. She follows up with Dr. Everett and is scheduled follow-up appointment with CT chest. Allergic rhinitis 09/15/2017 Pneumonitis 09/15/2017 Multiple pulmonary nodules 09/15/2017 Thrombocytopenia ([facility]/HCC V24) 06/30/2017 Overview (01/02/2024): Onc(06/22/18): followed by [...] not having achieved remission (CMS/HCC V24, CMS/HCC V28)Thrombocytopenia (CMS/HCC V24) Treatment Medications No medications scheduled. Past Plans No past plan information found. Radiation Treatments * No radiation treatments are documented for this patient in [facility]. Treatments may have been administered in another system.
--- OUTSIDE RECORDS SUMMARY | 2025-08-10 15:17 | XMS_ITS ---
Author Organization [facility] Address [address] [place] [address] Care Team Providers Care Technical Operator Name Role Phone Giles Campo MD Primary Care Provider [phone] Active Problems Problem Noted Date Diagnosed Date [...] treatments are documented for this patient in [facility]. Treatments may have been administered in another system. Lifetime Dose Tracking * Chemical Lifetime Dose Automatic Entry Manual Entr y Radiation 192.17 mSv 192.17 mSv 0 mSv
--- OUTSIDE RECORDS SUMMARY | 2025-08-10 15:17 | XMS_ITS | Encounter Summary ---
Author Organization [facility] Address [address] [place] [address] Care Team Providers Care Project Account Manager Name Role Phone Cori Simmons MD Primary Care Provider [phone] Reason for Visit * Reason Onset Date Comments [facility] foster call to ext : [phone] thanks. DARCI HAQUE Encounter Details Date Type Department Care Team (Late st Contact Info) Description 07/25/2025 Telephone Internal Medicine - [facility] [address] [place] [phone] Renu Molina MA Social History Tobacco Use Types Packs/Day Years [...] for your loved ones. For example, children's zoo caretaker or elderly care for an older adult? [...] PM EST documented as of this encounter Plan of Treatment Upcoming Encounters Date Type Department Care Team (Late st Contact Info) Description 09/02/2025 1:30 PM EDT [facility] [address] [place] [phone] Giuseppe Lee NP [address] [place] [address] 09/09/2025 2:30 PM EDT Office Visit [facility] Hematology Oncology [address] [place] [phone] Jairo Bosch MD [address] [place] [phone] 09/15/2025 1:00 PM EDT Office Visit [facility] - [place] [address] [facility] [address] [place] [phone] Marita Matthews MD [address] [facility] [address] [place] [address] 09/27/2025 2:30 PM EST Office Visit Internal Medicine - [address] [phone] Giuseppe Lee NP [address] [place] [address] 11/11/2025 3:30 PM EST Office Visit Vascular Surgery - [place] [address] [facility] [address] [place] [phone] Winston Barrett MD [address] [place] [phone] documented as of this encounter Visit Diagnoses Not on filedocumented in this encounter Additional Health Concerns Assessment Noted Time PHQ-9 Depression Total Score: 0 04/21/20 25 1:28 PM EDT documented as of this encounter Care Teams Project Account Manager Relationship Specialty Start Date End Date Cori Simmons MD [address] [place] [address] PCP - General Internal Medicine 06/27/25 documented as of this encounter
== END 2025-08-10 12:49 | disposition home or self-care (01) ==
LOC: HO.CT 12:48
PROVIDERS: PCP Internal Medicine; Visit Provider Hospitalist
DX: R91.8 Other nonspecific abnormal finding of lung field (principal)
CPT/HCPCS: 71250

== ENCOUNTER → 2025-08-10 12:57 | Outpatient (BNV) | payer MEDICARE, SELFPAY | PROVIDERS: PCP Internal Medicine; Visit Provider Radiology Diagnostic Radiology | DX: R91.8 Other nonspecific abnormal finding of lung field (principal); D73.89 Other diseases of spleen | CPT/HCPCS: 71250 ==

== ENCOUNTER 2025-08-23 14:18 | Outpatient (AMB) | payer MEDICARE, SELFPAY ==
[2025-08-23 14:25] VITALS: BP 110/56; PULSE 76; O2SAT 96; BMI 24.6
--- NOTE | 2025-08-23 14:25 | A.OFFVIS_ITS ---
Vital Signs 08/23/25 14:25 Height 5 ft 5 in Weight 147 lb 11.355 oz BMI 24.6 BP 110/56 L Blood Pressure Location Lt brachial Position Sitting Pulse 76 Pulse Source Pulse Oximeter Pulse Oximetry (%) 96 Oxygen Delivery Method Room Air Intake Visit Reasons: copd Optical Store Manager Required: No Accompanied by: Self / Same As Patient Allergies fentanyl Allergy (Intermediate, Verified 08/23/25 14:29) elevated bp Penicillins Allergy (Severe, Uncoded 08/26/24 10:16) Rash and Hives Sulfa Drugs Allergy (Severe, Uncoded 08/26/24 10:16) Rash and Hives HPI Comments Details: The patient is a 80-year-old woman known COPD and pulmonary nodules. Apparently the last time is are was back in March and she required a prednisone taper. After that visit the patient apparently developed worsening respiratory symptoms was admitted to [facility] with influenza B and sepsis. She was treated for pneumonia. She was subsequently discharged. Overall she stabilized and she had a repeat CT scan of the chest in June of 2019 demonstrating stable subsolid pulmonary nodules. In August she had knee surgery which she had without any difficulties. More recently she did have influenza a and she was treated appropriately at home for that. She is now recovering feeling back to close to her baseline. Unfortunately, her daughter who lives with her started having fevers and was concerned for the possibility of covid 19 infection. At this point she will be monitor her temperature for any evidence of infection herself. In the meantime respiratory status has been stable on the current respiratory regimen. She was recently hospitalized at [facility] with the COVID-19 illness. She developed hypoxic respiratory failure and currently discharged on oxygen 2 L at rest and 3 L with activity. She is complaining a course of doxycycline. She already completed azythromycin and Plaquenil. Did review her chest x-ray demonstrating patchy areas of hazy opacities consistent with viral pneumonia. Her white count was elevated also inflammatory marker for elevated. I will make sure to repeat those. She is at home she still having a barky cough. She feels better. We talked about wake prone in which is going to tried home. She was stopped using the incentive spirometer. 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 08/07/2020 the patient is here for pulmonary follow-up visit. Overall the patient is doing lot better. The oxygen was discontinued and she has been doing very well on room air. Her respiratory medications have not changed. She denies any significant coughing or any shortness of breath. She does not have any res idual symptoms from the COVID-19 infection. She did undergo a repeat CT scan of the chest demonstrating interval decrease in the right upper lobe ground-glass the nodular density which is reassuring. This may have been a remnant from her previous pneumonia back in 2017 when she presented to the hospital with a postviral multilobar pneumonia. 02/19/2021 the patient is here for pulmonary follow-up visit. Overall the patient has been doing better. She has not recovered completely from COVID- 19. The patient had been using oxygen for appeared of time but now the oxygen has been removed in the house. The cough is improved dramatically. The patient has continued to use her respiratory therapy. She has not required any prednisone. We did review her last CT scan of the chest demonstrating interval improvement of the ground-glass opacities. However, the changes are still present. Therefore, the patient should have a repeat CT scan of the chest sometime in the fall 2020. She should have an same place. The patient is otherwise without any other complaints. 11/19/2021 the patient is here for a pulmonary follow-up visit. Overall the patient is doing well from a respiratory status. She continues use her Symbicort with good effect. She has not require her short-acting beta agonist. She again did undergo a CT scan of the chest. It appears that her ground- glass nodular density has increased in size from 5 mm not to 8 mm in size. At this point is still too small for any type of invasive diagnostic intervention. I also believe is too small to undergo PET scan. Therefore will follow the CT scan in 8 months to see if there is any progression. In the meantime the patient develops any worsening respiratory symptoms prior to that she is to call for an earlier evaluation. 08/15/2022 the patient is here for a pulmonary follow-up visit. Overall she is doing well from a respiratory status. She continues uses Symbicort daily. She has not had to use her rescue inhaler. She has not had any exacerbations. She is wondering about her diagnosis of COPD. Explained to her that she has not had pulmonary function studies and while. Indeed she does have a component of obstructive airway disease. She is currently taking a very small dose of Symbicort. Will plan to continue that dose specially since she has had recent surgery. Will have her return in a year and will perform pulmonary function studies to see if she can wean off completely from the Symbicort. In the meantime she is status post laminectomy and has significant back pain postoperatively. She actually was admitted to the hospital with severe pain she could not walk. Now she is doing a little better she is tolerating some physical therapy. She will be following up with neurosurgeon soon. We did review her CT scan of the chest. Appears that her ground-glass nodular densities still measuring about 8 mm in size. It appears to wax and wane some. No solid component. At this point will plan to follow-up up with at 1 year based on the fact that smoldering malignancies are still differential. 11/26/2022 the patient is here for a hospital follow-up visit. The patie nt overall has been doing a little better. She was exposed to a family member with RSV. Ultimately ended up with COPD exacerbation. She was admitted to [facility]. There she did have a CT scan of the chest demonstrating bronchiolitis which is consistent with her RSV infection. She also had her underlying nodular density. She completed a course of Vantin. The patient also is on prednisone 30 mg with a taper. She still complained of cough in addition to shortness of breath. She is using her nebulizer several times a day. Will go ahead and extend her prednisone course. Will also switch her antibiotics to doxycycline to treat her for postviral strep and staph infections. The patient also should be getting a cough syrup. She did bring a copy of the CT scan. I will going to try to look at the images myself. In the meantime it appears that the findings are consistent with her acute infectious process. 01/27/2023 the patient is here for a pulmonary follow-up visit. She is doing a lot better. She is back to her baseline. She is not with prednisone and the antibiotics. She continues use respiratory therapy. We did review get her CT scan that she had at [facility] demonstrating the 9 mm right upper lobe ground-glass nodular density. We also compare that to her previous CT scan from the summer of 2021 demonstrating stability in that ground-glass nodular density without any solid component which is reassuring. The other nodules are stable. Her breathing is back baseline. At this point going to continue with respiratory therapy and will plan to repeat the CT scan in 6 months. 07/31/2023 the patient is here for pulmonary follow-up visit. Overall the patient has been feeling much better. 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 This resulted in significant pain discomfort for the patient. Finally she is feeling better. Her respiratory status was stable throughout the whole period. She continues on the Symbicort. She has been able to cut down significantly. The patient had RSV back in the winter. At this point I did recommend she vaccinated for RSV in addition to the flu and for that matter COVID-19. The patient is also up-to-date with pneumonia vaccine. We did review her recent CT scan of the chest. She does have a ground-glass subsolid nodule. It appears to be unchanged from last year. In view of the ground-glass the nature of the nodule and the size of a cm will plan to repeat it in a year's time. If the patient develops any new or concerning symptoms she is to call the office for an earlier assessment. 08/26/2024 the patient is here for a pulmonary follow-up visit. Overall the patient has been doing okay. She was recently diagnosed with CMML and initially her white count was elevated but then significantly increased. 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 Denies any shortness of breath denies any ongoing respiratory symptoms. She did undergo a CT scan of the chest that I personally reviewed. It appears that the ground-glass nodular densities stable in size. This is compared to the CT scan from last year. Will go ahead and plan to repeat the CT scan again in a year's time. If the patient develops any worsening symptoms prior to the next visit she will call for an earlier assessment. 08/23/2025 the patient is here for pulmonary follow-up visit. Overall the patient has been doing okay although been noticing increasing dyspnea on exertion. Moderate severity. She has been using her Symbicort daily. She has not seen any significant improvement. She has been having issues with her leukemia. The patient does have significant anemia. Hemoglobin last checked at 8. She is still was not low enough for transfusion. She has been complaining of some dizziness as well that is likely attributed to the anemia. We did go for a walking oximetry the patient did desaturate down to about 94% and heart rate did go up to about 100 beats per minute. When the heart rate did increase she was noted to be a little more winded although no significant hypoxia noted. Will go ahead and optimize respiratory therapy by switching over to Trelegy. In the meantime we did review her CT scan demonstrating that the subsolid pulmonary nodule had increased in size from 8 mm to 14 mm in size. Therefore, will request a PET scan at this time because of the concerning finding which could be a malignant process. The patient may need to be evaluated by Interventional Pulmonary thoracic surgery specially the PET scan is abnormal. Will discuss that further after the PET scan. [facility] Medical History (Updated 08/23/25 @ 15:01 by Suhail Everett MD) Pulmonary nodule Pneumonitis Pulmonary nodules COVID-19 COPD (chronic obstructive pulmonary disease) Social History Patient Tobacco Use Status: Former Tobacco user Tobacco use type: Cigarette Years Smoked: 30 years Review of Systems Const Reports difficulty sleeping and Denies night sweats ENT Denies change in voice, Denies lip swelling, Denies mouth pain, Reports nasal congestion, Reports nasal discharge and Denies tongue swelling Card Denies chest pain Resp Denies chest congestion, Reports cough and Denies wheezing GI Denies abdominal pain Musc Reports back pain, Reports arthralgias and Reports joint swelling Neuro Denies Neuro-related abnormal movements Psych Denies no additional complaints Raf/Lymph Denies easy bleeding and Denies lymphadenopathy Aller/Immun Denies lip swelling, Denies tongue swelling and Denies wheezing Physical Exam Vital Signs: Last Vital Signs Pulse 76 08/23/25 14:25 BP 110/56 L 08/23/25 14:25 Pulse Ox 96 08/23/25 14:25 Oxygen Delivery Method Room Air 08/23/25 14:25 BMI result Body Mass Index 24.6 Const General: alert Neck Neck: Yes normal visual inspection, Yes full ROM and Yes no lymphadenopathy Chest Chest palpation & inspection: normal inspection of the chest Resp Effort & Inspection: normal respiratory effort Auscultation: clear to auscultation bilaterally, no rhonchi and no wheezes Cardio Rate: regular rate Rhythm: regular rhythm Heart sounds: S1 normal heart sound present and S2 normal heart sound present GI Palpation (GI): Soft to palpation and nontender Auscultation: normal bowel sounds Skin General skin exam: rashes and/or lesions noted Assessment & Plan Assessment & Plan (1) Pulmonary nodules: Code(s): R91.8 - Other nonspecific abnormal finding of lung field Category: Medical (2) Pulmonary nodule: Code(s): R91.1 - Solitary pulmonary nodule Category: Medical (3) COPD (chronic obstructive pulmonary disease): Code(s): J44.9 - Chronic obstructive pulmonary disease, unspecified Category: Medical Qualifiers: COPD type: COPD with acute lower respiratory infection Qualified Code(s): J44.0 - Chronic obstructive pulmonary disease with (acute) lower respiratory infection (4) Pneumonitis: Code(s): J18.9 - Pneumonia, unspecified organism Category: Medical Plan PET scan May benefit from Thoracic surgery eval. Will discuss after her PET stop Symbicort Start Trelegy Monitor Anemia, may need Tx if worsens continue short-acting beta agonist as needed F/U 4-6 months Orders: Orders PET CT fusion skull to thigh Today R91.1 - Solitary pulmonary nodule Medications: New duwgborfbcw-qniidkfea-nwzisaql 200-62.5-25 mcg (Trelegy Ellipta) 1 inh inhalation DAILY 60 ea 12RF 30 days Discontinued budesonide-formoterol 160-4.5 mcg/actuation (Symbicort) Discontinued Reason: Doctor's Order 2 puffs PO BID 10.2 grams 0RF Coding Level of Care Code Est Pt Level 5 (08803) Complex EM visit Add On G2211 Diagnoses Pulmonary nodules R91.8 Pulmonary nodule R91.1 Chronic obstructive pulmonary disease with acute lower respiratory infection J44.0 COPD type: COPD with acute lower respiratory infection Pneumonitis J18.9 Time Spent (min) 45
--- OUTSIDE RECORDS SUMMARY | 2025-08-23 17:41 | XMS_ITS | Encounter Summary ---
Author Organization [facility] Address [address] [place] [address] Care Team Providers Care Department Of Natural Resources Officer Name Role Phone Cori Simmons MD Primary Care Provider [phone] Reason for Visit * Reason Onset Date Comments [facility] to ext : [phone] thanks. DARCI Hiram Encounter Details Date Type Department Care Team (Late st Contact Info) Description 07/25/2025 Telephone Internal Medicine - [facility] [address] [place] [phone] Renu Molina MA Social History Tobacco Use [...] for your loved ones. For example, child care attendant school or elderly care for an older adult? [...] Date Recorded What is your living situation? Unrecognized valu e 04/21/2025 Comments No Sex and Gender Information [...] PM EDT [facility] [address] [facility] [place] [place] [phone] Giuseppe Lee NP [address] [place] [address] 09/09/2025 2:30 PM EDT Office Visit [facility] Hematology Oncology [address] [place] [address] Jairo Bosch MD [address] [place] [phone] 09/15/2025 1:00 PM EDT Office Visit [facility] - [place] [address] [facility] [address] [place] [phone] Marita Matthews MD [address] [address] 09/27/2025 2:30 PM EST Office Visit Internal Medicine - [address] [phone] Giuseppe Lee NP [address] [place] [address] 10/10/2025 1:00 PM EST Appointment [facility] CT Scan [address] [place] [phone] 11/11/2025 3:30 PM EST Office Visit Vascular Surgery - [place] [address] [place] [address] Winston Barrett MD [address] [place] [phone] documented as of this encounter Visit Diagnoses Not on filedocumented in this encounter Additional Health Concerns Assessment Noted Time PHQ-9 Depression Total Score: 0 04/21/20 25 1:28 PM EDT documented as of this encounter Care Teams Department Of Natural Resources Officer Relationship Specialty Start Date End Date Cori Simmons MD [address] [place], [place] [address] [phone] PCP - General Internal Medicine 06/27/25 documented as of this encounter
--- OUTSIDE RECORDS SUMMARY | 2025-08-23 17:41 | XMS_ITS ---
Author Organization 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 Treatments may have been administered in another system. Lifetime Dose Tracking * Chemical Lifetime Dose Automatic Entry Manual Entr y Radiation 192.17 mSv 192.17 mSv 0 mSv
--- OUTSIDE RECORDS SUMMARY | 2025-08-23 17:41 | XMS_ITS | Clinical Summary ---
Author Organization [facility] Address [address] [place] [phone] Phone Care Team Providers Care National Insurance Officer Name Role Phone Cori Simmons MD Primary Care Provider [phone] Allergies Active Allergy Reactions Criticality Noted Date [...] day. 14 each 08/07/20 25 025 Discontinued HYDROcodone-aceta minophen (NORCO) 5-325 mg per tablet Take 1 tablet by mouth every 6 (six) hours if needed for severe pain for up to 3 days. Max Daily Amount: 4 tablets 12 tablet 08/07/20 25 025 ibuprofen (ADVIL,MOTRIN) 600 mg tablet Take 1 tablet (600 mg total) by mouth every 6 (six) hours if needed for mild pain (for pain) for up to 10 days. 30 tablet 08/07/20 25 025 tamsulosin (FLOMAX) 0.4 mg 24 hr capsule Take 1 capsule (0.4 mg total) by mouth 1 (one) time each day for 14 days. Capsules should be taken 30 minutes following the same meal each day. 14 each 08/07/20 25 025 ondansetron ODT (ZOFRAN-ODT) 4 mg disintegrating tabletIndications :Renal colic on right side Dissolve 1 tablet (4 mg total) on top of the tongue every 8 (eight) hours if needed for nausea or vomiting for up to 7 days. 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 She recently underwent blood work which still stores anemia but her hematocrit is above 25. Advised to speak to her family service aide regarding further treatment. Dyspnea on exertion 08/05/2024 Essential hypertension, benign 08/05/2024 First degree AV block 08/05/2024 Gastroesophageal reflux disease without esophagi tis 08/05/2024 HLD (hyperlipidemia) 08/05/2024 Mixed hyperlipidemia 08/05/2024 Kidney cysts 06/15/2024 S/P joint replacement 06/28/2023 Osteoarthritis of right hip 05/15/2023 Subclavian artery stenosis, left ([facility] V24) 0 01/14/2023 Spinal stenosis of lumbar [...] skin of chest 07/17/2021 Simple chronic bronchitis ([facility] V24, [facility]/HCC V28) 07/31/2020 History of COVID-19 02/24/2020 S/P [...] Future COPD (chronic obstructive pu lmonary disease) ([facility] V24, [facility] V28) 11/19/2017 Overview (01/02/2024): 08/18/2017 hospitalized Flori, COPD exacerbation secondary to rhinovirus/enterovirus resp infection. Assessment & Plan (06/27/2025 1:47 PM EDT): Continue Symbicort, albuterol. She follows up with Dr. Everett and is scheduled follow-up appointment with CT chest. 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 V24, CMS/HCC V28); Thrombocytopenia (CMS/HCC V24) 08/08/2025 Telephone [facility] Hematology Oncology [address] [place] [phone] Ivan-Jairo Madsen MD 08/07/2025 7:03 AM EDT - 08/07/2025 11:39 AM EDT Emergency [facility] Emergency [address] [place] [phone] Vaibhav Elizabeth MD Renal colic on right side (Primary Dx); Kidney stone Discharge Disposition: Home or Self Care 07/25/2025 [facility] [address] [place] [phone] Renu Molina [place] 07/21/2025 11:05 AM EDT Lab Draw Station - 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 ([facility] V24, [facility] V28) 07/20/2025 Telephone [facility] Hematology Oncology [address] [place] [phone] Jairo Fagan MD 07/12/2025 10:21 AM EDT - 07/12/2025 11:59 PM EDT Hospital Encounter Bone Density - [facility] [address] [place], [place] [phone] Menopause Discharge Disposition: Home or Self Care 07/12/2025 10:21 AM EDT - 07/12/2025 11:59 PM EDT Hospital Encounter [facility] [address] [facility] [place] [place] [phone] Lightheadedness Discharge Disposition: Home or Self Care 07/11/2025 2:11 PM EDT - 07/11/2025 11:59 PM EDT [facility] [address] [phone] Encounter for screening mammogram for malignant neoplasm of breast Discharge Disposition: Home or Self Care 07/11/2025 Telephone Internal Medicine - [facility] [address] [place], [place] [phone] Cori Simmons MD 07/09/2025 Telephone Internal Medicine - [facility] [address] [place], [place] [phone] Giles Campo MD 06/27/2025 1:00 PM EDT Office Visit Internal Medicine - [facility] [address] [place], [place] [phone] Giles Campo MD 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 ([facility] V24, [facility] V28) (Primary Dx); Hematoma of right upper extremity; Chronic obstructive pulmonary disease, unspecified COPD type ([facility] V24, [facility] V28); Hypertension, unspecified type; Hypercholesterolemia; Menopause; Encounter for screening mammogram for malignant neoplasm of breast; Lightheadedness 06/02/2025 2:30 PM EDT Office Visit [facility] Hematology Oncology [address] [place] [phone] Jairo Fagan MD 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 V24, CMS/HCC V28) (Primary Dx) 05/27/2025 Telephone [facility] [address] [phone] Bel Hastings RN from Last 3 Months Immunizations Immunization Administration Dates Next Due Influenza trivalent, 0.5mL [...] Medical History Date Comments Anemia DX:Anemia Thrombocytopenia (CMS/HCC V24) D X:Thrombocytopenia ([facility]) Hypertension DX:Hypertension Pneumonia DX:Pneumonia Asthma DX:Asthma Osteopenia DX:Osteopenia Sigmoid diverticulosis DX:Sigmoi d diverticulosis Vitamin D deficiency DX:Vitamin D deficiency Thrombocytopenia ([facility] V24) 06/30/2017 D X:Thrombocytopenia (HCC) COPD (chronic obstructive pu lmonary disease) ([facility] V24, [facility] V28) DX:COPD (chronic o bstructive pulmonary disease) ([facility]) Stenosis of left subclavian artery ([facility] V24) DX:Stenosis of left subclavi an artery ([facility]);COMMENT:followed by Vascular HTN (hypertension) DX:HTN (hyper tension) [...] your loved ones. For example, child care center assistant director or elderly care for an older [...] PM EDT Office Visit Internal Medicine - [address] [phone] Giuseppe Lee NP [address] [place] [phone] 09/09/2025 2:30 PM EDT Office Visit [facility] Hematology Oncology [address] [place] [phone] Jairo Bosch MD [address] [place] [phone] 09/15/2025 1:00 PM EDT Office Visit [facility]iology - [place] [address] [facility] [address] [place] [phone] Marita Matthews MD [address] [facility] [address] [place] [address] 09/27/2025 2:30 PM EST Office Visit Internal Medicine - [address] [phone] Giuseppe Lee NP [address] [place] [phone] 10/10/2025 1:00 PM EST Appointment [facility] CT Scan [address] [place] [phone] 11/11/2025 3:30 PM EST Office Visit Vascular Surgery - [place] [address] [phone] Winston Barrett MD [address] [place] [phone] Health Maintenance Due Date Last Done Comments Influenza Vaccine (#1) 2025 4, 09/03/2023, 08/16/2022, Additional history exists COVID-19 Vaccine (10 - Moderna risk season) 2025 02/28/2025, 08/18/2024, 08/12/2024, Additional history [...] this topic Medical Devices Implanted Type Area Web Mobile Designer Device Identifier Shelf Expiration Date Model / Serial / Lot Liner Trident X3 0 Deg 36mm 5.9mm Sz E Stry-Howm [id number] Implanted:Qty: 1 on 05/22/2023 by Edmundo Roy MD [employer] [id number] 02/19/2028 723-00-36E / / [id number] Cement Bone Surg Simplex Radiopq Stry-Howm [id number] Implanted:Qty: 1 on 05/22/2023 by Edmundo Roy MD Right: Hip [employer] [id number] 6191--010 / / [id number] Cement Bone Surg Simplex Radiopq Stry-Howm [id number] 092 Implanted:Qty: 1 on 05/22/2023 by Edmundo Roy MD Right: Hip [employer] [id number] 6191--010 / / [id number] Tritanium Cluster Hole Shell 52mm Stry-How [id number] Implanted:Qty: 1 on 05/22/2023 by Edmundo Roy MD Right: Hip [employer] [id number] 01/14/2028 702-04-52E / / [id number] Lp Hex Screw 6.5x25mm Stry-Howm [id number] 58 Implanted:Qty: 1 on 05/22/2023 by Edmundo Roy MD Right: Hip [employer] [id number] 03/01/2028 7736-0680 / / [id number] Lp Hex Screw 6.5x20mm Stry-Howm [id number] 57 Implanted:Qty: 1 on 05/22/2023 by Edmundo Roy MD Right: Hip [employer] [id number] 01/07/2028 2298-9372 / / [id number] Lp Hex Screw 6.5x20mm Stry-Howm [id number] 57 Implanted:Qty: 1 on 05/22/2023 by Edmundo Roy MD Right: Hip [employer] [id number] 01/30/2028 9606-2837 / / [id number] Hip Spacer Distl Univ 11mm Stry-Howm [id number] 61 Implanted:Qty: 1 on 05/22/2023 by Edmundo Roy MD Right: Hip [employer] [id number] 03/25/2028 2709-9708 / / [id number] Hip Stem Acco-C 132deg #5 Stry-Howm [id number] 232 Implanted:Qty: 1 on 05/22/2023 by Edmundo Roy MD Right: Hip [employer] [id number] 07/29/2027 6058-0537D / / [id number] Kit Prep Total Hip Bone Imp [facility] [id number] Implanted:Qty: 1 on 05/22/2023 by Edmundo Roy MD Right: Hip [employer] [id number] 11/09/2032 [id number] / / [id number] Description:Medium plug Hip Head Delta Dorcas 36mm +2.5 Stry-Howm [id number] [id number] Implanted:Qty: 1 on 05/22/2023 by Edmundo Roy MD Right: Hip [employer] [id number] 08/18/2027 6570-0-536 / / [id number] Coil Penumbra 400 [id number] Soft Pnbr-Manu [id number] Implanted:Qty: 2 on 06/29/2023 by Raul Trejo MD [facility] 04/22/2031 [id number] / / [id number] Coil Penumbra 400 [id number] Soft Pnbr-Manu [id number] Implanted:Qty: 1 on 06/29/2023 by Raul Trejo MD [facility] 03/30/2031 [id number] / / [id number] Procedures Procedure Name Priority Date/Time Associated Diagnosis [...] Anatomical Region Laterality Modality Computed Tomogra phy Provider [facility] G CT PROCEDURES Final Result * Muro urine culture tube (08/09/2025 3:37 PM EDT) [facility] Extra Tube Hold for add-ons. 08/09/2025 7:01 PM EDT [facility] Comment:Auto resulted. Urine Urine specimen obtained by clean catch procedure / Unknown Non-blood Collection / Unknown 08/09/2025 3:37 PM EDT 08/09/2025 3:37 PM EDT Jairo Bosch MD LAB URINE ORDERABLE S Final Result [facility] [address] [place] [address], [place] [phone] * (ABNORMAL) Urinalysis with reflex microscopic and culture (08/09/2025 3:36 PM EDT) [facility] Specific [place] Urine 1.020 1.003 - 1.030 LAB URINALYSIS - AUTOMATED METHOD 08/09/2025 6:41 PM [facility] pH, Urine 6.5 5.0 - 8.0 pH LAB URINALYSIS - AUTOMATED METHOD 08/09/2025 6:41 PM [facility] Leukocytes, Urine Moderate(A) Negative LAB URINALYSIS - AUTOMATED METHOD 08/09/2025 6:41 PM [facility] Nitrite, Urine Positive(A) Negative LAB URINALYSIS - AUTOMATED METHOD 08/09/2025 6:41 PM [facility] Protein, Urine >=300(A) <=Trace mg/dL LAB URINALYSIS - AUTOMATED METHOD 08/09/2025 6:41 PM [facility] Glucose, Urine Negative Negative mg/dL LAB URINALYSIS - AUTOMATED METHOD 08/09/2025 6:41 PM [facility] Ketones, Urine Negative Negative mg/dL LAB URINALYSIS - AUTOMATED METHOD 08/09/2025 6:41 PM EDT [facility] Urobilinogen , Urine 1.0 0.2 - 1.0 mg/dL LAB URINALYSIS - AUTOMATED METHOD 08/09/2025 6:41 PM EDT [facility] Bilirubin, Urine Moderate(A) Negative LAB URINALYSIS - AUTOMATED METHOD 08/09/2025 6:41 PM EDT [facility] Blood, Urine Large(A) Negative LAB URINALYSIS - AUTOMATED METHOD 08/09/2025 6:41 PM EDT [facility] RBC, Urine >100(H) 0 - 4 /HPF 08/09/2025 6:41 PM EDT [facility] WBC, Urine 30(H) 0 - 4 /HPF 08/09/2025 6:41 PM EDT [facility] Squamous Epithelial, Urine 15 0 - 60 /LPF 08/09[facility]2025 [facility] Bacteria, Urine Moderate(A) Negative /HPF 08/09/2025 6:41 PM EDT [facility] Hyaline Casts, Urine 5(H) 0 - 3 /LPF 08/09/2025 6:41 PM [facility] Yeast, Urine Present(A) None /HPF 08/09/2025 6:41 PM [facility] Urine Urine specimen obtained by clean catch procedure / Unknown Non-blood Collection / Unknown 08/09/2025 3:36 PM EDT 08/09/2025 3:36 PM EDT us Jairo Bosch MD LAB URINE ORDERABLE S Final Result [facility] [address] [place] [address], * Culture urine (08/09/2025 3:36 PM EDT) Culture, Urine No growth 08/10/2025 1:48 PM EDT [facility] Urine Urine specimen obtained by clean catch procedure / Unknown Non-blood Collection / Unknown 08/09/2025 3:36 PM EDT 08/09/2025 6:41 PM EDT us Jairo Bosch MD LAB MICROBIOLOGY - GENERAL ORDERABLES Final Result Performing Organization Address City/[facility]/ZIP Co de Phone Number [facility] [address] [place] [address], [place] [phone] * C antigen type (08/09/2025 2:12 PM EDT) [facility] C Antigen Negative 08/10/2025 11:31 AM EDT [facility] Blood Venous blood specimen / Unknown Venipuncture / Unknown 08/09/2025 2:12 PM EDT 08/09/2025 2:12 PM EDT us Jairo Bosch MD LAB BLOOD BANK TEST ORDERABLES Final Result Performing Organization Address [facility]/ZIP Co de Phone Number [facility] [address] [place] [address], [place] [phone] * (ABNORMAL) Manual differential (08/09/2025 2:12 PM EDT) Only the most recent of5 resultswithin the time period is included. [facility] Neutrophils % 47.0 % LAB HEMETOLOGY METHOD 5 5:47 PM EDT [facility] Bands % 11.0 % LAB HEMETOLOGY METHOD 5 5:47 PM EDT [facility] Lymphocytes % 4.0 % LAB HEMETOLOGY METHOD 5 5:47 PM EDT [facility] Monocytes % 6.0 % LAB HEMETOLOGY METHOD 5 5:47 PM EDT [facility] Eosinophils % 0.0 % LAB HEMETOLOGY METHOD 5 5:47 [facility] Basophils % 0.0 % LAB HEMETOLOGY METHOD 5 5:47 PM [facility] Metamyelocytes % 15.0(H) % LAB HEMETOLOGY METHOD 5 5:47 [facility] Myelocytes % 14.0(H) % LAB HEMETOLOGY METHOD 5 5:47 PM [facility] Promyelocytes % 2.0(H) % LAB HEMETOLOGY METHOD 5 5:47 PM [facility] Blasts % 1.0(H) % LAB HEMETOLOGY METHOD 5 5:47 PM [facility] Neutrophils Absolute Manual 121.31(H) 1.50 - 7.00 K/mcL LAB HEMETOLOGY METHOD 5 5:47 PM [facility] Bands Absolute Manual 28.39(H) 0.00 - 0.00 K/mcL LAB HEMETOLOGY METHOD 5 5:47 PM [facility] Lymphocytes Absolute 10.32(H) 1.00 - 5.00 K/mcL LAB HEMETOLOGY METHOD 5 5:47 PM [facility] Monocytes Absolute Manual 15.49(H) 0.20 - 1.00 K/mcL LAB HEMETOLOGY METHOD 5 5:47 PM [facility] Eosinophils Absolute Manual 0.00 0.00 - 0.50 K/mcL LAB HEMETOLOGY METHOD 5 5:47 PM [facility] Basophils Absolute Manual 0.00 0.00 - 0.20 K/mcL LAB HEMETOLOGY METHOD 5 5:47 PM EDT [facility] Metamyelocytes Absolute Manual 38.72(H) 0.00 - 0.00 K/mcL LAB HEMETOLOGY METHOD 5 5:47 PM EDT [facility] Myelocytes Absolute Manual 36.13(H) 0.00 - 0.00 K/mcL LAB HEMETOLOGY METHOD 5 5:47 PM EDT [facility] Promyelocytes Absolute Manual 5.16(H) 0.00 - 0.00 K/mcL LAB HEMETOLOGY METHOD 5 5:47 PM EDT [facility] Blasts Absolute 2.58(H) 0.00 - 0.00 K/mcL LAB HEMETOLOGY METHOD 5 5:47 PM EDT [facility] Rbc Morphology Consistent with indices Consistent with indices, Normal for [place] LAB HEMETOLOGY METHOD 5 5:47 PM EDT [facility] Platelet Morphology - WAM Large Platelets Seen(A) Normal [facility] 5[facility]47 PM EDT [facility] Blood Venous blood specimen / Unknown Venipuncture / Unknown 08/09/2025 2:12 PM EDT 08/09/2025 2:12 PM EDT us Subramsamara Bosch MD LAB BLOOD ORDERABLE S Final Result [facility] [address] [place] [address], * (ABNORMAL) CBC auto differential (08/09/2025 2:12 PM EDT) Only the most recent of5 resultswithin the time period is included. WBC 258.1(HH) 4.8 - 10.8 K/mcL LAB HEMETOLOGY METHOD 08/09/2025 5:46 PM EDT [facility] RBC 2.40(L) 3.80 - 4.80 M/mcL LAB HEMETOLOGY METHOD 08/09/2025 5:46 PM [facility] Hemoglobin 8.0(L) 11.5 - 16.0 g/dL LAB HEMETOLOGY METHOD 08/09/2025 5:46 PM [facility] Hematocrit 26.0(L) 35.0 - 47.0 % LAB HEMETOLOGY METHOD 08/09/2025 5:46 PM [facility] MCV 106.6(H) 79.0 - 98.0 FL LAB HEMETOLOGY METHOD 08/09/2025 5:46 PM [facility] MCH 32.8(H) 27.0 - 32.0 pcg LAB HEMETOLOGY METHOD 08/09/2025 5:46 PM [facility] MCHC 30.8(L) 32.0 - 37.0 g/dL LAB HEMETOLOGY METHOD 08/09/2025 5:46 PM [facility] RDW 19.2(H) 11.0 - 15.0 % LAB HEMETOLOGY METHOD 08/09/2025 5:46 PM [facility] Platelets 32(L) 130 - 400 K/mcL LAB HEMETOLOGY METHOD 08/09/2025 5:46 PM [facility] Comment:reviewed by slide MPV 12.2(H) 7.0 - 11.0 FL LAB HEMETOLOGY METHOD 08/09/2025 5:46 PM [facility] NRBC 0.2 <1.0 % LAB HEMETOLOGY METHOD 08/09/2025 5:46 PM [facility] NRBC Absolute 0.60(H) <0.10 K/mcL LAB HEMETOLOGY METHOD 08/09/2025 5:46 PM EDT [facility] Blood Venous blood specimen / Unknown Venipuncture / Unknown 08/09/2025 2:12 PM EDT 08/09/2025 2:12 PM EDT us Jairo Bosch MD LAB BLOOD ORDERABLE S Final Result Performing Organization Address [facility] Co de Phone Number [facility] [address] [place] [address], [place] [phone] * Antibody identification (08/09/2025 2:12 PM EDT) Only the most recent of2 resultswithin the time period is included. Pathologist [facility] Antibody Identification C Antibody( RH2) 08/10/2025 11:29 AM EDT [facility] Antibody Identification E Antibody( RH3) 08/10/2025 11:29 AM EDT [facility] Blood Venous blood specimen / Unknown Venipuncture / Unknown 08/09/2025 2:12 PM EDT 08/09/2025 2:12 PM EDT us Jairo Bosch MD LAB BLOOD BANK TEST ORDERABLES Final Result Performing Organization Address [facility] Co de Phone Number [facility] [address] [place] [address], [place] [phone] * Activated partial thromboplastin time (08/09/2025 2:12 PM EDT) aPTT 26.6 24.1 - 39.3 sec LAB COAGULATION METHOD 08/09/2025 3:48 PM EDT [facility] Blood Venous blood specimen / Unknown Venipuncture / Unknown 08/09/2025 2:12 PM EDT 08/09/2025 2:12 PM EDT us Jairo Bosch MD LAB BLOOD ORDERABLE S Final Result Performing Organization Address [facility]/ZIP Co de Phone Number [facility] [address] [place] [address], [place] [phone] * Prothrombin time with INR (08/09/2025 2:12 PM EDT) [facility] Protime 12.1 10.6 - 13.9 sec LAB COAGULATION METHOD 08/09/2025 3:48 PM EDT [facility] INR 1.0 LAB COAGULATION METHOD 08/09/2025 3:48 PM EDT [facility] Blood Venous blood specimen / Unknown Venipuncture / Unknown 08/09/2025 2:12 PM EDT 08/09/2025 2:12 PM EDT us Subramony Danitza KENNEDY LAB BLOOD ORDERABLE S Final Result Performing Organization Address [facility] de Phone Number [facility] [address] [place] [address], [place] [phone] * Type and screen (08/09/2025 2:12 PM EDT) Only the most recent of2 resultswithin the time period is included. [facility] ABO Group A 08/10/2025 8:54 AM EDT [facility] Rh Type Negative 08/10/2025 8:54 AM EDT [facility] Antibody Screen Positive 08/10/2025 8:54 AM EDT [facility] Blood Venous blood specimen / Unknown Venipuncture / Unknown 08/09/2025 2:12 PM EDT 08/09/2025 2:12 PM EDT us Subramony Danitza KENNEDY LAB BLOOD BANK TEST ORDERABLES Final Result Performing Organization Address [facility]/ZIP Co de Phone Number [facility] [address] [place] [address], * CT Abdomen Pelvis w Contrast (08/07/2025 [...] Signed Date: 08/07/2025 09:30 ET Workstation ID: [id number] Transcribed By: Self Edit Transcribed Date: 08/07/2025 [...] Signed Date: 08/07/2025 09:30 ET Workstation ID: [id number] Transcribed By: Self Edit Transcribed Date: 08/07/2025 09:17 ET Vaibhav Elizabeth MD [facility] CT PROCEDURES Final Result * (ABNORMAL) Urinalysis with reflex microscopic (08/07/2025 8:11 AM EDT) Specific [place] Urine 1.012 1.003 - 1.030 LAB URINALYSIS - AUTOMATED METHOD 08/07/2025 8:43 AM EDT [facility] pH, Urine 5.5 5.0 - 8.0 pH LAB URINALYSIS - AUTOMATED METHOD 08/07/2025 8:43 AM EDT [facility] Leukocytes, Urine Moderate(A) Negative LAB URINALYSIS - AUTOMATED METHOD 08/07/2025 8:43 AM [facility] Nitrite, Urine Negative Negative LAB URINALYSIS - AUTOMATED METHOD 08/07/2025 8:43 AM [facility] Protein, Urine 30(A) <=Trace mg/dL LAB URINALYSIS - AUTOMATED METHOD 08/07/2025 8:43 AM [facility] Glucose, Urine Negative Negative mg/dL LAB URINALYSIS - AUTOMATED METHOD 08/07/2025 8:43 AM [facility] Ketones, Urine Negative Negative mg/dL LAB URINALYSIS - AUTOMATED METHOD 08/07/2025 8:43 AM [facility] Urobilinogen , Urine 0.2 0.2 - 1.0 mg/dL LAB URINALYSIS - AUTOMATED METHOD 08/07/2025 8:43 AM [facility] Bilirubin, Urine Negative Negative LAB URINALYSIS - AUTOMATED METHOD 08/07/2025 8:43 AM [facility] Blood, Urine Large(A) Negative LAB URINALYSIS - AUTOMATED METHOD 08/07/2025 8:43 AM [facility] RBC, Urine 23.8(H) 0 - 4 /HPF LAB URINALYSIS - AUTOMATED METHOD 08/07/2025 8:43 AM [facility] WBC, Urine 46.4(H) 0 - 4 /HPF LAB URINALYSIS - AUTOMATED METHOD 08/07/2025 8:43 AM [facility] Squamous Epithelial, Urine 80(H) 0 - 60 /LPF LAB URINALYSIS - AUTOMATED METHOD 08/07/2025 8:43 AM [facility] Bacteria, Urine Few(A) Negative /HPF LAB URINALYSIS - AUTOMATED METHOD 08/07/2025 8:43 AM [facility] Hyaline Casts, Urine 14.4(H) 0 - 3 /LPF LAB URINALYSIS - AUTOMATED METHOD 08/07/2025 8:43 AM EDT [facility] Urine Urine specimen obtained by clean catch procedure / Unknown Non-blood Collection / Unknown 08/07/2025 8:11 AM EDT 08/07/2025 8:33 AM EDT us Vaibhav Elizabeth MD LAB URINE ORDERABLES Final Resul t Performing Organization Address City/[facility]/ZIP Co de Phone Number [facility] [address] [place] [address], [place] [phone] * Magnesium (08/07/2025 7:47 AM EDT) Magnesium 2.1 1.9 - 2.6 mg/dL LAB CHEMISTRY METHOD 08/07/2025 8:21 AM EDT [facility] Blood Venous blood specimen / Unknown Venipuncture / Unknown 08/07/2025 7:47 AM EDT 08/07/2025 7:57 AM EDT us Vaibhav Elizabeth MD LAB BLOOD ORDERABLES Final Resul t Performing Organization Address [facility]/ZIP Co de Phone Number [facility] [address] [place] [address], [place] [phone] * (ABNORMAL) Comprehensive metabolic panel (08/07/2025 7:47 AM EDT) Sodium 138 133 - 145 mmol/L LAB CHEMISTRY METHOD 08/07/2025 8:21 AM EDT [facility] Potassium 3.4(L) 3.5 - 5.5 mmol/L LAB CHEMISTRY METHOD 08/07/2025 8:21 AM EDT [facility] Chloride 104 96 - 110 mmol/L LAB CHEMISTRY METHOD 08/07/2025 8:21 AM EDT [facility] CO2 28 21 - 32 mmol/L LAB CHEMISTRY METHOD 08/07/2025 8:21 AM EDT [facility] Anion Gap 6 3 - 11 LAB CHEMISTRY METHOD 08/07/2025 8:21 AM [facility] Glucose 107(H) 70 - 100 mg/dL LAB CHEMISTRY METHOD 08/07/2025 8:21 AM [facility] BUN 27(H) 5 - 25 mg/dL LAB CHEMISTRY METHOD 08/07/2025 8:21 AM [facility] Creatinine 1.26(H) 0.50 - 1.10 mg/dL LAB CHEMISTRY METHOD 08/07/2025 8:21 AM [facility] eGFR 43(L) >=60 mL/min/1. 73m2 LAB CHEMISTRY METHOD 08/07/2025 8:21 AM [facility] Comment:Calculation based on the Chronic Kidney Disease Epidemiology Collaboration (CKD-EPI) equation refit without adjustment for race. BUN/Creatinine Ratio 21.4 LAB CHEMISTRY METHOD 08/07/2025 8:21 AM [facility] Calcium 8.9 8.5 - 10.5 mg/dL LAB CHEMISTRY METHOD 08/07/2025 8:21 AM [facility] AST (SGOT) 22 10 - 42 unit/L LAB CHEMISTRY METHOD 08/07/2025 8:21 AM [facility] ALT (SGPT) 12 10 - 60 unit/L LAB CHEMISTRY METHOD 08/07/2025 8:21 AM [facility] Alkaline Phosphatase 66 42 - 121 unit/L LAB CHEMISTRY METHOD 08/07/2025 8:21 AM [facility] Total Protein 6.7 6.0 - 8.0 g/dL LAB CHEMISTRY METHOD 08/07/2025 8:21 AM [facility] Albumin 4.0 3.2 - 5.0 g/dL LAB CHEMISTRY METHOD 08/07/2025 8:21 AM [facility] Total Bilirubin 0.5 0.0 - 1.4 mg/dL LAB CHEMISTRY METHOD 08/07/2025 8:21 AM T [facility] Blood Venous blood specimen / Unknown Venipuncture / Unknown 08/07/2025 7:47 AM EDT 08/07/2025 7:57 AM EDT Vaibhav Elizabeth MD LAB BLOOD ORDERABLES Final Resul t [facility] [address] [place] [address], * (ABNORMAL) Basic metabolic panel (08/01/2025 10:34 AM EDT) Only the most recent of2 resultswithin the time period is included. Sodium 138 133 - 145 mmol/L LAB CHEMISTRY METHOD 08/01/2025 2:49 PM [facility] Potassium 3.6 3.5 - 5.5 mmol/L LAB CHEMISTRY METHOD 08/01/2025 2:49 PM [facility] Chloride 102 96 - 110 mmol/L LAB CHEMISTRY METHOD 08/01/2025 2:49 PM [facility] CO2 27 21 - 32 mmol/L LAB CHEMISTRY METHOD 08/01/2025 2:49 PM [facility] Anion Gap 9 3 - 11 LAB CHEMISTRY METHOD 08/01/2025 2:49 PM [facility] Glucose 140(H) 70 - 100 mg/dL LAB CHEMISTRY METHOD 08/01/2025 2:49 PM [facility] BUN 32(H) 5 - 25 mg/dL LAB CHEMISTRY METHOD 08/01/2025 2:49 PM [facility] Creatinine 1.40(H) 0.50 - 1.10 mg/dL LAB CHEMISTRY METHOD 08/01/2025 2:49 PM [facility] eGFR 38(L) >=60 mL/min/1. 73m2 LAB CHEMISTRY METHOD 08/01/2025 2:49 PM EDT [facility] Comment:Calculation based on the Chronic Kidney Disease Epidemiology Collaboration (CKD-EPI) equation refit without adjustment for race. BUN/Creatinine Ratio 22.9 LAB CHEMISTRY METHOD 08/01/2025 2:49 PM EDT [facility] Calcium 9.8 8.5 - 10.5 mg/dL LAB CHEMISTRY METHOD 08/01/2025 2:49 PM EDT [facility] Blood Venous blood specimen / Unknown Venipuncture / Unknown 08/01/2025 10:34 AM EDT 08/01/2025 10:34 AM EDT Giles Campo MD LAB BLOOD ORDERABLES Viviana l Result Performing Organization Address [facility] Co de Phone Number [facility] [address] [place] [address], [place] [phone] * Thyroid stimulating hormone with reflex to free t4 and free t3 (07/21/2025 11:05 AM EDT) TSH 3.44 0.40 - 4.00 mcIU/mL LAB CHEMISTRY METHOD 07/21/2025 2:04 PM EDT [facility] Blood Venous blood specimen / Unknown Venipuncture / Unknown 07/21/2025 11:05 AM EDT 07/21/2025 11:24 AM EDT Giles Campo MD LAB BLOOD ORDERABLES Viviana l Result Performing Organization Address City/[facility]/ZIP Co de Phone Number [facility] [address] [place] [address], [place] [phone] * (ABNORMAL) Lipid panel with reflex to direct LDL (07/21/2025 11:05 AM EDT) Cholesterol 124 0 - 200 mg/dL LAB CHEMISTRY METHOD 07/21/2025 1:27 PM EDT [facility] Triglycerides 157(H) 0 - 150 mg/dL LAB CHEMISTRY METHOD 07/21/2025 1:27 PM EDT [facility] HDL 25(L) >=40 mg/dL LAB CHEMISTRY METHOD 07/21/2025 1:27 PM EDT [facility] LDL Calculated 68 0 - 100 mg/dL LAB CHEMISTRY METHOD 07/21/2025 1:27 PM EDT [facility] Comment:Estimated LDL Calcul ated using equation: Total cholesterol - HDL cholesterol - (Triglycerides/5) VLDL Cholesterol Roberto 31.4 mg/dL LAB CHEMISTRY METHOD 07/21/2025 1:27 PM EDT [facility] Non HDL Chol. (LDL+VLDL) 99 <145 mg/dL LAB CHEMISTRY METHOD 07/21/2025 1:27 PM EDT [facility] Chol/HDL Ratio 5.0(H) 0.0 - 4.4 LAB CHEMISTRY METHOD 07/21/2025 1:27 PM EDT [facility] Blood Venous blood specimen / Unknown Venipuncture / Unknown 07/21/2025 11:05 AM EDT 07/21/2025 11:24 AM EDT Giles Campo MD LAB BLOOD ORDERABLES Viviana l Result [facility] [address] [place] [address], * BD Bone Density DXA Axial Skeleton [...] (World Health Organization Fracture Risk Assessment) [facility] Department of Internal Medicine recommends [...] alternative screening schedule based on judy Armendariz., [facility] December 05, 2011 for patients with osteopenia [...] Signed Date: 07/12/2025 11:50 ET Workstation ID: [id number] Transcribed By: Self Edit Transcribed Date: 07/12/2025 [...] years. (World Health Organization Fracture RiskAssessment) [facility] Department of Internal Medicine recommendsusing [...] alternative screening schedule based on judy Armendariz., [facility] 2011 for patients with osteopenia (based on [...] Signed Date: 07/12/2025 11:50 ET Workstation ID: [id number] Transcribed By: Self Edit Transcribed Date: 07/12/2025 11:48 ET us Giles Campo MD IMG DXA PROCEDURES Final Result * Vascular US duplex carotid bilateral (07/12/2025 11:12 AM EDT) Anatomical Region Laterality Modality Vascular, Abdomen Ultrasound 07/12/2025 3:15 PM EDT Impressions 07/12/2025 3:28 PM EDT Bilateral internal carotid stenoses of 50-69%. Patent vertebral arteries. POS - [id number] -------- FINAL REPORT -------- Dictated By: Inge Austin Dictated Date: 07/12/2025 15:15 ET Assigned Physician: Inge uAstin Reviewed and Electronically Signed By: Inge Austin Signed Date: 07/12/2025 15:28 ET Workstation ID: [id number] Transcribed By: Self Edit Transcribed Date: 07/12/2025 [...] stenoses of 50-69%. Patent vertebralarteries. POS - [id number] -------- FINAL REPORT -------- Dictated By: Inge Austin Dictated Date: 07/12/2025 15:15 ET Assigned Physician: Inge Austin Reviewed and Electronically Signed By: Inge Austin Signed Date: 07/12/2025 15:28 ET Workstation ID: [id number] Transcribed By: Self Edit Transcribed Date: 07/12/2025 [...] year. Mamm[facility] location[facility] [address], [address] -------- FINAL REPORT -------- Dictated By: Caden Leslie Dictated Date: 07/11/2025 15:06 ET Assigned Physician: Caden Leslie Reviewed and Electronically Signed By: Caden Leslie Signed Date: 07/11/2025 15:22 ET Workstation ID: [id number] Transcribed By: Self Edit Transcribed Date: 07/11/2025 15:06 ET Narrative 07/11/2025 3:22 PM EDT EXAM: SCREENING MAMMOGRAPHY, BILATERAL HISTORY: SCREENING. No additional history. COMPARISON: 01/27/24, 01/23/23, 01/16/22, 05/26/20 TECHNIQUE: Synthesized CC and MLO projections of each breast. Tomosynthesis of each breast in the CC and MLO projections. ADDITIONAL IMAGING: None Computer-aided detection was employed with the iCAD CloudWork AI 3-D. TISSUE DENSITY: There are scattered [...] None Computer-aided detection was employed with the iCAD ProFound AI 3-D. TISSUE DENSITY: There are scattered [...] year. Mammography location: [facility] [address], [address] -------- FINAL REPORT -------- Dictated By: Caden Leslie Dictated Date: 07/11/2025 15:06 ET Assigned Physician: Caden Leslie Reviewed and Electronically Signed By: Caden Leslie Signed Date: 07/11/2025 15:22 ET Workstation ID: [id number] Transcribed By: Self Edit Transcribed Date: 07/11/2025 15:06 ET us Giles Campo MD IMG BI PROCEDURES Final [...] LAB CHEMISTRY METHOD 06/24/2025 3:36 PM EDT [facility] Blood Venous blood specimen / Unknown Venipuncture / Unknown 06/24/2025 1:02 PM EDT 06/24/2025 1:02 PM EDT Jairo Bosch MD LAB BLOOD ORDERABLE S Final Result [facility] [address] [place] [address], from Last 3 Months Insurance [employer] MEDICARE Advance Directives Documents on File Type Date Recorded Patient Comsec Manager Expl anation Health Care Decision (hx) 07/16/2022 [...] DIRECTIVE Health Care Decision (hx) 02/22/2020 AD VTIAL DIRECTIVE Health Care Decision (hx) 02/22/2020 AD [...] (hx) 02/08/2017 AD VITAL DIRECTIVE Care Teams National Insurance Officer Relationship Specialty Start Date End Date Cori Simmons MD [address] [place] [phone] PCP - General Internal Medicine 06/27/25
--- OUTSIDE RECORDS SUMMARY | 2025-08-23 17:41 | XMS_ITS | Encounter Summary ---
Author Organization [facility] Address [address] [place] [address] Care Team Providers Care District Fire Chief Name Role Phone Cori Simmons MD Primary Care Provider [phone] Encounter Details Date Type Department Care Team (Late st Contact Info) Description 08/22/2025 Lab Requisition [facility] - Main Lab [address] [facility] [place] [address] Koffi Saravia MD [address] [place] [address] Gross hematuria Social History Tobacco Use Types Packs/Day Years [...] do you feel lonely or isolated from ose around you? Never 04/21/2025 Food Risk [...] care for your loved ones. For example, assistant child care teacher or elderly care for an [...] PM EDT [facility] [address] [place] [address] Giuseppe Lee NP [address] [place] [address] 09/09/2025 2:30 PM EDT Office Visit [facility] Hematology Oncology [address] [place] [phone] Jairo Bosch MD [address] [place] [phone] 09/15/2025 1:00 PM EDT Office Visit [facility] [place] [address] [place] [address] [address] [place] [address] Marita Matthews MD [address] [facility] [address] [place] [address] 09/27/2025 2:30 PM EST Office Visit Internal Medicine - [facility] [address] [place], [place] [phone] Giuseppe Lee NP [address] [place] [address] 10/10/2025 1:00 PM EST Appointment [facility] CT Scan [address] [place] [phone] 11/11/2025 3:30 PM EST Office Visit Vascular Surgery - [facility] [address] [place] [address] Winston Barrett MD [address] [place] [phone] Pending Results Name Type Priority Associated Diagnoses Date /Time Non-gynecologic cytology Pathology and Cytology Routine Gross hematuria 08/15/2025 12:00 AM EDT documented as of this encounter Visit Diagnoses Diagnosis Gross hematuria documented in this encounter Additional Health Concerns Assessment Noted Time PHQ-9 Depression Total Score: 0 04/21/20 25 1:28 PM EDT documented as of this encounter Care Teams District Fire Chief Relationship Specialty Start Date End Date Cori Simmons MD [address] [facility] [place] [address] PCP - General Internal Medicine 06/27/25 documented as of this encounter
--- OUTSIDE RECORDS SUMMARY | 2025-08-23 17:41 | XMS_ITS | Clinical Summary ---
Author Organization [facility] Address [address] [place] [address] Care Team Providers Care Mental Health Aides Teacher Name Role Phone Giles Campo MD Primary Care Provider [phone] Allergies Active Allergy Reactions Criticality Noted Date [...] Medical Devices Implanted Type Area Director Of Elementary Education Device Identifier Shelf Expiration Date Model / Serial / Lot Liner Trident X3 0 Deg 36mm 5.9mm Sz E [facility] [id number] - [id number] Implanted:Qty: 1 on 05/22/2023 by Edmundo Roy MD at [facility] and Med [employer] [id number] 02/19/2028 723-00-36E / / [id number] Cement Bone Surg Simplex Radiopq [facility] 9484-2-992-114 092 - [id number] Implanted:Qty: 1 on 05/22/2023 by Edmundo Roy MD at [facility] and Med Right: Hip [employer] [id number] 6191-1010 / / [id number] Cement Bone Surg Simplex Radiopq Stry-Howm 2698-0-530-114 092 - [id number] Implanted:Qty: 1 on 05/22/2023 by Edmundo Roy MD at [facility] and [facility] Right: Hip [employer] [id number] 6191-1010 / / [id number] Tritanium Cluster Hole Shell 52mm Stry-Howm 064-50-15k-770 473 - [id number] Implanted:Qty: 1 on 05/22/2023 by Edmundo Roy MD at [facility] and [facility] Right: Hip [employer] [id number] 01/14/2028 702-04-52E / / [id number] Lp Hex Screw 6.5x25mm Stry-Howm 3386-4242-6353 58 - [id number] Implanted:Qty: 1 on 05/22/2023 by Edmundo Roy MD at [facility] and [facility] Right: Hip [employer] [id number] 03/01/2028 9522-1468 / / [id number] Lp Hex Screw 6.5x20mm Stry-Howm 6183-0082-1238 57 - [id number] Implanted:Qty: 1 on 05/22/2023 by Edmundo Roy MD at [facility] and [facility] Right: Hip [employer] [id number] 01/07/2028 [id number] / / [id number] Lp Hex Screw 6.5x20mm Stry-Howm 1409-3165-9016 57 - [id number] Implanted:Qty: 1 on 05/22/2023 by Edmundo Roy MD at [facility] and [facility] Right: Hip [employer] [id number] 01/30/2028 4859-8914 / / [id number] Hip Spacer Distl Univ 11mm Stry-Howm 1040-6649-6982 61 - [id number] Implanted:Qty: 1 on 05/22/2023 by Edmundo Roy MD at [facility] and [facility] Right: Hip [employer] [id number] 03/25/2028 2615-9383 / / [id number] Hip Stem Acco-C 132deg #5 Stry-Howm 6824-3011i-596 232 - [id number] Implanted:Qty: 1 on 05/22/2023 by Edmundo Roy MD at [facility] and [facility] Right: Hip [employer] [id number] 07/29/2027 [id number] / / [id number] Kit Prep Total Hip Bone Imp Smn-Orth 164014-277228 - [id number] Implanted:Qty: 1 on 05/22/2023 by Edmundo Roy MD at [facility] and [facility] Right: Hip [employer] [id number] 11/09/2032 [id number] / / [id number] Description:Medium plug Hip Head Delta Dorcas 36mm +2.5 Stry-How 1219-0-686-532 963 - [id number] Implanted:Qty: 1 on 05/22/2023 by Edmundo Roy MD at [facility] and [facility] Right: Hip [employer] [id number] 08/18/2027 6570-0-536 / / [id number] Coil Penumbra 400 [id number] Soft Pnbr-Manu [id number] 93 - [id number] Implanted:Qty: 2 on 06/29/2023 by Raul Trejo MD at [facility] and Med [employer] 04/22/2031 [id number] / / [id number] Coil Penumbra 400 [id number] Soft Pnbr-Manu [id number] 93 - [id number] Implanted:Qty: 1 on 06/29/2023 by Raul Trejo MD at [facility] and Med [employer] 03/30/2031 [id number] / / [id number] Advance Directives For more information, please contact: [phone] Latest Code Status on File Code Status Date Activated Date Inactivated Comments Full Code 06/28/2023 7:20 PM 07/01/2023 11:24 PM This code status was ascertained in the following way: discussion with healthcare contact representative . Code Status History Code Status Date Activated Date Inactivated Comments Full Code 05/22/2023 8:47 AM 05/23/2023 9:36 PM This co de status was ascertained in the following way: discussion with patient . Full Code 05/22/2023 5:51 AM 05/22/2023 8:47 AM This co de status was ascertained in the following way: discussion with patient . Care Teams Mental Health Aides Teacher Relationship Specialty Start Date End Date Giles Campo MD [address] [place] [address] PCP - General Internal Medicine 12/22/17
--- OUTSIDE RECORDS SUMMARY | 2025-08-23 17:41 | XMS_ITS ---
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 She recently underwent blood work which still stores anemia but her hematocrit is above 25. Advised to speak to her rail car welder regarding further treatment. 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 Past Treatment and Therapy Plans No past plan information found.
--- OUTSIDE RECORDS SUMMARY | 2025-08-23 17:41 | XMS_ITS | Clinical Summary ---
Author Organization [facility] Address [address] [place] [address] Phone Care Team Providers Care Chief Deputy Clerk/Bailiff Name Role Phone Giles Campo MD Primary Care Provider [phone] Jairo Bosch MD Unavailable [phone] Allergies Active Allergy Reactions Criticality Noted Date [...] Devices Not on file Insurance [place] [address] [place] [address] MEDICARE REPLACEMENT Member Subscriber Plan / Payer (Ef fective 2024-Present) Name:[place] Relation to Subscriber:Self Name:[place] Sal[place]ido Payer ID:[id number] (NAIC) Type:Medicare Address: [place] [id number] MEDICARE REPLACEMENT Member Subscriber Plan / Payer (Ef fective 2024-Present) Name:[place] Salcido Relation to Subscriber:Self Name:[place] Salcido Payer ID:[id number] (NAIC) Type:Medicare Address: [place] [id number] MEDICARE REPLACEMENT MEDICARE REPLACEMENT [facility] MEDICARE REPLACEMENT [facility] MEDICARE REPLACEMENT Member Subscriber Plan / Payer (Ef fective 2024-Present) Name:Le Salcido Relation to Subscriber:Self Name:Nancy Salcidomanish Da Silva Payer ID:[id number] (NAIC) Type:Medicare Address: [place] [id number] Care Teams Chief Deputy Clerk/Bailiff Relationship Specialty Start Date End Date Giles Campo MD [address] [place] [address] PCP - General Internal Medicine 01/18/25 Ivan-Jairo Garvey MD [address] [place] [phone] [email or web address] Referring Physician Internal Medicine 01/18/25 Additional Source Comments The information contained in this document represents components of the legal health record. It is not the complete legal health record.[facility]
== END 2025-08-23 15:04 | disposition home or self-care (01) ==
LOC: HO.HPS 14:19
PROVIDERS: PCP Internal Medicine; Visit Provider Hospitalist
DX: R91.8 Other nonspecific abnormal finding of lung field (principal); R91.1 Solitary pulmonary nodule; J44.0 Chronic obstructive pulmonary disease with (acute) lower respiratory infection; J18.9 Pneumonia, unspecified organism
CPT/HCPCS: 99215; G2211

== ENCOUNTER → 2025-08-23 14:18 | Outpatient (BNVA) | payer MEDICARE, SELFPAY | PROVIDERS: PCP Internal Medicine; Visit Provider Hospitalist | DX: R91.8 Other nonspecific abnormal finding of lung field (principal); R91.1 Solitary pulmonary nodule; J18.9 Pneumonia, unspecified organism; J44.0 Chronic obstructive pulmonary disease with (acute) lower respiratory infection; C95.90 Leukemia, unspecified not having achieved remission; Z87.891 Personal history of nicotine dependence | CPT/HCPCS: 99212 ==

== ENCOUNTER 2025-10-06 12:57 | Outpatient (AMB) | payer MEDICARE, SELFPAY ==
[2025-10-06 14:02] VITALS: BP 118/68; PULSE 112; O2SAT 95
--- NOTE | 2025-10-06 14:02 | A.OFFVIS_ITS ---
Vital Signs 10/06/25 14:02 BP 118/68 Blood Pressure Location Lt brachial Position Sitting Pulse 112 H Pulse Source Pulse Oximeter Pulse Oximetry (%) 95 Oxygen Delivery Method Room Air Intake Visit Reasons: [employer] Required: No Allergies fentanyl Allergy (Intermediate, Verified 10/06/25 13:57) elevated bp Penicillins Allergy (Severe, Uncoded 08/26/24 10:16) Rash and Hives Sulfa Drugs Allergy (Severe, Uncoded 08/26/24 10:16) Rash and Hives COUNTS INCLUDE 234 BEDS AT THE [facility] Medical History (Updated 10/06/25 @ 19:23 by Suhail Everett MD) Chest discomfort Dyspnea Pulmonary nodule Pneumonitis Pulmonary nodules COVID-19 COPD (chronic obstructive pulmonary disease) Social History Patient Tobacco Use Status: Former Tobacco user Tobacco use type: Cigarette Years Smoked: 30 years Smoked in Last 30 Days: No Use of substances other than those prescribed or required for medical reasons: No Advance Directives: No Advance Directives Information Provided: Yes Do you have a plan to hurt others: No Plan Physical Exam Vital Signs: Last Vital Signs Pulse 112 H 10/06/25 14:02 BP 118/68 10/06/25 14:02 Pulse Ox 95 10/06/25 14:02 Oxygen Delivery Method Room Air 10/06/25 14:02 Office Procedures 6 Minute Walk Time:: 13:13 SPO2 % at rest: 95 Pulse at rest: 112 SPO2 % during excercise: 95 Pulse during excercise: 130 SPO2 % after excercise: 96 Pulse after excercise: 107 Distance in yards walked: 50 Jaya Score: 8 Performance Observations:: Patient walked on level ground using a walker. Patient walked approx 25 yds and complained of shortness of breath O2 sat 97% at that time Heart rate is climbing into the 120's. Stopped to rest and then continued back to the exam room Maintained O2 sat at 95% or greater for the entire time. Heart rate climbed to 130 and walk was stopped. Patient says she has sob with very minimal movement for the last week. Notes chest pain or tightness as well. Patient did not require the use of supplemental oxygen. [id number] - 6 Minute Walk Assessment & Plan Assessment & Plan (1) Dyspnea: Code(s): R06.00 - Dyspnea, unspecified Category: Medical Qualifiers: Dyspnea type: dyspnea on exertion Qualified Code(s): R06.09 - Other forms of dyspnea (2) Chest discomfort: Code(s): R07.89 - Other chest pain Category: Medical Plan Tachycardic and chest pain. Pt agreed to go to the ED Orders: Orders AMB 6 minute walk Today J44.0 - Chronic obstructive pulmonary disease with (acute) lower respiratory infection Coding Level of Care Code Est Pt Level 1 (52890) Diagnoses Dyspnea on exertion R06.09 Dyspnea type: dyspnea on exertion Chest discomfort R07.89 CPT Codes Coding ([id number])
[2025-10-06 14:13] VITALS: PULSE 112; O2SAT 95
--- OUTSIDE RECORDS SUMMARY | 2025-10-06 18:35 | XMS_ITS ---
Author Organization [facility] Address [address] [place] [address] Care Team Providers Care Clay Artisan Name Role Phone Giles Campo MD Primary Care Provider [phone] Active Problems Problem Noted Date Diagnosed Date [...] treatments are documented for this patient in [facility]. Treatments may have been administered in another system. Lifetime Dose Tracking * Chemical Lifetime Dose Automatic Entry Manual Entr y Radiation 192.17 mSv 192.17 mSv 0 mSv
--- OUTSIDE RECORDS SUMMARY | 2025-10-06 18:35 | XMS_ITS | Data Portability ---
Author Organization [place] [facility] Escamilla AONE [place] Address [address] [place] [address] Care Team Providers Care School Counselor Name Role Phone GALLITO DEAN Primary Care Provider Assessment Encounter Date Assessment Date Assessment LastModified by Organization Details LastModified Time 06/17/2023 06/17/2023 Stiven MAN, 05/22/23 DOROTHEARI. Patient was last seen in [facility] ER on 06/11/2023 with CAT scan [...] findings at length with the patient today. We discussed the nature and etiology of this problem along with current treatment options. We discussed the expected course and outcomes and what to expect. We also discussed risks and benefits. All of their questions were answered today, and there was exhibited understanding and comprehension of all that was discussed. Time Spent: 10 minutes were spent reviewing previous imaging and charting. 10 minutes were spent obtaining patient history. 5 minutes were spent on physical exam. 5minutes were spent explaining diagnosis and assessment. Today's [...] available 08/01/2023 11:34:27 09/26/2023 09/26/2023 HPI : Patient is here for 4 month(s) follow-up for a RIGHT total hip replacement. this was complicated by development of hematoma [...] pain relief in the hip and satisfactory jehovah's witness of function in terms of activities of [...] Continue to work on hip conditioning exercises. Hwtg-wbs-ugbitvf medications as needed. We discussed things that [...] available 09/26/2023 10:15:00 05/28/2024 05/28/2024 HPI : Patient is here for 1 year follow-up [...] pain relief in the hip and satisfactory jehovah's witness of function in terms of activities of [...] Continue to work on hip conditioning exercises. Unqk-pfq-aqegfbd medications as needed. Ultimate failure may occur [...] 2 or 3 view 024 05/28/20 24 [email or web address] [facility], [address], [place], [address], 4 13:41:39 XR, hip, unilat eral, 2 or 3 view 023 09/26/20 23 YAZAN [facility], [address], [place], [address], 3 10:15:37 Medication Orders None record ed. Patient TargetsNo targets recorded. Patient Instructions Encounter Date Encounter Id Patient Instructions Last Modified By Organization Details Last Modified Time 09/26/2023 [id number] AP pelvis, AP an d lateral radiographs of the right hip taken today demonstrate a right total hip replacement with components in appropriate position without any signs of hardware related complication. Not available 09/26/2023 10:15:32 05/28/2024 [id number] AP pelvis, AP an d lateral radiographs of the right hip taken today demonstrate a right total hip replacement with components in appropriate position without any signs of hardware related complication. Not available 05/28/2024 13:29:53 Reason for Referral None Reported. Results Created Date Observation Date Name Description Value Unit Range Abnormal Flag Note LastModifiedBy Organization Detail LastModifiedTime 07/07/20 23 06/28/2023 imagi ng/di agnos tic resul t No observ ation record ed. [email or web address] [facility] ([facility]) [address], [place], [address], 07/08/2023 09:28:44 Result Notes None recorded. 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 2016 Sharath Li null, [place] - [facility] 3 13:45:12 Multiple nodules of lung 392404352 Active 2016 Sharath Li null, [place] - [facility] 3 13:45:12 Allergic rhinitis 58526243 Active 2016 Sharath angel, [place] - [facility] 3 13:45:12 Chronic obstructi ve pulmonary disease 25370097 Active 2017 Sharath Li null, [place] - [facility] 3 13:45:12 Gastroeso phageal reflux disease without esophagit is 646952098 Active 2017 Sharath Li null, [place] - [facility] 3 13:45:12 Benign essential hypertens ion 7242959 Active 2017 Sharath Li null, [place] - [facility] 3 13:45:12 Coronary atheroscl erosis 599402876 Active 2017 Sharath Li null, [place] - [facility] 3 13:45:12 Tubular adenomato us polyp of colon 948338005 Active 2017 Sharath Li null, [place] - [facility] 3 13:45:12 Midline cystocele 698179345 Active 2017 Sharath Li null, [place] - [facility] 3 13:45:12 Simple chronic bronchiti s 88205326 Active 2019 Sharath Li null, [place] - [facility] 3 13:45:12 Osteoarth ritis of right hip joint 23884644596 9107 Active 2022 Sharath Li null, [place] - [facility] 3 13:45:12 Electroca rdiogram abnormal 195960509 Active 2022 Sharath Li null, [place] - [facility] 3 13:45:12 Mixed hyperlipi demia 447841139 Active 2022 Sharath Li null, [place] - [facility] 3 13:45:12 First degree atriovent ricular block 581745016 Active 2022 Sharath Li null, [place] - [facility] 3 13:45:12 Subclavia n artery stenosis 064214677 Active 2022 Sharath Li null, [place] - [facility] 3 13:45:12 Preproced ural examinati on done 31926466748 4104 [facility] 13:[facility]12 Dyspnea on exertion 05948441 Active 2022 Sharath angel, [facility], [facility] 3 13:45:12 Left bundle branch block 82928743 Active 2022 Sharath Li [facility], [facility] 3 13:45:12 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 Procedures Surgical History Date Name Laterality Status Provider Name and Address Organization Details Recorded Time Knee Surgery completed Sharath Boateng [facility], 04/11/2023 14:02:59 Imaging Results None recorded. Procedure Notes None recorded. Medical Equipment None Reported. Allergies Allergen ID Allergen Name Allergen Category Reaction Reaction Severity Criticality Documentation Date Start Date Code Code System Note Provider Name and Address Organization Details Recorded Time 4541 Substance with sulfonami de structure and antibacte rial mechanism of action (substanc e) medicatio n Not available Not available Not available 04/11/2023 91855 8003 SNOMED Sharath Li [facility] 3 14:01:47 4542 Product containin g penicilli n (product) medicatio n Not available Not available Not available 04/11/2023 43343 8001 SNOMED [facility] 14:01:56 25063 acetamino phen / oxycodone medicatio n Not available Not available Not available 08/09/20252022 85255 3 RxNorm React ion: Nause a And Vomit ing, sever ity: Unkno wn Not Available [facility] 5 01:12:52 Medications Name Sig Start Date Stop Date Status Note LastModified by Organization Details LastModified Time hydroxyurea 500 mg capsule Take 1 capsule (500 mg total) by mouth 2 (two) times a day 2023 active Not Available Not Available Not Avai lable nystatin 100,000 unit/mL oral suspension SHAKE LIQUID [...] 100 mg tablet,exte nded release 24 hr Take 100 mg by mouth daily. Takes 4 DAYS IN A ROW THEN OFF A COUPLE 05/23 completed Not Available Not Available Not Available [...] No t Available amlodipine 2.5 mg tablet Take 1 tablet (2.5 mg total) by mouth daily. active Not Available Not Available No t [...] completed Not Available Not Available Not Available ipratropium bromide 21 mcg (0.03 %) nasal spray U 2 SPRAYS IEN QID 04/29 completed Not Available Not Available Not Available oxycodone 5 mg tablet TAKE 1 TO 2 TABLETS BY MOUTH EVERY 4 HOURS NEEDED FOR MODERATE PAIN SCALE 4-6 05/27 completed Not Available Not Available Not Available azithromyci n 500 mg tablet TAKE 1 TABLET BY MOUTH DAILY FOR 5 DAYS active Not Available Not Available No t Available tiotropium bromide 18 mcg capsule with inhalation device Place 18 mcg into inhaler and inhale daily. 04/29 completed Not Available Not Available Not Available Senokot-S 8.6 mg-50 mg tablet 1 [...] Not Available Vitals Date Recorded Body height Provider Name an d Address Organization Details Last Updated DateTime 06/29/2023 165.1 cm Not Available [facility] 5 00:50:04 Date Recorded Respiratory rate Provider Name a nd Address Organization Details Last Updated DateTime 07/01/2023 20 /min Not Available [facility] 5 00:50:04 Date Recorded Body height Body mass index (BMI) Body weight Provider Name and Address Organization Details Last Updated DateTime 07/04/2023 165.1 cm 26.1 kg/m2 72961 g Sharathpete BeattyLi [facility] 07/04/2023 13:45:22 Date Recorded Body mass index (BMI) Heart rate Body weight Oxygen saturation Body temperature Systolic And Diastolic Provider Name and Address Organization Details Last Updated DateTime 4 26.13 kg/m2 71 /min 09462 g 100 % 98.798 [degF] 145/76 mm[Hg] Not Available [facility] 5 00:50:04 Date Recorded Body height Body mass index (BMI) Body weight Provider Name and Address Organization Details Last Updated DateTime 09/26/2023 165.1 cm 26.1 kg/m2 49591 jame Beattynchard [facility], [facility] 09/26/2023 09:44:49 Social History Question Answer Notes LastModified by Organizat ion Details LastModified Time Tobacco Smoking Status Former Smoker Sharath Beattynchard [facility], [facility] 04/11/2023 14:02:34 When Did You Quit Smoking? 16+yearssinc elastcigaret te [email or web address] Information not available 09/26/2023 How Many Years Have You Smoked Tobacco? 32 [email or web address] Information not available 04/11/2023 Sex: Unknown Functional Status Question Answer Note LastModified by Organizat ion Details LastModified Time How many times per week do you consume alcohol? Less than 1 time per week [email or web address] Information not available 04/11/2023 Do you use any illicit or recreational drugs? No [email or web address] Information not available 04/11/2023 Do you or have you ever used any other forms of tobacco or nicotine? No [email or web address] Information not available 04/11/2023 What is your level of alcohol consumption? Occasional [email or web address] Information not available 04/11/2023 Mental Status None recorded. Family History Nothing Reported. Medical History Condition Response COPD Y Hypertension Y Gynecological HistoryNo gynecological history recorded. Obstetrics History GPAL:G 0 P 0 0 0 0 Past Encounters Encounter ID Performer Location Encounter Start Date Encounter Closed Date Diagnosis/Indication Diagnosis SNOMED-CT Code Diagnosis ICD10 Code Diagnosis IMO Codes Diagnosis Note [id number] MD MEJIA Armenta [address] [place] [address] 04/11/2023 13:23:30 04/11/2023 14:50:49 Pain of right hip joint 4401936577 86386 M25.551 Osteoarthr itis of right hip joint 3274234324 56038 M16.11 Arthritis of hip 8486735 6 M13.859 [id number] BLANCA MORA [facility] [address] [place] [address] 06/02/2023 12:58:32 06/02/2023 13:30:34 History of total replacement of right hip joint 4852055719 41886 Z96.641 [id number] BLANCA BAL [facility] [address] [place] [address] 06/17/2023 12:43:59 06/17/2023 13:08:42 Postoperative care 999989651 Z48.89 [id number] MD MEJIA Armenta [address] [place] [address] 07/04/2023 13:39:38 07/04/2023 14:09:49 Aftercare 651526645 Z47.1 History of total replacement of right hip joint 3507857733 30727 Z96.641 [id number] MD MEJIA Armentaliza [address] [place] [address] 08/01/2023 11:27:00 08/01/2023 11:43:18 Aftercare 608468640 Z47.1 History of total replacement of right hip joint 5199545232 95110 Z96.641 [id number] MD MEJIA Armenta [address] [address] 09/26/2023 09:38:26 09/26/2023 10:10:26 History of right hip replacement 3428662980 612754 Z96.641 Aftercare 122521820 Z47. 1 [id number] MD MEJIA Armentaliza [address] [facility] [address] [place] [address] 05/28/2024 13:01:40 05/28/2024 13:32:47 History of repair of hip joint 300566984 Z96.641 Additional diagnosis detail: History of right hip replacemen t Surgical follow-up 63319 4000 Z47.1 Z96.641 Additional diagnosis detail: Aftercare following right hip joint replacemen t surgery Health Concerns Section Related Observation LastModified by Organization Detai ls LastModified Time None Recorded Concern Status LastModified by Organization Details LastModified Time None Recorded Advance Directives Directive None Recorded Payers Insurance Date Sequence Insurance Name Policy Number Policy Price Covered Member ID Price Member ID Guarantor Name 05/31/2024 1 [facility] (MEDICARE REPLACEMENT/A DVANTAGE - PPO) [id number] [place] [id number] [employer] [place] Notes Date Note Type Note Provider Name and Address Organization Details Recorded Time 06/17/2023 text/html Last Note : This is a very pleasant 78-year-old female status post Stiven robotic assisted right total hip arthroplasty by Dr. Roy on 03/22/2023. P [facility] states she was doing well up until the last 24 hours. She states she did her second physical therapy she had sudden onset of right hip pain and notable swelling which prompted her to go to [facility] ER. I n the ER did a full work-up which included plain x-rays as well as a CAT scan which revealed a ill-defined hematoma within the anterior aspect of the right hip arthroplasty with subcutaneous edema around the right hip. H er emergency care was managed by Dr. Sprague. He did a work-up which included ESR and CRP. E SR was 3, CRP was 0.3. She did not exhibit any red flag symptoms. Denies paresthesia. Should her pain control was with oral morphine in the ER which gave her good relief. P [facility] ER room 16. A wake alert and oriented x3 no acute distress. She appears to be comfortable she is with her daughter. T here was an Taran wrap on the right thigh. This was taken down she has a well-healed surgical anterior incision within the groin without obvious signs of infection she has minimal discomfort. She does not have any tenderness, erythema or induration. Gentle range of motion of the hip appears to be normal. She is neurovascularly intact distally. A ce wrap was reapplied with neurovascularity checked afterwards for which she has strong DP and PT pulses and excellent sensation. S he notes notable improvement. C urrent plan after speaking with the ER attending as well as Dr. Roy's patient is to go home she can hold off on physical therapy. She can discontinue her 81 mg baby aspirin twice daily per Dr. Roy. I will see her back in my office next week for reevaluation. Should her symptoms worsen she should contact our office immediately or go to the ER if it is significant discomfort. Avinash Nichols MS, PA-C HPI:Female geotechnical engineer present throughout the interview, exam and exiting [...] occlusion managed by vascular surgery here at [facility]. PATTI ROGERS PA-C [address] [place] [address],[facility] [address], [place], [address], [place] [facility] 06/17/2023 13:14:39 OBGyn Episode No OBEpisode recorded.
--- OUTSIDE RECORDS SUMMARY | 2025-10-06 18:36 | XMS_ITS | Clinical Summary ---
Author Organization [facility] Address [address] [place] [address] Care Team Providers Care Hydrogen Treater Name Role Phone Giles Campo MD Primary Care Provider [phone] Allergies Active Allergy Reactions Criticality Noted Date [...] this topic Medical Devices Implanted Type Area Advertising Internship Device Identifier Shelf Expiration Date Model / Serial / Lot Liner Trident X3 0 Deg 36mm 5.9mm Sz E [facility] [id number] [id number] - [id number] Implanted:Qty: 1 on 05/22/2023 by Edmundo Roy MD at [facility] and Med [employer] [id number] 02/19/2028 723-00-36E / / [id number] Cement Bone Surg Simplex Radiopq [facility] 9486-7-371-114 092 - [id number] Implanted:Qty: 1 on 05/22/2023 by Edmundo Roy MD at [facility] and Med Right: Hip [employer] [id number] 6191-1010 / / [id number] Cement Bone Surg Simplex Radiopq Stry-Howm 6753-4-879-114 092 - [id number] Implanted:Qty: 1 on 05/22/2023 by Edmundo Roy MD at [facility] and [facility] Right: Hip [employer] [id number] 6191-1010 / / [id number] Tritanium Cluster Hole Shell 52mm Stry-Howm 019-24-52b-770 473 - [id number] Implanted:Qty: 1 on 05/22/2023 by Edmundo Roy MD at [facility] and [facility] Right: Hip [employer] [id number] 01/14/2028 702-04-52E / / [id number] Lp Hex Screw 6.5x25mm Stry-Howm 4474-0380-3107 58 - [id number] Implanted:Qty: 1 on 05/22/2023 by Edmundo Roy MD at [facility] and [facility] Right: Hip [employer] [id number] 03/01/2028 6294-8089 / / [id number] Lp Hex Screw 6.5x20mm Stry-Howm 9278-0486-7869 57 - [id number] Implanted:Qty: 1 on 05/22/2023 by Edmundo Roy MD at [facility] and [facility] Right: Hip [employer] [id number] 01/07/2028 7929-8367 / / [id number] Lp Hex Screw 6.5x20mm Stry-Howm 3783-3932-4363 57 - [id number] Implanted:Qty: 1 on 05/22/2023 by Edmundo Roy MD at [facility] and [facility] Right: Hip [employer] [id number] 01/30/2028 0523-5422 / / [id number] Hip Spacer Distl Univ 11mm Stry-Howm 6202-4050-6534 61 - [id number] Implanted:Qty: 1 on 05/22/2023 by Edmundo Roy MD at [facility] and [facility] Right: Hip [employer] [id number] 03/25/2028 2464-3258 / / [id number] Hip Stem Acco-C 132deg #5 Stry-Howm 4616-0323d-406 232 - [id number] Implanted:Qty: 1 on 05/22/2023 by Edmundo Roy MD at [facility] and [facility] Right: Hip [employer] [id number] 07/29/2027 6058-0537D / / [id number] Kit Prep Total Hip Bone Imp Smn-Orth 915372-626960 - [id number] Implanted:Qty: 1 on 05/22/2023 by Edmundo Roy MD at [facility] and [facility] Right: Hip [employer] [facility] [id number] 11/09/2032 573891 / / [id number] Description:Medium plug Hip Head Delta Dorcas 36mm +2.5 Stry-How 5571-1-855-532 963 - [id number] Implanted:Qty: 1 on 05/22/2023 by Edmundo Roy MD at [facility] and [facility] Right: Hip [employer] [id number] 08/18/2027 6570-0-536 / / [id number] Coil Penumbra 400 7lzz5mg Soft Pnbr-Manu Wyl7n4885-5392 93 - [id number] Implanted:Qty: 2 on 06/29/2023 by Raul Trejo MD at [facility] and Med [employer] 04/22/2031 [id number] / / [id number] Coil Penumbra 400 1nnd7hu Soft Pnbr-Manu [id number] 93 - [id number] Implanted:Qty: 1 on 06/29/2023 by Raul Trejo MD at [facility] and Med [employer] 03/30/2031 [id number] / / [id number] Advance Directives For more information, please contact: [phone] Latest Code Status on File Code Status Date Activated Date Inactivated Comments Full Code 06/28/2023 7:20 PM 07/01/2023 11:24 PM This code status was ascertained in the following way: discussion with healthcare abrasives sales representative . Code Status History Code Status Date Activated Date Inactivated Comments Full Code 05/22/2023 8:47 AM 05/23/2023 9:36 PM This co de status was ascertained in the following way: discussion with patient . Full Code 05/22/2023 5:51 AM 05/22/2023 8:47 AM This co de status was ascertained in the following way: discussion with patient . Care Teams Hydrogen Treater Relationship Specialty Start Date End Date Giles Campo MD [address] [place] [address] PCP - General Internal Medicine 12/22/17
== END 2025-10-06 13:51 | disposition home or self-care (01) ==
LOC: HO.HPS 12:57
PROVIDERS: PCP Internal Medicine; Visit Provider Hospitalist
DX: R06.09 Other forms of dyspnea (principal); R07.89 Other chest pain
CPT/HCPCS: 94618

== ENCOUNTER 2025-10-06 13:46 | Inpatient (IN) | payer MEDICARE, SELFPAY ==
[2025-10-06] VITALS (10 sets, daily range): BP systolic 118–149; BP diastolic 68–93; PULSE 102–110; RESP 16–25; TEMP 36.8–37.2; O2SAT 87–97; BMI 23.3; BMI 23.2
--- NOTE | ~2025-10-06 | XR_ITS ---
EXAMINATION: XR CHEST CLINICAL INFORMATION: SOB. COMPARISON: Previous chest x-ray most recent November and PET/CT August 2025 TECHNIQUE: Frontal view of the chest was obtained. FINDINGS: The lungs are clear. No consolidation or pulmonary edema. No pleural effusion or pneumothorax. Cardiac and mediastinal contours are normal. Mild degenerative changes of the spine and shoulders. XR/XR chest 1V IMPRESSION: No evidence for acute disease in the chest. Electronically signed by: Jana Bruner MD 10/06/2025 02:29 PM [facility]
--- NOTE | ~2025-10-06 | CT_ITS ---
EXAMINATION: CT ANGIOGRAM HEAD AND NECK CLINICAL INFORMATION: Suspected stroke. Mild receptive aphasia and right upper extremity weakness. Vertigo, chronic. COMPARISON: None available. TECHNIQUE: Test bolus sequences and head and neck intravenous bolus administration 70 mL of Omnipaque 350. Helical imaging was performed in the axial plane from the aortic arch to the skull vertex. The data was processed at the registered radiologic technologist's workstation for generation of MIP sequences. Angled MIPs and volume rendered reformatted images were also generated at an offline 3D workstation. Stenoses are assessed in accordance with NASCET criteria unless otherwise indicated. This CT examination was performed using dose optimization techniques as appropriate, variously including the following: *Automated exposure control *Adjustment of mA and/or kV according to patient size (this includes techniques or standardized protocols for targeted exams where dose is matched to indication/reason for exam; i.e. extremities or head) *Use of iterative reconstruction technique FINDINGS: NECK CTA: -AORTIC ARCH: Normal in caliber. Moderate atheromatous calcification. 2-vessel branching pattern. -GREAT VESSEL ORIGINS: Origins are patent. There is an approximate 70% stenosis of the left subclavian artery just after the origin (series 6, image 726). There is a mild stenosis of the origin of the right subclavian artery due to calcific plaque. -RIGHT COMMON CAROTID ARTERY: Normal in course and caliber to the level of the bifurcation. -CERVICAL RIGHT INTERNAL CAROTID ARTERY: There is an approximate 50% stenosis at the origin secondary to mixed calcific and soft plaque (series 6, image 513).. The vessel image is normal caliber, into the skull base. -LEFT COMMON CAROTID ARTERY: Mild stenosis at the origin due to calcific plaque. Otherwise normal in course and caliber to the level of the bifurcation. -CERVICAL LEFT INTERNAL CAROTID ARTERY: There is an approximate 40% stenosis of the carotid bulb due to predominantly calcific plaque (series 6, image 533). -CERVICAL RIGHT VERTEBRAL ARTERY: Nondominant. Normal in course and caliber into the skull base. -CERVICAL LEFT VERTEBRAL ARTERY: Dominant. Normal in course and caliber into the skull base. OTHER, SOFT TISSUES: -No lymphadenopathy or mass. No abnormal fluid collection or soft tissue swelling. -Normal thyroid. -Imaged superior mediastinal structures normal. -Imaged lung apices clear. CTA OF THE BRAIN: -INTRACRANIAL INTERNAL CAROTID ARTERIES: Calcific atherosclerotic disease of the intracranial internal carotid arteries without occlusion or flow-limiting stenosis. -RIGHT ANTERIOR CEREBRAL ARTERY: Normal A1 segment. Normal arborization of the distal segments. -LEFT ANTERIOR CEREBRAL ARTERY: Normal A1 segment. Normal arborization of the distal segments. -ANTERIOR COMMUNICATING ARTERY: Normal. -RIGHT MIDDLE CEREBRAL ARTERY: Normal M1 segment of the MCA without focal stenosis or occlusion. Normal arborization of the distal segments. -LEFT MIDDLE CEREBRAL ARTERY: Normal M1 segment of the MCA without focal stenosis or occlusion. Normal arborization of the distal segments. -RIGHT VERTEBRAL ARTERY V4: Diminutive. Terminates as a PICA branch. -LEFT VERTEBRAL ARTERY V4: Dominant. Heavy calcification with mild resultant stenosis. -BASILAR ARTERY: Normal without focal stenosis or occlusion. Normal appearance of the left proximal superior cerebellar artery. -There is a moderate stenosis at the origin of the right superior cerebellar artery (series 6, image 291). -Normal basilar tip. -RIGHT POSTERIOR CEREBRAL ARTERY: Normal P1 segment. Normal opacification of the distal SHOULDER BONER segments. -LEFT POSTERIOR CEREBRAL ARTERY: There is a moderate stenosis at the origin of the P1 segment. Remainder of the vessel demonstrates normal opacification of the distal SHOULDER BONER segments. -POSTERIOR COMMUNICATING ARTERIES: The left is present and patent. The right is not well seen. Normal opacification of the superior sagittal, straight, transverse, and sigmoid sinuses. No venous thrombosis. No space-occupying hemorrhage or definite evolving infarct. CT/CT angio head neck STROKE IMPRESSION: CTA NECK: 1. There is an approximate 50% stenosis of the origin of the right ICA due to mixed plaque. 2. There is an approximate 40% stenosis of the left carotid bulb due to calcific plaque. 3. There is an approximate 70% stenosis of the left subclavian artery just after the origin. 4. There is a mild stenosis of the origin of the left common carotid artery due to calcific plaque. CTA HEAD: 1. There is no high-grade stenosis, occlusion, dissection, or aneurysm of the major intracranial arterial vasculature. 2. The right vertebral artery terminates as a PICA branch. 3. There is mild stenosis of the left vertebral artery V4 segment due to calcific plaque. 4. There is a moderate stenosis at the origin of the left SHOULDER BONER, P1 segment. 5. There is a moderate stenosis at the origin of the right superior cerebellar artery. 6. The major cortical and dural venous sinuses are patent. Electronically signed by: Abelino Romero MD 10/06/2025 04:46 PM [facility]
--- NOTE | ~2025-10-06 | CT_ITS ---
EXAMINATION: CT HEAD WITHOUT CONTRAST (STROKE PROTOCOL) CLINICAL INFORMATION: Stroke protocol. COMPARISON: None available. TECHNIQUE: Contiguous axial imaging was performed from the skull base to vertex without intravenous administration of contrast. This CT examination was performed using dose optimization techniques as appropriate, variously including the following: *Automated exposure control *Adjustment of mA and/or kV according to patient size (this includes techniques or standardized protocols for targeted exams where dose is matched to indication/reason for exam; i.e. extremities or head) *Use of iterative reconstruction technique DLP: 613 mGy-cm FINDINGS: No acute intracranial hemorrhage, mass effect, midline shift, hydrocephalus or herniation. No increased density within the MCA. Bilateral multifocal patchy deep periventricular white matter hypodensity. Prominence of the extra-axial CSF spaces cerebral sulci and ventricles likely central volume loss. Posterior cranial fossa contents demonstrated no acute hemorrhage or mass effect. Calcified plaques in the V4 segments of the vertebral arteries, cavernous supracavernous segments both ICAs. Craniocervical junction is intact with normal position of the cerebellar tonsils. Sellar/suprasellar region demonstrated no gross masses. No air-fluid levels in the paranasal sinuses. Tympanic cavities and left mastoid cells are aerated. Air-fluid levels in the right mastoid tip. CT/CT head for STROKE IMPRESSION: No acute intracranial hemorrhage. Small vessel occlusive disease. Atherosclerosis disease, intracranial. This critical result was discussed with the requesting images a physician Dr. Haleigh Webb at 3:51 PM hours on October 06, 2025. It was ascertained that the content and urgency of the report was understood at the time of direct communication. Electronically signed by: Chriss Shah MD 10/06/2025 03:56 PM [facility]
--- NOTE | ~2025-10-06 | XR_ITS ---
CLINICAL HISTORY: shortness of breath 1 view chest x-ray. Comparison: CR/SR - XR CHEST 1 VIEW - 10/06/25 14:17 EST Findings: The lungs are adequately expanded. No focal consolidation. No effusion or pneumothorax. Cardiac and mediastinal contours are within normal limits. No acute osseous abnormality. Old right clavicle fracture, healed Impression: No acute process. This document has been electronically signed by: Amilcar Coronado MD on 10/09/2025 11:37:25
--- NOTE | ~2025-10-06 | US_ITS ---
CLINICAL HISTORY: suspect BETHANY US Renal Comparison: None provided Findings: Right kidney measures 12.2 x 5.0 x 5.1 cm. Anechoic cyst measuring 2.8 cm. There is moderate hydronephrosis with a possible ureterovesicular junction ureter stone measuring 1.3 cm. Left kidney normal size and echotexture, 12.7 x 4.7 x 4.6 cm. No hydronephrosis. Normal color Doppler. Bladder is unremarkable with single left ureteral jet visualized. Incidentally noted trace pleural effusions. Mild splenomegaly measuring 15 cm. IMPRESSION: 1. Moderate right hydronephrosis with a possible right ureterovesicular junction stone. This document has been electronically signed by: Any Whyte MD on 10/06/2025 19:03:43
--- NOTE | ~2025-10-06 | CT_ITS ---
CLINICAL HISTORY: stroke --- Additional Notes or Special Instructions: acute left hemiplesia CT head without contrast Comparison: MR/REG - MR HEAD/BRAIN WO CON - 10/06/25 20:[address]/REG/MD/SR - CT HEAD NECK ANGIOGRAPHY WITH IV CONTRAST STROKE - 10/06/25 15:48 EST Findings: Large posterior right parietal intraparenchymal hemorrhage is present , measuring up to 4.1 x 7.9 cm, with surrounding vasogenic edema. Additionally there is a left parietal epidural hematoma measuring up to 1.7 cm in width. Vasogenic edema from left parietal intraparenchymal hematoma results in effacement of the associated sulci as well as the right lateral ventricle. Third and 4th ventricles are widely patent. No significant atrophy-like change or white matter disease. There is no sinus or mastoid fluid. The orbits are unremarkable. There is no acute fracture. IMPRESSION: Large posterior right parietal intraparenchymal hemorrhage with surrounding vasogenic edema resulting in effacement of the associated sulci and right lateral ventricle. Left parietal epidural hematoma measuring up to 1.7 cm in width. No midline shift present. This document has been electronically signed by: Davin Tang MD on 10/10/2025 08:08:35
--- NOTE | ~2025-10-06 | MR_ITS ---
CLINICAL HISTORY: TIA MR Brain without gadolinium Comparison: CT/WV/SR - CT HEAD WITHOUT IV CONTRAST STROKE - 10/06/25 15:38 EST Findings: Small focus of restricted diffusion in the left posterior baer radiata. Scattered T2/FLAIR hyperintensities in the deep white matter, nonspecific, however may represent sequela of chronic microvascular ischemic disease. No intra-axial mass or hemorrhage. No midline shift. No hydrocephalus. Vascular flow voids are intact. Bilateral lens replacements. Moderate fluid in the bilateral mastoid sinuses No focal bone lesion. IMPRESSION: Acute infarct of the left baer radiata. This document has been electronically signed by: Any Whyte MD on 10/06/2025 21:40:56
--- NOTE | 2025-10-06 13:47 | ECG_ITS ---
Test Reason : SOB Blood Pressure : */* mmHG Vent. Rate : 110 BPM Atrial Rate : 110 BPM P-R Int : 184 ms QRS Dur : 128 ms QT Int : 364 ms P-R-T Axes : 48 -50 101 degrees QTcB Int : 492 ms Sinus tachycardia Left axis deviation Left bundle branch block Abnormal ECG No previous ECGs available Referred By: Ravindra Naranjo Electronically Signed By: PARISA NUÑEZ
--- NOTE | 2025-10-06 13:58 | ED_ITS ---
HPI - General Adult General Chief complaint: Dyspnea Stated complaint: Chest pain, SOB Time Seen by Provider: 10/06/25 14:41 Source: patient Mode of arrival: ambulatory Limitations: no limitations History of Present Illness ED Provider: DR. Webb HPI narrative: 80-year-old female with history of CML record at [facility] for oncology treatment, came in today for evaluation of increased exertional shortness of breath with any minimal exertion that the patient do, patient required to sleep on 3 pillows at nighttime, no lower extremity swelling or edema, no fever, no chills , no coughing. Patient had insomnia last night tried to signed on on her iPad patient could not sign in had issue with typing her password which is very unusual for her, patient also noted to have a mild right upper extremity weakness patient 1st noticed about this finding was 05:00 in the morning today. Patient is not taking anticoagulation therapy. Related Data Home Medications ?Medication ?Instructions ?Recorded ?Confirmed nebulizers 11/26/22 05/07/23 Allergies Allergy/AdvReac Type Severity Reaction Status Date / Time fentanyl Allergy Intermediate elevated bp Verified 10/06/25 13:57 Penicillins Allergy Severe Rash and Uncoded 08/26/24 10:16 Hives Sulfa Drugs Allergy Severe Rash and Uncoded 08/26/24 10:16 Hives Review of Systems 2 Review of Systems: All other systems are reviewed and are negative Constitutional: Reports as per HPI and Reports no additional constitutional complaints Eyes: Reports as per HPI and Reports no additional eye complaints Reports system reviewed and no additional complaints, except as documented Cardiovascular: Reports as per HPI and Reports no additional cardiovascular complaints Respiratory: Reports as per HPI and Reports no additional respiratory complaints Gastrointestinal: Reports as per HPI and Reports no additional gastrointestinal complaints Genitourinary: Reports no additional female genitourinary complaints Musculoskeletal: Reports no additional musculoskeletal complaints Skin/Breast: Reports system reviewed and no additional complaints, except as docu Psychiatric: Reports no additional psychiatric complaints Endocrine: Reports no additional endocrine complaints Hematologic/Lymphatic: Reports no additional hematologic/lymphatic complaints Allergic/Immunologic: Reports no additional allergic/immunologic complaints Reports system reviewed and no additional complaints, except as documented and Reports Abnormal speech present [facility] Past Medical History Medical History (Updated 10/10/25 @ 08:53 by Vincent Simon MD) Tumor lysis syndrome Chest discomfort Dyspnea Pulmonary nodule Pneumonitis Pulmonary nodules COVID-19 COPD (chronic obstructive pulmonary disease) Social History Social History Household Members: Family Housing: House Do you presently have visiting nurse or other home services: No Patient Tobacco Use Status: Former Tobacco user Tobacco use type: Cigarette Years Smoked: 30 years Second Hand Smoke Exposure: No service: No Physical Exam ED Vital Signs: Vital Signs - 24 hr 10/06/25 13:56 10/06/25 14:49 10/06/25 15:51 Temperature 98.8 F Pulse Rate 107 H 104 H Respiratory Rate 20 16 Blood Pressure 125/68 149/73 H Pulse Oximetry 93 94 87 L Oxygen Delivery Method Room Air Room Air Room Air Oxygen Flow Rate 10/06/25 15:52 10/06/25 16:30 10/06/25 16:54 Temperature 98.2 F Pulse Rate 103 H Respiratory Rate 19 Blood Pressure 142/93 H 137/70 Pulse Oximetry 95 97 Oxygen Delivery Method Nasal Cannula Nasal Cannula Oxygen Flow Rate 2 2 BMI result Body Mass Index 23.3 Vital signs have been reviewed and appear to be correct. Blood pressure elevated. Heart rate normal. Respiratory rate normal. Temperature normal. Oxygen saturation normal. Appearance: Alert. Oriented X3. No acute distress. Head: Normal external exam. Normocephalic. Atraumatic. No Phan signs noted. No raccoon eyes noted Eyes: PERRLA. EOMI. Conjunctiva and sclera normal. Eyelids normal. ENT: TM's Normal. Pharynx normal. Uvula midline. Moist mucous membranes. No trismus noted. No drooling noted. No muffled voice noted. Neck: Normal inspection. Neck supple. FROM. No adenopathy. Thyroid Normal. No meningeal signs. No neck mass noted. CVS: Normal heart rate and rhythm. Heart sound normal. No murmurs noted. Pulses normal throughout. Respiratory: No respiratory distress. Painless inspiration. Breath sounds normal. No wheezes/rales/rhonchi noted. Chest nontender. No accessory muscle usage noted or decreased air movement noted. Abdomen: Soft and nontender. Bowel sounds normal in all 4 quadrants. No distention noted. No organomegaly noted. No visible injury noted. Back: No CVA tenderness. Full range of motion noted. Skin: Skin warm and dry. Normal skin color. Normal skin turgor. No rashes/lesions/lacerations noted. Extremities: No lower extremity edema. Extremities exhibit normal range of motion. Extremities nontender. Neuro: Mental status: Normal attention, orientation, memory, and affect. Cranial nerves: Pupils are equal, round and reactive to light, EOMI, visual munoz are fall, face is symmetric, facial sensations are normal. Motor examination normal muscle tone, strength to 4 extremities. DTR are +2, planter's are flexor. Sensory exam; normal coordination, no ataxia, gait stable. Cerebellar exam: [id number] and [id number] is normal. Extrapyramidal system: No tremors, no rigidity with normal facial expressions. Pronator drift not present NIH Stroke Scale Time: 15:05 Level of Consciousness: Alert Level of Consciousness Questions: Answers both questions correctly Level of Consciousness Commands: Performs both tasks correctly Best Gaze: Normal Visual: No visual loss Facial Palsy: Normal Motor Arm (Right): Drift Motor Arm (Left): No drift Motor Leg (Right): No drift Motor Leg (Left): No drift Limb Ataxia: Absent Sensory: Normal Best Language: No aphasia Dysarthia: Normal Extinction and Inattention: No abnormality Score: 1 Course Course Course Narrative: RME: 80-year-old female presents to ED for CMML and pulmonary nodule presents to ED for chest pain and shortness of breath on exertion for a week. Patient is sent by safety person Dr. Everett to rule out PE. Labs EKG chest x-ray ordered Reevaluation(s) Reevaluation #1: 1. Patient's symptoms and presentation consistent with acute congestive heart failure, patient received Lasix in the emergency department and feels much better. 2. 05:00 patient had vague neurological symptoms or of forgetting her past word on the iPad and forgetting how to type, appears patient had some neurological event that is resolved now CT/CT angio of the head and neck reveals the chronic findings with no acute findings. 3. Patient with history of CML that been managed at [facility] with no records available in our hospital, abnormal leukocytosis likely secondary to CML condition of the patient. Time: 17:06 Medications Administered Generic Name Dose Route Start Last Admin Trade Name Freq PRN Reason Stop Dose Admin Fentanyl 1,000 mcg in 100 mls @ 0 mls/hr 10/10/25 12:00 10/10/25 12:27 Sublimaze/Ns IVCONT 75 mcg/hr .Q0M RICARDO 7.5 mls/hr Protocol Titration Per Protocol Sodium Chloride 3 ml 10/07/25 00:00 10/10/25 08:55 0.9 % Sodium Chloride Flush 3 Ml Syringe IVFLUSH Not Given QSHIFT [facility] Discontinued Medications Generic Name Dose Route Start Last Admin Trade Name Evelin PRN Reason Stop Dose Admin Aspirin 81 mg 10/07/25 10:30 10/09/25 07:45 Aspirin Enteric Coated 81 Mg Tablet.Dr PO 81 mg DAILY RICARDO Administration Clopidogrel Bisulfate 75 mg 10/07/25 16:30 10/09/25 07:45 Clopidogrel Bisulfate 75 Mg Tablet PO 10/28/25 16:29 75 mg DAILY [facility] Administration Diphenhydramine HCl 25 mg 10/08/25 00:18 10/08/25 00:27 Diphenhydramine Hcl 25 Mg Capsule PO 10/08/25 00:19 25 mg ONCE ONE Administration Diphenhydramine HCl 25 mg 10/08/25 20:55 10/08/25 21:12 Diphenhydramine Hcl 25 Mg Capsule PO 10/08/25 20:56 25 mg ONCE ONE Administration Fluticasone/Vilanterol 1 puff 10/08/25 08:00 10/10/25 07:10 Fluticasone/Vilanterol 200/25 Blst.W.Dev INHALE Not Given RDAILY [facility] Furosemide 40 mg 10/06/25 16:25 10/06/25 16:54 Furosemide 40 Mg/4 Ml Vial IVPUSH 10/06/25 16:26 40 mg ONCE ONE Administration Protocol Furosemide 40 mg 10/07/25 09:00 10/07/25 09:35 Furosemide 40 Mg/4 Ml Vial IVPUSH 40 mg BID@0900,1800 [facility] Administration Protocol Furosemide 20 mg 10/08/25 17:12 10/08/25 17:20 Furosemide 20 Mg/2 Ml Vial IVPUSH 10/08/25 17:13 20 mg ONCE ONE Administration Protocol Hydroxyurea 1,000 mg 10/07/25 21:00 10/09/25 20:58 Hydroxyurea 500 Mg Capsule PO 1,000 mg BID RICARDO Administration Hydroxyzine HCl 25 mg 10/09/25 01:55 10/09/25 03:53 Hydroxyzine Hcl 25 Mg Tablet PO 10/09/25 01:56 25 mg ONCE ONE Administration Hydroxyzine HCl 25 mg 10/09/25 22:31 10/09/25 22:35 Hydroxyzine Hcl 50 Mg/Ml Vial IM 10/09/25 22:32 Not Given ONCE ONE Lactated Ringer's 1,000 mls @ 100 mls/hr 10/07/25 16:45 10/07/25 18:17 Lr IVCONT Infused .Q10H RICARDO Infusion Sodium Chloride 1,000 mls @ 83 mls/hr 10/07/25 17:30 10/10/25 11:59 Ns IVCONT Infused .Q12H3M RICARDO Infusion Rasburicase 7.5 mg/ 50 mls @ 100 mls/hr 10/07/25 20:00 10/07/25 20:50 Rasburicase 1.5 mg/ Sodium IV 10/07/25 20:29 Infused Chloride ONCE ONE Infusion Sodium Chloride 1,000 mls @ 100 mls/hr 10/09/25 13:45 10/09/25 14:10 Ns IVCONT Not Given .Q10H RICARDO Nicardipine HCl 25 mg/ Sodium 250 mls @ 0 mls/hr 10/10/25 08:15 10/10/25 12:08 Chloride IVCONT Infused .Q0M RIACRDO Titration Protocol Per Protocol Iohexol 100 ml 10/06/25 15:56 10/06/25 15:57 Iohexol 350 Mg/Ml 100 Ml Infus..Btl IV 10/06/25 15:57 70 ml ONCE ONE Administration Labetalol HCl 20 mg 10/10/25 08:10 10/10/25 08:49 Labetalol Hcl 100 Mg/20 Ml Vial IVPUSH 10/10/25 08:11 Not Given ONCE STA Loperamide HCl 2 mg 10/09/25 22:31 10/09/25 22:40 Loperamide Hcl 2 Mg Capsule PO 10/09/25 22:32 2 mg ONCE ONE Administration Magnesium Hydroxide 30 ml 10/06/25 17:31 10/09/25 13:59 Milk Of Magnesia 30 Ml Oral.Susp PO 30 ml DAILY PRN Administration Constipation Melatonin 6 mg 10/06/25 17:31 10/07/25 20:17 Melatonin 3 Mg Tablet PO 6 mg BEDTIME PRN Administration Insomnia Potassium Chloride 40 meq 10/09/25 11:00 10/09/25 20:56 Potassium Chloride Packet 20 Meq Packet PO 10/10/25 10:59 40 meq BID RICARDO Administration Pravastatin Sodium 20 mg 10/07/25 10:30 10/09/25 07:45 Pravastatin Sodium 20 Mg Tablet PO 20 mg DAILY RICARDO Administration Medical Decision Making Differential Diagnosis Differential Diagnoses: The differential diagnosis associated with the presentation includes (ACS, acute stroke, CHF, pneumonia, pneumothorax, pleural effusion, electrolyte derangement, severe anemia.) Admission/Observation Consideration of admission/observation: Escalation of care including admission/observation considered Lab Data MDM Lab Attestation statement: I reviewed the patient's lab results. 10/10/25 07:48 10/10/25 07:48 Labs: Lab Results 10/06/25 10/06/25 Range/Units 14:43 14:44 WBC 393.9 H* (4.8-10.8) X10*3/uL RBC 2.35 L (4.20-5.50) X10*6/uL Hgb 8.4 L (12.0-16.0) g/dl Hct 24.1 L (37.0-47.0) % MCV 102.6 H (80.0-98.0) fL MCH 35.7 H (27.0-33.0) pg MCHC 34.9 (31.0-35.0) g/dl RDW 19.3 H (11.0-16.0) % Plt Count 40 L (160-400) X10*3/uL MPV Not Reportable Immature Gran % (Auto) Cancelled Neut % (Auto) Cancelled Lymph % (Auto) Cancelled Cascade % (Auto) Cancelled Eos % (Auto) Cancelled Baso % (Auto) Cancelled Lymph # (Auto) Cancelled Cascade # (Auto) Cancelled Eos # (Auto) Cancelled Baso # (Auto) Cancelled Abs Immat Gran (auto) Cancelled Absolute Neuts (auto) Cancelled Absolute Nucleated RBC 1.000 H (0.0-0.012) X10*3/uL Nucleated RBC % (auto) 0.3 H (0.0-0.2) /100WBC Neutrophils % (Manual) 36 L (45-73) % Band Neutrophils % 18 H (3-5) % Lymphocytes % (Manual) 3 L (20-40) % Monocytes % (Manual) 8 (2-11) % Metamyelocytes % 5 % Myelocytes % 6 % Promyelocytes % 18 % Blast Cells % (Manual) 6 % Abs Neuts (Manual) 212.7 H (2.0-8.3) X10*3/uL Lymphocytes # (Manual) 11.8 H (1.2-4.9) X10*3/uL Monocytes # (Manual) 31.5 H (0.1-1.2) X10*3/uL Metamyelocytes # 19.7 X10*3/uL Myelocytes # 23.6 X10*/uL Promyelocytes # 70.9 X10*3/uL Blast Cells # 23.6 X10*3/uL Toxic Vacuolation PRESENT Platelet Estimate DECREASED (NORMAL) Plt Morphology Comment NORMAL RBC Morphology NOTED Polychromasia 1+ (0-2) /OIF Macrocytosis 1+ (5-14) /OIF Smear Path Review SEE NOTE PT 13.1 (11.2-13.5) SEC INR 1.1 (0.9-1.1) APTT 25.1 L (26.7-34.1) SEC Sodium 142 (135-145) mmol/L Potassium 3.8 (3.3-5.1) mmol/L Chloride 104 (96-108) mmol/L Carbon Dioxide 26 (22-29) mmol/L Anion Gap 16 (12-20) BUN 23 H (9-16) mg/dL Creatinine 2.17 H (0.5-1.4) mg/dL Estim Creat Clear Calc 18.5 Estimated GFR 22 Random Glucose 110 (60-115) mg/dL Calcium 10.1 (8.4-10.2) mg/dL Total Bilirubin 0.5 (0.0-1.0) mg/dL AST 28 (5-31) U/L ALT 13 (0-31) U/L Alkaline Phosphatase 70 (39-117) U/L Troponin I High Sens 7.0 (<3.5-17.0) ng/L NT-Pro-B Natriuret Pep 652.7 H (<300) pg/mL Total Protein 7.5 (6.5-8.0) g/dL Albumin 4.7 (3.5-5.0) g/dL Influenza Type A (PCR) NEGATIVE (Negative) Influenza Type B (PCR) NEGATIVE (Negative) RSV RNA Qual (PCR) NEGATIVE (Negative) SARS-CoV-2 RNA (RT-PCR) NEGATIVE (Negative) Independent Interpretation I performed an independent interpretation of an: Plain X-Ray ( chest: No acute intrathoracic pathology.) and CT Scan ( Head/ CT angio head and neck,1. There is an approximate 50% stenosis of the origin of the right ICA due to mixed plaque. 2. There is an approximate 40% stenosis of the left carotid bulb due to calcific plaque. 3. There is an approximate 70% stenosis of the left subclavian artery just after the ) Radiology Impression Discussion of test interpretation with radiology: I have reviewed the radiologist's reading. Discharge Plan Discharge Clinical Impression: Brain TIA Congestive heart failure Qualifiers: Heart failure type: unspecified Heart failure chronicity: acute on chronic Q ualified Code(s): I50.9 - Heart failure, unspecified Patient Disposition: Admitted As Inpatient Interventions: Admission Worksheet (ED) Last Done: 10/06/25 19:31 Discharge Date/Time: 10/06/25 20:18
[2025-10-06 14:52] LABS: Hematocrit 24.1 % (37.0-47.0); Hemoglobin 8.4 g/dl (12.0-16.0); Mean Corpuscular HGB Conc 34.9 g/dl (31.0-35.0); PLT CLUMP 1
[2025-10-06 14:54] LABS: Mean Corpuscular Hemoglobin 35.7 pg (27.0-33.0); Mean Corpuscular Volume 102.6 fL (80.0-98.0); NRBC Abs Auto 1.000 X10*3/uL (0.0-0.012); NRBC Pct Auto 0.3 /100WBC (0.0-0.2); Red Blood Count 2.35 X10*6/uL (4.20-5.50); WBC ABN SCTR FOR CBC 1
[2025-10-06 14:58] LABS: White Blood Count 393.9 X10*3/uL (4.8-10.8)
[2025-10-06 15:02] LABS: INTERNATIONAL NORM RATIO 1.1 (0.9-1.1); Prothrombin Time 13.1 SEC (11.2-13.5)
[2025-10-06 15:04] LABS: Partial Thromboplastin Time 25.1 SEC (26.7-34.1)
--- NOTE | 2025-10-06 15:08 | PC.NURSE ---
Pt presented to ED with complaints of SOB on exertion and chest pains X1 week. Pt has hx of COPD and CMML cancer, Also reporting dizziness X4 months. While RN was assessing, pt mentioned that around 5AM this morning she was having trouble using her IPAD and her right arm was not working as well as normal (normally has zero weakness or issues). Reported when she signed into the hospital she had trouble signing her name which is not normal for her as well. This RN did a quick bedside FAST exam and noticed right sided arm weakness, slight arm drift on right side and potentially slight left sided facial droop. This RN immediately notified Dr. Webb and he came to bedside and did exam/ placed orders.
[2025-10-06 15:16] LABS: Alanine Aminotransferase 13 U/L (0-31); Albumin Level 4.7 g/dL (3.5-5.0); Alkaline Phosphatase 70 U/L (39-117); Anion Gap 16 (12-20); Aspartate Amino Transferase 28 U/L (5-31); Blood Urea Nitrogen 23 mg/dL (9-16); Calcium 10.1 mg/dL (8.4-10.2); Carbon Dioxide 26 mmol/L (22-29); Chloride 104 mmol/L (96-108); Creatinine Clr Calc Pharmacy 18.5; Estimated Glomerular Filt Rate 22; Potassium 3.8 mmol/L (3.3-5.1); Sodium 142 mmol/L (135-145); Total Protein 7.5 g/dL (6.5-8.0)
[2025-10-06 15:24] LABS: Troponin-I High Sensitivity 7.0 ng/L (<3.5-17.0)
[2025-10-06 15:25] LABS: NT Pro B Type Natriuretic Pept 652.7 pg/mL (<300)
--- NOTE | 2025-10-06 15:35 | PC.NURSE ---
Per MD, pt out of window. Tech asked about bedside INR testing and MD declined that. MD reported he will put in orders for scan. No Stroke alert at this time. Orders followed
[2025-10-06 15:53] LABS: Neutrophils Percent Manual 36 % (45-73)
[2025-10-06 15:54] LABS: Band Neutrophils Percent 18 % (3-5); Blast Percent 6 %; Blastocytes Absolute 23.6 X10*3/uL; Lymphocytes Absolute Manual 11.8 X10*3/uL (1.2-4.9); Lymphocytes Percent Manual 3 % (20-40); Metamyelocytes Absolute 19.7 X10*3/uL; Metamyelocytes Percent 5 %; Monocytes Absolute Manual 31.5 X10*3/uL (0.1-1.2); Monocytes Percent Manual 8 % (2-11); Myelocytes Absolute 23.6 X10*/uL; Myelocytes Percent 6 %; Neutrophils Absolute Manual 212.7 X10*3/uL (2.0-8.3); Promyelocytes Absolute 70.9 X10*3/uL; Promyelocytes Percent 18 %
[2025-10-06 15:56] LABS: Macrocytosis 1+ (5-14) /OIF; RBC Morphology NOTED
[2025-10-06 15:57] LABS: Polychromasia 1+ (0-2) /OIF
[2025-10-06] MEDS: iohexoL 350 MG/ML 100 ML INFUS..BTL IV (15:57)
[2025-10-06 15:58] LABS: Platelet Count 40 X10*3/uL (160-400); Toxic Vacuolation PRESENT
[2025-10-06 16:10] LABS: Resp Syncy Virus RNA Qual PCR NEGATIVE (Negative); SARS COV2 PCR INHOUSE NEGATIVE (Negative)
--- NOTE | 2025-10-06 16:41 | MHC.STROKE ---
Met with patient in ED bed 22. Pt completed CT scans Pt is awake, alert and oriented x 4. Pt reports that she couldn't sleep this am and attempted to use her ipad around 0430. She reports feeling that her right arm was clumsy and she had difficulty pressing the keys. Pt states that she went to bed at approximately 2300 the night before and didn't notice this weakness. Pt is currently under the care of Dr. Everett and originally was sent in for SOB. Upon further discussion with the ED provider, she mentioned the RUE weakness and stroke CT's were ordered. No other deficits noted. Stroke Education reviewed with the patient and her family Stroke pamphlet provided all questions answered. Pt's medical hx reviewed including medications, diet, social hx, and activity.
[2025-10-06] MEDS: Furosemide 40 MG/4 ML VIAL IVPUSH (16:54)
--- NOTE | 2025-10-06 18:36 | PHA.MEDREC ---
Addendum entered by Piyush Bowser PharmD 10/06/25 18:40: reviewed Original Note: Pharmacy Consult ? Medication Reconciliation Pharmacy has completed the medication reconciliation. Spoke with pt and she confirmed her medications. pt no longer taking Trellegy and states her Dr told her to start taking Symbicort in the last few months (has a previous fill from May pt confirmed she is using again), pt finished her Methylprednisolone 4mg regimen this past weekend.
--- NOTE | 2025-10-06 18:40 | PM.IMHP ---
History of Present Illness Date of Service: 10/06/25 Attending physician on admission: Vincent Simon Chief Complaint: Shortness of breath and weakness 80-year-old female with past medical history significant for hypertension, COPD and CML who presented to the hospital complaining of worsening shortness of breath for approximately 4 months, on [id number] exertion, patient refers she follows up with Cardiology as an outpatient and was scheduled for echocardiogram as well as nuclear stress test. Patient today experienced aphasia and right upper extremity weakness and decided to come to the ED. In the ED, labs showing leukocyte count of 393,000, hemoglobin 8.4, creatinine 2.1 imaging with no acute findings for CVA, chest x-ray with no findings for cardiomegaly. Patient at this time mentioned that her weakness has improved, however still not at baseline. Review of Systems Review of Systems: Fourteen point review of systems obtained, negative except as stated above [facility] Medical History Pulmonary nodule Pneumonitis Pulmonary nodules COVID-19 COPD (chronic obstructive pulmonary disease) Social History Patient Tobacco Use Status: Former Tobacco user Tobacco use type: Cigarette Years Smoked: 30 years Smoked in Last 30 Days: No Use of substances other than those prescribed or required for medical reasons: No Advance Directives: No Advance Directives Information Provided: Yes Do you have a plan to hurt others: No Plan Meds Allergies Allergy/AdvReac Type Severity Reaction Status Date / Time fentanyl Allergy Intermediate elevated bp Verified 10/06/25 13:57 Penicillins Allergy Severe Rash and Uncoded 08/26/24 10:16 Hives Sulfa Drugs Allergy Severe Rash and Uncoded 08/26/24 10:16 Hives Active Medications: Current Medications Acetaminophen (Acetaminophen 325 Mg Tablet) 650 mg PO Q6H PRN PRN Reason: Pain, Mild 1-3,fever,headache Calcium Carbonate (Calcium Carbonate 750 Mg Tab.Chew) 750 mg PO Q4H PRN PRN Reason: Heartburn Furosemide (Furosemide 40 Mg/4 Ml Vial) 40 mg IVPUSH BID@0900,1800 RICARDO; Protocol Labetalol HCl (Labetalol Hcl 100 Mg/20 Ml Vial) 10 mg IVPUSH Q8H PRN PRN Reason: SBP > 160 Magnesium Hydroxide (Milk Of Magnesia 30 Ml Oral.Susp) 30 ml PO DAILY PRN PRN Reason: Constipation Melatonin (Melatonin 3 Mg Tablet) 6 mg PO BEDTIME PRN PRN Reason: Insomnia Ondansetron HCl (Ondansetron Hcl 4 Mg/2 Ml Vial) 4 mg IVPUSH Q8H PRN PRN Reason: Nausea and Vomiting Sodium Chloride (0.9 % Sodium Chloride Flush 3 Ml Syringe) 3 ml IVFLUSH QSHIFT [facility] Home Medications ?Medication ?Instructions ?Recorded ?Confirmed ?Last Taken ?Type calcium 600 mg (as 1 tab PO DAILY 02/19/21 10/06/25 10/06/25 History carbonate)-vitamin D3 5 mcg (200 unit) tablet (Calcium 600 + D(3)) ipratropium bromide 42 mcg (0.06 2 spray intranasal DAILY PRN Nasal 02/19/21 10/06/25 Unknown History %) nasal spray Congestion lovastatin 20 mg tablet 20 mg PO DAILY 02/19/21 10/06/25 10/06/25 History aspirin 81 mg tablet,delayed 81 mg PO DAILY 11/26/22 10/06/25 10/06/25 History release cetirizine 10 mg disintegrating 10 mg PO DAILY 11/26/22 10/06/25 10/06/25 History tablet nebulizers 11/26/22 05/07/23 Unknown History albuterol sulfate 90 mcg/actuation 2 puff inhalation Q6H PRN 10/06/25 10/06/25 Unknown History aerosol inhaler Shortness Of Breath Or Wheezing budesonide-formoterol HFA 160 2 puff inhalation BID 10/06/25 10/06/25 10/06/25 History mcg-4.5 mcg/actuation aerosol inhaler (Symbicort) midodrine 5 mg tablet 5 mg PO BID 10/06/25 10/06/25 10/06/25 History Physical Exam Vital Signs and Narrative: Vital Signs: Last Vital Signs Temp 98.2 F 10/06/25 16:30 Pulse 103 H 10/06/25 16:30 Resp 19 10/06/25 16:30 BP 137/70 10/06/25 16:54 Pulse Ox 97 10/06/25 16:30 O2 Del Method Nasal Cannula 10/06/25 16:30 O2 Flow Rate 2 10/06/25 16:30 BMI result Body Mass Index 23.3 General: AxOx3, mild distress on supplemental oxygen Head: AT/NC ENT: Moist mucous membranes Neck: supple CVS; RRR, S1 S2 normal Lungs: Clear bilateral breath sounds, no wheezes or crackles Abd: Soft non tender, non distended Ext: No edema and no calf tenderness MSK: moving all 4 limbs Skin: No cyanosis or edema Psych: Cooperative with exam Neurology: Rapid upper extremity 4/5, rest 5/5 Results Labs 10/06/25 14:43 10/06/25 14:43 Labs: Laboratory Results - last 24 hr 10/06/25 10/06/25 14:43 14:44 MCV 102.6 H MCH 35.7 H MCHC 34.9 RDW 19.3 H Plt Count 40 L MPV Not Reportable Immature Gran % (Auto) Cancelled Neut % (Auto) Cancelled Lymph % (Auto) Cancelled [place] % (Auto) Cancelled Eos % (Auto) Cancelled Baso % (Auto) Cancelled Lymph # (Auto) Cancelled [place] # (Auto) Cancelled Eos # (Auto) Cancelled Baso # (Auto) Cancelled Abs Immat Gran (auto) Cancelled Absolute Neuts (auto) Cancelled Absolute Nucleated RBC 1.000 H Nucleated RBC % (auto) 0.3 H Neutrophils % (Manual) 36 L Band Neutrophils % 18 H Lymphocytes % (Manual) 3 L Monocytes % (Manual) 8 Metamyelocytes % 5 Myelocytes % 6 Promyelocytes % 18 Blast Cells % (Manual) 6 Abs Neuts (Manual) 212.7 H Lymphocytes # (Manual) 11.8 H Monocytes # (Manual) 31.5 H Metamyelocytes # 19.7 Myelocytes # 23.6 Promyelocytes # 70.9 Blast Cells # 23.6 Toxic Vacuolation PRESENT Platelet Estimate DECREASED Plt Morphology Comment NORMAL RBC Morphology NOTED Polychromasia 1+ (0-2) Macrocytosis 1+ (5-14) PT 13.1 INR 1.1 APTT 25.1 L Anion Gap 16 Estim Creat Clear Calc 18.5 Estimated GFR 22 Random Glucose 110 Calcium 10.1 Total Bilirubin 0.5 AST 28 ALT 13 Alkaline Phosphatase 70 Troponin I High Sens 7.0 NT-Pro-B Natriuret Pep 652.7 H Total Protein 7.5 Albumin 4.7 Influenza Type A (PCR) NEGATIVE Influenza Type B (PCR) NEGATIVE RSV RNA Qual (PCR) NEGATIVE SARS-CoV-2 RNA (RT-PCR) NEGATIVE Imaging Radiologist's Impressions: Impressions Chest X-Ray 10/06/25 14:17 IMPRESSION: No evidence for acute disease in the chest. Electronically signed by: Jana Bruner MD 10/06/2025 02:29 PM EST RP Head/Neck CTA 10/06/25 15:20 IMPRESSION: CTA NECK: 1. There is an approximate 50% stenosis of the origin of the right ICA due to mixed plaque. 2. There is an approximate 40% stenosis of the left carotid bulb due to calcific plaque. 3. There is an approximate 70% stenosis of the left subclavian artery just after the origin. 4. There is a mild stenosis of the origin of the left common carotid artery due to calcific plaque. CTA HEAD: 1. There is no high-grade stenosis, occlusion, dissection, or aneurysm of the major intracranial arterial vasculature. 2. The right vertebral artery terminates as a PICA branch. 3. There is mild stenosis of the left vertebral artery V4 segment due to calcific plaque. 4. There is a moderate stenosis at the origin of the left SUPERVISOR PR[employer] ROOM, P1 segment. 5. There is a moderate stenosis at the origin of the right superior cerebellar artery. 6. The major cortical and dural venous sinuses are patent. Electronically signed by: Abelino Romero MD 10/06/2025 04:46 PM EST RP Head CT 10/06/25 15:38 IMPRESSION: No acute intracranial hemorrhage. Small vessel occlusive disease. Atherosclerosis disease, intracranial. This critical result was discussed with the requesting images a physician Dr. Haleigh Webb at 3:51 PM hours on October 06, 2025. It was ascertained that the content and urgency of the report was understood at the time of direct communication. Electronically signed by: Chriss Shah MD 10/06/2025 03:56 PM EST RP Assessment and Plan (1) Acute hypoxemic respiratory failure: Status: Acute (2) Brain TIA: Status: Acute (3) Congestive heart failure: Qualifiers: Heart failure type: unspecified Heart failure chronicity: acute on chronic Qualified Code(s): I50.9 - Heart failure, unspecified Status: Acute (4) CML (chronic myelocytic leukemia): Status: Acute Plan Assessment: 80-year-old female who presented to the hospital complaining of worsening shortness of breath that has been ongoing for the past couple of months, patient today also noticed that she was experiencing right-sided weakness with dysarthria. TIA -head CT with no acute intracranial hemorrhage, small-vessel occlusive disease and intracranial atherosclerosis disease. -CTA head and neck with 70% stenosis of left subclavian artery after origin, moderate stenosis at origin of left SU[employer] and right superior cerebellar artery -TSH, A1c and lipid panel ordered, A1c may be altered in the setting of anemia -TTE ordered to rule out PFO -MRI ordered to rule out stroke -neurology consulted -we will defer anticoagulation on telemetry is obtained Acute hypoxic respiratory failure, likely secondary to heart failure exacerbation Congestive heart failure -labs and imaging reviewed -status post IV Lasix given, we will continue with Lasix 40 mg IV b.i.d. -continue to monitor labs -TTE ordered -cardiology consulted, per patient patient was being worked up and was awaiting to have no clear stress test done as well as echo in outpatient setting. Hypertension, chronic -this time we will continue with Lasix, we will give labetalol p.r.n. CML leukocytosis, secondary to above Anemia, suspect of chronic disease Thrombocytopenia -likely related to bone marrow disease, patient previously worked up by Hematology/Oncology, suggested on possible bone marrow transplant which patient refused -continue to monitor for any signs of bleeding, chest pain Suspected BETHANY with creatinine 2.1, unknown baseline, likely prerenal in the setting of volume overload -urine sodium, urine creatinine, UA, retroperitoneal ultrasound ordered -we will defer giving IV fluids at this time FEN: NI, replete as needed, NPO until assessed by speech GI PPx: NI DVT PPx: SCDs Code Status: DNR/DNI Disposition: All questions and concerns with the patient were answered to satisfaction. All pertinent clinical documents, images and labs were reviewed. DISCLAIMER: This document was created using voice recognition software. Any mistakes in the prescription are unintentional. An attempt was made to focus for accuracy, but to expedite availability, some errors may persist. Please contact with any need for correction or further clarification Total time managing care of this patient today: 75 minutes. Quality Stroke Does the patient have a stroke diagnosis?: No VTE Prior VTE?: No VTE Risk Level:: Medical - moderate - high VTE Device Contraindication: N/A - Device Ordered VTE Drug Contraindication: Treatment Not Indicated
[2025-10-06 18:55] LABS: Appearance Urine Cloudy; Glucose Urine UA Negative (Negative); PH 6.0 (5.0-9.0); Specific Gravity - Urine 1.015 (1.005-1.025); UMIC TRIGGER UACC YES
[2025-10-06 19:54] LABS: UACC Culture Trigger YES
--- OUTSIDE RECORDS SUMMARY | 2025-10-06 19:59 | XMS_ITS | Clinical Summary ---
Author Organization [facility] Address [address] [place] [id number] Phone Care Team Providers Care Medical Coding Specialist Name Role Phone Giles Campo MD Primary Care Provider [phone] Jairo Bosch MD Unavailable [phone] Allergies Active Allergy Reactions Criticality Noted Date [...] Devices Not on file Insurance MEDICARE [place] [address] [place] [address] MEDICARE REPLACEMENT Member Subscriber Plan / Payer (Ef fective 2024-Present) Name:[place] Relation to Subscriber:Self Name:[place] Salcido Payer ID:[id number] (NAIC) Type:Medicare Address: [place] [phone] MEDICARE REPLACEMENT Member Subscriber Plan / Payer (Ef fective 2024-Present) Name:Le Salcido Relation to Subscriber:Self Name:Le Salcido Payer ID:[id number] (NAIC) Type:Medicare Address: [place] [id number] MEDICARE REPLACEMENT MEDICARE REPLACEMENT [facility] MEDICARE REPLACEMENT [facility] MEDICARE REPLACEMENT Member Subscriber Plan / Payer (Ef fective 2024-Present) Name:Le Salcido Relation to Subscriber:Self Name:Nancy Salcidomanish Da Silva Payer ID:[id number] (NAIC) Type:Medicare Address: [place] [phone] Care Teams Medical Coding Specialist Relationship Specialty Start Date End Date Giles Campo MD [address] [place] [phone] PCP - General Internal Medicine 01/18/25 Ivan-Jairo Garvey MD [address] [place] [id number] [email or web address] Referring Physician Internal Medicine 01/18/25 Additional Source Comments The information contained in this document represents components of the legal health record. It is not the complete legal health record.[facility]
[2025-10-07] VITALS (7 sets, daily range): BP systolic 121–139; BP diastolic 61–71; PULSE 95–105; RESP 18–20; TEMP 36.3–37; O2SAT 93–98
[2025-10-07] MEDS: 0.9 % Sodium Chloride Flush 3 ML SYRINGE IVFLUSH ×4 (02:00→20:22)
[2025-10-07 06:25] LABS: Hematocrit 21.9 % (37.0-47.0); Hemoglobin 7.5 g/dl (12.0-16.0); Mean Corpuscular HGB Conc 34.2 g/dl (31.0-35.0); Mean Corpuscular Hemoglobin 34.9 pg (27.0-33.0); Mean Corpuscular Volume 101.9 fL (80.0-98.0); NRBC Abs Auto 0.780 X10*3/uL (0.0-0.012); NRBC Pct Auto 0.2 /100WBC (0.0-0.2); Red Blood Count 2.15 X10*6/uL (4.20-5.50)
[2025-10-07 06:31] LABS: Platelet Count 32 X10*3/uL (160-400)
[2025-10-07 06:51] LABS: Anion Gap 13 (12-20); Blood Urea Nitrogen 22 mg/dL (9-16); Calcium 9.6 mg/dL (8.4-10.2); Carbon Dioxide 27 mmol/L (22-29); Chloride 101 mmol/L (96-108); Cholesterol 121 mg/dL (<200); Creatinine Clr Calc Pharmacy 18.2; Estimated Glomerular Filt Rate 21; HDL Cholesterol 14 mg/dL (>40); Magnesium 2.2 mg/dL (1.6-2.6); Potassium 3.4 mmol/L (3.3-5.1); Sodium 138 mmol/L (135-145); Triglycerides 182 mg/dL (<150)
[2025-10-07 06:57] LABS: White Blood Count 346.7 X10*3/uL (4.8-10.8)
--- NOTE | 2025-10-07 07:00 | CA_ITS ---
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 The visually estimated ejection fraction is between 65-70%. - There is mild calcification of the aortic valve. - There is moderate mitral annular calcification. Findings Left Ventricle Normal left ventricular cavity size. There is moderately increased left ventricular wall thickness. The left ventricular systolic function is hyperdynamic. The visually estimated ejection fraction is between 65-70%. There is no evidence of regional wall motion abnormalities. Diastolic function is indeterminate on the basis of available data. Right Ventricle Normal right ventricular cavity size and systolic function. Atria Both atria are normal in size. Aortic Valve There is mild calcification of the aortic valve. There is no aortic valve stenosis. There is no aortic valve regurgitation. Mitral Valve There is moderate mitral annular calcification. There is trace mitral valve regurgitation. There is no mitral valve stenosis. Pulmonic Valve The pulmonic valve is likely normal. Tricuspid Valve The tricuspid valve was not well visualized. Tricuspid regurgitation envelope is inadequate for calculation of right ventricular systolic pressure. Great Vessels The asc aorta is normal in size. Venous The inferior vena cava is normal in size and collapses greater than 50% with inspiration. Pericardium/Pleural There is no evidence of pericardial effusion. Prior Study Comparison No prior study available for comparison. Measurements 2D Linear Measurements IVSd: 1.40 0.6-0.9/0.6-1.0 cm LVIDd: 2.87 3.9-5.3/4.2-5.9 cm LVIDd Index: 1.70 2.4-3.2/2.2-3.1 cm/m2 LVIDs: 1.88 2.0-3.6 cm LVPWd: 1.42 0.7-1.1 cm LA Diam: 2.80 2.7-3.8/3.0-4.0 cm LAIDs Index: 1.66 1.5-2.3 cm/m2 LV Mass: 167.00 67-162/88-224 g LV Mass Index: 98.82 43-95/49-115 g/m2 LVOT Diam: 2.00 3.0+(-)1.3 cm Mitral Valve MV VTI: 0.19 MV Pk German: 1.49 MV Mn German: 0.96 MV Pk Grad: 9.00 MV Mn Grad: 5.00 MV Pk E: 1.25 MV Decel Time: 120.00 E'Lateral: 8.16 E'Medial: 11.40 E/E' Med: 11.00 E/E' Lat: 15.30 PHT: 35.00 MVA PHT: 6.29 MVA Continuity: 3.22 Decel Bee: 10.38 Aortic Valve AoV Pk German: 1.65 AoV Mn German: 1.14 AoV VTI: 0.27 AoV Pk Grad: 11.00 Aov Mn Grad: 6.00 CARMEN Cont.VTI: 2.30 LVOT LVOT Pk German: 1.19 LVOT Mn German: 0.76 LVOT VTI: 0.20 LVOT Pk Grad: 6.00 LVOT Mn Grad: 3.00 LVOT Diam: 2.00 LVOT Area: 3.14 Diastolic Function MV Pk E: 1.25 E'Medial: 11.40 E/E' Med: 11.00 E' Laterial: 8.16 E/E' Lat: 15.30 Right Ventricle TAPSE (mm): 23.00 TVS' German: 16.10 Tricuspid Valve RA Press: 3.00 Great Vessels Aorta Sinus of Valsalva: 3.00 2.0-3.5 cm Ao Asc: 3.00 2.1-3.4 cm Pulmonary Valve PV Pk German: 1.19 Peak PV Grad: 6.00 Updated in Other Vendor System with Status of Final Kenton Hernandez MD electronically signed on 10/07/2025 11:15:26 AM with status of Final
[2025-10-07 07:06] LABS: Thyroid Stimulating Hormone 1.16 uIU/mL (0.32-4.0)
[2025-10-07] MEDS: Furosemide 40 MG/4 ML VIAL IVPUSH (09:35)
--- NOTE | 2025-10-07 09:49 | P.CONCA_ITS ---
History of Present Illness History of Present Illness Date of Service: 10/07/25 Chief complaint: TIA Narrative: This is a cardiology consultation regarding shortness of breath. Over the last week or so, she has been increasingly short of breath. Prior to that, she states that she has had some shortness of breath with activity but more so just within the last few days. After any form of activity she is feeling short of breath and has also noticed some chest discomfort as well. She has a background of CMML and is seen at [place] for the same. Unclear what her current status and also unclear prognosis. From the cardiac standpoint, she has got no known coronary disease myocardial infarction. She apparently saw a ticket clerk in [place] recently, but she cannot recall any details. Following that visit, she has been set up for an echocardiogram and stress test as an outpatient. Additionally, there was a question of aphasia and right upper extremity weakness. However, that has improved now. Review of Systems 2 Review of Systems: Yes all other systems are reviewed and are negative Constitutional: Constitutional: Reports as per HPI and Reports no additional constitutional complaints Eyes: Eyes: Reports as per HPI and Denies no additional eye complaints ENT: Denies system reviewed and no additional complaints, except as documented and Reports as per HPI Cardiovascular: Cardiovascular: Reports as per HPI, Reports no additional cardiovascular complaints, Denies acrocyanosis, Denies cool extremities, Reports chest pain, Denies leg edema, Denies lightheadedness, Denies palpitations and Reports dyspnea Respiratory: Respiratory: Reports as per HPI, Denies no additional respiratory complaints and Reports dyspnea Gastrointestinal: Gastrointestinal: Reports as per HPI and Denies no additional gastrointestinal complaints Genitourinary: Genitourinary: Reports as per HPI Musculoskeletal: Musculoskeletal: Reports no additional musculoskeletal complaints and Reports as per HPI Integumentary/Breasts: Skin/Breast: Reports system reviewed and no additional complaints, except as docu Neurologic: Reports system reviewed and no additional complaints, except as documented and Reports as per HPI Psychiatric: Psychiatric: Reports no additional psychiatric complaints and Reports as per HPI Endocrine: Endocrine: Reports no additional endocrine complaints, Reports as per HPI and Denies palpitations Hematologic/Lymphatic: Hematologic/Lymphatic: Reports no additional hematologic/lymphatic complaints and Reports as per HPI Allergic/Immunologic: Allergic/Immunologic: Reports no additional allergic/immunologic complaints and Reports as per HPI [facility] Past Medical History Medical History (Updated 10/07/25 @ 09:53 by Kenton Hernandez MD) Chest discomfort Dyspnea Pulmonary nodule Pneumonitis Pulmonary nodules COVID-19 COPD (chronic obstructive pulmonary disease) Family History Pertinent family history: No pertinent family history Social History Social History Household Members: Family Housing: House Do you presently have visiting nurse or other home services: No Patient Tobacco Use Status: Former Tobacco user Tobacco use type: Cigarette Years Smoked: 30 years Second Hand Smoke Exposure: No Meds Allergies Allergy/AdvReac Type Severity Reaction Status Date / Time fentanyl Allergy Intermediate elevated bp Verified 10/06/25 13:57 Penicillins Allergy Severe Rash and Uncoded 08/26/24 10:16 Hives Sulfa Drugs Allergy Severe Rash and Uncoded 08/26/24 10:16 Hives Active Medications: Current Medications Acetaminophen (Acetaminophen 325 Mg Tablet) 650 mg PO Q6H PRN PRN Reason: Pain, Mild 1-3,fever,headache Calcium Carbonate (Calcium Carbonate 750 Mg Tab.Chew) 750 mg PO Q4H PRN PRN Reason: Heartburn Furosemide (Furosemide 40 Mg/4 Ml Vial) 40 mg IVPUSH BID@0900,1800 RICARDO; Protocol Last Admin: 10/07/25 09:35 Dose: 40 mg Labetalol HCl (Labetalol Hcl 100 Mg/20 Ml Vial) 10 mg IVPUSH Q8H PRN PRN Reason: SBP > 160 Magnesium Hydroxide (Milk Of Magnesia 30 Ml Oral.Susp) 30 ml PO DAILY PRN PRN Reason: Constipation Melatonin (Melatonin 3 Mg Tablet) 6 mg PO BEDTIME PRN PRN Reason: Insomnia Ondansetron HCl (Ondansetron Hcl 4 Mg/2 Ml Vial) 4 mg IVPUSH Q8H PRN PRN Reason: Nausea and Vomiting Sodium Chloride (0.9 % Sodium Chloride Flush 3 Ml Syringe) [address] [facility] Last Admin: 10/07/25 09:35 Dose: 3 ml Home Medications ?Medication ?Instructions ?Recorded ?Confirmed ?Last Taken ?Type calcium 600 mg (as 1 tab PO DAILY 02/19/2109/1810/06/25 History carbonate)-vitamin D3 5 mcg (200 unit) tablet (Calcium 600 + D(3)) ipratropium bromide 42 mcg (0.06 2 spray intranasal DA ZAHIDA PRN Nasal 02/19/21 10/06/25 Unknown History %) nasal spray Congestion lovastatin 20 mg tablet 20 mg PO DAILY 02/19/2109/1810/06/25 History aspirin 81 mg tablet,delayed 81 mg PO DAILY 11/26/22 1 12/06/24 10/06/25 History release cetirizine 10 mg disintegrating 10 mg PO DAILY 3 10/06/25 10/06/25 History tablet nebulizers 11/26/22 05/07/23 Unknown H istory albuterol sulfate 90 mcg/actuation 2 puff inhalation Q 6H PRN 10/06/25 10/06/25 Unknown History aerosol inhaler Shortness Of Breath Or Wheez ing budesonide-formoterol HFA 160 2 puff inhalation BID 10/06/25 10/06/25 History mcg-4.5 mcg/actuation aerosol inhaler (Symbicort) midodrine 5 mg tablet 5 mg PO BID 10/06/25 5 10/06/25 History Physical Exam 2 Vital Signs: Vital Signs: Last Vital Signs Temp 97.7 F 10/07/25 07:45 Pulse 95 10/07/25 07:45 Resp 18 10/07/25 07:45 BP 122/69 10/07/25 07:45 Pulse Ox 98 10/07/25 07:45 O2 Del Method Nasal Cannula 10/07/25 07:45 O2 Flow Rate 2 10/07/25 07:45 BMI result Body Mass Index 23.2 Const: General: comfortable and no acute distress O rientation/consciousness: patient oriented x3 HEENT: Other: Unremarkable Head: Yes normal to inspection Neck: Neck: Yes normal visual inspection Chest: Chest palpation & inspection: normal inspection of the chest Resp: Auscultation: clear to auscultation bilaterally Cardio: Palpation: normal PMI Heart sounds: S1 normal heart sound present, S2 normal heart sound present, no gallops, no murmurs and no rubs GI: Palpation (GI): Soft to palpation Back/Spine/Pelvis: Other: unremarkable Skin: General skin exam: no rashes or lesions noted Neuro: General: patient oriented x3 Extrem: General: Yes normal to inspection Psych: Mental Status: mental status grossly normal Objective Labs and Meds 11/21/25 06:06 10/07/25 06:06 Lab results: Laboratory Results - last 24 hr 10/06/25 10/06/25 10/06/25 14:43 14:44 18:40 WBC 393.9 H* RBC 2.35 L Hgb 8.4 L Hct 24.1 L MCV 102.6 H MCH 35.7 H MCHC 34.9 RDW 19.3 H Plt Count 40 L MPV Not Reportable Immature Gran % (Auto) Cancelled Neut % (Auto) Cancelled Lymph % (Auto) Cancelled [place] % (Auto) Cancelled Eos % (Auto) Cancelled Baso % (Auto) Cancelled Lymph # (Auto) Cancelled [place] # (Auto) Cancelled Eos # (Auto) Cancelled Baso # (Auto) Cancelled Abs Immat Gran (auto) Cancelled Absolute Neuts (auto) Cancelled Absolute Nucleated RBC 1.000 H Nucleated RBC % (auto) 0.3 H Neutrophils % (Manual) 36 L Band Neutrophils % 18 H Lymphocytes % (Manual) 3 L Monocytes % (Manual) 8 Metamyelocytes % 5 Myelocytes % 6 Promyelocytes % 18 Blast Cells % (Manual) 6 Abs Neuts (Manual) 212.7 H Lymphocytes # (Manual) 11.8 H Monocytes # (Manual) 31.5 H Metamyelocytes # 19.7 Myelocytes # 23.6 Promyelocytes # 70.9 Blast Cells # 23.6 Toxic Vacuolation PRESENT Platelet Estimate DECREASED Plt Morphology Comment NORMAL RBC Morphology NOTED Polychromasia 1+ (0-2) Macrocytosis 1+ (5-14) Smear Path Review SEE NOTE PT 13.1 INR 1.1 APTT 25.1 L Sodium 142 Potassium 3.8 Chloride 104 Carbon Dioxide 26 Anion Gap 16 BUN 23 H Creatinine 2.17 H Estim Creat Clear Calc 18.5 Estimated GFR 22 Random Glucose 110 Estimat Average Glucose Hemoglobin A1c % Calcium 10.1 Magnesium Total Bilirubin 0.5 AST 28 ALT 13 Alkaline Phosphatase 70 Troponin I High Sens 7.0 NT-Pro-B Natriuret Pep 652.7 H Total Protein 7.5 Albumin 4.7 Triglycerides Cholesterol LDL Cholesterol, Calc HDL Cholesterol TSH Urine Color Yellow Urine Appearance Cloudy Urine pH 6.0 Ur Specific [place] 1.015 Urine Protein 30 (1+) H Urine Glucose (UA) Negative Urine Ketones Negative Urine Blood Moderate (2+) H Urine Nitrite Negative Ur Leukocyte Esterase Moderate (2+) H Urine RBC 11-20 H Urine WBC 11-20 H Ur Squamous Epith Cells 6-10 Urine Bacteria Trace Hyaline Casts 6-10 Ur Random Sodium 109.0 Urine Creatinine 33.32 Influenza Type A (PCR) NEGATIVE Influenza Type B (PCR) NEGATIVE RSV RNA Qual (PCR) NEGATIVE SARS-CoV-2 RNA (RT-PCR) NEGATIVE 10/06/25 10/07/25 10/07/25 19:06 06:06 06:06 WBC 346.7 H* RBC 2.15 L Hgb 7.5 L Hct 21.9 L MCV 101.9 H MCH 34.9 H MCHC 34.2 RDW 19.2 H Plt Count 32 L MPV 11.6 Immature Gran % (Auto) Neut % (Auto) Lymph % (Auto) [place] % (Auto) Eos % (Auto) Baso % (Auto) Lymph # (Auto) [place] # (Auto) Eos # (Auto) Baso # (Auto) Abs Immat Gran (auto) Absolute Neuts (auto) Absolute Nucleated RBC 0.780 H Nucleated RBC % (auto) 0.2 Neutrophils % (Manual) Band Neutrophils % Lymphocytes % (Manual) Monocytes % (Manual) Metamyelocytes % Myelocytes % Promyelocytes % Blast Cells % (Manual) Abs Neuts (Manual) Lymphocytes # (Manual) Monocytes # (Manual) Metamyelocytes # Myelocytes # Promyelocytes # Blast Cells # Toxic Vacuolation Platelet Estimate Plt Morphology Comment RBC Morphology Polychromasia Macrocytosis Smear Path Review PT INR APTT Sodium 138 Potassium 3.4 Chloride 101 Carbon Dioxide 27 Anion Gap 13 BUN 22 H Creatinine 2.21 H Estim Creat Clear Calc 18.2 Estimated GFR 21 Random Glucose 97 Estimat Average Glucose TNP Hemoglobin A1c % TNP Calcium 9.6 Magnesium 2.2 Total Bilirubin AST ALT Alkaline Phosphatase Troponin I High Sens NT-Pro-B Natriuret Pep Total Protein Albumin Triglycerides Cancelled 182 H Cholesterol Cancelled LDL Cholesterol, Calc HDL Cholesterol TSH Urine Color Urine Appearance Urine pH Ur Specific [place] Urine Protein Urine Glucose (UA) Urine Ketones Urine Blood Urine Nitrite Ur Leukocyte Esterase Urine RBC Urine WBC Ur Squamous Epith Cells Urine Bacteria Hyaline Casts Ur Random Sodium Urine Creatinine Influenza Type A (PCR) Influenza Type B (PCR) RSV RNA Qual (PCR) SARS-CoV-2 RNA (RT-PCR) 10/07/25 10/07/25 10/07/25 06:06 06:06 06:06 WBC RBC Hgb Hct MCV MCH MCHC RDW Plt Count MPV Immature Gran % (Auto) Neut % (Auto) Lymph % (Auto) [place] % (Auto) Eos % (Auto) Baso % (Auto) Lymph # (Auto) [place] # (Auto) Eos # (Auto) Baso # (Auto) Abs Immat Gran (auto) Absolute Neuts (auto) Absolute Nucleated RBC Nucleated RBC % (auto) Neutrophils % (Manual) Band Neutrophils % Lymphocytes % (Manual) Monocytes % (Manual) Metamyelocytes % Myelocytes % Promyelocytes % Blast Cells % (Manual) Abs Neuts (Manual) Lymphocytes # (Manual) Monocytes # (Manual) Metamyelocytes # Myelocytes # Promyelocytes # Blast Cells # Toxic Vacuolation Platelet Estimate Plt Morphology Comment RBC Morphology Polychromasia Macrocytosis Smear Path Review PT INR APTT Sodium Potassium Chloride Carbon Dioxide Anion Gap BUN Creatinine Estim Creat Clear Calc Estimated GFR Random Glucose Estimat Average Glucose Hemoglobin A1c % Calcium Magnesium Total Bilirubin AST ALT Alkaline Phosphatase Troponin I High Sens NT-Pro-B Natriuret Pep Total Protein Albumin Triglycerides Cholesterol 121 LDL Cholesterol, Calc Cancelled 71 HDL Cholesterol Cancelled 14 L TSH Cancelled Urine Color Urine Appearance Urine pH Ur Specific [place] Urine Protein Urine Glucose (UA) Urine Ketones Urine Blood Urine Nitrite Ur Leukocyte Esterase Urine RBC Urine WBC Ur Squamous Epith Cells Urine Bacteria Hyaline Casts Ur Random Sodium Urine Creatinine Influenza Type A (PCR) Influenza Type B (PCR) RSV RNA Qual (PCR) SARS-CoV-2 RNA (RT-PCR) 10/07/25 06:06 WBC RBC Hgb Hct MCV MCH MCHC RDW Plt Count MPV Immature Gran % (Auto) Neut % (Auto) Lymph % (Auto) [place] % (Auto) Eos % (Auto) Baso % (Auto) Lymph # (Auto) [place] # (Auto) Eos # (Auto) Baso # (Auto) Abs Immat Gran (auto) Absolute Neuts (auto) Absolute Nucleated RBC Nucleated RBC % (auto) Neutrophils % (Manual) Band Neutrophils % Lymphocytes % (Manual) Monocytes % (Manual) Metamyelocytes % Myelocytes % Promyelocytes % Blast Cells % (Manual) Abs Neuts (Manual) Lymphocytes # (Manual) Monocytes # (Manual) Metamyelocytes # Myelocytes # Promyelocytes # Blast Cells # Toxic Vacuolation Platelet Estimate Plt Morphology Comment RBC Morphology Polychromasia Macrocytosis Smear Path Review PT INR APTT Sodium Potassium Chloride Carbon Dioxide Anion Gap BUN Creatinine Estim Creat Clear Calc Estimated GFR Random Glucose Estimat Average Glucose Hemoglobin A1c % Calcium Magnesium Total Bilirubin AST ALT Alkaline Phosphatase Troponin I High Sens NT-Pro-B Natriuret Pep Total Protein Albumin Triglycerides Cholesterol LDL Cholesterol, Calc HDL Cholesterol TSH 1.16 Urine Color Urine Appearance Urine pH Ur Specific [place] Urine Protein Urine Glucose (UA) Urine Ketones Urine Blood Urine Nitrite Ur Leukocyte Esterase Urine RBC Urine WBC Ur Squamous Epith Cells Urine Bacteria Hyaline Casts Ur Random Sodium Urine Creatinine Influenza Type A (PCR) Influenza Type B (PCR) RSV RNA Qual (PCR) SARS-CoV-2 RNA (RT-PCR) ECG Interpretation: EKG with sinus tachycardia at 110/Min; left bundle-branch block pattern. Imaging Radiologist's impression: Impressions Chest X-Ray 10/06/25 14:17 IMPRESSION: No evidence for acute disease in the chest. Electronically signed by: Jana Bruner MD 10/06/2025 02:29 PM EST RP Head/Neck CTA 10/06/25 15:20 IMPRESSION: CTA NECK: 1. There is an approximate 50% stenosis of the origin of the right ICA due to mixed plaque. 2. There is an approximate 40% stenosis of the left carotid bulb due to calcific plaque. 3. There is an approximate 70% stenosis of the left subclavian artery just after the origin. 4. There is a mild stenosis of the origin of the left common carotid artery due to calcific plaque. CTA HEAD: 1. There is no high-grade stenosis, occlusion, dissection, or aneurysm of the major intracranial arterial vasculature. 2. The right vertebral artery terminates as a PICA branch. 3. There is mild stenosis of the left vertebral artery V4 segment due to calcific plaque. 4. There is a moderate stenosis at the origin of the left [employer], P1 segment. 5. There is a moderate stenosis at the origin of the right superior cerebellar artery. 6. The major cortical and dural venous sinuses are patent. Electronically signed by: Abelino Romero MD 10/06/2025 04:46 PM EST RP Head CT 10/06/25 15:38 IMPRESSION: No acute intracranial hemorrhage. Small vessel occlusive disease. Atherosclerosis disease, intracranial. This critical result was discussed with the requesting images a physician Dr. Haleigh Webb at 3:51 PM hours on October 06, 2025. It was ascertained that the content and urgency of the report was understood at the time of direct communication. Electronically signed by: Chriss Shah MD 10/06/2025 03:56 PM [facility] [place] and Plan (1) Dyspnea: Qualifiers: Dyspnea type: dyspnea on exertion Qualified Code(s): R06.09 - Other forms of dyspnea Status: Acute (2) COPD (chronic obstructive pulmonary disease): Qualifiers: COPD type: COPD with acute lower respiratory infection Qualified Code(s): J44.0 - Chronic obstructive pulmonary disease with (acute) lower respiratory infection Status: Acute (3) CMML (chronic myelomonocytic leukemia): Status: Acute (4) Thrombocytopenia: Status: Acute (5) Anemia: Status: Acute (6) Left bundle branch block: Status: Acute Plan Constellation of laboratory abnormalities including anemia, leukocytosis, thrombocytopenia. High sensitivity troponin is within range. NT pro BNP 652 but not considered much elevated. EKG with left bundle-branch block pattern. Brain MRI with acute infarct of the left coronary radiata. CTA shows intracranial atherosclerotic disease. Chest x-ray shows no acute disease. With regard to the shortness of breath, we will check an echocardiogram for cardiomyopathy. So far, no clear evidence of ACS. She is also not a candidate for ischemic workup considering leukemia as well as severe thrombocytopenia which will preclude invasive studies. We will need to contact her etl application developer and discuss the laboratory findings. Discussed with Dr. Simon. Procedures Date of Service Date of Service: 10/07/25
[2025-10-07] MEDS: Aspirin Enteric Coated 81 MG TABLET.DR PO (11:45)
--- NOTE | 2025-10-07 12:04 | MHC.CM.PN ---
IMM GIVEN 10/07. THIS CM MET WITH PATIENT AND HER DAUGHTER PRESENT AT BEDSIDE. PATIENT LIVES AT HOME WITH HER DAUGHTER/HCP AND GRANDDAUGHTER. SHE HAS BEEN INDEPENDENT WITH HER CARE, USES A CANE. PATIENTS DAUGHTER WILL TRANSPORT HER HOME AT DISCHARGE. HCP COPY REQUESTED. DP: RETURN HOME WITH NEW [facility]. PCP: DR. GENNA ROE
--- NOTE | 2025-10-07 12:24 | PM.NEUROCN ---
History of Present Illness Data of Consult Service Date: 10/07/25 Primary Care Provider: Cori Simmons MD [facility] Reason for consult: Right hand weakness 80 years old woman with COPD and CML who developed shortness of breath and was advised to come to emergency room. A night before or a day before she also noted that her right hand was not working as well in it was weak. She tried to do something with it and could not do it well. There was no pain or numbness or tingling. There was no neck pain or headache. Hand has somewhat improved but still was weak. There was no leg weakness though she had chronic feet numbness and tingling. There was no speech or language difficulty. Review of Systems Review of Systems: Respiratory: Complain of shortness of breath Cardiovascular: No palpitation or chest pain Musculoskeletal: No neck pain or back pain Constitutional: No recent loss of weight Neurological: Right hand weakness and numbness and tingling in feet PMFSH Past Medical History Medical History (Updated 10/07/25 @ 12:29 by Elizabeth Chacon MD) Chest discomfort Dyspnea Pulmonary nodule Pneumonitis Pulmonary nodules COVID-19 COPD (chronic obstructive pulmonary disease) Social History Social History Household Members: Family Housing: House Do you presently have visiting nurse or other home services: No Patient Tobacco Use Status: Former Tobacco user Tobacco use type: Cigarette Years Smoked: 30 years Second Hand Smoke Exposure: No service: No Meds Allergies Allergy/AdvReac Type Severity Reaction Status Date / Time fentanyl Allergy Intermediate elevated bp Verified 10/06/25 13:57 Penicillins Allergy Severe Rash and Uncoded 08/26/24 10:16 Hives Sulfa Drugs Allergy Severe Rash and Uncoded 08/26/24 10:16 Hives Active Medications: Current Medications Acetaminophen (Acetaminophen 325 Mg Tablet) 650 mg PO Q6H PRN PRN Reason: Pain, Mild 1-3,fever,headache Albuterol Sulfate (Albuterol Sulfate 90 Mcg 8 Gm Inhaler) 2 puff INHALE Q6H PRN PRN Reason: Shortness Of Breath Or Wheezing Aspirin (Aspirin Enteric Coated 81 Mg Tablet.Dr) 81 mg PO DAILY [facility] Last Admin: 10/07/25 11:45 Dose: 81 mg Calcium Carbonate (Calcium Carbonate 750 Mg Tab.Chew) 750 mg PO Q4H PRN PRN Reason: Heartburn Fluticasone/Vilanterol (Fluticasone/Vilanterol 200/25 Blst.W.Dev) 1 puff INHALE RDAILY [facility] Furosemide (Furosemide 40 Mg/4 Ml Vial) 40 mg IVPUSH BID@0900,1800 [facility]; Protocol Last Admin: 10/07/25 09:35 Dose: 40 mg Ipratropium [place] (Ipratropium [place] Rigoberto 0.06 % 15 Ml [place]) 2 spray NOSTRIL-B DAILY PRN PRN Reason: Nasal Congestion Labetalol HCl (Labetalol Hcl 100 Mg/20 Ml Vial) 10 mg IVPUSH Q8H PRN PRN Reason: SBP > 160 Magnesium Hydroxide (Milk Of Magnesia 30 Ml Oral.Susp) 30 ml PO DAILY PRN PRN Reason: Constipation Melatonin (Melatonin 3 Mg Tablet) 6 mg PO BEDTIME PRN PRN Reason: Insomnia Ondansetron HCl (Ondansetron Hcl 4 Mg/2 Ml Vial) 4 mg IVPUSH Q8H PRN PRN Reason: Nausea and Vomiting Pravastatin Sodium (Pravastatin Sodium 20 Mg Tablet) 20 mg PO DAILY [facility] Last Admin: 10/07/25 11:45 Dose: 20 mg Sodium Chloride (0.9 % Sodium Chloride Flush 3 Ml Syringe) [facility] [facility] Last Admin: 10/07/25 09:35 Dose: 3 ml Home Medications ?Medication ?Instructions ?Recorded ?Confirmed ?Last Taken ?Type calcium 600 mg (as 1 tab PO DAILY 02/19/21 10/06/25 10/06/25 History carbonate)-vitamin D3 5 mcg (200 unit) tablet (Calcium 600 + D(3)) ipratropium bromide 42 mcg (0.06 2 spray intranasal DAILY PRN Nasal 02/19/21 10/06/25 Unknown History %) nasal spray Congestion lovastatin 20 mg tablet 20 mg PO DAILY 02/19/21 10/06/25 10/06/25 History aspirin 81 mg tablet,delayed 81 mg PO DAILY 11/26/22 10/06/25 10/06/25 History release cetirizine 10 mg disintegrating 10 mg PO DAILY 11/26/22 10/06/25 10/06/25 History tablet nebulizers 11/26/22 05/07/23 Unknown History albuterol sulfate 90 mcg/actuation 2 puff inhalation Q6H PRN 10/06/25 10/06/25 Unknown History aerosol inhaler Shortness Of Breath Or Wheezing budesonide-formoterol HFA 160 2 puff inhalation BID 10/06/25 10/06/25 10/06/25 History mcg-4.5 mcg/actuation aerosol inhaler (Symbicort) midodrine 5 mg tablet 5 mg PO BID 10/06/25 10/06/25 10/06/25 History Physical Exam Vital Signs: Vital Signs: Last Vital Signs Temp 98.0 F 10/07/25 11:57 Pulse 99 10/07/25 11:57 Resp 18 10/07/25 11:57 BP 126/65 10/07/25 11:57 Pulse Ox 97 10/07/25 11:57 O2 Del Method Nasal Cannula 10/07/25 11:57 O2 Flow Rate 2 10/07/25 11:57 BMI result Body Mass Index 23.2 Neuro: Other: Mental Status: Alert and oriented to person, place, and time. Normal attention. Normal spontaneous speech, fluency, and comprehension. No obvious issues with mood and memory. Affect is appropriate. Cranial Nerves: CN II: Visual munoz full to confrontation, visual acuity intact. CN III, IV, : Pupils equal, round, reactive to light and accommodation. Extraocular movements are normal. CN V: Facial sensation is normal. CN VII: Facial movements symmetrical. CN VIII: Hearing intact to bedside conversation is normal. CN IX, X: Palate elevates symmetrically. CN XI: Shoulder shrug and head turn symmetrical. CN XII: Tongue midline without atrophy or fasciculations. Motor: Mild generalized atrophy, mild right pronator drift Reflexes: Deep tendon reflexes are trace to absent with bilateral withdrawing plantars Coordination: [id number] is okay. Extrapyramidal: Full facial expressions and blinking. No rigidity. Movements are appropriate with no tremor or abnormality. Speech: Normal; no dysarthria or tremor. Results Labs 10/07/25 06:06 10/07/25 06:06 Labs: Short CBC 10/06/25 10/07/25 Range/Units 14:43 06:06 WBC 393.9 H* 346.7 H* (4.8-10.8) X10*3/uL Hgb 8.4 L 7.5 L (12.0-16.0) g/dl Hct 24.1 L 21.9 L (37.0-47.0) % Plt Count 40 L 32 L (160-400) X10*3/uL BMP 10/06/25 10/07/25 14:43 06:06 Sodium 142 138 Potassium 3.8 3.4 Chloride 104 101 Carbon Dioxide 26 27 BUN 23 H 22 H Creatinine 2.17 H 2.21 H Calcium 10.1 9.6 Liver Function 10/06/25 Range/Units 14:43 Total Bilirubin 0.5 (0.0-1.0) mg/dL AST 28 (5-31) U/L ALT 13 (0-31) U/L Alkaline Phosphatase 70 (39-117) U/L Albumin 4.7 (3.5-5.0) g/dL Urine 10/06/25 Range/Units 18:40 Urine Color Yellow Urine Appearance Cloudy Urine pH 6.0 (5.0-9.0) Ur Specific [place] 1.015 (1.005-1.025) Urine Protein 30 (1+) H (Neg-Trace) mg/dL Urine Glucose (UA) Negative (Negative) mg/dL ADDENDUM: This report was discussed with Mya Dotson RN on Oct 06, 2025 21:47:00 EST. This document has been electronically signed by: Sarah Bullock on 10/06/2025 21:48:15 Addendum Dictated By: Any Whyte MD Addendum Signed By: <Electronically signed by Any Whyte MD in OV> 10/06/[id number] Addendum Cosigned By: DD/ TD/TT: 10/06/25 CLINICAL HISTORY: TIA MR Brain without gadolinium Comparison: CT/WI/SR - CT HEAD WITHOUT IV CONTRAST STROKE - 10/06/25 15:38 EST Findings: Small focus of restricted diffusion in the left posterior baer radiata. Scattered T2/FLAIR hyperintensities in the deep white matter, nonspecific, however may represent sequela of chronic microvascular ischemic disease. No intra-axial mass or hemorrhage. No midline shift. No hydrocephalus. Vascular flow voids are intact. Bilateral lens replacements. Moderate fluid in the bilateral mastoid sinuses No focal bone lesion. IMPRESSION: Acute infarct of the left baer radiata. EXAMINATION: CT ANGIOGRAM HEAD AND NECK CLINICAL INFORMATION: Suspected stroke. Mild receptive aphasia and right upper extremity weakness. Vertigo, chronic. COMPARISON: None available. TECHNIQUE: Test bolus sequences and head and neck intravenous bolus administration 70 mL of Omnipaque 350. Helical imaging was performed in the axial plane from the aortic arch to the skull vertex. The data was processed at the electroencephalograph technologist's workstation for generation of MIP sequences. Angled MIPs and volume rendered reformatted images were also generated at an offline 3D workstation. Stenoses are assessed in accordance with NASCET criteria unless otherwise indicated. This CT examination was performed using dose optimization techniques as appropriate, variously including the following: *Automated exposure control *Adjustment of mA and/or kV according to patient size (this includes techniques or standardized protocols for targeted exams where dose is matched to indication/reason for exam; i.e. extremities or head) *Use of iterative reconstruction technique FINDINGS: NECK CTA: -AORTIC ARCH: Normal in caliber. Moderate atheromatous calcification. 2-vessel branching pattern. -GREAT VESSEL ORIGINS: Origins are patent. There is an approximate 70% stenosis of the left subclavian artery just after the origin (series 6, image 726). There is a mild stenosis of the origin of the right subclavian artery due to calcific plaque. -RIGHT COMMON CAROTID ARTERY: Normal in course and caliber to the level of the bifurcation. -CERVICAL RIGHT INTERNAL CAROTID ARTERY: There is an approximate 50% stenosis at the origin secondary to mixed calcific and soft plaque (series 6, image 513).. The vessel image is normal caliber, into the skull base. -LEFT COMMON CAROTID ARTERY: Mild stenosis at the origin due to calcific plaque. Otherwise normal in course and caliber to the level of the bifurcation. -CERVICAL LEFT INTERNAL CAROTID ARTERY: There is an approximate 40% stenosis of the carotid bulb due to predominantly calcific plaque (series 6, image 533). -CERVICAL RIGHT VERTEBRAL ARTERY: Nondominant. Normal in course and caliber into the skull base. -CERVICAL LEFT VERTEBRAL ARTERY: Dominant. Normal in course and caliber into the skull base. OTHER, SOFT TISSUES: -No lymphadenopathy or mass. No abnormal fluid collection or soft tissue swelling. -Normal thyroid. -Imaged superior mediastinal structures normal. -Imaged lung apices clear. CTA OF THE BRAIN: -INTRACRANIAL INTERNAL CAROTID ARTERIES: Calcific atherosclerotic disease of the intracranial internal carotid arteries without occlusion or flow-limiting stenosis. -RIGHT ANTERIOR CEREBRAL ARTERY: Normal A1 segment. Normal arborization of the distal segments. -LEFT ANTERIOR CEREBRAL ARTERY: Normal A1 segment. Normal arborization of the distal segments. -ANTERIOR COMMUNICATING ARTERY: Normal. -RIGHT MIDDLE CEREBRAL ARTERY: Normal M1 segment of the MCA without focal stenosis or occlusion. Normal arborization of the distal segments. -LEFT MIDDLE CEREBRAL ARTERY: Normal M1 segment of the MCA without focal stenosis or occlusion. Normal arborization of the distal segments. -RIGHT VERTEBRAL ARTERY V4: Diminutive. Terminates as a PICA branch. -LEFT VERTEBRAL ARTERY V4: Dominant. Heavy calcification with mild resultant stenosis. -BASILAR ARTERY: Normal without focal stenosis or occlusion. Normal appearance of the left proximal superior cerebellar artery. -There is a moderate stenosis at the origin of the right superior cerebellar artery (series 6, image 291). -Normal basilar tip. -RIGHT POSTERIOR CEREBRAL ARTERY: Normal P1 segment. Normal opacification of the distal RESPIRATORY ASSISTANT segments. -LEFT POSTERIOR CEREBRAL ARTERY: There is a moderate stenosis at the origin of the P1 segment. Remainder of the vessel demonstrates normal opacification of the distal RESPIRATORY ASSISTANT segments. -POSTERIOR COMMUNICATING ARTERIES: The left is present and patent. The right is not well seen. Normal opacification of the superior sagittal, straight, transverse, and sigmoid sinuses. No venous thrombosis. No space-occupying hemorrhage or definite evolving infarct. CT/CT angio head neck STROKE IMPRESSION: CTA NECK: 1. There is an approximate 50% stenosis of the origin of the right ICA due to mixed plaque. 2. There is an approximate 40% stenosis of the left carotid bulb due to calcific plaque. 3. There is an approximate 70% stenosis of the left subclavian artery just after the origin. 4. There is a mild stenosis of the origin of the left common carotid artery due to calcific plaque. CTA HEAD: 1. There is no high-grade stenosis, occlusion, dissection, or aneurysm of the major intracranial arterial vasculature. 2. The right vertebral artery terminates as a PICA branch. 3. There is mild stenosis of the left vertebral artery V4 segment due to calcific plaque. 4. There is a moderate stenosis at the origin of the left RESPIRATORY ASSISTANT, P1 segment. 5. There is a moderate stenosis at the origin of the right superior cerebellar artery. 6. The major cortical and dural venous sinuses are patent. Microbiology Microbiology Results: Microbiology 10/06/25 Unknown Urine clean catch - Clean Catch Midstream Urine Culture - Preliminary No growth to date. Assessment and Plan (1) Cerebral infarction: Qualifiers: Cerebral infarction mechanism: embolism Laterality of affected vessel: left Precerebral and cerebral artery: middle cerebral artery Qualified Code(s): I63.412 - Cerebral infarction due to embolism of left middle cerebral artery Status: Acute 80 years old woman with CML and COPD came to hospital with shortness of breath and also complain of right hand weakness without pain. Her examination revealed mild right hand and arm weakness. MRI of brain revealed a small embolic looking left baer radiata frontal area ischemic infarct. There were few smaller similar chronic lesions. Vasculature was okay. Her main risk for this type of stroke is CML with hyperviscosity. Recommendation is to continue anti-platelet agent and appropriate treatment for CML. PT and OT consultation is recommended for hand weakness. Avoid hypotension. Procedures Date of Service Date of Service: 10/07/25
--- NOTE | 2025-10-07 15:39 | PM.HEMONCCN ---
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 Patient states that for the last 1 week she has been getting easily winded. She is barely able to get around in her house to fix her meals. She also reports some degree of orthopnea. She does not have any leg swelling. Diagnosed with CML about a year ago. Her white count was initially around 30,000 but in the last 6 months it has been between 300-400 K. unfortunately, she was unable to tolerate any treatments for her CML because of severe anemia and thrombocytopenia caused by the medications. She was evaluated and offered bone marrow transplant in [place] but she declined it. She felt weakness in her right upper extremity yesterday. 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 She is on chronic aspirin therapy. Review of Systems - Constitutional Reports as per HPI, Reports fatigue, Denies headache(s), Reports lack of energy, Reports malaise - Eyes Denies loss of vision - ENT Reports dizziness - Cardiovascular Denies chest pain, Denies fainting, Reports fast heart rate, Reports lightheadedness - Respiratory Denies cough, Reports dyspnea, Reports dyspnea on exertion - Gastrointestinal Reports no additional gastrointestinal complaints - Neurologic Reports no additional neurologic complaints, Reports as per HPI [facility] Medical History: Medical History (Last Reviewed 10/07/25 @ 11:26 by Karen Garcia, OTR-L) Chest discomfort COPD (chronic obstructive pulmonary disease) COVID-19 Dyspnea Pneumonitis Pulmonary nodule Pulmonary nodules Social History: Social History (Last Reviewed 10/06/25 @ 15:04 by Haleigh Webb MD) Living Situation History: Household Members: Family Housing: House Do you presently have visiting nurse or other home services: No Tobacco History: Patient Tobacco Use Status: Former Tobacco user Tobacco use type: Cigarette Years Smoked: 30 years Second Hand Smoke Exposure: No Occupation Assessmet: service: No Home Medications and Allergies Current Medications: Current Medications Acetaminophen (Acetaminophen 325 Mg Tablet) 650 mg PO Q6H PRN PRN Reason: Pain, Mild 1-3,fever,headache Albuterol Sulfate (Albuterol Sulfate 90 Mcg 8 Gm Inhaler) 2 puff INHALE Q6H PRN PRN Reason: Shortness Of Breath Or Wheezing Aspirin (Aspirin Enteric Coated 81 Mg Tablet.Dr) 81 mg PO DAILY [facility] Last Admin: 10/07/25 11:45 Dose: 81 mg Calcium Carbonate (Calcium Carbonate 750 Mg Tab.Chew) 750 mg PO Q4H PRN PRN Reason: Heartburn Fluticasone/Vilanterol (Fluticasone/Vilanterol 200/25 Blst.W.Dev) 1 puff INHALE RDAILY [facility] Furosemide (Furosemide 40 Mg/4 Ml Vial) 40 mg IVPUSH BID@0900,1800 [facility]; Protocol Last Admin: 10/07/25 09:35 Dose: 40 mg Hydroxyurea (Hydroxyurea 500 Mg Capsule) 1,000 mg PO BID [facility] Ipratropium [place] (Ipratropium [place] Rigoberto 0.06 % 15 Ml [place]) 2 spray NOSTRIL-B DAILY PRN PRN Reason: Nasal Congestion Labetalol HCl (Labetalol Hcl 100 Mg/20 Ml Vial) 10 mg IVPUSH Q8H PRN PRN Reason: SBP > 160 Magnesium Hydroxide (Milk Of Magnesia 30 Ml Oral.Susp) 30 ml PO DAILY PRN PRN Reason: Constipation Melatonin (Melatonin 3 Mg Tablet) 6 mg PO BEDTIME PRN PRN Reason: Insomnia Ondansetron HCl (Ondansetron Hcl 4 Mg/2 Ml Vial) 4 mg IVPUSH Q8H PRN PRN Reason: Nausea and Vomiting Pravastatin Sodium (Pravastatin Sodium 20 Mg Tablet) 20 mg PO DAILY [facility] Last Admin: 10/07/25 11:45 Dose: 20 mg Sodium Chloride (0.9 % Sodium Chloride Flush 3 Ml Syringe) 3 ml IVFLUSH QSHIFT [facility] Last Admin: 10/07/25 09:35 Dose: 3 ml Home Medications ?Medication ?Instructions ?Recorded ?Confirmed ?Type calcium 600 mg (as 1 tab PO DAILY 02/19/21 10/06/25 History carbonate)-vitamin D3 5 mcg (200 unit) tablet (Calcium 600 + D(3)) ipratropium bromide 42 mcg (0.06 2 spray intranasal DAILY PRN Nasal 02/19/21 10/06/25 History %) nasal spray Congestion lovastatin 20 mg tablet 20 mg PO DAILY 02/19/21 10/06/25 History aspirin 81 mg tablet,delayed 81 mg PO DAILY 11/26/22 10/06/25 History release cetirizine 10 mg disintegrating 10 mg PO DAILY 11/26/22 10/06/25 History tablet nebulizers 11/26/22 05/07/23 History albuterol sulfate 90 mcg/actuation 2 puff inhalation Q6H PRN 10/06/25 10/06/25 History aerosol inhaler Shortness Of Breath Or Wheezing budesonide-formoterol HFA 160 2 puff inhalation BID 10/06/25 10/06/25 History mcg-4.5 mcg/actuation aerosol inhaler (Symbicort) midodrine 5 mg tablet 5 mg PO BID 10/06/25 10/06/25 History Allergies Allergy/AdvReac Type Severity Reaction Status Date / Time fentanyl Allergy Intermediate elevated bp Verified 10/06/25 13:57 Penicillins Allergy Severe Rash and Uncoded 08/26/24 10:16 Hives Sulfa Drugs Allergy Severe Rash and Uncoded 08/26/24 10:16 Hives Physical Exam Vital signs: Vital Signs Temp 98.0 F 10/07/25 11:57 Pulse 99 10/07/25 11:57 Resp 18 10/07/25 11:57 BP 126/65 10/07/25 11:57 Pulse Ox 97 10/07/25 11:57 O2 Del Method Nasal Cannula 10/07/25 11:57 O2 Flow Rate 2 10/07/25 11:57 Intake & Output 10/06/25 10/07/25 10/07/25 18:59 06:59 18:59 Intake Total 300 / 300 Balance 300 / 300 Intake: Intake, Oral Amount 300 / 300 Other: Meal Refused No: clear liquids only Lunch % Eaten liquids Eating (Feeding) Ability Independent Number of Unmeasured Voids 1 2 Urine Bathroom Bathroom Urine Color Yellow Yellow Last Bowel Movement 10/06/25 10/06/25 Weight 63.503 kg 63.2 kg Weight 63.2 kg - Constitutional Present: mild distress - Routine HEENT Exam Head: Present: normal inspection Eye: Present: EOMI, PERRL - Routine Neck Exam Present: supple. Absent: lymphadenopathy - Routine Respiratory Exam Present: CTAB. Absent: accessory muscle use - Routine Cardiovascular Exam Cardiovascular: Present: RRR, S1, S2 - Routine Abdominal Exam Present: soft - Routine Skin Exam Present: intact. Absent: cyanosis Hem/Onc Consult Result - Labs CBC & Chem 7: 10/07/25 06:06 10/07/25 06:06 Labs: Short CBC 10/06/25 10/07/25 Range/Units 14:43 06:06 WBC 346.7 H* (4.8-10.8) X10*3/uL Hgb 7.5 L (12.0-16.0) g/dl Hct 21.9 L (37.0-47.0) % Plt Count 40 L 32 L (160-400) X10*3/uL BMP 10/07/25 06:06 Sodium 138 Potassium 3.4 Chloride 101 Carbon Dioxide 27 BUN 22 H Creatinine 2.21 H Calcium 9.6 Urine 10/06/25 Range/Units 18:40 Urine Color Yellow Urine Appearance Cloudy Urine pH 6.0 (5.0-9.0) Ur Specific [place] 1.015 (1.005-1.025) Urine Protein 30 (1+) H (Neg-Trace) mg/dL Urine Glucose (UA) Negative (Negative) mg/dL Assessment and Plan Patient Active problem list reviewed?: Yes (1) CML (chronic myelocytic leukemia) Status: Chronic Assessment and plan: 1. 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 Unfortunately her blood counts had rapidly progressed and remained above 300 K for several months, she also has moderately severe anemia and thrombocytopenia. Unfortunately she was unable to tolerate any of the targeted therapies, all of these caused her to have severe thrombocytopenia with platelet counts dropping below 10 K. She was offered bone marrow transplant in [place] which she was informed was associated with high morbidity and mortality given her age, patient therefore declined it. Her symptoms of shortness of breath as well as ischemic stroke is most probably related to hyper leukocytosis and increased blood viscosity. Pathologist review shows predominantly left-shifted myeloid with occasional blasts. I discussed all of the above with patient and her daughter. She unfortunately does not have many options. For her acute symptoms, cytoreduction with hydroxyurea 1 g b.i.d. has been ordered. Transfuse 1 unit PRBC if her hemoglobin falls below 7 gram/dL in 1 unit platelets if they go below 20 K. Goals of care have to be discussed. Prognosis is poor and guarded. Thank you for the consultation. - Time Spent With Patient Time Spent with Patient (in minutes): 25 Additional Coding: - Additional E/M codes Complex E/M visit Add On: CPT G2211
--- NOTE | 2025-10-07 16:20 | P.PNIM_ITS ---
Subjective Subjective Date of Service: 10/07/25 Interval History: Patient seen and examined at bedside this morning, patient recently had MRI done and showed acute infarct of the left baer radiata, plans on TTE. Hematology/oncology consulted Review of Systems Review of Systems: Yes all other systems are reviewed and are negative Physical Exam 2 Exam: Exam: General: AxOx3, No acute distress Head: AT/NC ENT: Moist mucous membranes Neck: supple CVS; RRR, S1 S2 normal Lungs: Clear bilateral breath sounds, no wheezes or crackles Abd: Soft non tender, non distended Ext: No edema and no calf tenderness MSK: moving all 4 limbs Skin: No cyanosis or edema Psych: Cooperative with exam Neurology: Right upper extremity weakness 4/5 Vital Signs: Vital Signs: Last Vital Signs Temp 98.6 F 10/07/25 15:51 Pulse 105 H 10/07/25 15:51 Resp 18 10/07/25 15:51 BP 126/62 10/07/25 15:51 Pulse Ox 93 10/07/25 15:51 O2 Del Method Nasal Cannula 10/07/25 15:51 O2 Flow Rate 2 10/07/25 15:51 BMI result Body Mass Index 23.2 Objective Data Active Medications Acetaminophen (Acetaminophen 325 Mg Tablet) 650 mg PO Q6H PRN PRN Reason: Pain, Mild 1-3,fever,headache Albuterol Sulfate (Albuterol Sulfate 90 Mcg 8 Gm Inhaler) 2 puff INHALE Q6H PRN PRN Reason: Shortness Of Breath Or Wheezing Aspirin (Aspirin Enteric Coated 81 Mg Tablet.) 81 mg PO DAILY [facility] Last Admin: 10/07/25 11:45 Dose: 81 mg Documented By: ANDRE Calcium Carbonate (Calcium Carbonate 750 Mg Tab.Chew) 750 mg PO Q4H PRN PRN Reason: Heartburn Fluticasone/Vilanterol (Fluticasone/Vilanterol 200/25 Blst.W.Dev) 1 puff INHALE RDAILY [facility] Furosemide (Furosemide 40 Mg/4 Ml Vial) 40 mg IVPUSH BID@0900,1800 [facility]; Protocol Last Admin: 10/07/25 09:35 Dose: 40 mg Documented By: NADRE Hydroxyurea (Hydroxyurea 500 Mg Capsule) 1,000 mg PO BID [facility] Ipratropium [place] (Ipratropium [place] Rigoberto 0.06 % 15 Ml [place]) 2 spray NOSTRIL-B DAILY PRN PRN Reason: Nasal Congestion Labetalol HCl (Labetalol Hcl 100 Mg/20 Ml Vial) 10 mg IVPUSH Q8H PRN PRN Reason: SBP > 160 Magnesium Hydroxide (Milk Of Magnesia 30 Ml Oral.Susp) 30 ml PO DAILY PRN PRN Reason: Constipation Melatonin (Melatonin 3 Mg Tablet) 6 mg PO BEDTIME PRN PRN Reason: Insomnia Ondansetron HCl (Ondansetron Hcl 4 Mg/2 Ml Vial) 4 mg IVPUSH Q8H PRN PRN Reason: Nausea and Vomiting Pravastatin Sodium (Pravastatin Sodium 20 Mg Tablet) 20 mg PO DAILY [facility] Last Admin: 10/07/25 11:45 Dose: 20 mg Documented By: ANDRE Sodium Chloride (0.9 % Sodium Chloride Flush 3 Ml Syringe) 3 ml IVFLUSH QSHIFT [facility] Last Admin: 10/07/25 09:35 Dose: 3 ml Documented By: ANDRE Labs 10/07/25 06:06 10/07/25 06:06 Labs: Laboratory Results - last 24 hr 10/06/25 10/06/25 10/06/25 14:43 18:40 19:06 MCV MCH MCHC RDW Plt Count MPV Absolute Nucleated RBC Nucleated RBC % (auto) Smear Path Review SEE NOTE Anion Gap Estim Creat Clear Calc Estimated GFR Random Glucose Estimat Average Glucose TNP Hemoglobin A1c % TNP Calcium Magnesium Triglycerides Cholesterol LDL Cholesterol, Calc HDL Cholesterol TSH Urine Color Yellow Urine Appearance Cloudy Urine pH 6.0 Ur Specific [place] 1.015 Urine Protein 30 (1+) H Urine Glucose (UA) Negative Urine Ketones Negative Urine Blood Moderate (2+) H Urine Nitrite Negative Ur Leukocyte Esterase Moderate (2+) H Urine RBC 11-20 H Urine WBC 11-20 H Ur Squamous Epith Cells 6-10 Urine Bacteria Trace Hyaline Casts 6-10 Ur Random Sodium 109.0 Urine Creatinine 33.32 10/07/25 10/07/25 10/07/25 06:06 06:06 06:06 MCV 101.9 H MCH 34.9 H MCHC 34.2 RDW 19.2 H Plt Count 32 L MPV 11.6 Absolute Nucleated RBC 0.780 H Nucleated RBC % (auto) 0.2 Smear Path Review Anion Gap 13 Estim Creat Clear Calc 18.2 Estimated GFR 21 Random Glucose 97 Estimat Average Glucose Hemoglobin A1c % Calcium 9.6 Magnesium 2.2 Triglycerides Cancelled 182 H Cholesterol Cancelled 121 LDL Cholesterol, Calc Cancelled HDL Cholesterol TSH Urine Color Urine Appearance Urine pH Ur Specific [place] Urine Protein Urine Glucose (UA) Urine Ketones Urine Blood Urine Nitrite Ur Leukocyte Esterase Urine RBC Urine WBC Ur Squamous Epith Cells Urine Bacteria Hyaline Casts Ur Random Sodium Urine Creatinine 10/07/25 10/07/25 10/07/25 06:06 06:06 06:06 MCV MCH MCHC RDW Plt Count MPV Absolute Nucleated RBC Nucleated RBC % (auto) Smear Path Review Anion Gap Estim Creat Clear Calc Estimated GFR Random Glucose Estimat Average Glucose Hemoglobin A1c % Calcium Magnesium Triglycerides Cholesterol LDL Cholesterol, Calc 71 HDL Cholesterol Cancelled 14 L TSH Cancelled 1.16 Urine Color Urine Appearance Urine pH Ur Specific [place] Urine Protein Urine Glucose (UA) Urine Ketones Urine Blood Urine Nitrite Ur Leukocyte Esterase Urine RBC Urine WBC Ur Squamous Epith Cells Urine Bacteria Hyaline Casts Ur Random Sodium Urine Creatinine Microbiology Microbiology Results: Microbiology 10/06/25 Unknown Urine Culture - Preliminary Urine clean catch - Clean Catch Midstream No growth to date. Assessment and Plan (1) Thrombocytopenia: Status: Acute (2) CMML (chronic myelomonocytic leukemia): Status: Acute (3) Cerebral infarction: Status: Acute (4) COPD (chronic obstructive pulmonary disease): Status: Acute (5) Acute hypoxemic respiratory failure: Status: Acute Plan 80-year-old female who presented to the hospital complaining of worsening shortness of breath that has been ongoing for the past couple of months, patient today also noticed that she was experiencing right-sided weakness with dysarthria. 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 -CTA head and neck with 70% stenosis of left subclavian artery after origin, moderate stenosis at origin of left METEOROLOGIST IN CHARGE and right superior cerebellar artery MRI reviewed -TTE ordered to rule out PFO -neurology consulted, suggested on antiplatelet agents and treatment for CML if able. -continue with aspirin and we will initiate Plavix for 21 days, we will then transitioned to aspirin 81 mg q.d. -continue statin Acute hypoxic respiratory failure, could be in setting of anemia COPD -labs and imaging reviewed -TTE ordered and pending to rule out cardiomyopathy -status post IV Lasix given -continue nebs and supplemental treatment -continue to monitor labs -cardiology consulted and following Hypertension, chronic -this time we will continue with Lasix, we will give labetalol p.r.n. CML leukocytosis, secondary to above Anemia, suspect of chronic disease Thrombocytopenia -likely related to bone marrow disease, patient previously worked up by Hematology/Oncology, suggested on possible bone marrow transplant which patient refused -continue to monitor for any signs of bleeding, chest pain -hematology oncology consulted, suggested on cytotoxic reduction medications with hydroxyurea 1 g b.i.d., and to transfuse 1 unit of packed red blood cells if hemoglobin less than 7 and 1 unit of platelets if platelets less than 20 K. BETHANY, with hyaline casts, FENA 5.2% -patient did receive Lasix prior, which can score results for FeNA -Retroperitoneal ultrasound with moderate right hydronephrosis with a possible right ureterovesicular junction stone measuring 1.3 cm -Urology consulted as well as nephrology FEN: NI, replete as needed, regular GI PPx: NI DVT PPx: SCDs Code Status: DNR/DNI Total time managing care of this patient today: 55 minutes. Quality Stroke Does the patient have a stroke diagnosis?: No VTE Prior VTE?: No VTE Risk Level:: Medical - moderate - high VTE Device Contraindication: N/A - Device Ordered VTE Drug Contraindication: Treatment Not Indicated
[2025-10-07 17:12] LABS: Uric Acid 16.4 mg/dL (2.4-5.7)
[2025-10-07] MEDS: Lactated Ringers 1,000 ML 100 ML IVCONT (17:16)
--- NOTE | 2025-10-07 19:25 | PM.CNNEP ---
History of Present Illness Reason for Consult Consult date: 10/07/25 Chief Complaint Chief complaint: TIA History of Present Illness Narrative: 80 years old lady with PMH of Hypertension, anemia, CML diagnosed an year ago, treated at [facility] intially WBC count around 30k, increased to about 400k since past 6 months presented with dyspnea on exertion since about 4 months, dizziness and fatigue. Her admission labs suggestive of WBC count 300k, BETHANY with creatinine of 2.1 so renal is consulted. Review of Systems Review of Systems Const : no body aches, no chills, no excessive sweating and + fatigue Eyes: no blurry vision and no change in vision ENT: no bleeding gums and no change in voice, no dizziness Card: no chest pain, + shortness of breath, no orthopnea, no PND Resp: no cough, no excessive phlegm production, no SOB GI: no abdominal pain and no nausea, no vomiting : no hematuria, no urinary frequency and no difficulty voiding Musc: no abnormal gait, no bone pain Neuro: no abnormal movements, no weakness, no dizziness, no abnormal gait and no behavioral changes Psych: no behavioral changes and no change in appetite Endo: no change in body appearance, no cold intolerance, + fatigue PMFSH Past Medical History Medical History (Updated 10/07/25 @ 19:33 by Chris Barr MD) Chest discomfort Dyspnea Pulmonary nodule Pneumonitis Pulmonary nodules COVID-19 COPD (chronic obstructive pulmonary disease) Social History Social History Household Members: Family Housing: House Do you presently have visiting nurse or other home services: No Patient Tobacco Use Status: Former Tobacco user Tobacco use type: Cigarette Years Smoked: 30 years Second Hand Smoke Exposure: No service: No Meds Allergies Allergy/AdvReac Type Severity Reaction Status Date / Time fentanyl Allergy Intermediate elevated bp Verified 10/06/25 13:57 Penicillins Allergy Severe Rash and Uncoded 08/26/24 10:16 Hives Sulfa Drugs Allergy Severe Rash and Uncoded 08/26/24 10:16 Hives Active Medications: Current Medications Acetaminophen (Acetaminophen 325 Mg Tablet) 650 mg PO Q6H PRN PRN Reason: Pain, Mild 1-3,fever,headache Albuterol Sulfate (Albuterol Sulfate 90 Mcg 8 Gm Inhaler) 2 puff INHALE Q6H PRN PRN Reason: Shortness Of Breath Or Wheezing Albuterol/Ipratropium (Albuterol/Iprat 2.5/0.5mg 3 Ml Ampul.Neb) 3 ml INHALE RQ6H WHILE AWAKE PRN PRN Reason: Shortness of Breath/Wheezing Aspirin (Aspirin Enteric Coated 81 Mg Tablet.Dr) 81 mg PO DAILY [facility] Last Admin: 10/07/25 11:45 Dose: 81 mg Calcium Carbonate (Calcium Carbonate 750 Mg Tab.Chew) 750 mg PO Q4H PRN PRN Reason: Heartburn Clopidogrel Bisulfate (Clopidogrel Bisulfate 75 Mg Tablet) 75 mg PO DAILY [facility] Stop: 10/28/25 16:29 Last Admin: 10/07/25 17:07 Dose: 75 mg Fluticasone/Vilanterol (Fluticasone/Vilanterol 200/25 Blst.W.Dev) 1 puff INHALE RDAILY [facility] Hydroxyurea (Hydroxyurea 500 Mg Capsule) 1,000 mg PO BID [facility] Sodium Chloride (Ns) 1,000 mls @ 150 mls/hr IVCONT .Q6H40M [facility] Last Admin: 10/07/25 18:22 Dose: 150 mls/hr Rasburicase 7.5 mg/Rasburicase 1.5 mg/ Sodium Chloride 50 mls @ 100 mls/hr IV ONCE ONE Stop: 10/07/25 20:29 Ipratropium [place] (Ipratropium [place] Rigoberto 0.06 % 15 Ml [place]) 2 spray NOSTRIL-B DAILY PRN PRN Reason: Nasal Congestion Labetalol HCl (Labetalol Hcl 100 Mg/20 Ml Vial) 10 mg IVPUSH Q8H PRN PRN Reason: SBP > 160 Magnesium Hydroxide (Milk Of Magnesia 30 Ml Oral.Susp) 30 ml PO DAILY PRN PRN Reason: Constipation Melatonin (Melatonin 3 Mg Tablet) 6 mg PO BEDTIME PRN PRN Reason: Insomnia Ondansetron HCl (Ondansetron Hcl 4 Mg/2 Ml Vial) 4 mg IVPUSH Q8H PRN PRN Reason: Nausea and Vomiting Pravastatin Sodium (Pravastatin Sodium 20 Mg Tablet) 20 mg PO DAILY [facility] Last Admin: 10/07/25 11:45 Dose: 20 mg Sodium Chloride (0.9 % Sodium Chloride Flush 3 Ml Syringe) 3 ml IVFLUSH QSHIFT [facility] Last Admin: 10/07/25 17:07 Dose: 3 ml Home Medications ?Medication ?Instructions ?Recorded ?Confirmed ?Last Taken ?Type calcium 600 mg (as 1 tab PO DAILY 02/19/21 10/06/25 10/06/25 History carbonate)-vitamin D3 5 mcg (200 unit) tablet (Calcium 600 + D(3)) ipratropium bromide 42 mcg (0.06 2 spray intranasal DAILY PRN Nasal 02/19/21 10/06/25 Unknown History %) nasal spray Congestion lovastatin 20 mg tablet 20 mg PO DAILY 02/19/21 10/06/25 10/06/25 History aspirin 81 mg tablet,delayed 81 mg PO DAILY 11/26/22 10/06/25 10/06/25 History release cetirizine 10 mg disintegrating 10 mg PO DAILY 11/26/22 10/06/25 10/06/25 History tablet nebulizers 11/26/22 05/07/23 Unknown History albuterol sulfate 90 mcg/actuation 2 puff inhalation Q6H PRN 10/06/25 10/06/25 Unknown History aerosol inhaler Shortness Of Breath Or Wheezing budesonide-formoterol HFA 160 2 puff inhalation BID 10/06/25 10/06/25 10/06/25 History mcg-4.5 mcg/actuation aerosol inhaler (Symbicort) midodrine 5 mg tablet 5 mg PO BID 10/06/25 10/06/25 10/06/25 History Physical Exam Vital Signs: Last Vital Signs Temp 98.6 F 10/07/25 15:51 Pulse 105 H 10/07/25 15:51 Resp 18 10/07/25 15:51 BP 126/62 10/07/25 15:51 Pulse Ox 93 10/07/25 15:51 O2 Del Method Nasal Cannula 10/07/25 15:51 O2 Flow Rate 2 10/07/25 15:51 BMI result Body Mass Index 23.2 General: not in any acute distress, ill appearing Nutritional Appearance: well nourished and normal weight Eyes: appearance normal, both eyes and all related structures; Alignment and Position: alignment normal and position normal Neck: No lymphadenopathy, no thyromegaly Resp: bilateral air entry equal, no added sounds present Cardio: Regular rate, regular rhythm; Heart sounds: S1 normal heart sound present and S2 normal heart sound present GI: soft, nontender, no guarding, no hepatosplenomegaly : bladder normal to inspection, bladder normal to palpation, no renal angle tenderness Skin: no rashes or lesions noted and elasticity normal Neuro: alert, oriented x 3, moves all extremities Results Lab Results 10/07/25 06:06 10/07/25 06:06 Lab results: Chemistry 10/06/25 10/07/25 10/07/25 14:43 06:06 16:45 Sodium 142 138 Potassium 3.8 3.4 Carbon Dioxide 26 27 BUN 23 H 22 H Creatinine 2.17 H 2.21 H Calcium 10.1 9.6 Phosphorus 4.3 10/07/25 16:45 Sodium Potassium Carbon Dioxide BUN Creatinine Calcium Phosphorus 4.4 Hematology 10/06/25 10/07/25 14:43 06:06 WBC 393.9 H* 346.7 H* Hgb 8.4 L 7.5 L Plt Count 40 L 32 L Urinalysis 10/06/25 18:40 Urine Color Yellow Urine Appearance Cloudy Urine pH 6.0 Ur Specific [place] 1.015 Urine Protein 30 (1+) H Urine Glucose (UA) Negative Urine Ketones Negative Urine Blood Moderate (2+) H Urine Nitrite Negative Ur Leukocyte Esterase Moderate (2+) H Urine RBC 11-20 H Urine WBC 11-20 H Ur Squamous Epith Cells 6-10 Hyaline Casts 6-10 Urine Studies 10/06/25 18:40 Urine Creatinine 33.32 Assessment and Plan (1) Acute kidney injury: Status: Acute (2) Hyperuricemia: Status: Acute (3) Tumor lysis syndrome: Status: Acute Plan Tumor lysis syndrome: Hyperuricemia: Patient has severe leucocytosis with WBC cout 340k in the setting of CML, leading to leucostasis and stroke like symptoms, dyspnea and fatigue. She would benefit from leucopheresis, however hematology planning to start her on hydroxyurea. Given very high blood count she is in a very high risk for tumor lysis syndrome even with or without hydroxyurea. Will start the patient on rasburicase will closely monitor uric acid, K, phos and calcium levels every 4-6 hrs. Acute kidney injury: Patient has acute kidney injury from volume depletion in the setting of severe leucocytosis and leucostasis from CML. Will start the patient on IV fluids, preferably normal saline as LR can cause hyperkalemia. will get urinalysis Can get renal US to rule out any obstructive uropathy given the tumor burden avoid nephrotixic medications including ACEi/ARB/NSAIDs and contrast Procedures Date of Service Date of Service: 10/07/25
[2025-10-07 21:46] LABS: Hematocrit 21.3 % (37.0-47.0); Hemoglobin 7.6 g/dl (12.0-16.0); Mean Corpuscular HGB Conc 35.7 g/dl (31.0-35.0); Mean Corpuscular Hemoglobin 35.8 pg (27.0-33.0); Mean Corpuscular Volume 100.5 fL (80.0-98.0); NRBC Abs Auto 0.800 X10*3/uL (0.0-0.012); NRBC Pct Auto 0.2 /100WBC (0.0-0.2); PLT CLUMP 1; Red Blood Count 2.12 X10*6/uL (4.20-5.50)
[2025-10-07 21:51] LABS: Platelet Count 38 X10*3/uL (160-400)
[2025-10-07 21:54] LABS: Anion Gap 14 (12-20); Blood Urea Nitrogen 23 mg/dL (9-16); Calcium 9.1 mg/dL (8.4-10.2); Carbon Dioxide 25 mmol/L (22-29); Chloride 101 mmol/L (96-108); Creatinine Clr Calc Pharmacy 19.2; Estimated Glomerular Filt Rate 23; Potassium 3.2 mmol/L (3.3-5.1); Sodium 137 mmol/L (135-145); White Blood Count 373.4 X10*3/uL (4.8-10.8)
[2025-10-08] VITALS (8 sets, daily range): BP systolic 102–131; BP diastolic 56–64; PULSE 94–100; RESP 16–20; TEMP 36.6–37.6; O2SAT 94–97
[2025-10-08 00:39] LABS: Uric Acid 8.2 mg/dL (2.4-5.7)
[2025-10-08] MEDS: Aspirin Enteric Coated 81 MG TABLET.DR PO (07:51)
[2025-10-08] MEDS: 0.9 % Sodium Chloride Flush 3 ML SYRINGE IVFLUSH ×2 (07:51→21:13)
[2025-10-08 08:04] LABS: Mean Corpuscular HGB Conc 34.5 g/dl (31.0-35.0); Mean Corpuscular Hemoglobin 35.4 pg (27.0-33.0); Mean Corpuscular Volume 102.5 fL (80.0-98.0); NRBC Abs Auto 0.550 X10*3/uL (0.0-0.012); NRBC Pct Auto 0.2 /100WBC (0.0-0.2); PLT CLUMP 1; Red Blood Count 1.98 X10*6/uL (4.20-5.50)
[2025-10-08 08:10] LABS: Uric Acid 4.2 mg/dL (2.4-5.7)
[2025-10-08 08:14] LABS: Anion Gap 17 (12-20); Blood Urea Nitrogen 27 mg/dL (9-16); Calcium 8.4 mg/dL (8.4-10.2); Carbon Dioxide 23 mmol/L (22-29); Chloride 104 mmol/L (96-108); Creatinine Clr Calc Pharmacy 20.7; Estimated Glomerular Filt Rate 25; Magnesium 2.0 mg/dL (1.6-2.6); Potassium 3.6 mmol/L (3.3-5.1); Sodium 140 mmol/L (135-145)
[2025-10-08 08:15] LABS: White Blood Count 308.0 X10*3/uL (4.8-10.8)
[2025-10-08 08:16] LABS: Hematocrit 20.3 % (37.0-47.0); Hemoglobin 7.0 g/dl (12.0-16.0)
[2025-10-08 08:44] LABS: Platelet Count 34 X10*3/uL (160-400)
--- NOTE | 2025-10-08 09:32 | ECG_ITS ---
Test Reason : cp Blood Pressure : */* mmHG Vent. Rate : 103 BPM Atrial Rate : 103 BPM P-R Int : 194 ms QRS Dur : 138 ms QT Int : 396 ms P-R-T Axes : 55 -40 102 degrees QTcB Int : 518 ms Sinus tachycardia Left axis deviation Left bundle branch block Abnormal ECG No significant changes when compared with the previous EKG of 06 oct 2025 Referred By: Vincent Simon Electronically Signed By: PARISA NUÑEZ
--- NOTE | 2025-10-08 10:39 | P.PNIM_ITS ---
Subjective Subjective Date of Service: 10/08/25 Interval History: Patient seen and examined at bedside this morning, yesterday, patient with uric acid greater than 16, started on respiratory variation given IV fluids at 150 mL/hour, this time hemoglobin 7, however patient began complaining of shortness of breath, mild chest discomfort. Review of Systems Review of Systems: Yes all other systems are reviewed and are negative Physical Exam 2 Exam: Exam: General: AxOx3, No acute distress Head: AT/NC ENT: Moist mucous membranes Neck: supple CVS; RRR, S1 S2 normal Lungs: Clear bilateral breath sounds, no wheezes or crackles Abd: Soft non tender, non distended Ext: No edema and no calf tenderness MSK: moving all 4 limbs Skin: No cyanosis or edema Psych: Cooperative with exam Neurology: Right upper extremity 4/5 Vital Signs: Vital Signs: Last Vital Signs Temp 98.1 F 10/08/25 08:00 Pulse 94 10/08/25 08:00 Resp 16 10/08/25 08:00 BP 119/61 10/08/25 08:00 Pulse Ox 95 10/08/25 08:00 O2 Del Method Nasal Cannula 10/08/25 08:00 O2 Flow Rate 2 10/08/25 08:00 BMI result Body Mass Index 23.2 Objective Data Active Medications Acetaminophen (Acetaminophen 325 Mg Tablet) 650 mg PO Q6H PRN PRN Reason: Pain, Mild 1-3,fever,headache Albuterol Sulfate (Albuterol Sulfate 90 Mcg 8 Gm Inhaler) 2 puff INHALE Q6H PRN PRN Reason: Shortness Of Breath Or Wheezing Albuterol/Ipratropium (Albuterol/Iprat 2.5/0.5mg 3 Ml Ampul.Neb) 3 ml INHALE RQ6H WHILE AWAKE PRN PRN Reason: Shortness of Breath/Wheezing Aspirin (Aspirin Enteric Coated 81 Mg Tablet.) 81 mg PO DAILY [facility] Last Admin: 10/08/25 07:51 Dose: 81 mg Documented By: MK Calcium Carbonate (Calcium Carbonate 750 Mg Tab.Chew) 750 mg PO Q4H PRN PRN Reason: Heartburn Clopidogrel Bisulfate (Clopidogrel Bisulfate 75 Mg Tablet) 75 mg PO DAILY [facility] Stop: 10/28/25 16:29 Last Admin: 10/08/25 07:51 Dose: 75 mg Documented By: MK Fluticasone/Vilanterol (Fluticasone/Vilanterol 200/25 Blst.W.Dev) 1 puff INHALE RDAILY [facility] Last Admin: 10/08/25 08:29 Dose: Not Given Documented By: LU Non-Admin Reason: pt will wait for her own symbicort. Hydroxyurea (Hydroxyurea 500 Mg Capsule) 1,000 mg PO BID [facility] Last Admin: 10/08/25 07:51 Dose: 1,000 mg Documented By: MK Sodium Chloride (Ns) 1,000 mls @ 150 mls/hr IVCONT .Q6H40M [facility] Last Admin: 10/08/25 08:08 Dose: 150 mls/hr Documented By: MK Ipratropium [place] (Ipratropium [place] Rigoberto 0.06 % 15 Ml [place]) 2 spray NOSTRIL-B DAILY PRN PRN Reason: Nasal Congestion Labetalol HCl (Labetalol Hcl 100 Mg/20 Ml Vial) 10 mg IVPUSH Q8H PRN PRN Reason: SBP > 160 Magnesium Hydroxide (Milk Of Magnesia 30 Ml Oral.Susp) 30 ml PO DAILY PRN PRN Reason: Constipation Melatonin (Melatonin 3 Mg Tablet) 6 mg PO BEDTIME PRN PRN Reason: Insomnia Last Admin: 10/07/25 20:17 Dose: 6 mg Documented By: MAGALI Ondansetron HCl (Ondansetron Hcl 4 Mg/2 Ml Vial) 4 mg IVPUSH Q8H PRN PRN Reason: Nausea and Vomiting Pravastatin Sodium (Pravastatin Sodium 20 Mg Tablet) 20 mg PO DAILY [facility] Last Admin: 10/08/25 07:51 Dose: 20 mg Documented By: MK Sodium Chloride (0.9 % Sodium Chloride Flush 3 Ml Syringe) 3 ml IVFLUSH QSHIFT [facility] Last Admin: 10/08/25 07:51 Dose: 3 ml Documented By: MK Labs 10/08/25 07:05 10/08/25 07:05 Labs: Laboratory Results - last 24 hr 10/07/25 10/07/25 10/07/25 16:45 16:45 21:12 MCV 100.5 H MCH 35.8 H MCHC 35.7 H RDW 19.4 H Plt Count 38 L MPV 9.3 L Absolute Nucleated RBC 0.800 H Nucleated RBC % (auto) 0.2 Anion Gap 14 Estim Creat Clear Calc 19.2 Estimated GFR 23 Random Glucose 107 Uric Acid 16.4 H Calcium 9.1 Phosphorus 4.3 4.4 4.1 Magnesium Lactate Dehydrogenase 400 H Crossmatch 10/08/25 10/08/25 10/08/25 00:13 07:05 09:59 MCV 102.5 H MCH 35.4 H MCHC 34.5 RDW 18.9 H Plt Count 34 L MPV 10.7 Absolute Nucleated RBC 0.550 H Nucleated RBC % (auto) 0.2 Anion Gap 17 Estim Creat Clear Calc 20.7 Estimated GFR 25 Random Glucose 83 Uric Acid 8.2 H 4.2 Calcium 8.4 D Phosphorus Magnesium 2.0 Lactate Dehydrogenase Crossmatch See Detail Microbiology Microbiology Results: Microbiology 10/06/25 Unknown Urine Culture - Preliminary Urine clean catch - Clean Catch Midstream No growth to date. Assessment and Plan (1) CML (chronic myelocytic leukemia): Status: Chronic (2) Cerebral infarction: Status: Acute (3) COPD (chronic obstructive pulmonary disease): Status: Acute (4) Thrombocytopenia: Status: Acute (5) Acute kidney injury: Status: Acute (6) Acute hypoxemic respiratory failure: Status: Acute (7) Tumor lysis syndrome: Status: Acute (8) Anemia: Status: Acute Plan 80-year-old female who presented to the hospital complaining of worsening shortness of breath that has been ongoing for the past couple of months, patient today also noticed that she was experiencing right-sided weakness with dysarthria. 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 -CTA head and neck with 70% stenosis of left subclavian artery after origin, moderate stenosis at origin of left SERVICE LIAISON REPRESENTATIVE and right superior cerebellar artery MRI reviewed -TTE with EF 65-70%, no PFO -neurology consulted, suggested on antiplatelet agents and treatment for CML if able. -continue with DAPT 21 days, we will then transitioned to aspirin 81 mg q.d. -continue statin CML leukocytosis, secondary to above acute on chronic Anemia of chronic disease Thrombocytopenia -likely related to bone marrow disease, patient previously worked up by Hematology/Oncology, suggested on possible bone marrow transplant which patient refused -continue to monitor for any signs of bleeding, chest pain -hematology oncology consulted, continue hydroxyurea 1 g b.i.d. -will transfuse 1 unit of platelets if platelets less than 20 K. -at this stime complaining on SOB and chest discomfort, Hb 7, will transfuse 1 unit of PRBCs 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 Hyperuricemia, improving -we will continue with IV fluids at 150 mL/hour, status post rasburicase, allopurinol also initiated -we will continue to monitor labs and adjust accordingly IV fluid rate BETHANY, likely multifoactorial, improving 1.9 at this time, per prior records, baseline around 1.1 -Retroperitoneal ultrasound with moderate right hydronephrosis with a possible right ureterovesicular junction stone measuring 1.3 cm -Urology and nephrology -continue with NS at 150ml/hr, monitor output Acute hypoxic respiratory failure, could be in setting of anemia, improving COPD -labs and imaging reviewed -TTE ordered and pending to rule out cardiomyopathy -status post IV Lasix given -continue nebs and supplemental treatment -continue to monitor labs -cardiology consulted and following Hypertension, chronic -this time will d/c Lasix, we will give labetalol p.r.n. FEN: NS, replete as needed, regular GI PPx: NI DVT PPx: SCDs Code Status: DNR/DNI Total time managing care of this patient today: 55 minutes. Quality Stroke Does the patient have a stroke diagnosis?: No VTE Prior VTE?: No VTE Risk Level:: Medical - moderate - high VTE Device Contraindication: N/A - Device Ordered VTE Drug Contraindication: Treatment Not Indicated
--- NOTE | 2025-10-08 12:36 | P.PNHO-ONC_ITS ---
Medical Summary - Medical Summary Date of Service: 10/08/25 Chief complaint: cml Primary Care Provider: Cori Simmons MD Home School Coordinator Utilized?: No - Maltese Speaking Interval History Interval history: Le Salcido is a 80 year old female with past medical history significant for CML who is followed by resin coater at [facility] who is admitted for progressive shortness of breath. Patient states that for the last 1 week she has been getting easily winded. She is barely able to get around in her house to fix her meals. She also reports some degree of orthopnea. She does not have any leg swelling. Diagnosed with CML about a year ago. Her white count was initially around 30,000 but in the last 6 months it has been between 300-400 K. unfortunately, she was unable to tolerate any treatments for her CML because of severe anemia and thrombocytopenia caused by the medications. She was evaluated and offered bone marrow transplant in [place] but she declined it. She felt weakness in her right upper extremity yesterday. 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 She is on chronic aspirin therapy. Review of Systems - Constitutional Reports lack of energy - ENT Reports other - Cardiovascular Reports shortness of breath with activity - Respiratory Reports dyspnea on exertion - Gastrointestinal Reports abdominal pain - Genitourinary Reports hot flashes - Musculoskeletal Reports muscle weakness - Neurologic Reports system reviewed and no additional complaints, except as documented, Denies syncope, Denies headache(s), Denies loss of vision [facility] Medical History: Medical History (Last Updated 10/08/25 @ 10:42 by Vincent Simon MD) Chest discomfort COPD (chronic obstructive pulmonary disease) COVID-19 Dyspnea Pneumonitis Pulmonary nodule Pulmonary nodules Tumor lysis syndrome Social History: Social History (Last Reviewed 10/06/25 @ 15:04 by Haleigh Webb MD) Living Situation History: Household Members: Family Housing: House Do you presently have visiting nurse or other home services: No Tobacco History: Patient Tobacco Use Status: Former Tobacco user Tobacco use type: Cigarette Years Smoked: 30 years Second Hand Smoke Exposure: No Occupation Assessmet: service: No Home Medications and Allergies Current Medications: Current Medications Acetaminophen (Acetaminophen 325 Mg Tablet) 650 mg PO Q6H PRN PRN Reason: Pain, Mild 1-3,fever,headache Albuterol Sulfate (Albuterol Sulfate 90 Mcg 8 Gm Inhaler) 2 puff INHALE Q6H PRN PRN Reason: Shortness Of Breath Or Wheezing Albuterol/Ipratropium (Albuterol/Iprat 2.5/0.5mg 3 Ml Ampul.Neb) 3 ml INHALE RQ6H WHILE AWAKE PRN PRN Reason: Shortness of Breath/Wheezing Aspirin (Aspirin Enteric Coated 81 Mg Tablet.Dr) 81 mg PO DAILY [facility] Last Admin: 10/08/25 07:51 Dose: 81 mg Calcium Carbonate (Calcium Carbonate 750 Mg Tab.Chew) 750 mg PO Q4H PRN PRN Reason: Heartburn Clopidogrel Bisulfate (Clopidogrel Bisulfate 75 Mg Tablet) 75 mg PO DAILY [facility] Stop: 10/28/25 16:29 Last Admin: 10/08/25 07:51 Dose: 75 mg Fluticasone/Vilanterol (Fluticasone/Vilanterol 200/25 Blst.W.Dev) 1 puff INHALE RDAILY [facility] Last Admin: 10/08/25 08:29 Dose: Not Given Hydroxyurea (Hydroxyurea 500 Mg Capsule) 1,000 mg PO BID [facility] Last Admin: 10/08/25 07:51 Dose: 1,000 mg Sodium Chloride (Ns) 1,000 mls @ 150 mls/hr IVCONT .Q6H40M [facility] Last Admin: 10/08/25 08:08 Dose: 150 mls/hr Ipratropium [place] (Ipratropium [place] Rigoberto 0.06 % 15 Ml [place]) 2 spray NOSTRIL-B DAILY PRN PRN Reason: Nasal Congestion Labetalol HCl (Labetalol Hcl 100 Mg/20 Ml Vial) 10 mg IVPUSH Q8H PRN PRN Reason: SBP > 160 Magnesium Hydroxide (Milk Of Magnesia 30 Ml Oral.Susp) 30 ml PO DAILY PRN PRN Reason: Constipation Melatonin (Melatonin 3 Mg Tablet) 6 mg PO BEDTIME PRN PRN Reason: Insomnia Last Admin: 10/07/25 20:17 Dose: 6 mg Ondansetron HCl (Ondansetron Hcl 4 Mg/2 Ml Vial) 4 mg IVPUSH Q8H PRN PRN Reason: Nausea and Vomiting Pravastatin Sodium (Pravastatin Sodium 20 Mg Tablet) 20 mg PO DAILY [facility] Last Admin: 10/08/25 07:51 Dose: 20 mg Sodium Chloride (0.9 % Sodium Chloride Flush 3 Ml Syringe) 3 ml IVFLUSH QSHIFT [facility] Last Admin: 10/08/25 07:51 Dose: 3 ml Home Medications ?Medication ?Instructions ?Recorded ?Confirmed ?Type calcium 600 mg (as 1 tab PO DAILY 02/19/21 10/06/25 History carbonate)-vitamin D3 5 mcg (200 unit) tablet (Calcium 600 + D(3)) ipratropium bromide 42 mcg (0.06 2 spray intranasal DAILY PRN Nasal 02/1910/06/25 History %) nasal spray Congestion lovastatin 20 mg tablet 20 mg PO DAILY 02/19/21 10/06/25 History aspirin 81 mg tablet,delayed 81 mg PO DAILY 11/26/22 10/06/25 History release cetirizine 10 mg disintegrating 10 mg PO DAILY 11/26/22 10/06/25 History tablet nebulizers 11/26/22 05/07/23 History albuterol sulfate 90 mcg/actuation 2 puff inhalation Q6H PRN 10/06/2510/06 History aerosol inhaler Shortness Of Breath Or Wheezing budesonide-formoterol HFA 160 2 puff inhalation BID 10/06/25 10/06/25 History mcg-4.5 mcg/actuation aerosol inhaler (Symbicort) midodrine 5 mg tablet 5 mg PO BID 10/06/25 10/06/25 History Allergies Allergy/AdvReac Type Severity Reaction Status Date / Time fentanyl Allergy Intermediate elevated bp Verified 10/06/25 13:57 Penicillins Allergy Severe Rash and Uncoded 08/26/24 10:16 Hives Sulfa Drugs Allergy Severe Rash and Uncoded 08/26/24 10:16 Hives Exam Vital signs: Vital Signs Temp 98.0 F 10/08/25 12:20 Pulse 96 10/08/25 12:20 Resp 20 10/08/25 12:20 BP 109/64 10/08/25 12:20 Pulse Ox 94 10/08/25 11:04 O2 Del Method Room Air 10/08/25 11:04 O2 Flow Rate 2 10/08/25 08:00 Intake & Output 10/07/25 10/08/25 10/08/25 18:59 06:59 18:59 Intake Total 401.667 / 0781.901 6924 / 1951.667 972.5 / 972.5 Balance 401.667 / 5975.761 4825 / 1951.667 972.5 / 972.5 Intake: Intake, Oral Amount 300 / 800 500 / 800 Intake (Blood Product) Amount 0 / 0 Red Blood Cells (E0336) Unit 0 / 0 [id number] Intake, IV Amount 101.667 / 3353.159 3436 / 1151.667 972.5 / 972.5 Rasburicase 7.5 mg Rasburicase 50 / 50 1.5 mg In 0.9 % Sodium Chloride 44 ml @ 100 mls/hr IV ONCE ONE Rx#:[id number] 0.9 % Sodium Chloride 1,000 ml 1000 / 1000 972.5 / 972.5 @ 150 mls/hr IVCONT .Q6H40M RICARDO Rx#:[id number] Lactated Ringers 1,000 ml @ 100 101.667 / 101.667 mls/hr IVCONT .Q10H [facility]ICARDO Rx#: [id number] Other: Meal Refused No: clear liquids only Lunch % Eaten liquids Eating (Feeding) Ability Independent Number of Unmeasured Voids 2 3 Urine Bathroom Bathroom Urine Color Yellow Yellow Last Bowel Movement 10/06/25 Weight 63.2 kg BMI result Body Mass Index 23.2 - Constitutional Present: no acute distress, mild distress - Routine HEENT Exam Head: Present: atraumatic, normal inspection ENT: Present: normal oropharynx - Routine Neck Exam Present: full ROM - Routine Respiratory Exam Present: decreased breath sounds, CTAB. Absent: accessory muscle use - Routine Cardiovascular Exam Cardiovascular: Present: RRR, S1, S2 - Routine Abdominal Exam Present: diminished bowel sounds, soft - Routine Skin Exam Present: intact. Absent: cyanosis - Detailed Neurological Exam: Coma Scale Eye Opening: Spontaneous (4) Data - Labs CBC & Chem 7: 10/08/25 07:05 10/08/25 07:05 Labs: Laboratory Last Values WBC 308.0 X10*3/uL (4.8-10.8) H* 10/08/25 07:05 RBC 1.98 X10*6/uL (4.20-5.50) L 10/08/25 07:05 Hgb 7.0 g/dl (12.0-16.0) L* 10/08/25 07:05 Hct 20.3 % (37.0-47.0) L* 10/08/25 07:05 MCV 102.5 fL (80.0-98.0) H 10/08/25 07:05 MCH 35.4 pg (27.0-33.0) H 10/08/25 07:05 MCHC 34.5 g/dl (31.0-35.0) 10/08/25 07:05 RDW 18.9 % (11.0-16.0) H 10/08/25 07:05 Plt Count 34 X10*3/uL (160-400) L 10/08/25 07:05 MPV 10.7 fL (9.4-12.3) 10/08/25 07:05 Immature Gran % (Auto) Cancelled 10/06/25 14:43 Neut % (Auto) Cancelled 10/06/25 14:43 Lymph % (Auto) Cancelled 10/06/25 14:43 [place] % (Auto) Cancelled 10/06/25 14:43 Eos % (Auto) Cancelled 10/06/25 14:43 Baso % (Auto) Cancelled 10/06/25 14:43 Lymph # (Auto) Cancelled 10/06/25 14:43 [place] # (Auto) Cancelled 10/06/25 14:43 Eos # (Auto) Cancelled 10/06/25 14:43 Baso # (Auto) Cancelled 10/06/25 14:43 Abs Immat Gran (auto) Cancelled 10/06/25 14:43 Absolute Neuts (auto) Cancelled 10/06/25 14:43 Absolute Nucleated RBC 0.550 X10*3/uL (0.0-0.012) H 10/08/25 07:05 Nucleated RBC % (auto) 0.2 /100WBC (0.0-0.2) 10/08/25 07:05 Neutrophils % (Manual) 36 % (45-73) L 10/06/25 14:43 Band Neutrophils % 18 % (3-5) H 10/06/25 14:43 Lymphocytes % (Manual) 3 % (20-40) L 10/06/25 14:43 Monocytes % (Manual) 8 % (2-11) 10/06/25 14:43 Metamyelocytes % 5 % 10/06/25 14:43 Myelocytes % 6 % 10/06/25 14:43 Promyelocytes % 18 % 10/06/25 14:43 Blast Cells % (Manual) 6 % 10/06/25 14:43 Abs Neuts (Manual) 212.7 X10*3/uL (2.0-8.3) H 10/06/25 14:43 Lymphocytes # (Manual) 11.8 X10*3/uL (1.2-4.9) H 10/06/25 14:43 Monocytes # (Manual) 31.5 X10*3/uL (0.1-1.2) H 10/06/25 14:43 Metamyelocytes # 19.7 X10*3/uL 10/06/25 14:43 Myelocytes # 23.6 X10*/uL 10/06/25 14:43 Promyelocytes # 70.9 X10*3/uL 10/06/25 14:43 Blast Cells # 23.6 X10*3/uL 10/06/25 14:43 Toxic Vacuolation PRESENT 10/06/25 14:43 Platelet Estimate DECREASED (NORMAL) 10/06/25 14:43 Plt Morphology Comment NORMAL 10/06/25 14:43 RBC Morphology NOTED 10/06/25 14:43 Polychromasia 1+ (0-2) /OIF 10/06/25 14:43 Macrocytosis 1+ (5-14) /OIF 10/06/25 14:43 Smear Path Review SEE NOTE 10/06/25 14:43 PT 13.1 SEC (11.2-13.5) 10/06/25 14:43 INR 1.1 (0.9-1.1) 10/06/25 14:43 APTT 25.1 SEC (26.7-34.1) L 10/06/25 14:43 Sodium 140 mmol/L (135-145) 10/08/25 07:05 Potassium 3.6 mmol/L (3.3-5.1) 10/08/25 07:05 Chloride 104 mmol/L (96-108) 10/08/25 07:05 Carbon Dioxide 23 mmol/L (22-29) 10/08/25 07:05 Anion Gap 17 (12-20) 10/08/25 07:05 BUN 27 mg/dL (9-16) H 10/08/25 07:05 Creatinine 1.95 mg/dL (0.5-1.4) H 10/08/25 07:05 Estim Creat Clear Calc 20.7 10/08/25 07:05 Estimated GFR 25 10/08/25 07:05 Random Glucose 83 mg/dL (60-115) 10/08/25 07:05 Estimat Average Glucose TNP 10/06/25 19:06 Hemoglobin A1c % TNP 10/06/25 19:06 Uric Acid 4.2 mg/dL (2.4-5.7) 10/08/25 07:05 Calcium 8.4 mg/dL (8.4-10.2) D 10/08/25 07:05 Phosphorus 4.1 mg/dL (2.7-4.5) 10/07/25 21:12 Magnesium 2.0 mg/dL (1.6-2.6) 10/08/25 07:05 Total Bilirubin 0.5 mg/dL (0.0-1.0) 10/06/25 14:43 AST 28 U/L (5-31) 10/06/25 14:43 ALT 13 U/L (0-31) 10/06/25 14:43 Alkaline Phosphatase 70 U/L (39-117) 10/06/25 14:43 Lactate Dehydrogenase 400 U/L (122-220) H 10/07/25 16:45 Troponin I High Sens 7.0 ng/L (<3.5-17.0) 10/06/25 14:43 NT-Pro-B Natriuret Pep 652.7 pg/mL (<300) H 10/06/25 14:43 Total Protein 7.5 g/dL (6.5-8.0) 10/06/25 14:43 Albumin 4.7 g/dL (3.5-5.0) 10/06/25 14:43 Triglycerides 182 mg/dL (<150) H 10/07/25 06:06 Triglycerides Cancelled 10/07/25 06:06 Cholesterol 121 mg/dL (<200) 10/07/25 06:06 Cholesterol Cancelled 10/07/25 06:06 LDL Cholesterol, Calc 71 mg/dL (<100) 10/07/25 06:06 LDL Cholesterol, Calc Cancelled 10/07/25 06:06 HDL Cholesterol 14 mg/dL (>40) L 10/07/25 06:06 HDL Cholesterol Cancelled 10/07/25 06:06 TSH 1.16 uIU/mL (0.32-4.0) 10/07/25 06:06 TSH Cancelled 10/07/25 06:06 Urine Color Yellow 10/06/25 18:40 Urine Appearance Cloudy 10/06/25 18:40 Urine pH 6.0 (5.0-9.0) 10/06/25 18:40 Ur Specific [place] 1.015 (1.005-1.025) 10/06/25 18:40 Urine Protein 30 (1+) mg/dL (Neg-Trace) H 10/06/25 18:40 Urine Glucose (UA) Negative mg/dL (Negative) 10/06/25 18:40 Urine Ketones Negative mg/dL (Negative) 10/06/25 18:40 Urine Blood Moderate (2+) (Negative) H 10/06/25 18:40 Urine Nitrite Negative (Negative) 10/06/25 18:40 Ur Leukocyte Esterase Moderate (2+) (Negative) H 10/06/25 18:40 Urine RBC 11-20 /HPF (0-2) H 10/06/25 18:40 Urine WBC 11-20 /HPF (0-5) H 10/06/25 18:40 Ur Squamous Epith Cells 6-10 /HPF (0-2) 10/06/25 18:40 Urine Bacteria Trace (None Seen) 10/06/25 18:40 Hyaline Casts 6-10 /LPF (0-2) 10/06/25 18:40 Ur Random Sodium 109.0 mmol/L 10/06/25 18:40 Urine Creatinine 33.32 mg/dL 10/06/25 18:40 Influenza Type A (PCR) NEGATIVE (Negative) 10/06/25 14:44 Influenza Type B (PCR) NEGATIVE (Negative) 10/06/25 14:44 RSV RNA Qual (PCR) NEGATIVE (Negative) 10/06/25 14:44 SARS-CoV-2 RNA (RT-PCR) NEGATIVE (Negative) 10/06/25 14:44 Blood Type A Negative 10/08/25 09:59 Antibody Screen NEGATIVE 10/08/25 09:59 Crossmatch See Detail 10/08/25 09:59 - Imaging Radiologist's impression: ITS Impressions Chest X-Ray 10/06/25 14:17 IMPRESSION: No evidence for acute disease in the chest. Electronically signed by: Jana Bruner MD 10/06/2025 02:29 PM EST RP Head/Neck CTA 10/06/25 15:20 IMPRESSION: CTA NECK: 1. There is an approximate 50% stenosis of the origin of the right ICA due to mixed plaque. 2. There is an approximate 40% stenosis of the left carotid bulb due to calcific plaque. 3. There is an approximate 70% stenosis of the left subclavian artery just after the origin. 4. There is a mild stenosis of the origin of the left common carotid artery due to calcific plaque. CTA HEAD: 1. There is no high-grade stenosis, occlusion, dissection, or aneurysm of the major intracranial arterial vasculature. 2. The right vertebral artery terminates as a PICA branch. 3. There is mild stenosis of the left vertebral artery V4 segment due to calcific plaque. 4. There is a moderate stenosis at the origin of the left [employer], P1 segment. 5. There is a moderate stenosis at the origin of the right superior cerebellar artery. 6. The major cortical and dural venous sinuses are patent. Electronically signed by: Abelino Romero MD 10/06/2025 04:46 PM EST RP Head CT 10/06/25 15:38 IMPRESSION: No acute intracranial hemorrhage. Small vessel occlusive disease. Atherosclerosis disease, intracranial. This critical result was discussed with the requesting images a physician Dr. Haleigh Webb at 3:51 PM hours on October 06, 2025. It was ascertained that the content and urgency of the report was understood at the time of direct communication. Electronically signed by: Chriss Shah MD 10/06/2025 03:56 PM EST RP Assessment and Plan Patient Active problem list reviewed?: Yes (1) CMML (chronic myelomonocytic leukemia) Status: Acute Assessment and plan: She has been tolerating the hydroxyurea quite well. She is under the care of Dr. Garvey at [facility]. She is not clear on what treatment she has been receiving there but she states that she has discussed bone marrow transplant with doctors in [place]. She was told she would be the oldest person they have ever done. She is being transfused today with another unit of red blood cells. She has had no bleeding. She is stable at the moment. She reports that her weakness is improving. - Time Spent With Patient Time Spent with Patient (in minutes): 25
[2025-10-08 13:06] LABS: Hemoglobin 7.2 g/dl (12.0-16.0)
[2025-10-08 13:15] LABS: Hematocrit 20.5 % (37.0-47.0)
[2025-10-08 13:16] LABS: Uric Acid 2.1 mg/dL (2.4-5.7)
[2025-10-08] MEDS: Furosemide 20 MG/2 ML VIAL IVPUSH (17:20)
[2025-10-08 23:02] LABS: Anion Gap 15 (12-20); Blood Urea Nitrogen 33 mg/dL (9-16); Calcium 8.3 mg/dL (8.4-10.2); Carbon Dioxide 21 mmol/L (22-29); Chloride 105 mmol/L (96-108); Creatinine Clr Calc Pharmacy 21.3; Estimated Glomerular Filt Rate 25; Potassium 3.3 mmol/L (3.3-5.1); Sodium 138 mmol/L (135-145)
[2025-10-09 04:00] VITALS: BP 133/72; PULSE 100; RESP 18; TEMP 37.3; O2SAT 95
[2025-10-09 07:27] VITALS: BP 148/65; PULSE 94; RESP 18; TEMP 36.5; O2SAT 95
[2025-10-09 07:43] LABS: Hemoglobin 8.1 g/dl (12.0-16.0); Mean Corpuscular Volume 100.0 fL (80.0-98.0); NRBC Pct Auto 0.1 /100WBC (0.0-0.2)
[2025-10-09 07:45] LABS: Hematocrit 24.4 % (37.0-47.0); Mean Corpuscular HGB Conc 33.2 g/dl (31.0-35.0); Mean Corpuscular Hemoglobin 33.2 pg (27.0-33.0); NRBC Abs Auto 0.290 X10*3/uL (0.0-0.012); PLT CLUMP 1; Red Blood Count 2.44 X10*6/uL (4.20-5.50)
[2025-10-09] MEDS: Aspirin Enteric Coated 81 MG TABLET.DR PO (07:45)
[2025-10-09] MEDS: 0.9 % Sodium Chloride Flush 3 ML SYRINGE IVFLUSH ×2 (07:46→21:00)
[2025-10-09 07:48] LABS: PLT ABN DIST 1
[2025-10-09 07:49] LABS: Platelet Count 33 X10*3/uL (160-400)
[2025-10-09 07:55] LABS: White Blood Count 235.4 X10*3/uL (4.8-10.8)
[2025-10-09 07:59] LABS: Anion Gap 16 (12-20); Blood Urea Nitrogen 32 mg/dL (9-16); Calcium 8.8 mg/dL (8.4-10.2); Carbon Dioxide 22 mmol/L (22-29); Chloride 106 mmol/L (96-108); Creatinine Clr Calc Pharmacy 22.4; Estimated Glomerular Filt Rate 27; Magnesium 2.0 mg/dL (1.6-2.6); Potassium 3.0 mmol/L (3.3-5.1); Sodium 141 mmol/L (135-145)
--- NOTE | 2025-10-09 10:54 | P.PNHO-ONC_ITS ---
Medical Summary - Medical Summary Date of Service: 10/09/25 Primary Care Provider: Cori Simmons MD Ore Sampler Utilized?: No - Montserratian Speaking Interval History Interval history: Le Salcido is a 80 year old female with past medical history significant for CML who is followed by jalousies installer at [facility] who is admitted for progressive shortness of breath. Patient states that for the last 1 week she has been getting easily winded. She is barely able to get around in her house to fix her meals. She also reports some degree of orthopnea. She does not have any leg swelling. Diagnosed with CML about a year ago. Her white count was initially around 30,000 but in the last 6 months it has been between 300-400 K. unfortunately, she was unable to tolerate any treatments for her CML because of severe anemia and thrombocytopenia caused by the medications. She was evaluated and offered bone marrow transplant in [place] but she declined it. She is stable on hydroxyurea with wbc 253, hct 2, plts 30k. Recommend continue hydroxyurea and monitor uric acid. Review of Systems - Constitutional Reports anorexia - ENT Reports system reviewed and no additional complaints, except as documented - Cardiovascular Reports shortness of breath with activity - Gastrointestinal Reports bloating - Neurologic Reports system reviewed and no additional complaints, except as documented, Denies syncope, Denies headache(s), Denies loss of vision [facility] Medical History: Medical History (Last Updated 10/08/25 @ 10:42 by Vincent Simon MD) Chest discomfort COPD (chronic obstructive pulmonary disease) COVID-19 Dyspnea Pneumonitis Pulmonary nodule Pulmonary nodules Tumor lysis syndrome Social History: Social History (Last Reviewed 10/06/25 @ 15:04 by Haleigh Webb MD) Living Situation History: Household Members: Family Housing: House Do you presently have visiting nurse or other home services: No Tobacco History: Patient Tobacco Use Status: Former Tobacco user Tobacco use type: Cigarette Years Smoked: 30 years Second Hand Smoke Exposure: No Occupation Assessmet: service: No Home Medications and Allergies Current Medications: Current Medications Acetaminophen (Acetaminophen 325 Mg Tablet) 650 mg PO Q6H PRN PRN Reason: Pain, Mild 1-3,fever,headache Albuterol Sulfate (Albuterol Sulfate 90 Mcg 8 Gm Inhaler) 2 puff INHALE Q6H PRN PRN Reason: Shortness Of Breath Or Wheezing Albuterol/Ipratropium (Albuterol/Iprat 2.5/0.5mg 3 Ml Ampul.Neb) 3 ml INHALE RQ6H WHILE AWAKE PRN PRN Reason: Shortness of Breath/Wheezing Aspirin (Aspirin Enteric Coated 81 Mg Tablet.Dr) 81 mg PO DAILY [facility] Last Admin: 10/09/25 07:45 Dose: 81 mg Calcium Carbonate (Calcium Carbonate 750 Mg Tab.Chew) 750 mg PO Q4H PRN PRN Reason: Heartburn Clopidogrel Bisulfate (Clopidogrel Bisulfate 75 Mg Tablet) 75 mg PO DAILY [facility] Stop: 10/28/25 16:29 Last Admin: 10/09/25 07:45 Dose: 75 mg Fluticasone/Vilanterol (Fluticasone/Vilanterol 200/25 Blst.W.Dev) 1 puff INHALE RDAILY [facility] Last Admin: 10/09/25 08:07 Dose: Not Given Hydroxyurea (Hydroxyurea 500 Mg Capsule) 1,000 mg PO BID [facility] Last Admin: 10/09/25 07:45 Dose: 1,000 mg Sodium Chloride (Ns) 1,000 mls @ 83 mls/hr IVCONT .Q12H3M [facility] Last Infusion: 10/08/25 17:50 Dose: 0 mls/hr Ipratropium [place] (Ipratropium [place] Rigoberto 0.06 % 15 Ml [place]) 2 spray NOSTRIL-B DAILY PRN PRN Reason: Nasal Congestion Labetalol HCl (Labetalol Hcl 100 Mg/20 Ml Vial) 10 mg IVPUSH Q8H PRN PRN Reason: SBP > 160 Magnesium Hydroxide (Milk Of Magnesia 30 Ml Oral.Susp) 30 ml PO DAILY PRN PRN Reason: Constipation Melatonin (Melatonin 3 Mg Tablet) 6 mg PO BEDTIME PRN PRN Reason: Insomnia Last Admin: 10/07/25 20:17 Dose: 6 mg Ondansetron HCl (Ondansetron Hcl 4 Mg/2 Ml Vial) 4 mg IVPUSH Q8H PRN PRN Reason: Nausea and Vomiting Potassium Chloride (Potassium Chloride Packet 20 Meq Packet) 40 meq PO BID [facility] Stop: 10/10/25 10:59 Pravastatin Sodium (Pravastatin Sodium 20 Mg Tablet) 20 mg PO DAILY [facility] Last Admin: 10/09/25 07:45 Dose: 20 mg Sodium Chloride (0.9 % Sodium Chloride Flush 3 Ml Syringe) 3 ml IVFLUSH QSHIFT [facility] Last Admin: 10/09/25 07:46 Dose: 3 ml Home Medications ?Medication ?Instructions ?Recorded ?Confirmed ?Type calcium 600 mg (as 1 tab PO DAILY 02/19/21 10/06/25 History carbonate)-vitamin D3 5 mcg (200 unit) tablet (Calcium 600 + D(3)) ipratropium bromide 42 mcg (0.06 2 spray intranasal DAILY PRN Nasal 02/1910/06/25 History %) nasal spray Congestion lovastatin 20 mg tablet 20 mg PO DAILY 02/19/21 10/06/25 History aspirin 81 mg tablet,delayed 81 mg PO DAILY 11/26/22 10/06/25 History release cetirizine 10 mg disintegrating 10 mg PO DAILY 11/26/22 10/06/25 History tablet nebulizers 11/26/22 05/07/23 History albuterol sulfate 90 mcg/actuation 2 puff inhalation Q6H PRN 10/06/2510/06 History aerosol inhaler Shortness Of Breath Or Wheezing budesonide-formoterol HFA 160 2 puff inhalation BID 10/06/25 10/06/25 History mcg-4.5 mcg/actuation aerosol inhaler (Symbicort) midodrine 5 mg tablet 5 mg PO BID 10/06/25 10/06/25 History Allergies Allergy/AdvReac Type Severity Reaction Status Date / Time fentanyl Allergy Intermediate elevated bp Verified 10/06/25 13:57 Penicillins Allergy Severe Rash and Uncoded 08/26/24 10:16 Hives Sulfa Drugs Allergy Severe Rash and Uncoded 08/26/24 10:16 Hives Exam Vital signs: Vital Signs Temp 97.7 F 10/09/25 07:27 Pulse 94 10/09/25 07:27 Resp 18 10/09/25 07:27 BP 148/65 H 10/09/25 07:27 Pulse Ox 95 10/09/25 07:27 O2 Del Method Room Air 10/09/25 07:27 O2 Flow Rate 2 10/08/25 08:00 Intake & Output 10/08/25 10/09/25 10/09/25 18:59 06:59 18:59 Intake Total 3707.5 / 4907.5 1200 / 4907.5 Balance 3707.5 / 4907.5 1200 / 4907.5 Intake: Intake, Oral Amount 900 / 2100 1200 / 2100 Intake (Blood Product) Amount 350 / 350 Red Blood Cells (E0336) Unit 350 / 350 [id number] Intake, IV Amount 2457.5 / 2457.5 0.9 % Sodium Chloride 1,000 ml 2457.5 / 2457.5 @ 83 mls/hr IVCONT .Q12H3M [facility] Rx#:[id number] Other: Meal Refused No NPO No Breakfast % Eaten 75% Lunch % Eaten 75% Eating (Feeding) Ability Set Up only Number of Unmeasured Voids 3 2 Urine Bathroom Bathroom Urine Color Yellow Weight 63.2 kg BMI result Body Mass Index 23.2 - Constitutional Present: no acute distress, mild distress - Routine HEENT Exam Head: Present: atraumatic, normal inspection - Routine Neck Exam Present: full ROM - Routine Respiratory Exam Present: decreased breath sounds, CTAB. Absent: accessory muscle use - Routine Cardiovascular Exam Cardiovascular: Present: RRR, S1, S2 - Routine Abdominal Exam Present: diminished bowel sounds, soft - Routine Skin Exam Present: intact. Absent: cyanosis - Detailed Neurological Exam: Coma Scale Eye Opening: Spontaneous (4) Data - Labs CBC & Chem 7: 10/09/25 07:10 10/09/25 07:10 - Imaging Radiologist's impression: ITS Impressions Chest X-Ray 10/06/25 14:17 IMPRESSION: No evidence for acute disease in the chest. Electronically signed by: Jana Bruner MD 10/06/2025 02:29 PM [facility] Head/Neck CTA 10/06/25 15:20 IMPRESSION: CTA NECK: 1. There is an approximate 50% stenosis of the origin of the right ICA due to mixed plaque. 2. There is an approximate 40% stenosis of the left carotid bulb due to calcific plaque. 3. There is an approximate 70% stenosis of the left subclavian artery just after the origin. 4. There is a mild stenosis of the origin of the left common carotid artery due to calcific plaque. CTA HEAD: 1. There is no high-grade stenosis, occlusion, dissection, or aneurysm of the major intracranial arterial vasculature. 2. The right vertebral artery terminates as a PICA branch. 3. There is mild stenosis of the left vertebral artery V4 segment due to calcific plaque. 4. There is a moderate stenosis at the origin of the left OXIDATION OPERATOR, P1 segment. 5. There is a moderate stenosis at the origin of the right superior cerebellar artery. 6. The major cortical and dural venous sinuses are patent. Electronically signed by: Abelino Romero MD 10/06/2025 04:46 PM EST RP Head CT 10/06/25 15:38 IMPRESSION: No acute intracranial hemorrhage. Small vessel occlusive disease. Atherosclerosis disease, intracranial. This critical result was discussed with the requesting images a physician Dr. Haleigh Webb at 3:51 PM hours on October 06, 2025. It was ascertained that the content and urgency of the report was understood at the time of direct communication. Electronically signed by: Chriss Shah MD 10/06/2025 03:56 PM EST RP Assessment and Plan Patient Active problem list reviewed?: Yes (1) CMML (chronic myelomonocytic leukemia) Status: Acute Assessment and plan: She has been tolerating the hydroxyurea quite well. She is under the care of Dr. Garvey at [facility]. She is not clear on what treatment she has been receiving there but she states that she has discussed bone marrow transplant with doctors in [place]. She was told she would be the oldest person they have ever done. She is being transfused today with another unit of red blood cells. She has had no bleeding. She is stable at the moment. She reports that her weakness is improving. recommend we continue hydroxyurea until tomorrow. - Time Spent With Patient Time Spent with Patient (in minutes): 15
[2025-10-09 11:07] VITALS: BP 132/64; PULSE 96; RESP 16; TEMP 36.9; O2SAT 94
[2025-10-09] MEDS: Potassium Chloride Packet 20 MEQ PACKET 40 MEQ PO ×2 (11:40→20:56)
[2025-10-09 13:13] LABS: Hematocrit 25.3 % (37.0-47.0); Hemoglobin 8.7 g/dl (12.0-16.0)
--- NOTE | 2025-10-09 13:40 | HO.PM.IMPN ---
Subjective Subjective Date of Service: 10/09/25 Interval History: Patient seen and examined at bedside this morning, patient mentioned that she experienced chest tightness and shortness of breath, with minimal exertion, transitory. Labs improving. Review of Systems Review of Systems: Yes all other systems are reviewed and are negative Physical Exam Exam: Exam: General: AxOx3, No acute distress Head: AT/NC ENT: Moist mucous membranes Neck: supple CVS; RRR, S1 S2 normal Lungs: Clear bilateral breath sounds, no wheezes or crackles Abd: Soft non tender, non distended Ext: No edema and no calf tenderness MSK: moving all 4 limbs Skin: No cyanosis or edema Psych: Cooperative with exam Neurology: no focal deficit Vital Signs: Vital Signs: Last Vital Signs Temp 98.5 F 10/09/25 11:07 Pulse 96 10/09/25 11:07 Resp 16 10/09/25 11:07 BP 132/64 10/09/25 11:07 Pulse Ox 94 10/09/25 11:07 O2 Del Method Room Air 10/09/25 11:07 O2 Flow Rate 2 10/08/25 08:00 BMI result Body Mass Index 23.2 Objective Data Active Medications Acetaminophen (Acetaminophen 325 Mg Tablet) 650 mg PO Q6H PRN PRN Reason: Pain, Mild 1-3,fever,headache Albuterol Sulfate (Albuterol Sulfate 90 Mcg 8 Gm Inhaler) 2 puff INHALE Q6H PRN PRN Reason: Shortness Of Breath Or Wheezing Albuterol/Ipratropium (Albuterol/Iprat 2.5/0.5mg 3 Ml Ampul.Neb) 3 ml INHALE RQ6H WHILE AWAKE PRN PRN Reason: Shortness of Breath/Wheezing Aspirin (Aspirin Enteric Coated 81 Mg Tablet.) 81 mg PO DAILY [facility] Last Admin: 10/09/25 07:45 Dose: 81 mg Documented By: MK Calcium Carbonate (Calcium Carbonate 750 Mg Tab.Chew) 750 mg PO Q4H PRN PRN Reason: Heartburn Clopidogrel Bisulfate (Clopidogrel Bisulfate 75 Mg Tablet) 75 mg PO DAILY [facility] Stop: 10/28/25 16:29 Last Admin: 10/09/25 07:45 Dose: 75 mg Documented By: MK Fluticasone/Vilanterol (Fluticasone/Vilanterol 200/25 Blst.W.Dev) 1 puff INHALE RDAILY [facility] Last Admin: 10/09/25 08:07 Dose: Not Given Documented By: NOEMY Non-Admin Reason: pt defered pt has symbicort. Hydroxyurea (Hydroxyurea 500 Mg Capsule) 1,000 mg PO BID [facility] Last Admin: 10/09/25 07:45 Dose: 1,000 mg Documented By: MK Sodium Chloride (Ns) 1,000 mls @ 83 mls/hr IVCONT .Q12H3M [facility] Last Admin: 10/09/25 11:41 Dose: Not Given Documented By: MK Non-Admin Reason: Physician Approved Ipratropium [place] (Ipratropium [place] Rigoberto 0.06 % 15 Ml [place]) 2 spray NOSTRIL-B DAILY PRN PRN Reason: Nasal Congestion Labetalol HCl (Labetalol Hcl 100 Mg/20 Ml Vial) 10 mg IVPUSH Q8H PRN PRN Reason: SBP > 160 Magnesium Hydroxide (Milk Of Magnesia 30 Ml Oral.Susp) 30 ml PO DAILY PRN PRN Reason: Constipation Melatonin (Melatonin 3 Mg Tablet) 6 mg PO BEDTIME PRN PRN Reason: Insomnia Last Admin: 10/07/25 20:17 Dose: 6 mg Documented By: MAGALI Ondansetron HCl (Ondansetron Hcl 4 Mg/2 Ml Vial) 4 mg IVPUSH Q8H PRN PRN Reason: Nausea and Vomiting Potassium Chloride (Potassium Chloride Packet 20 Meq Packet) 40 meq PO BID [facility] Stop: 10/10/25 10:59 Last Admin: 10/09/25 11:40 Dose: 40 meq Documented By: MK Pravastatin Sodium (Pravastatin Sodium 20 Mg Tablet) 20 mg PO DAILY [facility] Last Admin: 10/09/25 07:45 Dose: 20 mg Documented By: MK Sodium Chloride (0.9 % Sodium Chloride Flush 3 Ml Syringe) 3 ml IVFLUSH QSHIFT [facility] Last Admin: 10/09/25 07:46 Dose: 3 ml Documented By: MK Labs 10/09/25 12:57 10/09/25 07:10 Labs: Laboratory Results - last 24 hr 10/08/25 10/08/25 10/08/25 09:59 20:05 21:50 MCV MCH MCHC RDW Plt Count MPV Absolute Nucleated RBC Nucleated RBC % (auto) Anion Gap 15 Estim Creat Clear Calc 21.3 Estimated GFR 25 Random Glucose 109 Calcium 8.3 L Phosphorus 6.1 H Magnesium Crossmatch See Detail 10/09/25 07:10 MCV 100.0 H MCH 33.2 H MCHC 33.2 RDW 18.6 H Plt Count 33 L MPV Not Reportable Absolute Nucleated RBC 0.290 H Nucleated RBC % (auto) 0.1 Anion Gap 16 Estim Creat Clear Calc 22.4 Estimated GFR 27 Random Glucose 78 Calcium 8.8 D Phosphorus Magnesium 2.0 Crossmatch Microbiology Microbiology Results: Microbiology 10/06/25 Unknown Urine Culture - Final Urine clean catch - Clean Catch Midstream Assessment and Plan (1) Thrombocytopenia: Status: Acute (2) Acute kidney injury: Status: Acute (3) CML (chronic myelocytic leukemia): Status: Chronic Plan 80-year-old female who presented to the hospital complaining of worsening shortness of breath that has been ongoing for the past couple of months, patient today also noticed that she was experiencing right-sided weakness with dysarthria. 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 -continue with DAPT 21 days, we will then transitioned to aspirin 81 mg q.d. -continue statin CML leukocytosis, secondary to above acute on chronic Anemia of chronic disease, improved after blood transfusion Thrombocytopenia -likely related to bone marrow disease, patient previously worked up by Hematology/Oncology, suggested on possible bone marrow transplant which patient refused -continue to monitor for any signs of bleeding, chest pain -hematology oncology consulted, continue hydroxyurea 1 g b.i.d. -will transfuse 1 unit of platelets if platelets less than 20 K. 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 Hyperuricemia, resolved -IVf at a lower rate -we will continue to monitor labs and adjust accordingly IV fluid rate BETHANY, likely multifoactorial, improving 1.8 at this time, per prior records, baseline around 1.1 -Retroperitoneal ultrasound with moderate right hydronephrosis with a possible right ureterovesicular junction stone measuring 1.3 cm -Urology and nephrology -will decrease NS rate to 100ml/hr monitor output Acute hypoxic respiratory failure, could be in setting of anemia, improving COPD -labs and imaging reviewed -TTE ordered and pending to rule out cardiomyopathy -status post IV Lasix given -continue nebs and supplemental treatment -continue to monitor labs -cardiology consulted and following Hypertension, chronic -We will give labetalol p.r.n. FEN: NS, replete as needed, regular GI PPx: NI DVT PPx: SCDs Code Status: DNR/DNI Disposition: Patient mentions that she does not wish to pursue with Humira transplant. At this time we will continue with hydroxyurea. DISCLAIMER: This document was created using voice recognition software. Any mistakes in the prescription are unintentional. An attempt was made to focus for accuracy, but to expedite availability, some errors may persist. Please contact with any need for correction or further clarification Total time managing care of this patient today: 55 minutes. Quality Stroke Does the patient have a stroke diagnosis?: No VTE Prior VTE?: No VTE Risk Level:: Medical - moderate - high VTE Device Contraindication: N/A - Device Ordered VTE Drug Contraindication: Treatment Not Indicated
[2025-10-09] MEDS: Milk of Magnesia 30 ML ORAL.SUSP PO (13:59)
[2025-10-09 15:57] VITALS: BP 132/64; PULSE 103; RESP 20; TEMP 38.1; O2SAT 94
[2025-10-09 20:00] VITALS: BP 106/52; PULSE 101; RESP 18; TEMP 37.3; O2SAT 94
[2025-10-10] VITALS (18 sets, daily range): BP systolic 109–195; BP diastolic 59–90; PULSE 86–110; RESP 18–36; TEMP 36.6–37.2; O2SAT 92–98
--- NOTE | 2025-10-10 07:29 | ECG_ITS ---
Test Reason : cp Blood Pressure : */* mmHG Vent. Rate : 111 BPM Atrial Rate : 111 BPM P-R Int : 160 ms QRS Dur : 134 ms QT Int : 358 ms P-R-T Axes : 70 -44 104 degrees QTcB Int : 486 ms Sinus tachycardia Left axis deviation Left bundle branch block Abnormal ECG When compared with ECG of 08-Oct-2025 09:32, No significant change was found Referred By: Vincent Simon Electronically Signed By: Mani Steven
[2025-10-10 07:30] LABS: Glucose, Whole Blood 116 mg/dL (60-115)
--- NOTE | 2025-10-10 07:40 | PC.NURSE ---
at around 0725, patient was being assisted to commode by tech when patient began with acute left sided weakness, apprehensiveness/anxiety, listing to left, frontal MARTINEZ, diaphoretic and verbalizing feeling she is burning up. this nurse heavily assisted patient back into bed and sat up. BUTTERMAKER HELPER called at about 0728. Zulema Grimes and Richelle present. code stroke called, pt down to CT. POC 116. PERRLA, face symmetrical. answers orientation questions. #18 RFA patent and flushing well
--- NOTE | 2025-10-10 07:41 | P.CNUR_ITS ---
History of Present Illness Consult details Consult date: 10/09/25 Narrative: CC: right hydronephrosis with multifactorial BETHANY 80-year-old female Consult for right hydro nephrosis with multifactorial BETHANY Ultrasound shows right hydro nephrosis question of distal stone Creatinine 2.1 Renal consultation Background CML with current white count 235k Creatinine has fallen to 1.8 with conservative therapy Recommend cystoscopy, right retrograde, right stent placement Definitive stone management would be deferred to later date Review of Systems 2 Constitutional: Constitutional: Reports as per HPI and Reports no additional constitutional complaints Cardiovascular: Cardiovascular: Reports as per HPI and Reports no additional cardiovascular complaints Respiratory: Respiratory: Reports as per HPI and Reports no additional respiratory complaints Gastrointestinal: Gastrointestinal: Reports as per HPI and Reports no additional gastrointestinal complaints Genitourinary: Genitourinary: Reports as per HPI Musculoskeletal: Musculoskeletal: Reports no additional musculoskeletal complaints and Reports as per HPI Neurologic: Reports system reviewed and no additional complaints, except as documented and Reports as per HPI PMFSH Past Medical History Medical History (Updated 10/10/25 @ 07:43 by Tashi Bustillo MD) Tumor lysis syndrome Chest discomfort Dyspnea Pulmonary nodule Pneumonitis Pulmonary nodules COVID-19 COPD (chronic obstructive pulmonary disease) Social History Social History Household Members: Family Housing: House Do you presently have visiting nurse or other home services: No Patient Tobacco Use Status: Former Tobacco user Tobacco use type: Cigarette Years Smoked: 30 years Second Hand Smoke Exposure: No service: No Meds Allergies Allergy/AdvReac Type Severity Reaction Status Date / Time fentanyl Allergy Intermediate elevated bp Verified 10/06/25 13:57 Penicillins Allergy Severe Rash and Uncoded 08/26/24 10:16 Hives Sulfa Drugs Allergy Severe Rash and Uncoded 08/26/24 10:16 Hives Active Medications: Current Medications Acetaminophen (Acetaminophen 325 Mg Tablet) 650 mg PO Q6H PRN PRN Reason: Pain, Mild 1-3,fever,headache Albuterol Sulfate (Albuterol Sulfate 90 Mcg 8 Gm Inhaler) 2 puff INHALE Q6H PRN PRN Reason: Shortness Of Breath Or Wheezing Albuterol/Ipratropium (Albuterol/Iprat 2.5/0.5mg 3 Ml Ampul.Neb) 3 ml INHALE RQ6H WHILE AWAKE PRN PRN Reason: Shortness of Breath/Wheezing Aspirin (Aspirin Enteric Coated 81 Mg Tablet.Dr) 81 mg PO DAILY [facility] Last Admin: 10/09/25 07:45 Dose: 81 mg Calcium Carbonate (Calcium Carbonate 750 Mg Tab.Chew) 750 mg PO Q4H PRN PRN Reason: Heartburn Clopidogrel Bisulfate (Clopidogrel Bisulfate 75 Mg Tablet) 75 mg PO DAILY [facility] Stop: 10/28/25 16:29 Last Admin: 10/09/25 07:45 Dose: 75 mg Fluticasone/Vilanterol (Fluticasone/Vilanterol 200/25 Blst.W.Dev) 1 puff INHALE RDAILY [facility] Last Admin: 10/10/25 07:10 Dose: Not Given Hydroxyurea (Hydroxyurea 500 Mg Capsule) 1,000 mg PO BID [facility] Last Admin: 10/09/25 20:58 Dose: 1,000 mg Sodium Chloride (Ns) 1,000 mls @ 83 mls/hr IVCONT .Q12H3M [facility] Last Admin: 10/10/25 01:05 Dose: 83 mls/hr Ipratropium [place] (Ipratropium [place] Rigoberto 0.06 % 15 Ml [place]) 2 spray NOSTRIL-B DAILY PRN PRN Reason: Nasal Congestion Labetalol HCl (Labetalol Hcl 100 Mg/20 Ml Vial) 10 mg IVPUSH Q8H PRN PRN Reason: SBP > 160 Magnesium Hydroxide (Milk Of Magnesia 30 Ml Oral.Susp) 30 ml PO DAILY PRN PRN Reason: Constipation Last Admin: 10/09/25 13:59 Dose: 30 ml Melatonin (Melatonin 3 Mg Tablet) 6 mg PO BEDTIME PRN PRN Reason: Insomnia Last Admin: 10/07/25 20:17 Dose: 6 mg Ondansetron HCl (Ondansetron Hcl 4 Mg/2 Ml Vial) 4 mg IVPUSH Q8H PRN PRN Reason: Nausea and Vomiting Potassium Chloride (Potassium Chloride Packet 20 Meq Packet) 40 meq PO BID [facility] Stop: 10/10/25 10:59 Last Admin: 10/09/25 20:56 Dose: 40 meq Pravastatin Sodium (Pravastatin Sodium 20 Mg Tablet) 20 mg PO DAILY [facility] Last Admin: 10/09/25 07:45 Dose: 20 mg Sodium Chloride (0.9 % Sodium Chloride Flush 3 Ml Syringe) 3 ml IVFLUSH QSHIFT [facility] Last Admin: 10/09/25 21:00 Dose: 3 ml Home Medications ?Medication ?Instructions ?Recorded ?Confirmed ?Last Taken ?Type calcium 600 mg (as 1 tab PO DAILY 02/19/2109/1810/06/25 History carbonate)-vitamin D3 5 mcg (200 unit) tablet (Calcium 600 + D(3)) ipratropium bromide 42 mcg (0.06 2 spray intranasal DA ZAHIDA PRN Nasal 02/19/21 10/06/25 Unknown History %) nasal spray Congestion lovastatin 20 mg tablet 20 mg PO DAILY 02/19/2109/1810/06/25 History aspirin 81 mg tablet,delayed 81 mg PO DAILY 11/26/22 1 12/06/24 10/06/25 History release cetirizine 10 mg disintegrating 10 mg PO DAILY 3 10/06/25 10/06/25 History tablet nebulizers 11/26/22 05/07/23 Unknown H istory albuterol sulfate 90 mcg/actuation 2 puff inhalation Q 6H PRN 10/06/25 10/06/25 Unknown History aerosol inhaler Shortness Of Breath Or Wheez ing budesonide-formoterol HFA 160 2 puff inhalation BID 10/06/25 10/06/25 History mcg-4.5 mcg/actuation aerosol inhaler (Symbicort) midodrine 5 mg tablet 5 mg PO BID 10/06/25 5 10/06/25 History Physical Exam 2 Vital Signs: Vital Signs: Last Vital Signs Temp 97.9 F 10/10/25 07:22 Pulse 110 H 10/10/25 07:18 Resp 22 H 10/10/25 07:22 BP 184/89 H 10/10/25 07:22 Pulse Ox 94 10/10/25 07:22 O2 Del Method Room Air 10/10/25 07:22 O2 Flow Rate 2 10/08/25 08:00 BMI result Body Mass Index 23.2 Const: General: cooperative, healthy appearing, comfortable and no acute distress Orientation/consciousness: patient oriented x3 HEENT: Face and sinus: Yes normal facial exam Mouth: moist mucous membranes Neck: Neck: Yes normal visual inspection, Yes full ROM and Yes trachea midline Chest: Chest palpation & inspection: normal inspection of the chest Resp: Effort & Inspection: normal respiratory effort, able to speak in complete sentences and no respiratory distress GI: Inspection: Yes normal to inspection Back/Spine/Pelvis: Cervical Spine: normal cervical lordosis Thoracic/Lumbar Spine: thoracic and lumbar spine normal to inspection Skin: General skin exam: no rashes or lesions noted Neuro: General: patient oriented x3, tone normal and moves all extremities Extrem: General: Yes normal to inspection and Yes capillary refill normal Results Labs 10/09/25 12:57 10/09/25 07:10 Labs: Abnormal lab results 10/09/25 10/09/25 10/09/25 Range/Units 07:10 12:57 20:08 WBC 235.4 H* (4.8-10.8) X10*3/uL RBC 2.44 L D (4.20-5.50) X10*6/uL Hgb 8.1 L 8.7 L (12.0-16.0) g/dl Hct 24.4 L 25.3 L (37.0-47.0) % MCV 100.0 H (80.0-98.0) fL MCH 33.2 H (27.0-33.0) pg RDW 18.6 H (11.0-16.0) % Plt Count 33 L (160-400) X10*3/uL Absolute Nucleated RBC 0.290 H (0.0-0.012) X10*3/uL Potassium 3.0 L (3.3-5.1) mmol/L BUN 32 H (9-16) mg/dL Creatinine 1.80 H (0.5-1.4) mg/dL POC Glucose (60-115) mg/dL Phosphorus 5.1 H (2.7-4.5) mg/dL 10/10/25 Range/Units 07:26 WBC (4.8-10.8) X10*3/uL RBC (4.20-5.50) X10*6/uL Hgb (12.0-16.0) g/dl Hct (37.0-47.0) % MCV (80.0-98.0) fL MCH (27.0-33.0) pg RDW (11.0-16.0) % Plt Count (160-400) X10*3/uL Absolute Nucleated RBC (0.0-0.012) X10*3/uL Potassium (3.3-5.1) mmol/L BUN (9-16) mg/dL Creatinine (0.5-1.4) mg/dL POC Glucose 116 H (60-115) mg/dL Phosphorus (2.7-4.5) mg/dL Short CBC 10/09/25 10/09/25 Range/Units 07:10 12:57 WBC 235.4 H* (4.8-10.8) X10*3/uL Hgb 8.1 L 8.7 L (12.0-16.0) g/dl Hct 24.4 L 25.3 L (37.0-47.0) % Plt Count 33 L (160-400) X10*3/uL BMP 10/09/25 07:10 Sodium 141 Potassium 3.0 L Chloride 106 Carbon Dioxide 22 BUN 32 H Creatinine 1.80 H Calcium 8.8 D Urine 10/06/25 Range/Units 18:40 Urine Color Yellow Urine Appearance Cloudy Urine pH 6.0 (5.0-9.0) Ur Specific [place] 1.015 (1.005-1.025) Urine Protein 30 (1+) H (Neg-Trace) mg/dL Urine Glucose (UA) Negative (Negative) mg/dL All other labs normal. Assessment and Plan (1) Hydronephrosis: Status: Acute Plan Risks, benefits and alternatives to therapy were discussed. These include but are not limited to infection, bleeding, damage to local organs and tissues, need for further interventions. Anesthetic risks regarding cardiac arrhythmia, blood clots, and potential mortality were discussed. The patient understands the typical recovery time and the outpatient nature of the procedure. After consideration of these risks the patient gives full informed consent and they wish to move ahead with the procedure. Cystoscopy, right retrograde, right stent placement Procedures Date of Service Date of Service: 10/10/25
[2025-10-10 08:00] LABS: Hematocrit 25.3 % (37.0-47.0); Hemoglobin 8.2 g/dl (12.0-16.0); Mean Corpuscular HGB Conc 32.4 g/dl (31.0-35.0); Mean Corpuscular Hemoglobin 32.3 pg (27.0-33.0); Mean Corpuscular Volume 99.6 fL (80.0-98.0); NRBC Abs Auto 0.450 X10*3/uL (0.0-0.012); NRBC Pct Auto 0.2 /100WBC (0.0-0.2); PLT CLUMP 1; Red Blood Count 2.54 X10*6/uL (4.20-5.50)
[2025-10-10 08:10] LABS: INTERNATIONAL NORM RATIO 1.1 (0.9-1.1); Partial Thromboplastin Time 25.4 SEC (26.7-34.1); Prothrombin Time 13.5 SEC (11.2-13.5)
[2025-10-10 08:23] LABS: WBC ABN SCTR FOR CBC 1
[2025-10-10 08:25] LABS: White Blood Count 193.8 X10*3/uL (4.8-10.8)
[2025-10-10 08:26] LABS: Alanine Aminotransferase 6 U/L (0-31); Albumin Level 4.2 g/dL (3.5-5.0); Alkaline Phosphatase 57 U/L (39-117); Aspartate Amino Transferase 35 U/L (5-31); Blood Urea Nitrogen 35 mg/dL (9-16); Calcium 8.7 mg/dL (8.4-10.2); Creatinine Clr Calc Pharmacy 28.6; Estimated Glomerular Filt Rate 36; Total Protein 6.7 g/dL (6.5-8.0); Uric Acid 4.2 mg/dL (2.4-5.7)
--- NOTE | 2025-10-10 08:37 | MHC.STROKE ---
Called for stroke alert in room 474. Upon arrival to room, patient had returned from CT scan. According to nursing shell core and molding supervisor, previous shift nurse noted an acute change with the patient. Rapid response stroke called. Pt blood pressure extremely elevated. Radiologist called hospitalist and reported large bleed. Pt transferred to ICU, [facility] and [facility] called for potential transfer. Awaiting call back. Daughter called and updated by Dr. Calvert Pt NPO, updated on plan. Stroke Education provided.
[2025-10-10 08:44] LABS: Atypical Lymph Absolute Manual 1.9 x10*3/uL; Atypical Lymphs Percent Manual 1 % (0-6); Band Neutrophils Percent 11 % (3-5); Basophils Abs Manual 1.9 X10*3/uL (0.0-0.2); Basophils Percent Manual 1 % (0-2); Blast Percent 1 %; Blastocytes Absolute 1.9 X10*3/uL; Eosinophils Absolute Manual 1.9 X10*3/uL (0.0-0.4); Eosinophils Percent Manual 1 % (0-4); Lymphocytes Absolute Manual 1.9 X10*3/uL (1.2-4.9); Lymphocytes Percent Manual 1 % (20-40); Metamyelocytes Absolute 7.8 X10*3/uL; Metamyelocytes Percent 4 %; Monocytes Absolute Manual 5.8 X10*3/uL (0.1-1.2); Monocytes Percent Manual 3 % (2-11); Myelocytes Absolute 3.9 X10*/uL; Myelocytes Percent 2 %; Neutrophils Absolute Manual 166.7 X10*3/uL (2.0-8.3); Neutrophils Percent Manual 75 % (45-73); Promyelocytes Absolute 3.9 X10*3/uL; Promyelocytes Percent 2 %
[2025-10-10 08:46] LABS: Anion Gap 16 (12-20); Carbon Dioxide 17 mmol/L (22-29); Chloride 111 mmol/L (96-108); Potassium 4.4 mmol/L (3.3-5.1); Sodium 140 mmol/L (135-145)
[2025-10-10 08:49] LABS: Burr Cells 1+ (0-2) /OIF; Macrocytosis 1+ (5-14) /OIF; Polychromasia 1+ (0-2) /OIF; RBC Morphology NOTED; Toxic Vacuolation PRESENT
--- NOTE | 2025-10-10 08:49 | MHC.STROKE ---
Call was placed to [facility] transfer line by Dr. Cornelio Simon. Waiting building construction inspector back
--- NOTE | 2025-10-10 08:50 | P.CONAN_ITS ---
HPI - Anesthesia Eval Consult details Narrative: 80 yr old female for right Cystoscopy,Retrograde with Stent Placement 10/10/25 with new onset worsening mentation, headache & left sided deficits: Stat head CT showed large posterior right parietal intraparenchymal hemorrhage with vasogenic edema and left parietal epidural hematoma measuring 1.7 cm with no midline shift. Patient placed on nicardipine drip and upgraded to the ICU, reached out to [facility] in [place] for possible transfer. Hypokalemia: resolved as of 10/10/25 Thromboycytopenia: Platelets 32 on 10/10/25 Admitted 10/06/25 with acute hypoxic respiratory failure, CHF, TIA symptoms TIA -head CT with no acute intracranial hemorrhage, small-vessel occlusive disease and intracranial atherosclerosis disease. 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 Garvey. She is currently on surveillance for her CML after discontinuing Hydrea due to side effects and disease progression PMFSH Active Problems Active Problems: All Active Problems Hydronephrosis (Acute) Tumor lysis syndrome (Acute) Hyperuricemia (Acute) Acute kidney injury (Acute) Cerebral infarction (Acute) Left bundle branch block (Acute) Anemia (Acute) Thrombocytopenia (Acute) CMML (chronic myelomonocytic leukemia) (Acute) Chest discomfort (Acute) Dyspnea (Acute) Acute hypoxemic respiratory failure (Acute) CML (chronic myelocytic leukemia) (Chronic) Brain TIA (Acute) Congestive heart failure (Acute) Pulmonary nodule (Acute) Preprocedural examination (Acute) Pneumonitis (Acute) Pulmonary nodules (Acute) COPD (chronic obstructive pulmonary disease) (Acute) Past Medical History Medical History (Updated 10/10/25 @ 08:53 by Vincent Simon MD) Tumor lysis syndrome Chest discomfort Dyspnea Pulmonary nodule Pneumonitis Pulmonary nodules COVID-19 COPD (chronic obstructive pulmonary disease) Social History Social History Household Members: Family Housing: House Do you presently have visiting nurse or other home services: No Patient Tobacco Use Status: Former Tobacco user Tobacco use type: Cigarette Years Smoked: 30 years Second Hand Smoke Exposure: No service: No Meds Allergies Allergy/AdvReac Type Severity Reaction Status Date / Time fentanyl Allergy Intermediate elevated bp Verified 10/06/25 13:57 Penicillins Allergy Severe Rash and Uncoded 08/26/24 10:16 Hives Sulfa Drugs Allergy Severe Rash and Uncoded 08/26/24 10:16 Hives Active Medications: Current Medications Albuterol Sulfate (Albuterol Sulfate 90 Mcg 8 Gm Inhaler) 2 puff INHALE Q6H PRN PRN Reason: Shortness Of Breath Or Wheezing Albuterol/Ipratropium (Albuterol/Iprat 2.5/0.5mg 3 Ml Ampul.Neb) 3 ml INHALE RQ6H WHILE AWAKE PRN PRN Reason: Shortness of Breath/Wheezing Sodium Chloride (Ns) 1,000 mls @ 83 mls/hr IVCONT .Q12H3M [facility] Last Admin: 10/10/25 01:05 Dose: 83 mls/hr Nicardipine HCl 25 mg/ Sodium (Chloride) 250 mls @ 0 mls/hr IVCONT .Q0M [facility]; Protocol Last Titration: 10/10/25 08:27 Dose: 7.5 mg/hr, 75 mls/hr Labetalol HCl (Labetalol Hcl 100 Mg/20 Ml Vial) 10 mg IVPUSH Q8H PRN PRN Reason: SBP > 160 Ondansetron HCl (Ondansetron Hcl 4 Mg/2 Ml Vial) 4 mg IVPUSH Q8H PRN PRN Reason: Nausea and Vomiting Sodium Chloride (0.9 % Sodium Chloride Flush 3 Ml Syringe) 3 ml IVFLUSH QSHIFT [facility] Last Admin: 10/09/25 21:00 Dose: 3 ml Home Medications ?Medication ?Instructions ?Recorded ?Confirmed ?Last Taken ?Type calcium 600 mg (as 1 tab PO DAILY 02/19/2109/1810/06/25 History carbonate)-vitamin D3 5 mcg (200 unit) tablet (Calcium 600 + D(3)) ipratropium bromide 42 mcg (0.06 2 spray intranasal DA ZAHIDA PRN Nasal 02/19/21 10/06/25 Unknown History %) nasal spray Congestion lovastatin 20 mg tablet 20 mg PO DAILY 02/19/2109/1810/06/25 History aspirin 81 mg tablet,delayed 81 mg PO DAILY 11/26/22 1 12/06/24 10/06/25 History release cetirizine 10 mg disintegrating 10 mg PO DAILY 3 10/06/25 10/06/25 History tablet nebulizers 11/26/22 05/07/23 Unknown H istory albuterol sulfate 90 mcg/actuation 2 puff inhalation Q 6H PRN 10/06/25 10/06/25 Unknown History aerosol inhaler Shortness Of Breath Or Wheez ing budesonide-formoterol HFA 160 2 puff inhalation BID 10/06/25 10/06/25 History mcg-4.5 mcg/actuation aerosol inhaler (Symbicort) midodrine 5 mg tablet 5 mg PO BID 10/06/25 5 10/06/25 History Exam Height,Weight and Vital Signs: Height 5 ft 5 in Weight 63.2 kg Last Vital Signs Temp 97.9 F 10/10/25 07:22 Pulse 86 10/10/25 08:27 Resp 22 H 10/10/25 07:22 BP 162/72 H 10/10/25 08:27 Pulse Ox 94 10/10/25 07:22 O2 Del Method Room Air 10/10/25 07:22 O2 Flow Rate 2 10/08/25 08:00 Pertinent Lab Results Pertinent Lab Results: Laboratory Tests 10/06/25 10/06/25 10/06/25 14:43 14:44 18:40 WBC 393.9 H* RBC 2.35 L Hgb 8.4 L Hct 24.1 L MCV 102.6 H MCH 35.7 H MCHC 34.9 RDW 19.3 H Plt Count 40 L MPV Not Reportable Immature Gran % (Auto) Cancelled Neut % (Auto) Cancelled Lymph % (Auto) Cancelled [place] % (Auto) Cancelled Eos % (Auto) Cancelled Baso % (Auto) Cancelled Lymph # (Auto) Cancelled [place] # (Auto) Cancelled Eos # (Auto) Cancelled Baso # (Auto) Cancelled Abs Immat Gran (auto) Cancelled Absolute Neuts (auto) Cancelled Absolute Nucleated RBC 1.000 H Nucleated RBC % (auto) 0.3 H Neutrophils % (Manual) 36 L Band Neutrophils % 18 H Lymphocytes % (Manual) 3 L Monocytes % (Manual) 8 Metamyelocytes % 5 Myelocytes % 6 Promyelocytes % 18 Blast Cells % (Manual) 6 Abs Neuts (Manual) 212.7 H Lymphocytes # (Manual) 11.8 H Monocytes # (Manual) 31.5 H Metamyelocytes # 19.7 Myelocytes # 23.6 Promyelocytes # 70.9 Blast Cells # 23.6 Toxic Vacuolation PRESENT Platelet Estimate DECREASED Plt Morphology Comment NORMAL RBC Morphology NOTED Polychromasia 1+ (0-2) Macrocytosis 1+ (5-14) Smear Path Review SEE NOTE PT 13.1 INR 1.1 APTT 25.1 L Sodium 142 Potassium 3.8 Chloride 104 Carbon Dioxide 26 Anion Gap 16 BUN 23 H Creatinine 2.17 H Estim Creat Clear Calc 18.5 Estimated GFR 22 POC Glucose Random Glucose 110 Estimat Average Glucose Hemoglobin A1c % Haptoglobin Uric Acid Calcium 10.1 Phosphorus Magnesium Total Bilirubin 0.5 AST 28 ALT 13 Alkaline Phosphatase 70 Lactate Dehydrogenase Troponin I High Sens 7.0 NT-Pro-B Natriuret Pep 652.7 H Total Protein 7.5 Albumin 4.7 Triglycerides Cholesterol LDL Cholesterol, Calc HDL Cholesterol TSH Urine Color Yellow Urine Appearance Cloudy Urine pH 6.0 Ur Specific [place] 1.015 Urine Protein 30 (1+) H Urine Glucose (UA) Negative Urine Ketones Negative Urine Blood Moderate (2+) H Urine Nitrite Negative Ur Leukocyte Esterase Moderate (2+) H Urine RBC 11-20 H Urine WBC 11-20 H Ur Squamous Epith Cells 6-10 Urine Bacteria Trace Hyaline Casts 6-10 Ur Random Sodium 109.0 Urine Creatinine 33.32 Influenza Type A (PCR) NEGATIVE Influenza Type B (PCR) NEGATIVE RSV RNA Qual (PCR) NEGATIVE SARS-CoV-2 RNA (RT-PCR) NEGATIVE Blood Type Antibody Screen Crossmatch 10/06/25 10/07/25 10/07/25 19:06 06:06 06:06 WBC 346.7 H* RBC 2.15 L Hgb 7.5 L Hct 21.9 L MCV 101.9 H MCH 34.9 H MCHC 34.2 RDW 19.2 H Plt Count 32 L MPV 11.6 Immature Gran % (Auto) Neut % (Auto) Lymph % (Auto) [place] % (Auto) Eos % (Auto) Baso % (Auto) Lymph # (Auto) [place] # (Auto) Eos # (Auto) Baso # (Auto) Abs Immat Gran (auto) Absolute Neuts (auto) Absolute Nucleated RBC 0.780 H Nucleated RBC % (auto) 0.2 Neutrophils % (Manual) Band Neutrophils % Lymphocytes % (Manual) Monocytes % (Manual) Metamyelocytes % Myelocytes % Promyelocytes % Blast Cells % (Manual) Abs Neuts (Manual) Lymphocytes # (Manual) Monocytes # (Manual) Metamyelocytes # Myelocytes # Promyelocytes # Blast Cells # Toxic Vacuolation Platelet Estimate Plt Morphology Comment RBC Morphology Polychromasia Macrocytosis Smear Path Review PT INR APTT Sodium 138 Potassium 3.4 Chloride 101 Carbon Dioxide 27 Anion Gap 13 BUN 22 H Creatinine 2.21 H Estim Creat Clear Calc 18.2 Estimated GFR 21 POC Glucose Random Glucose 97 Estimat Average Glucose TNP Hemoglobin A1c % TNP Haptoglobin Uric Acid Calcium 9.6 Phosphorus Magnesium 2.2 Total Bilirubin AST ALT Alkaline Phosphatase Lactate Dehydrogenase Troponin I High Sens NT-Pro-B Natriuret Pep Total Protein Albumin Triglycerides Cancelled 182 H Cholesterol Cancelled LDL Cholesterol, Calc HDL Cholesterol TSH Urine Color Urine Appearance Urine pH Ur Specific [place] Urine Protein Urine Glucose (UA) Urine Ketones Urine Blood Urine Nitrite Ur Leukocyte Esterase Urine RBC Urine WBC Ur Squamous Epith Cells Urine Bacteria Hyaline Casts Ur Random Sodium Urine Creatinine Influenza Type A (PCR) Influenza Type B (PCR) RSV RNA Qual (PCR) SARS-CoV-2 RNA (RT-PCR) Blood Type Antibody Screen Crossmatch 10/07/25 10/07/25 10/07/25 06:06 06:06 06:06 WBC RBC Hgb Hct MCV MCH MCHC RDW Plt Count MPV Immature Gran % (Auto) Neut % (Auto) Lymph % (Auto) [place] % (Auto) Eos % (Auto) Baso % (Auto) Lymph # (Auto) [place] # (Auto) Eos # (Auto) Baso # (Auto) Abs Immat Gran (auto) Absolute Neuts (auto) Absolute Nucleated RBC Nucleated RBC % (auto) Neutrophils % (Manual) Band Neutrophils % Lymphocytes % (Manual) Monocytes % (Manual) Metamyelocytes % Myelocytes % Promyelocytes % Blast Cells % (Manual) Abs Neuts (Manual) Lymphocytes # (Manual) Monocytes # (Manual) Metamyelocytes # Myelocytes # Promyelocytes # Blast Cells # Toxic Vacuolation Platelet Estimate Plt Morphology Comment RBC Morphology Polychromasia Macrocytosis Smear Path Review PT INR APTT Sodium Potassium Chloride Carbon Dioxide Anion Gap BUN Creatinine Estim Creat Clear Calc Estimated GFR POC Glucose Random Glucose Estimat Average Glucose Hemoglobin A1c % Haptoglobin Uric Acid Calcium Phosphorus Magnesium Total Bilirubin AST ALT Alkaline Phosphatase Lactate Dehydrogenase Troponin I High Sens NT-Pro-B Natriuret Pep Total Protein Albumin Triglycerides Cholesterol 121 LDL Cholesterol, Calc Cancelled 71 HDL Cholesterol Cancelled 14 L TSH Cancelled Urine Color Urine Appearance Urine pH Ur Specific [place] Urine Protein Urine Glucose (UA) Urine Ketones Urine Blood Urine Nitrite Ur Leukocyte Esterase Urine RBC Urine WBC Ur Squamous Epith Cells Urine Bacteria Hyaline Casts Ur Random Sodium Urine Creatinine Influenza Type A (PCR) Influenza Type B (PCR) RSV RNA Qual (PCR) SARS-CoV-2 RNA (RT-PCR) Blood Type Antibody Screen Crossmatch 10/07/25 10/07/25 10/07/25 06:06 16:45 16:45 WBC RBC Hgb Hct MCV MCH MCHC RDW Plt Count MPV Immature Gran % (Auto) Neut % (Auto) Lymph % (Auto) [place] % (Auto) Eos % (Auto) Baso % (Auto) Lymph # (Auto) [place] # (Auto) Eos # (Auto) Baso # (Auto) Abs Immat Gran (auto) Absolute Neuts (auto) Absolute Nucleated RBC Nucleated RBC % (auto) Neutrophils % (Manual) Band Neutrophils % Lymphocytes % (Manual) Monocytes % (Manual) Metamyelocytes % Myelocytes % Promyelocytes % Blast Cells % (Manual) Abs Neuts (Manual) Lymphocytes # (Manual) Monocytes # (Manual) Metamyelocytes # Myelocytes # Promyelocytes # Blast Cells # Toxic Vacuolation Platelet Estimate Plt Morphology Comment RBC Morphology Polychromasia Macrocytosis Smear Path Review PT INR APTT Sodium Potassium Chloride Carbon Dioxide Anion Gap BUN Creatinine Estim Creat Clear Calc Estimated GFR POC Glucose Random Glucose Estimat Average Glucose Hemoglobin A1c % Haptoglobin Uric Acid 16.4 H Calcium Phosphorus 4.3 4.4 Magnesium Total Bilirubin AST ALT Alkaline Phosphatase Lactate Dehydrogenase 400 H Troponin I High Sens NT-Pro-B Natriuret Pep Total Protein Albumin Triglycerides Cholesterol LDL Cholesterol, Calc HDL Cholesterol TSH 1.16 Urine Color Urine Appearance Urine pH Ur Specific [place] Urine Protein Urine Glucose (UA) Urine Ketones Urine Blood Urine Nitrite Ur Leukocyte Esterase Urine RBC Urine WBC Ur Squamous Epith Cells Urine Bacteria Hyaline Casts Ur Random Sodium Urine Creatinine Influenza Type A (PCR) Influenza Type B (PCR) RSV RNA Qual (PCR) SARS-CoV-2 RNA (RT-PCR) Blood Type Antibody Screen Crossmatch 10/07/25 10/08/25 10/08/25 21:12 00:13 07:05 WBC 373.4 H* 308.0 H* RBC 2.12 L 1.98 L Hgb 7.6 L 7.0 L* Hct 21.3 L 20.3 L* MCV 100.5 H 102.5 H MCH 35.8 H 35.4 H MCHC 35.7 H 34.5 RDW 19.4 H 18.9 H Plt Count 38 L 34 L MPV 9.3 L 10.7 Immature Gran % (Auto) Neut % (Auto) Lymph % (Auto) [place] % (Auto) Eos % (Auto) Baso % (Auto) Lymph # (Auto) [place] # (Auto) Eos # (Auto) Baso # (Auto) Abs Immat Gran (auto) Absolute Neuts (auto) Absolute Nucleated RBC 0.800 H 0.550 H Nucleated RBC % (auto) 0.2 0.2 Neutrophils % (Manual) Band Neutrophils % Lymphocytes % (Manual) Monocytes % (Manual) Metamyelocytes % Myelocytes % Promyelocytes % Blast Cells % (Manual) Abs Neuts (Manual) Lymphocytes # (Manual) Monocytes # (Manual) Metamyelocytes # Myelocytes # Promyelocytes # Blast Cells # Toxic Vacuolation Platelet Estimate Plt Morphology Comment RBC Morphology Polychromasia Macrocytosis Smear Path Review PT INR APTT Sodium 137 140 Potassium 3.2 L 3.6 Chloride 101 104 Carbon Dioxide 25 23 Anion Gap 14 17 BUN 23 H 27 H Creatinine 2.10 H 1.95 H Estim Creat Clear Calc 19.2 20.7 Estimated GFR 23 25 POC Glucose Random Glucose 107 83 Estimat Average Glucose Hemoglobin A1c % Haptoglobin Uric Acid 8.2 H 4.2 Calcium 9.1 8.4 D Phosphorus 4.1 Magnesium 2.0 Total Bilirubin AST ALT Alkaline Phosphatase Lactate Dehydrogenase Troponin I High Sens NT-Pro-B Natriuret Pep Total Protein Albumin Triglycerides Cholesterol LDL Cholesterol, Calc HDL Cholesterol TSH Urine Color Urine Appearance Urine pH Ur Specific [place] Urine Protein Urine Glucose (UA) Urine Ketones Urine Blood Urine Nitrite Ur Leukocyte Esterase Urine RBC Urine WBC Ur Squamous Epith Cells Urine Bacteria Hyaline Casts Ur Random Sodium Urine Creatinine Influenza Type A (PCR) Influenza Type B (PCR) RSV RNA Qual (PCR) SARS-CoV-2 RNA (RT-PCR) Blood Type Antibody Screen Crossmatch 10/08/25 10/08/25 10/08/25 09:59 12:59 20:05 WBC RBC Hgb 7.2 L Hct 20.5 L* MCV MCH MCHC RDW Plt Count MPV Immature Gran % (Auto) Neut % (Auto) Lymph % (Auto) [place] % (Auto) Eos % (Auto) Baso % (Auto) Lymph # (Auto) [place] # (Auto) Eos # (Auto) Baso # (Auto) Abs Immat Gran (auto) Absolute Neuts (auto) Absolute Nucleated RBC Nucleated RBC % (auto) Neutrophils % (Manual) Band Neutrophils % Lymphocytes % (Manual) Monocytes % (Manual) Metamyelocytes % Myelocytes % Promyelocytes % Blast Cells % (Manual) Abs Neuts (Manual) Lymphocytes # (Manual) Monocytes # (Manual) Metamyelocytes # Myelocytes # Promyelocytes # Blast Cells # Toxic Vacuolation Platelet Estimate Plt Morphology Comment RBC Morphology Polychromasia Macrocytosis Smear Path Review PT INR APTT Sodium Potassium Chloride Carbon Dioxide Anion Gap BUN Creatinine Estim Creat Clear Calc Estimated GFR POC Glucose Random Glucose Estimat Average Glucose Hemoglobin A1c % Haptoglobin Uric Acid 2.1 L Calcium Phosphorus 6.1 H Magnesium Total Bilirubin AST ALT Alkaline Phosphatase Lactate Dehydrogenase Troponin I High Sens NT-Pro-B Natriuret Pep Total Protein Albumin Triglycerides Cholesterol LDL Cholesterol, Calc HDL Cholesterol TSH Urine Color Urine Appearance Urine pH Ur Specific [place] Urine Protein Urine Glucose (UA) Urine Ketones Urine Blood Urine Nitrite Ur Leukocyte Esterase Urine RBC Urine WBC Ur Squamous Epith Cells Urine Bacteria Hyaline Casts Ur Random Sodium Urine Creatinine Influenza Type A (PCR) Influenza Type B (PCR) RSV RNA Qual (PCR) SARS-CoV-2 RNA (RT-PCR) Blood Type A Negative Antibody Screen NEGATIVE Crossmatch See Detail 10/08/25 10/09/25 10/09/25 21:50 07:10 12:57 WBC 235.4 H* RBC 2.44 L D Hgb 8.1 L 8.7 L Hct 24.4 L 25.3 L MCV 100.0 H MCH 33.2 H MCHC 33.2 RDW 18.6 H Plt Count 33 L MPV Not Reportable Immature Gran % (Auto) Neut % (Auto) Lymph % (Auto) [place] % (Auto) Eos % (Auto) Baso % (Auto) Lymph # (Auto) [place] # (Auto) Eos # (Auto) Baso # (Auto) Abs Immat Gran (auto) Absolute Neuts (auto) Absolute Nucleated RBC 0.290 H Nucleated RBC % (auto) 0.1 Neutrophils % (Manual) Band Neutrophils % Lymphocytes % (Manual) Monocytes % (Manual) Metamyelocytes % Myelocytes % Promyelocytes % Blast Cells % (Manual) Abs Neuts (Manual) Lymphocytes # (Manual) Monocytes # (Manual) Metamyelocytes # Myelocytes # Promyelocytes # Blast Cells # Toxic Vacuolation Platelet Estimate Plt Morphology Comment RBC Morphology Polychromasia Macrocytosis Smear Path Review PT INR APTT Sodium 138 141 Potassium 3.3 3.0 L Chloride 105 106 Carbon Dioxide 21 L 22 Anion Gap 15 16 BUN 33 H 32 H Creatinine 1.90 H 1.80 H Estim Creat Clear Calc 21.3 22.4 Estimated GFR 25 27 POC Glucose Random Glucose 109 78 Estimat Average Glucose Hemoglobin A1c % Haptoglobin Uric Acid Calcium 8.3 L 8.8 D Phosphorus Magnesium 2.0 Total Bilirubin AST ALT Alkaline Phosphatase Lactate Dehydrogenase Troponin I High Sens NT-Pro-B Natriuret Pep Total Protein Albumin Triglycerides Cholesterol LDL Cholesterol, Calc HDL Cholesterol TSH Urine Color Urine Appearance Urine pH Ur Specific [place] Urine Protein Urine Glucose (UA) Urine Ketones Urine Blood Urine Nitrite Ur Leukocyte Esterase Urine RBC Urine WBC Ur Squamous Epith Cells Urine Bacteria Hyaline Casts Ur Random Sodium Urine Creatinine Influenza Type A (PCR) Influenza Type B (PCR) RSV RNA Qual (PCR) SARS-CoV-2 RNA (RT-PCR) Blood Type Antibody Screen Crossmatch 10/09/25 10/10/25 10/10/25 20:08 07:26 07:48 WBC 193.8 H* RBC 2.54 L Hgb 8.2 L Hct 25.3 L MCV 99.6 H MCH 32.3 MCHC 32.4 RDW 18.3 H Plt Count MPV Not Reportable Immature Gran % (Auto) Cancelled Neut % (Auto) Cancelled Lymph % (Auto) Cancelled [place] % (Auto) Cancelled Eos % (Auto) Cancelled Baso % (Auto) Cancelled Lymph # (Auto) Cancelled [place] # (Auto) Cancelled Eos # (Auto) Cancelled Baso # (Auto) Cancelled Abs Immat Gran (auto) Cancelled Absolute Neuts (auto) Cancelled Absolute Nucleated RBC 0.450 H Nucleated RBC % (auto) 0.2 Neutrophils % (Manual) Band Neutrophils % Lymphocytes % (Manual) Monocytes % (Manual) Metamyelocytes % Myelocytes % Promyelocytes % Blast Cells % (Manual) Abs Neuts (Manual) Lymphocytes # (Manual) Monocytes # (Manual) Metamyelocytes # Myelocytes # Promyelocytes # Blast Cells # Toxic Vacuolation Platelet Estimate Plt Morphology Comment RBC Morphology Polychromasia Macrocytosis Smear Path Review PT 13.5 INR 1.1 APTT 25.4 L Sodium 140 Potassium 4.4 D Chloride 111 H Carbon Dioxide 17 L Anion Gap 16 BUN 35 H Creatinine 1.41 H Estim Creat Clear Calc 28.6 Estimated GFR 36 POC Glucose 116 H Random Glucose 132 H Estimat Average Glucose Hemoglobin A1c % Haptoglobin 235 Uric Acid 4.2 Calcium 8.7 Phosphorus 5.1 H Magnesium Total Bilirubin 0.6 AST 35 H ALT 6 Alkaline Phosphatase 57 Lactate Dehydrogenase 778 H Troponin I High Sens NT-Pro-B Natriuret Pep Total Protein 6.7 Albumin 4.2 Triglycerides Cholesterol LDL Cholesterol, Calc HDL Cholesterol TSH Urine Color Urine Appearance Urine pH Ur Specific [place] Urine Protein Urine Glucose (UA) Urine Ketones Urine Blood Urine Nitrite Ur Leukocyte Esterase Urine RBC Urine WBC Ur Squamous Epith Cells Urine Bacteria Hyaline Casts Ur Random Sodium Urine Creatinine Influenza Type A (PCR) Influenza Type B (PCR) RSV RNA Qual (PCR) SARS-CoV-2 RNA (RT-PCR) Blood Type Antibody Screen Crossmatch Narrative Narrative: ECHO 10/07/25 Conclusions: - The left ventricular systolic function is hyperdynamic. The visually estimated ejection fraction is between 65-70%. - There is mild calcification of the aortic valve. - There is moderate mitral annular calcification. EKG 10/07/25 Vent. Rate : 103 BPM Atrial Rate : 103 BPM P-R Int : 194 ms QRS Dur : 138 ms QT Int : 396 ms P-R-T Axes : 55 -40 102 degrees QTcB Int : 518 ms Sinus tachycardia Left axis deviation Left bundle branch block Abnormal ECG No significant changes when compared with the previous EKG of 06 oct 2025 Head/Neck CTA 10/06/25 IMPRESSION: CTA NECK: 1. There is an approximate 50% stenosis of the origin of the right ICA due to mixed plaque. 2. There is an approximate 40% stenosis of the left carotid bulb due to calcific plaque. 3. There is an approximate 70% stenosis of the left subclavian artery just after the origin. 4. There is a mild stenosis of the origin of the left common carotid artery due to calcific plaque. CTA HEAD: 1. There is no high-grade stenosis, occlusion, dissection, or aneurysm of the major intracranial arterial vasculature. 2. The right vertebral artery terminates as a PICA branch. 3. There is mild stenosis of the left vertebral artery V4 segment due to calcific plaque. 4. There is a moderate stenosis at the origin of the left [employer], P1 segment. 5. There is a moderate stenosis at the origin of the right superior cerebellar artery. 6. The major cortical and dural venous sinuses are patent. HEAD CT 10/10/25 IMPRESSION: Large posterior right parietal intraparenchymal hemorrhage with surrounding vasogenic edema resulting in effacement of the associated sulci and right lateral ventricle. Left parietal epidural hematoma measuring up to 1.7 cm in width. No midline shift present.
[2025-10-10 08:51] LABS: Platelet Count 32 X10*3/uL (160-400)
--- NOTE | 2025-10-10 08:52 | P.PNIM_ITS ---
Subjective Subjective Date of Service: 10/10/25 Interval History: Patient seen and examined at bedside this morning, patient earlier today presenting with worsening mentation, headache, left-sided deficits. Blood pressure 184/86, pulse rate 110. Patient alert and oriented x2, stat CT head showing large posterior right parietal intraparenchymal hemorrhage with vasogenic edema and left parietal epidural hematoma measuring 1.7 cm with no midline shift. Patient placed on nicardipine drip and upgraded to the ICU, reached out to [facility] in [place] for possible transfer. Reach out to [facility] as well. Review of Systems Review of Systems: Yes all other systems are reviewed and are negative Physical Exam 2 Exam: Exam: General: Somnolent, oriented to self and place, ill appearing Head: AT/NC ENT: Moist mucous membranes Neck: supple CVS; increased RR, S1 S2 normal Lungs: Clear bilateral breath sounds, no wheezes or crackles Abd: Soft non tender, non distended Ext: No edema and no calf tenderness MSK: moving all 4 limbs Skin: No cyanosis or edema Psych: Cooperative with exam Neurology: left sided deficits, RUE weakness Vital Signs: Vital Signs: Last Vital Signs Temp 97.9 F 10/10/25 07:22 Pulse 86 10/10/25 08:27 Resp 22 H 10/10/25 07:22 BP 162/72 H 10/10/25 08:27 Pulse Ox 94 10/10/25 07:22 O2 Del Method Room Air 10/10/25 07:22 O2 Flow Rate 2 10/08/25 08:00 BMI result Body Mass Index 23.2 Objective Data Active Medications Albuterol Sulfate (Albuterol Sulfate 90 Mcg 8 Gm Inhaler) 2 puff INHALE Q6H PRN PRN Reason: Shortness Of Breath Or Wheezing Albuterol/Ipratropium (Albuterol/Iprat 2.5/0.5mg 3 Ml Ampul.Neb) 3 ml INHALE RQ6H WHILE AWAKE PRN PRN Reason: Shortness of Breath/Wheezing Sodium Chloride (Ns) 1,000 mls @ 83 mls/hr IVCONT .Q12H3M [facility] Last Admin: 10/10/25 01:05 Dose: 83 mls/hr Documented By: LOBITO Nicardipine HCl 25 mg/ Sodium (Chloride) 250 mls @ 0 mls/hr IVCONT .Q0M [facility]; Protocol Last Titration: 10/10/25 08:27 Dose: 7.5 mg/hr, 75 mls/hr Documented By: AYAAN Labetalol HCl (Labetalol Hcl 100 Mg/20 Ml Vial) 10 mg IVPUSH Q8H PRN PRN Reason: SBP > 160 Ondansetron HCl (Ondansetron Hcl 4 Mg/2 Ml Vial) 4 mg IVPUSH Q8H PRN PRN Reason: Nausea and Vomiting Sodium Chloride (0.9 % Sodium Chloride Flush 3 Ml Syringe) [facility] Last Admin: 10/09/25 21:00 Dose: 3 ml Documented By: JEANNIEC Labs 10/10/25 07:48 10/10/25 07:48 Labs: Laboratory Results - last 24 hr 10/09/25 10/10/25 10/10/25 20:08 07:26 07:48 MCV 99.6 H MCH 32.3 MCHC 32.4 RDW 18.3 H Plt Count 32 L MPV Not Reportable Immature Gran % (Auto) Cancelled Neut % (Auto) Cancelled Lymph % (Auto) Cancelled [place] % (Auto) Cancelled Eos % (Auto) Cancelled Baso % (Auto) Cancelled Lymph # (Auto) Cancelled [place] # (Auto) Cancelled Eos # (Auto) Cancelled Baso # (Auto) Cancelled Abs Immat Gran (auto) Cancelled Absolute Neuts (auto) Cancelled Absolute Nucleated RBC 0.450 H Nucleated RBC % (auto) 0.2 Neutrophils % (Manual) 75 H Band Neutrophils % 11 H Lymphocytes % (Manual) 1 L Atypical Lymphs % (Man) 1 Monocytes % (Manual) 3 Eosinophils % (Manual) 1 Basophils % (Manual) 1 Metamyelocytes % 4 Myelocytes % 2 Promyelocytes % 2 Blast Cells % (Manual) 1 Abs Neuts (Manual) 166.7 H Lymphocytes # (Manual) 1.9 Atyp Lymphs # (Manual) 1.9 Monocytes # (Manual) 5.8 H Eosinophils # (Manual) 1.9 H Basophils # (Manual) 1.9 H Metamyelocytes # 7.8 Myelocytes # 3.9 Promyelocytes # 3.9 Blast Cells # 1.9 Toxic Vacuolation PRESENT Platelet Estimate DECREASED Giant Platelets PRESENT Plt Morphology Comment NOTED RBC Morphology NOTED Polychromasia 1+ (0-2) Macrocytosis 1+ (5-14) [place] Cells 1+ (0-2) PT 13.5 INR 1.1 APTT 25.4 L Anion Gap 16 Estim Creat Clear Calc 28.6 Estimated GFR 36 POC Glucose 116 H Random Glucose 132 H Haptoglobin 235 Uric Acid 4.2 Calcium 8.7 Phosphorus 5.1 H Total Bilirubin 0.6 AST 35 H ALT 6 Alkaline Phosphatase 57 Lactate Dehydrogenase 778 H Total Protein 6.7 Albumin 4.2 Assessment and Plan (1) Cerebral infarction: Status: Acute (2) Thrombocytopenia: Status: Acute (3) Acute kidney injury: Status: Acute (4) CML (chronic myelocytic leukemia): Status: Chronic (5) Hemorrhagic cerebrovascular accident (CVA): Status: Acute Plan 80-year-old female who presented to the hospital complaining of worsening shortness of breath that has been ongoing for the past couple of months, patient today also noticed that she was experiencing right-sided weakness with dysarthria. with MRI showing CVA of left baer radiata Hemorrhagic stroke with large right pareital and left parietal epidural hemamotoma CVA of left baer radiata, likely in the setting of underlying CML -head CT with no acute intracranial hemorrhage, small-vessel occlusive disease and intracranial atherosclerosis disease. 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 Left parietal epidural hematoma measuring up to 1.7 cm in width. No midline shift present. -TTE with EF 65-70%, no PFO -neurology consulted, suggested on antiplatelet agents and treatment for CML if able. -HOLD DAPTin the setting of bleeding -continue statin -will initiate nicardipine drip w/ goal BP less than 160mmHg -reached out to [facility] for possible transfer Hypertensive emergency -will initiate and titrate nicardipine drip, w/ goal BP less than 160mmHg CML leukocytosis, secondary to above acute on chronic Anemia of chronic disease, improved after blood transfusion Thrombocytopenia -likely related to bone marrow disease, patient previously worked up by Hematology/Oncology, suggested on possible bone marrow transplant which patient refused -continue to monitor for any signs of bleeding, chest pain -hematology oncology consulted, continue hydroxyurea 1 g b.i.d. -will transfuse 1 unit of platelets if platelets less than 20 K. 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 -s/p IV F BETHANY, likely multifoactorial, improving 1.4 at this time, per prior records, baseline around 1.1 -Retroperitoneal ultrasound with moderate right hydronephrosis with a possible right ureterovesicular junction stone measuring 1.3 cm -Urology and nephrology -hold NS Acute hypoxic respiratory failure, could be in setting of anemia, improving COPD -labs and imaging reviewed -TTE pending -status post IV Lasix given -continue nebs and supplemental treatment -continue to monitor labs -cardiology consulted and following Hypertension, chronic -We will give labetalol p.r.n. as patient was experiencing BETHANY FEN: NS, replete as needed, regular GI PPx: NI DVT PPx: SCDs Code Status: DNR/DNI Disposition: At this time patients prognosis is guarded given new onset of Hemorrhagic CVA with underlying comorbidities. Total time managing care of this patient today: 55 minutes. Quality Stroke Does the patient have a stroke diagnosis?: No VTE Prior VTE?: No VTE Risk Level:: Medical - moderate - high VTE Device Contraindication: N/A - Device Ordered VTE Drug Contraindication: Treatment Not Indicated
--- NOTE | 2025-10-10 09:06 | MHC.STROKE ---
Daughter Paulette at bedside. Updated on patient condition and current plan of care. Awaiting call back from [place] for potential transfer. ICU nurse 1:1 with patient
--- NOTE | 2025-10-10 11:19 | PM.DS ---
DS: Providers Provider Date of Service: 10/10/25 Date of admission: 10/06/25 17:32 Date of discharge: 10/10/25 Primary care physician: Cori Simmons MD Consults: 10/06/25 17:35 Consult to Neurology Routine Consulting Provider: [facility] Reason for consultation: TIA Has provider been notified: No 10/06/25 17:36 Consult to Cardiology Routine Consulting Provider: [facility] Reason for consultation: Shortness of breath suspect HF Has provider been notified: No 10/07/25 10:28 Consult to Hematology / Oncology Routine Consulting Provider: [facility] Reason for consultation: CML Has provider been notified: No 10/07/25 16:11 Consult to Urology Routine Consulting Provider: [facility] Reason for consultation: BETHANY with right hydronephrosis with right UVJ stone 1.3cm Has provider been notified: No 10/07/25 16:12 Consult to Nephrology Routine Consulting Provider: [facility] Reason for consultation: BETHANY Has provider been notified: No DS: Transfer Hospital Acceptance Reason for Transfer: Neurosurgical evaluation Name of Facility: [facility] Accepting Provider: Dr. Lundy / Dr. Michaels DS: Diagnosis Discharge Diagnosis (1) Hemorrhagic cerebrovascular accident (CVA): Status: Acute (2) Cerebral infarction: Status: Acute (3) Thrombocytopenia: Status: Acute (4) Acute kidney injury: Status: Acute (5) CML (chronic myelocytic leukemia): Status: Chronic DS: Summary Hospital Course Hospital Course: 80-year-old lady with underlying CMML on hydroxyurea admitted on 10/06/2025 with acute right-sided deficits secondary to left baer radiata infarct with hospital course complicated by acute changing her neurologic symptoms on 10/10/2025 secondary to new acute 8x4cm right parietal ICH and also noted 1.7 cm left epidural hematoma. Transfer for neurosurgical evaluation was requested and granted at [facility]. Time Attestation Total time managing care of this patient today: 35 mintues. Discharge Coordination Time (in mins): 45 Quality: Safe Use of Opioids Does Pt have an Active Cancer Diagnosis on the Problem List?: No Quality: Stroke Does the patient have a stroke diagnosis?: Yes Reason for No Anti-thrombotic at DC: Contraindicated Reason for No Anticoagulant at DC: Contraindicated Reason Not Initiating IV-Tpa: Contraindicated Reason for No Anti-thrombotic by Day Two: Contraindicated Reason for No Statin at DC: Contraindicated Physical Exam Vital Signs: Vital Signs: Last Vital Signs Temp 98.6 F 10/10/25 09:09 Pulse 104 H 10/10/25 10:45 Resp 36 H 10/10/25 10:00 BP 148/65 H 10/10/25 10:45 Pulse Ox 95 10/10/25 10:00 O2 Del Method Nasal Cannula 10/10/25 10:00 O2 Flow Rate 1.5 10/10/25 10:00 BMI result Body Mass Index 23.2 Const: General: no acute distress and lethargic (Arousable and follows commands) Orientation/consciousness: lethargic (Arousable and follows commands) Eyes: Sclerae: sclerae normal Pupils: Other pupil findings (Both pupils are equal and reactive) EOM: EOMs intact bilaterally Neck: Neck: Yes no lymphadenopathy, Yes trachea midline and Yes supple Resp: Effort & Inspection: normal respiratory effort and no respiratory distress Auscultation: clear to auscultation bilaterally Cardio: Rate: tachycardic Rhythm: regular rhythm Heart sounds: no gallops, no murmurs and no rubs GI: Palpation (GI): Soft to palpation and Other GI palpation findings present ( Nontender) Auscultation: normal bowel sounds Extrem: Other: Left-sided paresis General: Yes no pedal edema, No clubbing and No cyanosis DS: Data Data Completed and Pending Labs on day of discharge: Laboratory Results - last 24 hr 10/09/25 10/09/25 10/10/25 12:57 20:08 07:26 WBC RBC Hgb 8.7 L Hct 25.3 L MCV MCH MCHC RDW Plt Count MPV Immature Gran % (Auto) Neut % (Auto) Lymph % (Auto) [place] % (Auto) Eos % (Auto) Baso % (Auto) Lymph # (Auto) [place] # (Auto) Eos # (Auto) Baso # (Auto) Abs Immat Gran (auto) Absolute Neuts (auto) Absolute Nucleated RBC Nucleated RBC % (auto) Neutrophils % (Manual) Band Neutrophils % Lymphocytes % (Manual) Atypical Lymphs % (Man) Monocytes % (Manual) Eosinophils % (Manual) Basophils % (Manual) Metamyelocytes % Myelocytes % Promyelocytes % Blast Cells % (Manual) Abs Neuts (Manual) Lymphocytes # (Manual) Atyp Lymphs # (Manual) Monocytes # (Manual) Eosinophils # (Manual) Basophils # (Manual) Metamyelocytes # Myelocytes # Promyelocytes # Blast Cells # Toxic Vacuolation Platelet Estimate Giant Platelets Plt Morphology Comment RBC Morphology Polychromasia Macrocytosis [place] Cells PT INR APTT Sodium Potassium Chloride Carbon Dioxide Anion Gap BUN Creatinine Estim Creat Clear Calc Estimated GFR POC Glucose 116 H Random Glucose Haptoglobin Uric Acid Calcium Phosphorus 5.1 H Total Bilirubin AST ALT Alkaline Phosphatase Lactate Dehydrogenase Total Protein Albumin 10/10/25 07:48 WBC 193.8 H* RBC 2.54 L Hgb 8.2 L Hct 25.3 L MCV 99.6 H MCH 32.3 MCHC 32.4 RDW 18.3 H Plt Count 32 L MPV Not Reportable Immature Gran % (Auto) Cancelled Neut % (Auto) Cancelled Lymph % (Auto) Cancelled [place] % (Auto) Cancelled Eos % (Auto) Cancelled Baso % (Auto) Cancelled Lymph # (Auto) Cancelled [place] # (Auto) Cancelled Eos # (Auto) Cancelled Baso # (Auto) Cancelled Abs Immat Gran (auto) Cancelled Absolute Neuts (auto) Cancelled Absolute Nucleated RBC 0.450 H Nucleated RBC % (auto) 0.2 Neutrophils % (Manual) 75 H Band Neutrophils % 11 H Lymphocytes % (Manual) 1 L Atypical Lymphs % (Man) 1 Monocytes % (Manual) 3 Eosinophils % (Manual) 1 Basophils % (Manual) 1 Metamyelocytes % 4 Myelocytes % 2 Promyelocytes % 2 Blast Cells % (Manual) 1 Abs Neuts (Manual) 166.7 H Lymphocytes # (Manual) 1.9 Atyp Lymphs # (Manual) 1.9 Monocytes # (Manual) 5.8 H Eosinophils # (Manual) 1.9 H Basophils # (Manual) 1.9 H Metamyelocytes # 7.8 Myelocytes # 3.9 Promyelocytes # 3.9 Blast Cells # 1.9 Toxic Vacuolation PRESENT Platelet Estimate DECREASED Giant Platelets PRESENT Plt Morphology Comment NOTED RBC Morphology NOTED Polychromasia 1+ (0-2) Macrocytosis 1+ (5-14) [place] Cells 1+ (0-2) PT 13.5 INR 1.1 APTT 25.4 L Sodium 140 Potassium 4.4 D Chloride 111 H Carbon Dioxide 17 L Anion Gap 16 BUN 35 H Creatinine 1.41 H Estim Creat Clear Calc 28.6 Estimated GFR 36 POC Glucose Random Glucose 132 H Haptoglobin 235 Uric Acid 4.2 Calcium 8.7 Phosphorus Total Bilirubin 0.6 AST 35 H ALT 6 Alkaline Phosphatase 57 Lactate Dehydrogenase 778 H Total Protein 6.7 Albumin 4.2 Discharge Plan Discharge Anticipated Discharge Date/Time: 10/10/25 11:16 Patient Disposition: Xfer Acute Care Hospital Discharge Diagnosis: Intracerebral hemorrhage Referrals: Cori Simmons MD [Primary Care Provider, Internal Medicine] - 1 Week Discharge Medications: Discontinued midodrine 5 mg tablet 5 mg PO BID albuterol sulfate 90 mcg/actuation Hfa Aerosol Inhaler 2 puff INHALATION Q6H PRN (Reason: Shortness Of Breath Or Wheezing) budesonide-formoterol [Symbicort] 160-4.5 mcg/actuation HFA aerosol inhaler 2 puff INHALATION BID lovastatin 20 mg tablet 20 mg PO DAILY calcium carbonate-vitamin D3 [Calcium 600 + D(3)] 600 mg(1,500mg) -200 unit tablet 1 tab PO DAILY ipratropium bromide 42 mcg (0.06 %) spray,non-aerosol 2 spray intranasal DAILY PRN (Reason: Nasal Congestion) Rx Instructions: administer into each nostril aspirin 81 mg tablet,delayed release (DR/EC) 81 mg PO DAILY cetirizine 10 mg tablet,disintegrating 10 mg PO DAILY No Action (DME) nebulizers Misc See Rx Instructions .Route Rx Instructions: As directed Discharge Orders: Discharge Order (Routine); Ordered 10/10/25 Ordered By: Clarence Villarreal Activity on Discharge: Bedrest Stand Alone Forms: Patient Portal Discharge page Print Language: Faroese Care Plan Goals: ICH evaluation Health Concerns: Acute ICH Plan of Treatment: ICH evaluation Assessment: 80-year-old lady with underlying CMML on hydroxyurea presented with right-sided weakness secondary to acute left baer radiata infarct with hospital course complicated by acute ICH on 10/10/2025, being transferred for neurosurgical evaluation.
--- NOTE | 2025-10-10 11:48 | P.PNCC_ITS ---
Critical Care Event Note Summary Date of Service: 10/10/25 Code activated: No Narrative: After patient was accepted to [facility] and set to be transferred patient's daughter requested to switch goals of care to palliation. Patient code status has been changed to comfort measures only. Transfer to outside facility canceled. Patient started on fentanyl drip. Critical Care Time (minutes): 0
[2025-10-10] MEDS: fentaNYL citrate/NS 1,000 MCG/100 ML PLAST..BAG 5 MCG IVCONT (12:03)
--- NOTE | 2025-10-10 13:17 | P.PNCC_ITS ---
Subjective Subjective Date of Service: 10/10/25 Interval History: 80-year-old lady with underlying CMML on hydroxyurea admitted on 10/06/2025 with acute right-sided deficits secondary to left baer radiata infarct with hospital course complicated by acute changing her neurologic symptoms on 10/10/2025 secondary to new acute 8x4cm right parietal ICH and also noted 1.7 cm left epidural hematoma. Transfer for neurosurgical evaluation was requested and granted at [facility]. Transfer canceled as patient's family changed goals of care to comfort measures only. Patient started on fentanyl drip and remains comfortable. Critical Care Time (minutes): 0 Physical Exam 2 Exam: Exam: Comfortable on fentanyl drip. Vital Signs: Vital Signs: Last Vital Signs Temp 98.6 F 10/10/25 09:09 Pulse 101 H 10/10/25 12:50 Resp 35 H 10/10/25 12:00 BP 129/66 10/10/25 12:50 Pulse Ox 95 10/10/25 12:00 O2 Del Method Nasal Cannula 10/10/25 12:00 O2 Flow Rate 2 10/10/25 12:00 BMI result Body Mass Index 23.2 Objective Data Labs 10/10/25 07:48 10/10/25 07:48 Labs: Laboratory Results - last 24 hr 10/09/25 10/10/25 10/10/25 20:08 07:26 07:48 WBC 193.8 H* RBC 2.54 L Hgb 8.2 L Hct 25.3 L MCV 99.6 H MCH 32.3 MCHC 32.4 RDW 18.3 H Plt Count 32 L MPV Not Reportable Immature Gran % (Auto) Cancelled Neut % (Auto) Cancelled Lymph % (Auto) Cancelled [place] % (Auto) Cancelled Eos % (Auto) Cancelled Baso % (Auto) Cancelled Lymph # (Auto) Cancelled [place] # (Auto) Cancelled Eos # (Auto) Cancelled Baso # (Auto) Cancelled Abs Immat Gran (auto) Cancelled Absolute Neuts (auto) Cancelled Absolute Nucleated RBC 0.450 H Nucleated RBC % (auto) 0.2 Neutrophils % (Manual) 75 H Band Neutrophils % 11 H Lymphocytes % (Manual) 1 L Atypical Lymphs % (Man) 1 Monocytes % (Manual) 3 Eosinophils % (Manual) 1 Basophils % (Manual) 1 Metamyelocytes % 4 Myelocytes % 2 Promyelocytes % 2 Blast Cells % (Manual) 1 Abs Neuts (Manual) 166.7 H Lymphocytes # (Manual) 1.9 Atyp Lymphs # (Manual) 1.9 Monocytes # (Manual) 5.8 H Eosinophils # (Manual) 1.9 H Basophils # (Manual) 1.9 H Metamyelocytes # 7.8 Myelocytes # 3.9 Promyelocytes # 3.9 Blast Cells # 1.9 Toxic Vacuolation PRESENT Platelet Estimate DECREASED Giant Platelets PRESENT Plt Morphology Comment NOTED RBC Morphology NOTED Polychromasia 1+ (0-2) Macrocytosis 1+ (5-14) [place] Cells 1+ (0-2) PT 13.5 INR 1.1 APTT 25.4 L Sodium 140 Potassium 4.4 D Chloride 111 H Carbon Dioxide 17 L Anion Gap 16 BUN 35 H Creatinine 1.41 H Estim Creat Clear Calc 28.6 Estimated GFR 36 POC Glucose 116 H Random Glucose 132 H Haptoglobin 235 Uric Acid 4.2 Calcium 8.7 Phosphorus 5.1 H Total Bilirubin 0.6 AST 35 H ALT 6 Alkaline Phosphatase 57 Lactate Dehydrogenase 778 H Total Protein 6.7 Albumin 4.2 Microbiology Microbiology Results: Microbiology 10/06/25 Unknown Urine clean catch - Clean Catch Midstream Urine Culture - Final Progress Note: A&P Assessment and plan (1) Hemorrhagic cerebrovascular accident (CVA): Status: Acute (2) Cerebral infarction: Status: Acute Plan Patient in comfort measures status remains comfortable on fentanyl drip. Quality Stroke Does the patient have a stroke diagnosis?: Yes Reason for No Anti-thrombotic by Day Two: Contraindicated VTE Prior VTE?: No VTE Risk Level:: Medical - moderate - high VTE Device Contraindication: N/A - Device Ordered VTE Drug Contraindication: Treatment Not Indicated
--- NOTE | 2025-10-10 14:27 | PC.NURSE ---
Pt transitioned to [employer]. Family at bedside. Will be tx to med surg. Report given to Jahaira CRAWFORD.
--- NOTE | 2025-10-10 14:54 | MHC.CM.PN ---
EMR REVIEWED, PATIENT
--- NOTE | 2025-10-10 14:55 | MHC.CM.PN ---
EMR REVIEWED, PATIENT WITH NEW ONSET HEMORRHAGIC CVA, PATIENT WAS TRANSFERRED TO THE ICU. 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 HOSPICE REFERRAL SENT TO [facility] TO DETERMINE IF PATIENT IS APPROPRIATE FOR [facility] H[facility]PICE.
== END 2025-10-10 17:20 | disposition hospice, inpatient (51) | DRG 64 ==
LOC: HO.ED 17:06 → HO.EDOVER 17:46 → HO.IMC 19:09 → HO.ICU 10-10 08:28 → HO.S3 10-10 14:23
PROVIDERS: Hospitalist; Internal Medicine Critical Care Medicine; Physician Assistant; Admitting Provider Student in an Organized Health Care Education/Training Program; Emergency Provider Emergency Medicine; PCP Internal Medicine; Visit Provider Student in an Organized Health Care Education/Training Program
DX: I63.9 Cerebral infarction, unspecified (principal); E88.3 Tumor lysis syndrome; J96.01 Acute respiratory failure with hypoxia; N17.9 Acute kidney failure, unspecified; C93.10 Chronic myelomonocytic leukemia not having achieved remission; I16.1 Hypertensive emergency; N13.2 Hydronephrosis with renal and ureteral calculous obstruction; I62.9 Nontraumatic intracranial hemorrhage, unspecified; Z66 Do not resuscitate; E79.0 Hyperuricemia without signs of inflammatory arthritis and tophaceous disease; R29.701 NIHSS score 1; D63.0 Anemia in neoplastic disease; G83.21 Monoplegia of upper limb affecting right dominant side; J44.9 Chronic obstructive pulmonary disease, unspecified; Z51.5 Encounter for palliative care; I11.0 Hypertensive heart disease with heart failure; I50.9 Heart failure, unspecified; Z20.822 Contact with and (suspected) exposure to COVID-19; Z87.891 Personal history of nicotine dependence; Z79.899 Other long term (current) drug therapy
CPT/HCPCS: 36415; 70450; 70496; 70498; 70551; 71045; 76775; 80048; 80053; 80061; 81001; 82570; 82947; 82955; 83010; 83036; 83615; 83735; 83880; 84100; 84300; 84443; 84484; 84550; 85007; 85014; 85018; 85025; 85027; 85610; 85730; 86850; 86900; 86901; 86923; 87086; 87637; 93005; 93306; 94618; 97162; 97166; 99211; 99285; J1938; J2404; J2783; J3010; J7120; P9016; Q9957; Q9967

== ENCOUNTER 2025-10-06 17:32 | Outpatient (BNV) | payer MEDICARE, SELFPAY | END 2025-10-09 11:11 | PROVIDERS: Admitting Provider Student in an Organized Health Care Education/Training Program; Emergency Provider Emergency Medicine; PCP Internal Medicine; Visit Provider Radiology Vascular & Interventional Radiology | DX: R06.02 Shortness of breath (principal) | CPT/HCPCS: 71045 ==

== ENCOUNTER 2025-10-06 17:32 | Outpatient (BNV) | payer MEDICARE, SELFPAY | END 2025-10-07 07:00 | PROVIDERS: Admitting Provider Student in an Organized Health Care Education/Training Program; Emergency Provider Emergency Medicine; PCP Internal Medicine; Visit Provider Internal Medicine | DX: I51.89 Other ill-defined heart diseases (principal); I35.8 Other nonrheumatic aortic valve disorders; I34.81 Nonrheumatic mitral (valve) annulus calcification | CPT/HCPCS: 93306 ==

== ENCOUNTER 2025-10-06 17:32 | Outpatient (BNV) | payer MEDICARE, SELFPAY | END 2025-10-08 09:32 | PROVIDERS: Admitting Provider Student in an Organized Health Care Education/Training Program; Emergency Provider Emergency Medicine; PCP Internal Medicine; Visit Provider Internal Medicine | DX: R00.0 Tachycardia, unspecified (principal); I44.7 Left bundle-branch block, unspecified | CPT/HCPCS: 93010 ==

== ENCOUNTER 2025-10-06 17:32 | Outpatient (BNV) | payer MEDICARE, SELFPAY | END 2025-10-10 07:29 | PROVIDERS: Admitting Provider Student in an Organized Health Care Education/Training Program; Emergency Provider Emergency Medicine; PCP Internal Medicine; Visit Provider Internal Medicine Cardiovascular Disease | DX: R00.0 Tachycardia, unspecified (principal); I44.7 Left bundle-branch block, unspecified | CPT/HCPCS: 93010 ==

== ENCOUNTER 2025-10-06 17:32 | Outpatient (BNV) | payer MEDICARE, SELFPAY | END 2025-10-10 07:33 | PROVIDERS: Admitting Provider Student in an Organized Health Care Education/Training Program; Emergency Provider Emergency Medicine; PCP Internal Medicine; Visit Provider Radiology Vascular & Interventional Radiology | DX: S06.4X0A Epidural hemorrhage without loss of consciousness, initial encounter (principal) | CPT/HCPCS: 70450 ==

== ENCOUNTER → 2025-10-06 17:32 | Outpatient (BNV) | payer MEDICARE, SELFPAY | PROVIDERS: Admitting Provider Student in an Organized Health Care Education/Training Program; Emergency Provider Emergency Medicine; PCP Internal Medicine; Visit Provider Internal Medicine Critical Care Medicine | DX: N17.9 Acute kidney failure, unspecified (principal); E79.0 Hyperuricemia without signs of inflammatory arthritis and tophaceous disease; E88.3 Tumor lysis syndrome | CPT/HCPCS: 99223 ==

== ENCOUNTER → 2025-10-06 17:32 | Outpatient (BNV) | payer MEDICARE, SELFPAY | PROVIDERS: Admitting Provider Student in an Organized Health Care Education/Training Program; Emergency Provider Emergency Medicine; PCP Internal Medicine; Visit Provider Psychiatry & Neurology Neurology | DX: I63.412 Cerebral infarction due to embolism of left middle cerebral artery (principal) | CPT/HCPCS: 99223 ==

== ENCOUNTER → 2025-10-06 17:32 | Outpatient (BNV) | payer MEDICARE, SELFPAY | PROVIDERS: Admitting Provider Student in an Organized Health Care Education/Training Program; Emergency Provider Emergency Medicine; PCP Internal Medicine; Visit Provider Internal Medicine Pulmonary Disease | DX: I61.9 Nontraumatic intracerebral hemorrhage, unspecified (principal); I63.412 Cerebral infarction due to embolism of left middle cerebral artery; D69.6 Thrombocytopenia, unspecified; N17.9 Acute kidney failure, unspecified; C92.10 Chronic myeloid leukemia, BCR/ABL-positive, not having achieved remission | CPT/HCPCS: 99239; 99499 ==

== ENCOUNTER → 2025-10-06 17:32 | Outpatient (BNV) | payer MEDICARE, SELFPAY | PROVIDERS: Admitting Provider Student in an Organized Health Care Education/Training Program; Emergency Provider Emergency Medicine; PCP Internal Medicine; Visit Provider Urology | DX: N13.30 Unspecified hydronephrosis (principal) | CPT/HCPCS: 99223 ==

== ENCOUNTER → 2025-10-06 17:32 | Outpatient (BNV) | payer MEDICARE, SELFPAY | PROVIDERS: Admitting Provider Student in an Organized Health Care Education/Training Program; Emergency Provider Emergency Medicine; PCP Internal Medicine; Visit Provider Student in an Organized Health Care Education/Training Program | DX: I63.412 Cerebral infarction due to embolism of left middle cerebral artery (principal); D69.6 Thrombocytopenia, unspecified; N17.9 Acute kidney failure, unspecified; C92.10 Chronic myeloid leukemia, BCR/ABL-positive, not having achieved remission; I61.9 Nontraumatic intracerebral hemorrhage, unspecified | CPT/HCPCS: 99223; 99233 ==

== ENCOUNTER → 2025-10-06 17:32 | Outpatient (BNV) | payer MEDICARE, SELFPAY | PROVIDERS: Admitting Provider Student in an Organized Health Care Education/Training Program; Emergency Provider Emergency Medicine; PCP Internal Medicine; Visit Provider Internal Medicine | DX: R06.09 Other forms of dyspnea (principal); J44.0 Chronic obstructive pulmonary disease with (acute) lower respiratory infection; C93.10 Chronic myelomonocytic leukemia not having achieved remission; D69.6 Thrombocytopenia, unspecified; D64.9 Anemia, unspecified; I44.7 Left bundle-branch block, unspecified | CPT/HCPCS: 99223 ==

== ENCOUNTER → 2025-10-06 17:32 | Outpatient (BNV) | payer MEDICARE, SELFPAY | PROVIDERS: Admitting Provider Student in an Organized Health Care Education/Training Program; Emergency Provider Emergency Medicine; PCP Internal Medicine; Visit Provider Internal Medicine | DX: C92.10 Chronic myeloid leukemia, BCR/ABL-positive, not having achieved remission (principal); D64.9 Anemia, unspecified; D69.6 Thrombocytopenia, unspecified | CPT/HCPCS: 99222 ==

== ENCOUNTER 2025-10-10 17:28 | Inpatient (IN) | payer OTHER, SELFPAY ==
--- OUTSIDE RECORDS SUMMARY | 2025-10-10 09:25 | XMS_ITS | Encounter Summary ---
Author Organization [facility] Address [address] [place] [address] Care Team Providers Care Word Processor Name Role Phone Unavailable Primary Care Provider Unavailabl e Encounter Details Date Type Department Care Team (Late st Contact Info) Description 10/10/2025 9:25 AM EST Ancillary Procedure [facility] [address] [place] [address] Provider, File Room Arrived Social History Tobacco Use Types Packs/Day Years Used Date Smoking Tobacco: Never Assessed Comments Unknown Sex and Gender Information Value Date Recorded Sex Assigned at Female 10/04/2025 4:47 PM EST Legal Sex Female 1:39 PM EST Gender Identity Female 10/04/2025 4:47 PM EST Sexual Orientation Heterosexual (straight) 10/04 4:47 PM EST documented as of this encounter Plan of Treatment Not on file documented as of this encounter Procedures Procedure Name Priority Date/Time Associated Diagnosis Comments CT HEAD ARCHIVE FOR REFERENCE ONLY Routine 10/10/2025 9:23 AM EST documented in this encounter Results * CT Head Archive for Reference Only (10/10/2025 9:23 AM EST) Narrative GABRIELLA - 10/10/2025 9:23 AM EST This study has been auto finalized and does not contain a result. us File Room Provider IMG DIGITIZE FILMS Final Resu lt GABRIELLA [phone] documented in this encounter Visit Diagnoses Not on filedocumented in this encounter
--- NOTE | 2025-10-10 17:27 | P.HPHOSP_ITS ---
History of Present Illness Date of Service: 10/10/25 Chief Complaint: Hemorrhagic CVA 80-year-old female who presented to the hospital complaining of worsening shortness of breath that has been ongoing for the past couple of months, patient today also noticed that she was experiencing right-sided weakness with dys arthria. with MRI showing CVA of left baer radiata, on 10/10 with new left- sided deficits, stat CT showed large posterior right parietal intraparenchymal hemorrhage as well as the parietal epidural hematoma. After conversation with daughter at bedside, patient transitioned to comfort care only and admitted to [facility]. Review of Systems Review of Systems: Yes Unobtainable due to mental status [facility] Medical History (Updated 10/10/25 @ 08:53 by Vincent Simon MD) Tumor lysis syndrome Chest discomfort Dyspnea Pulmonary nodule Pneumonitis Pulmonary nodules COVID-19 COPD (chronic obstructive pulmonary disease) Social History Household Members: Family Housing: House Do you presently have visiting nurse or other home services: No Patient Tobacco Use Status: Former Tobacco user Tobacco use type: Cigarette Years Smoked: 30 years Second Hand Smoke Exposure: No service: No Meds Allergies Allergy/AdvReac Type Severity Reaction Status Date / Time fentanyl Allergy Intermediate elevated bp Verified 10/06/25 13:57 Penicillins Allergy Severe Rash and Uncoded 08/26/24 10:16 Hives Sulfa Drugs Allergy Severe Rash and Uncoded 08/26/24 10:16 Hives Active Medications: Current Medications Haloperidol Lactate (Haloperidol Lactate Oral Conc 10 Mg/5 Ml Oral.Conc) 0.5 mg SUBLINGUAL Q4H PRN PRN Reason: Anxiety/Restlessness/Delirium Fentanyl (Sublimaze/Ns) 1,000 mcg in 100 mls @ 0 mls/hr IVCONT .Q0M [facility]; Protocol Lorazepam (Lorazepam 1 Mg Tablet) 1 mg SUBLINGUAL Q4H PRN PRN Reason: anxiety/restlessness Ondansetron HCl (Ondansetron Hcl 4 Mg/2 Ml Vial) 4 mg IVPUSH Q8H PRN PRN Reason: Nausea and Vomiting Scopolamine (Scopolamine 1.5 Mg Patch.Td.3) 1.5 mg EAR-BEHIND Q72H [facility] Home Medications ?Medication ?Instructions ?Recorded ?Confirmed ?Last Taken ?Type nebulizers 11/26/22 05/07/23 Unknown H istory Physical Exam Vital Signs and Narrative: General: obtunded Head: AT/NC ENT: Moist mucous membranes Neck: supple Lungs: castro stephens breathing Abd: Soft non tender, non distended Ext: No edema and no calf tenderness MSK: moving all 4 limbs Skin: No cyanosis or edema Psych: UTO Neurology: UTO Assessment and Plan (1) CML (chronic myelocytic leukemia): Status: Chronic (2) Cerebral infarction: Qualifiers: Cerebral infarction mechanism: embolism Precerebral and cerebral artery: middle cerebral artery Laterality of affected vessel: left Qualified Code(s): I63.412 - Cerebral infarction due to embolism of left middle cerebral artery Status: Acute Plan Assessment: 80 year-old female with past medical history significant for CML, admitted for stroke although coronary radiata, on 10/10 began with worsening left-sided deficits, with stat CT showing intraparenchymal hemorrhage. Original plan to transfer to [place], however after family discussions, patient would not want to have any aggressive measures done and not pursue any surgeries. Patient subsequently admitted to hospice with emphasis on comfort care. 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 Initiated fentanyl drip, p.r.n. medications for secretions, agitation started. Discontinued home medications at this time. Disposition: GI IP hospice, comfort measures. Total time managing care of this patient today: 55 minutes. Quality Stroke Does the patient have a stroke diagnosis?: Yes Reason for No Anti-thrombotic by Day Two: Not indicated VTE Prior VTE?: No VTE Risk Level:: Medical - moderate - high VTE Device Contraindication: Treatment Not Indicated VTE Drug Contraindication: Treatment Not Indicated
--- NOTE | 2025-10-10 19:14 | PM.EVENT ---
Event Note Date of Service: 10/10/25 Event Note: Patient found to be apneic, asystole, pupils nonreactive Time of 19:10 Family at bedside Time Spent With Patient Time: Total time managing care of this patient today ____ minutes.
--- OUTSIDE RECORDS SUMMARY | 2025-10-10 20:32 | XMS_ITS | Clinical Summary ---
Author Organization [facility] Address [address] [place] [address] Care Team Providers Care Placement Specialist Name Role Phone Giles Campo MD Primary Care Provider [phone] Allergies Active Allergy Reactions Criticality Noted Date [...] this topic Medical Devices Implanted Type Area Post Doctoral Researcher Device Identifier Shelf Expiration Date Model / Serial / Lot Liner Trident X3 0 Deg 36mm 5.9mm Sz E [facility] [id number] - [id number] Implanted:Qty: 1 on 05/22/2023 by Edmundo Roy MD at [facility] [employer] [id number] 02/19/2028 723-00-36E / / [id number] Cement Bone Surg Simplex Radiopq [facility] [id number] 092 - [id number] Implanted:Qty: 1 on 05/22/2023 by Edmundo Roy MD at [facility] Right: Hip [employer] [id number] 6191-1010 / / [id number] Cement Bone Surg Simplex Radiopq Stry-Howm 1244-4-201-114 092 - [id number] Implanted:Qty: 1 on 05/22/2023 by Edmundo Roy MD at [facility] Right: Hip [employer] [id number] 6191-1010 / / [id number] Tritanium Cluster Hole Shell 52mm Stry-Howm 054-46-64r-770 473 - [id number] Implanted:Qty: 1 on 05/22/2023 by Edmundo Roy MD at [facility] Right: Hip [employer] [id number] 01/14/2028 702-04-52E / / [id number] Lp Hex Screw 6.5x25mm Stry-Howm 2251-2888-7242 58 - [id number] Implanted:Qty: 1 on 05/22/2023 by Edmundo Roy MD at [facility] Right: Hip [employer] [id number] 03/01/2028 2720-6809 / / [id number] Lp Hex Screw 6.5x20mm Stry-Howm 8567-9726-8868 57 - [id number] Implanted:Qty: 1 on 05/22/2023 by Edmundo Roy MD at [facility] Right: Hip [employer] [id number] 01/07/2028 6138-3160 / / [id number] Lp Hex Screw 6.5x20mm Stry-Howm 1386-6101-0883 57 - [id number] Implanted:Qty: 1 on 05/22/2023 by Edmundo Roy MD at [facility] Right: Hip [employer] [id number] 01/30/2028 8008-8728 / / [id number] Hip Spacer Distl Univ 11mm Stry-Howm 5638-7040-7114 61 - [id number] Implanted:Qty: 1 on 05/22/2023 by Edmundo Roy MD at [facility] Right: Hip [employer] [id number] 03/25/2028 9709-7849 / / [id number] Hip Stem Acco-C 132deg #5 Stry-Howm 2400-4100w-556 232 - [id number] Implanted:Qty: 1 on 05/22/2023 by Edmundo Roy MD at [facility] Right: Hip [employer] [id number] 07/29/2027 [id number] / / [id number] Kit Prep Total Hip Bone Imp Smn-Orth [id number] - [id number] Implanted:Qty: 1 on 05/22/2023 by Edmundo Roy MD at [facility] Right: Hip [employer] [id number] 11/09/2032 [id number] / / [id number] Description:Medium plug Hip Head Delta Dorcas 36mm +2.5 Stry-How 3326-7-833-532 963 - [id number] Implanted:Qty: 1 on 05/22/2023 by Edmundo Roy MD at [facility] Right: Hip [employer] [id number] 08/18/2027 6570-0-536 / / [id number] Coil Penumbra 400 [id number] Soft Pnbr-Manu [id number] 93 - [id number] Implanted:Qty: 2 on 06/29/2023 by Raul Trejo MD at [facility] [employer] 04/22/2031 [id number] / / [id number] Coil Penumbra 400 [id number] Soft Pnbr-Manu [id number] 93 - [id number] Implanted:Qty: 1 on 06/29/2023 by Raul Trejo MD at [facility] [employer] 03/30/2031 [id number] / / [id number] Advance Directives For more information, please contact: [phone] Latest Code Status on File Code Status Date Activated Date Inactivated Comments Full Code 06/28/2023 7:20 PM 07/01/2023 11:24 PM This code status was ascertained in the following way: discussion with healthcare business services sales representative . Code Status History Code Status Date Activated Date Inactivated Comments Full Code 05/22/2023 8:47 AM 05/23/2023 9:36 PM This co de status was ascertained in the following way: discussion with patient . Full Code 05/22/2023 5:51 AM 05/22/2023 8:47 AM This co de status was ascertained in the following way: discussion with patient . Care Teams Placement Specialist Relationship Specialty Start Date End Date Giles Campo MD [address] [place] [address] PCP - General Internal Medicine 12/22/17
--- OUTSIDE RECORDS SUMMARY | 2025-10-10 20:32 | XMS_ITS | Encounter Summary ---
Author Organization [facility] Address [address] [place] [address] Care Team Providers Care Churn Drill Operator Name Role Phone Cori Simmons MD Primary Care Provider [phone] Encounter Details Date Type Department Care Team (Late st Contact Info) Description 10/07/2025 Results Follow-Up Internal Medicine - [address] [address] Giuseppe Lee NP [address] [place] [address] Social History Tobacco Use Types Packs/Day Years [...] care for your loved ones. For example, exceptional children's teacher or elderly care for an older [...] Care Team (Late st Contact Info) Description 10/17/2025 12:30 PM EST Ancillary Procedure [place] Cardiology [facility] [address] [facility] [address] [place] [address] 11/03/2025 2:15 PM EST Ancillary Procedure Central [facility] Cardiology - [place] [address] [facility] [address] [place] [address] 11/11/2025 3:30 PM EST Office Visit Vascular Surgery - [place] [address] [facility] [address] [place] [address] Winston Barrett MD [address] [place] [phone] 11/30/2025 2:45 PM EST Office [address] [facility] Hematology Oncology [address] [place] [phone] Jairo Bosch MD [address] [place] [phone] 12/05/2025 2:30 PM EST Office Visit Central [facility] Cardiology - [place] [address] [address] Marita Matthews MD 19 [facility] 45 [place] [address] 12/28/2025 1:00 PM EST Office Visit Internal Medicine - [address] [phone] Giuseppe Lee NP [address] [place] [address] documented as of this encounter Visit Diagnoses Not on filedocumented in this encounter Additional Health Concerns Assessment Noted Time PHQ-9 Depression Total Score: 0 04/21/20 25 1:28 PM EDT documented as of this encounter Care Teams Churn Drill Operator Relationship Specialty Start Date End Date Cori Simmons MD [address] [place] [address] PCP - General Internal Medicine 06/27/25 documented as of this encounter
--- OUTSIDE RECORDS SUMMARY | 2025-10-10 20:32 | XMS_ITS | Clinical Summary ---
Author Organization [facility] Address [address] [place] [address] Phone Care Team Providers Care Air Route Traffic Controller Name Role Phone Giles Campo MD Primary Care Provider [phone] Jairo Bosch MD Unavailable [phone] Allergies Active Allergy Reactions Criticality Noted Date [...] Devices Not on file Insurance [place] [address] [place] [address] MEDICARE REPLACEMENT Member Subscriber Plan / Payer (Ef fective 2024-Present) Name:Le Salcido Relation to Subscriber:Self Name:Le Salcido Payer ID:[id number] (NAIC) Type:Medicare Address: [place] [id number] MEDICARE REPLACEMENT Member Subscriber Plan / Payer (Ef fective 2024-Present) Name:Le Salcido Relation to Subscriber:Self Name:Le Salcido Payer ID:[id number] (NAIC) Type:Medicare Address: [place] [id number] MEDICARE REPLACEMENT MEDICARE REPLACEMENT [facility] MEDICARE REPLACEMENT [facility] MEDICARE REPLACEMENT Member Subscriber Plan / Payer (Ef fective 2024-Present) Name:Le Salcido Relation to Subscriber:Self Name:Nancy Salcidomanish Da Silva Payer ID:[id number] (NAIC) Type:Medicare Address: [place] [id number] Care Teams Air Route Traffic Controller Relationship Specialty Start Date End Date Giles Campo MD [address] [place] [address] PCP - General Internal Medicine 01/18/25 Ivan-Jairo Garvey MD [address] [place] [phone] [email or web address] Referring Physician Internal Medicine 01/18/25 Additional Source Comments The information contained in this document represents components of the legal health record. It is not the complete legal health record.[facility]
--- OUTSIDE RECORDS SUMMARY | 2025-10-10 20:32 | XMS_ITS | Encounter Summary ---
Author Organization [facility] Address [address] [place] [address] Care Team Providers Care Predatory Animal Hunter Name Role Phone Cori Simmons MD Primary Care Provider [phone] Encounter Details Date Type Department Care Team (Late st Contact Info) Description 09/07/2025 Results Follow-Up [facility] Hematology Oncology [address] [place] [phone] Jennifer Sanford PA [address] [place] [address] Social History Tobacco Use Types Packs/Day Years [...] your loved ones. For example, early childhood associate teacher or elderly care for an older [...] 10/17/2025 12:30 PM EST Ancillary Procedure Central [facility] Cardiology - [place] 19 [facility] [address] [place] [address] 11/03/2025 2:15 PM EST Ancillary Procedure Central [facility] Cardiology - [place] [address] [facility] [address] [place] [address] 11/11/2025 3:30 PM EST Office Visit Vascular Surgery - [place] [address] [facility] [address] [place] [address] Winston Barrett MD [address] [place] [phone] 11/30/2025 2:45 PM EST Office Visit [facility] Hematology Oncology [address] [place] [phone] Jairo Bosch MD [address] [place] [phone] 12/05/2025 2:30 PM EST Office Visit Central [facility] Cardiology - [place] [address] [facility] [address] [place] [address] Marita Matthews MD 19 [facility] 45 [place] [address] 12/28/2025 1:00 PM EST Office Visit Internal Medicine - [address] [phone] Giuseppe Lee NP [address] [place] [address] documented as of this encounter Visit Diagnoses Not on filedocumented in this encounter Additional Health Concerns Assessment Noted Time PHQ-9 Depression Total Score: 0 04/21/20 1:28 PM EDT documented as of this encounter Care Teams Predatory Animal Hunter Relationship Specialty Start Date End Date Cori Simmons MD [address] [place] [address] PCP - General Internal Medicine 06/27/25 documented as of this encounter
--- OUTSIDE RECORDS SUMMARY | 2025-10-10 20:32 | XMS_ITS | Encounter Summary ---
Author Organization [facility] Address [address] [place] [address] Care Team Providers Care Field Interviewer Name Role Phone Unavailable Primary Care Provider Unavailabl e Encounter Details Date Type Department Care Team (Latest Contact Info) Description 10/10/2025 Hospital Encounter [place] [address] Social History Tobacco Use Types Packs/Day Years [...] on file documented as of this encounter Visit Diagnoses Not on filedocumented in this encounter
--- OUTSIDE RECORDS SUMMARY | 2025-10-10 20:32 | XMS_ITS | Encounter Summary ---
Author Organization [facility] Address [address] [place] [address] Care Team Providers Care Correctional Substance Abuse Counselor Name Role Phone Cori Simmons MD Primary Care Provider [phone] Reason for Visit * Reason Onset Date Comments Follow-up 10/06/2025 Call to service 10/02 c/o not urinating as much bladder feels full SOB on exertion advised to go to ER Encounter Details Date Type Department Care Team (Late st Contact Info) Description 10/06/2025 Telephone Internal Medicine - [place] [address] [place] [phone] Sydnie Duran RN Social History Tobacco Use Types Packs/Day Years [...] Record ed Within the last 3 months, shiar godoy many times did you visit the [...] loved ones. For example, early childhood education specialist or elderly care for an older adult? [...] as of this encounter Progress Notes * Bev Roman RN - 10/10/2025 4:40 PM EST see notes today fr [facility] ICU for hemorrhagic stroke;being transferred to another [facility] for bolt placement. * Sydnie Duran RN - 10/07/2025 9:14 AM EST 2 nd attempt to contact patient reached VM please re message * Sydnie Duran RN - 10/06/2025 2:38 PM EST Attempted to contact patient reached please re message documented in this encounter Plan of Treatment Upcoming Encounters Date Type Department Care Team (Late st Contact Info) Description 10/17/2025 12:30 PM EST Ancillary Procedure Central [facility] Cardiology - [place] 19 [facility] 45 [place] [phone] 11/03/2025 2:15 PM EST Ancillary Procedure Central [facility] Cardiology - [place] [address] [place] [phone] 11/11/2025 3:30 PM EST Office Visit Vascular Surgery - [place] [address] [facility] [address] [place] [address] Winston Barrett MD [address] [place] [phone] 11/30/2025 2:45 PM EST Office Visit [facility] Hematology Oncology [address] [place] [phone] Jairo Bosch MD [address] [place] [phone] 12/05/2025 2:30 PM EST Office Visit Central [facility] Cardiology - [place] [address] [phone] Marita Matthews MD [address] [address] 12/28/2025 1:00 PM EST Office Visit Internal Medicine - [address] [phone] Giuseppe Lee NP [address] [place] [address] documented as of this encounter Visit Diagnoses Not on filedocumented in this encounter Additional Health Concerns Assessment Noted Time PHQ-9 Depression Total Score: 0 04/21/20 1:28 PM EDT documented as of this encounter Care Teams Correctional Substance Abuse Counselor Relationship Specialty Start Date End Date Cori Simmons MD [address] [place] [address] PCP - General Internal Medicine 06/27/25 documented as of this encounter
--- OUTSIDE RECORDS SUMMARY | 2025-10-10 20:32 | XMS_ITS | Clinical Summary ---
Author Organization [facility] Address [address] [place] [address] Care Team Providers Care Non Destructive Testing Engineer Name Role Phone Unavailable Primary Care Provider Unavailabl e Encounters Date Type Department Care Team Description 10/10/2025 9:25 AM EST Ancillary Procedure [facility] Radiology [address] [place] [address] Provider, File Room Arrived 10/10/2025 Hospital Encounter Haleigh Michaels MD from Last 3 Months Social History Tobacco Use Types Packs/Day Years Used Date Smoking Tobacco: Never Assessed Comments Unknown Sex and Gender Information Value Date Recorded Sex Assigned at Female 10/04/2025 4:47 PM EST Legal Sex Female 1:39 PM EST Gender Identity Female 10/04/2025 4:47 PM EST Sexual Orientation Heterosexual (straight) 10/04 4:47 PM EST Plan of Treatment Health Maintenance Due Date Last Done Comments Advance Care Planning 1945 DTaP/Tdap/Td Vaccines (1 - Tdap) 1964 Pneumococcal Vaccines 50+ (1 of 1 - PCV) 1995 Zoster (Shingles) Vaccine (1 of 2) 1995 DXA Bone Density (Females,Ages 65 and older) 2010 RSV Vaccine 50 years and older and Patients (1 - 1-dose 75+ series) 2020 Influenza Vaccine 06/17/2025 07/17/2021, , 08/02/2020, Additional history exists COVID-19 Vaccine ( - 2024- season) 2025 08/12/2024, 08/16/2022, 04/18/2022, Additional history exists Hepatitis B Vaccines Aged Out No long er eligible based on patient's age to complete this topic Procedures Procedure Name Priority Date/Time Associated Diagnosis Comments CT HEAD ARCHIVE FOR REFERENCE ONLY Routine 10/10/2025 9:23 AM EST AMB REFERRAL TO ENT Routine 10/03/2025 4 :31 PM EST from Last 3 Months Results * CT Head Archive for Reference Only (10/10/2025 9:23 AM EST) Narrative GABRIELLA - 10/10/2025 9:23 AM EST This study has been auto finalized and does not contain a result. us File Room Provider IMG DIGITIZE FILMS Final Resu lt GABRIELLA [phone] * Amb Referral to ENT (10/03/2025 4:31 PM EST) External Provider MD OUTPATIENT REFERRAL ORDERAB LES Final Result from Last 3 Months Insurance [facility] MEDIC[facility]
--- OUTSIDE RECORDS SUMMARY | 2025-10-10 20:32 | XMS_ITS | Data Portability ---
Author Organization [place] [facility] [place] Address [address] [place] [address] Care Team Providers Care Regulator Tester Name Role Phone GALLITO DEAN Primary Care Provider Assessment Encounter Date Assessment Date Assessment LastModified by Organization Details LastModified Time 06/17/2023 06/17/2023 Stiven MAN, 05/22/23 DOROTHEARI. Patient was last seen in [facility]'s ER on 06/11/2023 with CAT scan which [...] pain relief in the hip and satisfactory sabianism of function in terms of activities of [...] Continue to work on hip conditioning exercises. Avtv-oco-htknpgq medications as needed. We discussed things that [...] pain relief in the hip and satisfactory sabianism of function in terms of activities of [...] Continue to work on hip conditioning exercises. Xxui-rco-aqmcqfv medications as needed. Ultimate failure may occur [...] 2 or 3 view 024 05/28/20 24 [email or web address] [facility], [address], [place], [address], 4 13:41:39 XR, hip, unilat eral, 2 or 3 view 023 09/26/20 23 YAZAN [facility], [address], [place], [address], 3 10:15:37 Medication Orders None record ed. Patient TargetsNo targets recorded. Patient Instructions Encounter Date Encounter Id Patient Instructions Last Modified By Organization Details Last Modified Time 09/26/2023 [id number] AP pelvis, AP an d lateral radiographs of the right hip taken today demonstrate a right total hip replacement with components in appropriate position without any signs of hardware related complication. Not available 09/26/2023 10:15:32 05/28/2024 [id number] AP pelvis, AP an d lateral radiographs [...] observ ation record ed. [email or web address] [facility] ([facility]) [address], [place], [address], 07/08/2023 09:28:44 Result Notes None recorded. 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 2016 Sharath Li null, [place] - [facility] 3 13:45:12 Multiple nodules of lung 774068867 Active 2016 Sharath Li null, [place] - [facility] 3 13:45:12 Allergic rhinitis 36004070 Active 2016 Sharath angel, [place] - [facility] 3 13:45:12 Chronic obstructi ve pulmonary disease 74068253 Active 2017 Sharath Li null, [place] - [facility] 3 13:45:12 Gastroeso phageal reflux disease without esophagit is 184655970 Active 2017 Sharath Li null, [place] - [facility] 3 13:45:12 Benign essential hypertens ion 7109894 Active 2017 Sharath Li null, [place] - [facility] 3 13:45:12 Coronary atheroscl erosis 761298767 Active 2017 Sharath Li null, [place] - [facility] 3 13:45:12 Tubular adenomato us polyp of colon 210017337 Active 2017 Sharath Li null, [place] - [facility] 3 13:45:12 Midline cystocele 988130373 Active 2017 Sharath Li null, [place] - [facility] 3 13:45:12 Simple chronic bronchiti s 30758614 Active 2019 Sharath Li null, [place] - [facility] 3 13:45:12 Osteoarth ritis of right hip joint 11086793474 9107 Active 2022 Sharath Li null, [place] - [facility] 3 13:45:12 Electroca rdiogram abnormal 671050989 Active 2022 Sharath Li null, [place] - [facility] 3 13:45:12 Mixed hyperlipi demia 538936126 Active 2022 Sharath Li null, [place] - [facility] 3 13:45:12 First degree atriovent ricular block 197380725 Active 2022 Sharath Li null, [place] - [facility] 3 13:45:12 Subclavia n artery stenosis 843281190 Active 2022 Sharath Li null, [place] - [facility] 3 13:45:12 Preproced ural examinati on done 21642511728 4104 [facility] 13:[facility]:12 Dyspnea on exertion 56495962 Active 2022 Sharath angel, [facility], P 3 13:45:12 Left bundle branch block 09636479 Active 2022 Sharath Li [facility], [facility] 3 13:45:12 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 Procedures Surgical History Date Name Laterality Status Provider Name and Address Organization Details Recorded Time Knee Surgery completed Sharath Boateng [facility], 04/11/2023 14:02:59 Imaging Results None recorded. Procedure [...] Not available Not available Not available 04/11/2023 34114 8003 SNOMED Sharath Li [facility], [facility] 3 14:01:47 4542 Product containin g penicilli n (product) medicatio n Not available Not available Not available 04/11/2023 37143 8001 SNOMED [facility] 14:01:56 00514 acetamino phen / oxycodone medicatio n Not available Not available Not available 08/09/20252022 66818 3 RxNorm React ion: Nause a And Vomit ing, sever ity: Unkno wn Not Available [facility] 5 01:12:52 Medications Name Sig Start Date [...] 07/01/2023 20 /min Not Available [facility] 5 00:50:04 Date Recorded Body height Body mass index (BMI) Body weight Provider Name and Address Organization Details Last Updated DateTime 07/04/2023 165.1 cm 26.1 kg/m2 21148 g Sharathpete BeattyLi [facility] 07/04/2023 13:45:22 Date Recorded Body mass index (BMI) Heart rate Body weight Oxygen saturation Body temperature Systolic And Diastolic Provider Name and Address Organization Details Last Updated DateTime 4 26.13 kg/m2 71 /min 78315 g 100 % 98.798 [degF] 145/76 mm[Hg] Not Available [facility] 5 00:50:04 Date Recorded Body height Body mass index (BMI) Body weight Provider Name and Address Organization Details Last Updated DateTime 09/26/2023 165.1 cm 26.1 kg/m2 40361 jame Beattynchard [facility], P 09/26/2023 09:44:49 Social History Question Answer Notes LastModified by Organizat ion Details LastModified Time Tobacco Smoking Status Former Smoker Sharath Beattynchard [facility], [facility] 04/11/2023 14:02:34 When Did You Quit Smoking? 16+yearssinc elastcigaret te Information not available 09/26/2023 How Many Years Have You Smoked Tobacco? 32 [email or web address] Information not available 04/11/2023 Sex: Unknown Functional Status Question Answer Note LastModified by Organizat ion Details LastModified Time How many times per week do you consume alcohol? Less than 1 time per week [email or web address] Information not available 04/11/2023 Do you use any illicit or recreational drugs? No [email or web address] Information not available 04/11/2023 Do you or have you ever used any other forms of tobacco or nicotine? No [email or web address] Information not available 04/11/2023 What is your level of alcohol consumption? Occasional [email or web address] Information not available 04/11/2023 Mental Status None recorded. Family History Nothing Reported. Medical History Condition Response Hypertension Y COPD Y Gynecological HistoryNo gynecological history recorded. Obstetrics History GPAL:G 0 P 0 0 0 0 Past Encounters Encounter ID Performer Location Encounter Start Date Encounter Closed Date Diagnosis/Indication Diagnosis SNOMED-CT Code Diagnosis ICD10 Code Diagnosis IMO Codes Diagnosis Note [id number] MD MEJIA Armenta [address] [place] [address] 04/11/2023 13:23:30 04/11/2023 14:50:49 Pain of right hip joint 3026656112 67810 M25.551 Osteoarthr itis of right hip joint 0793130620 19844 M16.11 Arthritis of hip 2666993 6 M13.859 [id number] BLANCA MORA [facility] [address] [place] [address] 06/02/2023 12:58:32 06/02/2023 13:30:34 History of total replacement of right hip joint 5981500628 60677 Z96.641 [id number] BLANCA BAL [facility] [address] [place] [address] 06/17/2023 12:43:59 06/17/2023 13:08:42 Postoperative care 570930285 Z48.89 [id number] MD MEJIA Armenta [address] [place] [address] 07/04/2023 13:39:38 07/04/2023 14:09:49 Aftercare 910434376 Z47.1 History of total replacement of right hip joint 0306222106 15003 Z96.641 [id number] MD MEJIA Armentaliza [address] [place] [address] 08/01/2023 11:27:00 08/01/2023 11:43:18 Aftercare 664053716 Z47.1 History of total replacement of right hip joint 1603719964 74195 Z96.641 [id number] MD MEJIA Armenta [address] [address] 09/26/2023 09:38:26 09/26/2023 10:10:26 History of right hip replacement 2182641537 863903 Z96.641 Aftercare 557354703 Z47. 1 [id number] MD MEJIA Armentaliza 299 [facility] [address] [facility] [place] [address] 05/28/2024 13:01:40 05/28/2024 13:32:47 History of repair of hip joint 458311823 Z96.641 Additional diagnosis detail: History of right hip replacemen t Surgical follow-up 69610 4000 Z47.1 Z96.641 Additional diagnosis detail: Aftercare following right hip joint replacemen t surgery Health Concerns Section Related Observation LastModified by Organization Detai ls LastModified Time None Recorded Concern Status LastModified by Organization Details LastModified Time None Recorded Advance Directives Directive None Recorded Payers Insurance Date Sequence Insurance Name Policy Number Policy Price Covered Member ID Price Member ID Guarantor Name 05/31/[address] [facility] (MEDICARE REPLACEMENT/A DVANTAGE - PPO) [id number] [place] [id number] [place] Notes Date Note Type Note Provider Name and Address Organization Details Recorded Time 06/17/2023 text/html Last Note : This is a very pleasant 78-year-old female status post Stiven robotic assisted right total hip arthroplasty by Dr. Roy on 03/22/2023. P [facility] states she was doing well up until the last 24 hours. She states she did her second physical therapy she had sudden onset of right hip pain and notable swelling which prompted her to go to [facility] ER. I n the ER did a [...] ER which gave her good relief. P [facility] ER room 16. A wake alert and [...] significant discomfort. Avinash Nichols MS, PA-C HPI:Female executive producer present throughout the interview, exam and exiting [...] occlusion managed by vascular surgery here at [facility]. PATTI ROGERS PA-C [address] [place] [address],[facility] [address], [place], [address], [place] - [facility], P 06/17/2023 13:14:39 OBGyn Episode No OBEpisode recorded.
--- OUTSIDE RECORDS SUMMARY | 2025-10-10 20:32 | XMS_ITS | Encounter Summary ---
Author Organization [facility] Address [address] [place] [address] Care Team Providers Care Threshing Machine Operator Name Role Phone Cori Simmons MD Primary Care Provider [phone] Encounter Details Date Type Department Care Team (Late st Contact Info) Description 08/22/[address] [facility] - Main Lab [address] [facility] [place] [address] Koffi Saravia MD [address] [place] [address] Gross hematuria Social History Tobacco Use Types [...] PM EST Ancillary Procedure [facility] [address] [place] [address] 11/03/2025 2:15 PM EST Ancillary Procedure [facility] [place] [address] [place] [address] [address] [place] [address] 11/11/2025 3:30 PM EST Office Visit Vascular Surgery - [place] [address] [place] [address] Winston Barrett MD [address] [place] [address] 11/30/2025 2:45 PM EST Office Visit [facility] Oncology [address] [place] [address] Jairo Bosch MD [address] [place] [address] 12/05/2025 2:30 PM EST Office Visit [facility] [place] [address] [facility] [address] [place] [address] Marita Matthews MD 19 [facility] [address] [place] [address] 12/28/2025 1:00 PM EST Office Visit Internal Medicine - [address] [address] Giuseppe Lee NP [address] [place] [address] documented as of this encounter Procedures Procedure Name Priority Date/Time Associated Diagnosis Comments NON-GYNECOLOGIC CYTOLOGY Routine 08/15/2025 12:00 AM EDT Gross hematuria documented in this encounter Results * Non-gynecologic cytology (08/15/2025 12:00 AM EDT) Addendum Results of UroVysion fluorescence in situ hybridization (FISH) testing: CEP3: Normal CEP7: Normal CEP17: Normal LSI 9p21: Normal Interpretation: Normal profile Controls stained appropriately. Note: The results are intended as a screening device and should be interpreted in association with other clinical and pathological findings. 09/06/2025 8:34 AM EDT [facility] Addendum electronically signed by Jose Rawls MD on 09/06/2025 at 0834 EDT Final Diagnosis A. Urine, Voided, [id number]: Negative for high grade urothelial carcinoma. Note: UroVysion testing to follow. 09/06/2025 8:34 AM EDT [facility] at 1414 EDT Specimen A Adequacy Satisfactory for evaluation 09/06/2025 8:34 AM EDT [facility] Clinical Information Gross hematuria R31.0 Urine Cytology/FISH (now) 09/06/2025 8:34 AM EDT [facility] Gross Description A. Urine, Voided, [id number]: Received one ThinPrep slide for cytology and one ThinPrep slide for UroVysion FISH 09/06/2025 8:34 AM EDT [facility] Disclaimer Unless otherwise specified, all tissue is 10% NB formalin fixed and paraffin embedded. Technical pathology services provided by [facility] at [address] [place] [address] [address], [place] [address] (CLIA #[id number]/Pricila Dejesus MD, It Program Manager) 09/06/2025 8:34 AM EDT [facility] Urine Urine specimen from urethra / Unknown 08/15/2025 08/22/2025 9:40 AM EDT us Koffi Saravia MD LAB CYTOLOGY ORDERABLES Alan yared Result - Final [facility] [address] [place] [address], documented in this encounter Visit Diagnoses Diagnosis Gross hematuria documented in this encounter Additional Health Concerns Assessment Noted Time PHQ-9 Depression Total Score: 0 04/21/20 1:28 PM EDT documented as of this encounter Care Teams Threshing Machine Operator Relationship Specialty Start Date End Date Cori Simmons MD [address] [facility] [place] [address] PCP - General Internal Medicine 06/27/25 documented as of this encounter
--- OUTSIDE RECORDS SUMMARY | 2025-10-10 20:32 | XMS_ITS ---
Author Organization [facility] Address [address] [place] [address] Care Team Providers Care Ordering Machine Operator Name Role Phone Giles Campo MD Primary Care Provider [phone] Active Problems Problem Noted Date Diagnosed Date [...] treatments are documented for this patient in [facility]. Treatments may have been administered in another system. Lifetime Dose Tracking * Chemical Lifetime Dose Automatic Entry Manual Entr y Radiation 192.17 mSv 192.17 mSv 0 mSv
--- OUTSIDE RECORDS SUMMARY | 2025-10-10 20:32 | XMS_ITS | Clinical Summary ---
Author Organization [facility] Address [address] [place] [phone] Phone Care Team Providers Care Sales Ambassador Name Role Phone Cori Simmons MD Primary Care Provider [phone] Allergies Active Allergy Reactions Criticality Noted Date Comments Fentanyl Other 04/21/2025 Hypertensive after second Cataract surgery 195 systolic/ ? Diastolic , nausea. Pt to ED. Dr. Reid is an allergy. Pt had no issue with Fentanyl on prior cataract surgery 2 weeks prior Xgxtovaugwx-Uiuxnjvto-Cawc nter 09/27/2025 Oxycodone-Acetaminophen Nausea Only 04/29/2023 acetaminophen / oxycodone Penicillins Itching,Rash Medium 12/01/2015 Other reaction(s): RASH [...] tablet (2 mg total) by mouth Active calcium carbonate-miquel min D3 600 mg-12.5 mcg (500 unit) capsule Take 1,500 mg by mouth. Active ipratropium (ATROVENT) 42 mcg (0.06 %) nasal spray USE 1 SPRAY NASALLY 3 TIMES DAILY 60 mL 2 11/18/19 25 Active aspirin 81 mg EC tablet Take 1 tablet (81 mg total) by mouth 1 (one) time each day. Active lovastatin (MEVACOR) 20 mg tablet TAKE 1 TABLET BY MOUTH AT BEDTIME 90 tablet 1 06/24/20 25 Active budesonide-for moteroL (SYMBICORT) 160-4.5 mcg/actuation inhaler Inhale 2 puffs by mouth 2 (two) times a day. Rinse mouth with water after use to reduce aftertaste and incidence of candidiasis. Do not swallow. Active methylPREDNISo lone (MEDROL DOSPAK) 4 mg tablet Take 1 tablet (4 mg total) by mouth. 09/26/20 25 Active midodrine (PROAMATINE) 5 mg tabletIndicati ons:Dizziness Take 1 tablet (5 mg total) by mouth 2 (two) times a day. 60 each 09/27/20 25 025 Active midodrine (PROAMATINE) 5 mg tablet Take 1 tablet (5 mg total) by mouth 2 (two) times a day. 60 each 08/30/20 25 025 Discontinued(Re order) metoprolol succinate (TOPROL-XL) 25 mg 24 hr tablet Take 1 tablet (25 mg total) by mouth 1 (one) time each day. 100 tablet 1 09/15/20 25 025 losartan (COZAAR) 25 mg tablet Take 1 tablet (25 mg total) by mouth 1 (one) time each day. 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 She recently underwent blood work which still stores anemia but her hematocrit is above 25. Advised to speak to her financial service professional regarding further treatment. Dyspnea on exertion 08/05/2024 [...] skin of chest 07/17/2021 Simple chronic bronchitis ([facility] V24, [facility] V28) 07/31/2020 History of COVID-19 02/24/2020 S/P [...] Encounters Date Type Department Care Team Description 10/07/2025 Results Follow-Up Internal Medicine - [address] [phone] Giuseppe Lee NP 10/06/2025 Telephone Internal Medicine - [address] [phone] Sydnie Duran RN 10/03/2025 10:50 AM EST Lab Draw Station - [address] 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 V24, CMS/HCC V28); Thrombocytopenia ([facility]/HCC V24) 10/03/2025 Telephone [facility] [address] [facility] [address] [place] [phone] Noelle Goldsmith RN 10/03/2025 Telephone [facility] Hematology Oncology [address] [place] [phone] Ivan-Jairo Madsen MD 09/29/2025 11:30 AM EST Consult Thoracic Surgery - [place] [address] [facility] [address] [place] [phone] Lorie Oden MD Multiple pulmonary nodules (Primary Dx); Mediastinal lymphadenopathy 09/28/2025 Telephone Internal Medicine - [address] [phone] Giuseppe Lee NP 09/27/2025 2:30 PM EST Office Visit Internal Medicine - [address] [phone] Giuseppe Lee NP Abnormal brain MRI (Primary Dx); Dizziness 09/22/2025 3:00 PM EST Lab Draw Station [address] 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 V24, CMS/HCC V28); Thrombocytopenia (CMS/HCC V24); Subclavian artery stenosis, left (CMS/HCC V24) 09/15/2025 1:00 PM EDT Office Visit [facility] [place] [address] [place] [phone] Marita Matthews MD Coronary atherosclerosis due to lipid rich plaque (Primary Dx); Primary hypertension; Hypercholesterolemia; Subclavian artery stenosis, left ([facility] V24); Left bundle branch block (LBBB); Fatty liver; Abnormal EKG; Dyspnea on exertion; Essential hypertension, benign; First degree AV block; Mixed hyperlipidemia; Bilateral carotid artery stenosis; Simple chronic bronchitis ([facility] V24, [facility] V28); Stage 3b chronic kidney disease ([facility] V24, [facility] V28); Low HDL (under 40) 09/09/2025 2:30 PM EDT Office Visit [facility] Hemat[facility] Oncology [address] [place] [phone] Jairo Fagan MD 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 ([facility] V24, [facility] V28) (Primary Dx); Dizziness; Thrombocytopenia ([facility] V24); Multiple pulmonary nodules; Gastroesophageal reflux disease without esophagitis 09/07/2025 10:28 AM EDT - 09/07/2025 11:59 PM EDT Hospital Encounter [facility] MRI [address] [place] [phone] 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 ([facility] V24, [facility] V28); Dizziness Discharge Disposition: Home or Self Care 09/07/2025 Results Follow-Up [facility] On[facility] [address] [place] [phone] Jennifer Sanford PA 09/06/2025 1:28 PM EDT - 09/06/2025 11:59 PM EDT Hospital Encounter [facility] PET Scan [address] [place] [phone] Solitary pulmonary nodule Discharge Disposition: Home or Self Care 09/02/2025 1:30 PM EDT Office Visit Internal [facility] - [place] [address] 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 ([facility] V24, [facility] V28) (Primary Dx) Discharge Disposition: Home or Self Care 08/30/2025 11:30 AM EDT Office Visit [facility] Hemat[facility] Oncology [address] [place] [phone] Jennifer Sanford PA 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 ([facility] V24, [facility] V28) (Primary Dx); Multiple pulmonary nodules; Thrombocytopenia ([facility] V24); Dizziness 08/29/2025 Telephone [facility] Hemat[facility] Oncology [address] [place] [phone] Jairo Fagan MD 08/26/2025 Telephone Internal Medicine - [address] [phone] Cori Simmons MD 08/26/2025 Telephone [facility] Hemat[facility] Oncology [address] [place] [phone] Jairo Fagan MD 08/22/2025 Lab Requisition [facility] - Main Lab [address] [facility] [place] [phone] Koffi Saravia MD Gross hematuria 08/09/2025 1:55 PM EDT Lab Draw Station - [address] [phone] Hematuria, unspecified type; 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 ([facility] V24, [facility] V28); Thrombocytopenia ([facility] V24) 08/08/2025 Telephone [facility] Hemat[facility] Oncology [address] [place] [phone] Jairo Fagan MD 08/07/2025 7:03 AM EDT - 08/07/2025 11:39 AM EDT Emergency [facility] Emergency [address] [place] [phone] Vaibhav Elizabeth MD Renal colic on right side (Primary Dx); Kidney stone Discharge Disposition: Home or Self Care 07/25/2025 Telephone [facility] Medicine - [facility] [address] [facility] [place] [phone] Renu Molina MA 07/21/2025 11:05 AM EDT Lab Draw Station - [address] [phone] Hypercholesterolemia; Lightheadedness; Hypertension, unspecified type; 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 ([facility] V24, [facility] V28) 07/20/2025 Telephone [facility] Hemat[facility] Oncology [address] [place] [phone] Ivan-Jairo Madsen MD 07/12/2025 10:21 AM EDT - 07/12/2025 11:59 PM EDT Hospital Encounter Bone Density - [facility] [address] [place] [phone] Menopause Discharge Disposition: Home or Self Care 07/12/2025 10:21 AM EDT - 07/12/2025 11:59 PM EDT Hospital Encounter Ultrasound - [facility] [address] [place], [place] [address] [place] [phone] Lightheadedness Discharge Disposition: Home or Self Care 07/11/2025 2:11 PM EDT - 07/11/2025 11:59 PM EDT [facility] [address] [phone] Encounter for screening mammogram for malignant neoplasm of breast Discharge Disposition: Home or Self Care 07/11/2025 Telephone Internal Medicine - [facility] [address] [place] [phone] Cori Simmons MD from Last 3 Months Immunizations Immunization Administration [...] Medical History Date Comments Anemia DX:Anemia Thrombocytopenia ([facility] V24) D X:Thrombocytopenia (HCC) Hypertension DX:Hypertension Pneumonia DX:Pneumonia Asthma DX:Asthma Osteopenia DX:Osteopenia Sigmoid diverticulosis DX:Sigmoi d diverticulosis Vitamin D deficiency DX:Vitamin D deficiency Thrombocytopenia ([facility] V24) 06/30/2017 D X:Thrombocytopenia (HCC) COPD (chronic obstructive pu lmonary disease) ([facility] V24, [facility] V28) DX:COPD (chronic o bstructive pulmonary disease) ([facility]) Stenosis of left subclavian artery ([facility] V24) DX:Stenosis of left subclavi an artery ([facility]);COMMENT:followed by Vascular HTN (hypertension) DX:HTN (hyper tension) [...] care for your loved ones. For example, childcare attendant or elderly care for an older adult? [...] Sign Reading Time Taken Comments Blood Pressure 109/61 09/29/2025 11:22 AM EST Pulse 102 09/29/2025 11:22 AM EST Temperature 37 C (98.6 F) 09/29/2025 11:22 AM EST Respiratory Rate 18 09/29/2025 11:2 2 AM EST Oxygen Saturation 92% 09/29/2025 11: 22 AM EST Inhaled Oxygen Concentration - - Weight 65.7 kg (144 lb 12.8 oz) 025 11:22 AM EST Height 165.1 cm (5' 5 ) 09/29/2025 11:2 2 AM EST Body Mass Index 24.1 09/29/2025 11:22 AM EST Plan of Treatment Upcoming Encounters Date Type Department Care Team (Late st Contact Info) Description 10/17/2025 12:30 PM EST Ancillary Procedure [facility] - [place] [address] [facility] [address] [place] [phone] 11/03/2025 2:15 PM EST Ancillary Procedure [facility] [place] [address] [place] [address] [address] [place] [phone] 11/11/2025 3:30 PM EST Office Visit Vascular Surgery - [place] [address] [facility] [address] [place] [phone] Winston Barrett MD [address] [place] [phone] 11/30/2025 2:45 PM EST Office Visit [facility] Oncology [address] [place] [phone] Jairo Bosch MD [address] [place] [address] 12/05/2025 2:30 PM EST Office Visit [facility] - [place] [address] [phone] Marita Matthews MD [address] [address] 12/28/2025 1:00 PM EST Office Visit Internal Medicine - [facility] [address] [place] [phone] Giuseppe Lee NP [address] [place] [address] Health Maintenance Due Date Last Done Comments DTaP,Tdap,and Td Vaccines (3 - Td or Tdap) 10/26/2025 10/26/2015, 07/31/2010 COVID-19 Vaccine (11 - Moderna risk season) 2026 08/24/2025, 02/28/2025, 08/18/2024, Additional history exists Medicare Annual Wellness Visit 04/21/2026 04/21/2025 Social Influencers of Health Screening 04/21/2026 04/21/2025 Hypertension/CHF/CAD Annual BMP Blood Test 09/22/2026 09/22/2025, 08/07/2025, 08/01/2025, Additional history exists Falls Risk Assessment 09/27/2026 09/27/2025 , 09/02/2025, 06/27/2025, Additional history exists Osteoporosis Screening (Bone Density Screening) 07/12/2027 07/12/2025, 01/24/2023, 01/23/2023, Additional history exists Cholesterol Screening (Lipid Panel) 07/21/2030 07/21/2025, 12/16/2023 Pneumococcal Vaccine: 50+ Years Completed 08/10/2023, 01/19/2018, 09/21/2014, Additional history exists RSV Immunization Adult Patients Completed 08/17/2023 Zoster Vaccines Completed 03/26/2024, 02/2024, 09/11/2023, Additional history exists Influenza Vaccine Completed 08/24/2025, , 09/03/2023, Additional history exists Depression Screening Completed 09/22/2025 HIB Vaccines Aged Out No longer eligi [...] this topic Medical Devices Implanted Type Area Welder Fabricator Device Identifier Shelf Expiration Date Model / Serial / Lot Liner Trident X3 0 Deg 36mm 5.9mm Sz [facility] [id number] Implanted:Qty: 1 on 05/22/2023 by Edmundo Roy MD [employer] [id number] 02/19/2028 723-00-36E / / [id number] Cement Bone Surg Simplex Radiopq Stry-How [id number] [id number] Implanted:Qty: 1 on 05/22/2023 by Edmundo Roy MD Right: Hip [employer] [id number] 6191-1-010 / / [id number] Cement Bone Surg Simplex Radiopq Stry-How [id number] 092 Implanted:Qty: 1 on 05/22/2023 by Edmundo Roy MD Right: Hip [employer] [id number] 6191-1-010 / / [id number] Tritanium Cluster Hole Shell 52mm Stry-Howm [id number] 473 Implanted:Qty: 1 on 05/22/2023 by Edmundo Roy MD Right: Hip [employer] [id number] 01/14/2028 702-04-52E / / [id number] Lp Hex Screw 6.5x25mm Stry-Howm [id number] 58 Implanted:Qty: 1 on 05/22/2023 by Edmundo Roy MD Right: Hip [employer] [id number] 03/01/2028 6753-4388 / / [id number] Lp Hex Screw 6.5x20mm Stry-Howm [id number] 57 Implanted:Qty: 1 on 05/22/2023 by Edmundo Roy MD Right: Hip [employer] [id number] 01/07/2028 4217-8250 / / [id number] Lp Hex Screw 6.5x20mm Stry-Howm [id number] 57 Implanted:Qty: 1 on 05/22/2023 by Edmundo Roy MD Right: Hip [employer] [id number] 01/30/2028 6745-5805 / / [id number] Hip Spacer Distl Univ 11mm Stry-Howm [id number] 61 Implanted:Qty: 1 on 05/22/2023 by Edmundo Roy MD Right: Hip [employer] [id number] 03/25/2028 [id number] / / [id number] Hip Stem Acco-C 132deg #5 Stry-Howm [id number] 232 Implanted:Qty: 1 on 05/22/2023 by Edmundo Roy MD Right: Hip [employer] [id number] 07/29/2027 [id number] / / [id number] Kit Prep Total Hip Bone Imp Smn-Orth [id number] Implanted:Qty: 1 on 05/22/2023 by Edmundo Roy MD Right: Hip [employer] [id number] 11/09/2032 [id number] / / [id number] Description:Medium plug Hip Head Delta Dorcas 36mm +2.5 Stry-Howm [id number] [id number] Implanted:Qty: 1 on 05/22/2023 by Edmundo Roy MD Right: Hip [employer] [id number] 08/18/2027 6570-0-536 / / [id number] Coil Penumbra 400 [id number] Soft Pnbr-[facility] [id number] Implanted:Qty: 2 on 06/29/2023 by Raul Trejo MD [employer] 04/22/2031 [id number] / / [id number] Coil Penumbra 400 [id number] Soft Pnbr-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 V24, CMS/HCC V28) Thrombocytopenia (CMS/HCC V24) CBC AND DIFFERENTIAL Routine 10/03/2025 11:19 AM EST 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 V24, CMS/HCC V28) Thrombocytopenia (CMS/HCC V24) MANUAL DIFFERENTIAL - [facility] Routine 09/22/2025 3:01 PM EST 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 V24, CMS/HCC V28) Thrombocytopenia (CMS/HCC V24) LACTATE DEHYDROGENASE Routine 09/22/2025 3:01 PM EST 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 V24, CMS/HCC V28) CBC WITH AUTO DIFFERENTIAL Routine 09/22/2025 3:01 PM EST 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 V24, CMS/HCC V28) Thrombocytopenia (CMS/HCC V24) BUN Routine 09/22/2025 3:01 PM EST Subclavian artery stenosis, left (CMS/HCC V24) CREATININE, SERUM Routine 09/22/2025 3:0 1 PM EST Subclavian artery stenosis, left (CMS/HCC V24) CBC AND DIFFERENTIAL Routine 09/22/2025 3:01 PM EST 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 V24, CMS/HCC V28) Thrombocytopenia (CMS/HCC V24) ECG 12-LEAD Routine 09/15/2025 1:15 PM EDT Coronary atherosclerosis due to lipid rich plaque Primary hypertension Hypercholesterolemia Subclavian artery stenosis, left (CMS/HCC V24) Left bundle branch block (LBBB) Fatty liver Abnormal EKG Dyspnea on exertion Essential hypertension, benign First degree AV block Mixed hyperlipidemia Bilateral carotid artery stenosis Simple chronic bronchitis (CMS/HCC V24, CMS/HCC V28) Stage 3b chronic kidney disease (CMS/HCC V24, CMS/HCC V28) Low HDL (under 40) MR BRAIN WO AND W CONTRAST STAT 09/07/2025 12:19 PM EDT 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 V24, CMS/HCC V28) Dizziness PET CT SKULL TO MID THIGH INITIAL Routine 09/06/2025 3:18 PM EDT Solitary pulmonary nodule MANUAL DIFFERENTIAL - [facility] Routine 08/24/2025 3:04 PM EDT 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 V24, CMS/HCC V28) Thrombocytopenia (CMS/HCC V24) CBC WITH AUTO DIFFERENTIAL Routine 08/24/2025 3:04 PM EDT 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 Anatomical Region Laterality Modality Computed Tomogra phy us Provider [facility] PROCEDURES Final Result * External Xray Report (10/09/2025) Anatomical Region Laterality Modality Radiographic Raven ging us Provider [facility] XR PROCEDURES Final Result * (ABNORMAL) Manual differential (10/03/2025 11:19 AM EST) Only the most recent of6 resultswithin the time period is included. Neutrophils % 44.0 % LAB HEMETOLOGY METHOD 5 4:[address] [facility] Bands % 11.0 % LAB HEMETOLOGY METHOD 5 4:[address] [facility] Lymphocytes % 5.0 % LAB HEMETOLOGY METHOD 5 4:[address] [facility] Monocytes % 12.0 % LAB HEMETOLOGY METHOD 5 4:[address] [facility] Eosinophils % 0.0 % LAB HEMETOLOGY METHOD 5 4:[address] [facility] Basophils % 0.0 % LAB HEMETOLOGY METHOD 5 4:[address] [facility] Metamyelocytes % 9.0(H) % LAB HEMETOLOGY METHOD 5 4:[address] [facility] Myelocytes % 17.0(H) % LAB HEMETOLOGY METHOD 5 4:[address] [facility] Promyelocytes % 2.0(H) % LAB HEMETOLOGY METHOD 5 4:[address] [facility] Neutrophils Absolute Manual 193.38(H) 1.50 - 7.00 K/mcL LAB HEMETOLOGY METHOD 5 4:[address] [facility] Bands Absolute Manual 48.35(H) 0.00 - 0.00 K/mcL LAB HEMETOLOGY METHOD 5 4:[address] [facility] Lymphocytes Absolute 21.97(H) 1.00 - 5.00 K/mcL LAB HEMETOLOGY METHOD 5 4:[address] [facility] Monocytes Absolute Manual 52.74(H) 0.20 - 1.00 K/mcL LAB HEMETOLOGY METHOD 5 4:[address] [facility] Eosinophils Absolute Manual 0.00 0.00 - 0.50 K/mcL LAB HEMETOLOGY METHOD 5 4:[address] [facility] Basophils Absolute Manual 0.00 0.00 - 0.20 K/mcL LAB HEMETOLOGY METHOD 5 4:[address] [facility] Metamyelocytes Absolute Manual 39.55(H) 0.00 - 0.00 K/mcL LAB HEMETOLOGY METHOD 5 4:[address] [facility] Myelocytes Absolute Manual 74.71(H) 0.00 - 0.00 K/mcL LAB HEMETOLOGY METHOD 5 4:[address] [facility] Promyelocytes Absolute Manual 8.79(H) 0.00 - 0.00 K/mcL [facility] [facility] Rbc Morphology Consistent with indices Consistent with indices, Normal for Leigh LAB HEMETOLOGY METHOD 5 4:[address] [facility] Platelet Morphology - WAM Large Platelets Seen(A) Normal [facility] [facility] Comment:Large platelets seen Blood Venous blood specimen / Unknown Venipuncture / Unknown 10/03/2025 11:19 AM EST 10/03/2025 11:19 AM EST us Subramony Danitza KENNEDY LAB BLOOD ORDERABLE S Final Result [facility] [address] [place] [address], * (ABNORMAL) CBC auto differential (10/03/2025 11:19 AM EST) Only the most recent of6 resultswithin the time period is included. WBC 439.5(HH) 4.8 - 10.8 K/mcL LAB HEMETOLOGY METHOD 10/03/2025 4:[address] [facility] RBC 2.40(L) 3.80 - 4.80 M/mcL LAB HEMETOLOGY METHOD 10/03/2025 4:[address] [facility] Hemoglobin 8.5(L) 11.5 - 16.0 g/dL LAB HEMETOLOGY METHOD 10/03/2025 4:[address] [facility] Hematocrit 26.2(L) 35.0 - 47.0 % LAB HEMETOLOGY METHOD 10/03/2025 4:06 PM EST [facility] MCV 110.5(H) 79.0 - 98.0 FL LAB HEMETOLOGY METHOD 10/03/2025 4:[address] [facility] MCH 35.9(H) 27.0 - 32.0 pcg LAB HEMETOLOGY METHOD 10/03/2025 4:[address] [facility] MCHC 32.4 32.0 - 37.0 g/dL LAB HEMETOLOGY METHOD 10/03/2025 4:[address] [facility] RDW 20.0(H) 11.0 - 15.0 % LAB HEMETOLOGY METHOD 10/03/2025 4:[address] [facility] Platelets 43(L) 130 - 400 K/mcL LAB HEMETOLOGY METHOD 10/03/2025 4:[address] [facility] MPV 12.9(H) 7.0 - 11.0 [place] LAB HEMETOLOGY METHOD 10/03/2025 4:[address] [facility] NRBC 0.5 <1.0 % LAB HEMETOLOGY METHOD 10/03/2025 4:[address] [facility] NRBC Absolute 2.07(H) <0.10 K/mcL LAB HEMETOLOGY METHOD 10/03/2025 4:[address] [facility] Blood Venous blood specimen / Unknown Venipuncture / Unknown 10/03/2025 11:19 AM EST 10/03/2025 11:19 AM EST [facility] - 10/03/2025 4:06 PM EST [id number] us Subramsamara Bosch MD LAB BLOOD ORDERABLE S Final Result [facility] [address] [place] [address], [place] [phone] * (ABNORMAL) Creatinine (09/22/2025 3:01 PM EST) Pathologist [facility] Creatinine 1.45(H) 0.50 - 1.10 mg/dL LAB CHEMISTRY METHOD 09/22/2025 6:32 PM EST [facility] eGFR 37(L) >=60 mL/min/1. 73m2 LAB CHEMISTRY METHOD 09/22/2025 6:32 PM EST [facility] Comment:Calculation based on the Chronic Kidney Disease Epidemiology Collaboration (CKD-EPI) equation refit without adjustment for race. Blood Venous blood specimen / Unknown Venipuncture / Unknown 09/22/2025 3:01 PM EST 09/22/2025 3:01 PM EST us Winston Barrett MD LAB BLOOD ORDERABLES Final Resu lt [facility] [address] [place] [address], [place] [phone] * BUN (09/22/2025 3:01 PM EST) [facility] BUN 22 5 - 25 mg/dL LAB CHEMISTRY METHOD 09/22/2025 6:32 PM EST [facility] Blood Venous blood specimen / Unknown Venipuncture / Unknown 09/22/2025 3:01 PM EST 09/22/2025 3:01 PM EST us Winston Barrett MD LAB BLOOD ORDERABLES Final Resu lt [facility] [address] [place] [address], [place] [phone] * (ABNORMAL) Lactate dehydrogenase (09/22/2025 3:01 PM EST) Pathologist [facility] LDH 454(H) 120 - 246 unit/L LAB CHEMISTRY METHOD 09/22/2025 6:32 PM EST [facility] Blood Venous blood specimen / Unknown Venipuncture / Unknown 09/22/2025 3:01 PM EST 09/22/2025 3:01 PM EST Jairo Bosch MD LAB BLOOD ORDERABLE S Final Result [facility] [address] [place] [address], * ECG 12 lead (09/15/2025 1:15 PM EDT) Narrative Marita Matthews MD - 09/15/2025 1:15 PM EDT Sinus rhythm at 78 bpm, first-degree AV block, chronic left bundle branch block, secondary ST-T changes. Marita Matthews MD ECG ORDERABLES Final Result * MR Brain wo and w Contrast (09/07/2025 12:19 PM EDT) Anatomical Region Laterality Modality Head and Neck Magnetic Resonan ce 09/07/2025 12:5 4 PM EDT Impressions 09/07/2025 12:59 PM EDT 1. Diffusely low T1 signal throughout the visualized marrow spaces, consistent with a marrow infiltrative process and likely related to the patient's history of leukemia. 2. Mild chronic microvascular ischemic changes of the supratentorial white matter. Otherwise unremarkable MRI appearance of the brain. 3. Bilateral mastoid effusions. -------- FINAL REPORT -------- Dictated By: Bryant Martin Dictated Date: 09/07/2025 12:54 ET Assigned Physician: Bryant Martin Reviewed and Electronically Signed By: Bryant Martin Signed Date: 09/07/2025 12:59 ET Workstation ID: [id number] Transcribed By: Self Edit Transcribed Date: 09/07/2025 12:55 ET Narrative 09/07/2025 12:59 PM EDT PROCEDURE: Contrast-enhanced MRI of the brain. HISTORY: CMML; dizziness. TECHNIQUE: Multiplanar multisequence MRI of the brain with and without intravenous contrast. IV CONTRAST DOSE: 15 mL Dotarem from a 15 mL vial with 0 mL discarded. COMPARISON: None. FINDINGS: BRAIN: No diffusion abnormality. No mass or extra-axial fluid collection. No hydrocephalus. The major intracranial flow voids are preserved. Age commensurate ventricles and sulci. No abnormal enhancement. Multifocal nonspecific T2 hyperintensities in the supratentorial white matter, likely sequela of mild chronic microvascular ischemic disease in a patient of this age. Incidental note of a developmental venous anomaly in the high posterior left frontal lobe. ORBITS: Lens implants. SINUSES/MASTOIDS: Extensive fluid in the right mastoids. Moderate fluid in the left mastoids. CALVARIUM: There is diffuse T1 hypointensity throughout the calvarial marrow spaces. OTHER: The visualized skull base soft tissues are normal. Diffuse T1 hypointensity throughout the marrow spaces of the upper cervical spine. Procedure Note Bryant Martin MD - 09/07/2025 PROCEDURE: Contrast-enhanced MRI of the brain. HISTORY: CMML; dizziness. TECHNIQUE: Multiplanar multisequence MRI of the brain with and withoutintravenous contrast. IV CONTRAST DOSE: 15 mL Dotarem from a 15 mL vial with 0 mL discarded. COMPARISON: None. FINDINGS: BRAIN: No diffusion abnormality. No mass or extra-axial fluid collection.No hydrocephalus. The major intracranial flow voids are preserved. Agecommensurate ventricles and sulci. No abnormal enhancement. Multifocalnonspecific T2 hyperintensities in the supratentorial white matter, likelysequela of mild chronic microvascular ischemic disease in a patient ofthis age. 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 ORBITS: Lens implants. SINUSES/MASTOIDS: Extensive fluid in the right mastoids. Moderate fluidin the left mastoids. CALVARIUM: There is diffuse T1 hypointensity throughout the calvarialmarrow spaces. OTHER: The visualized skull base soft tissues are normal. Diffuse [id number] throughout the marrow spaces of the upper cervical spine. IMPRESSION: 1. 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 2. Mild chronic microvascular ischemic changes of the supratentorialwhite matter. Otherwise unremarkable MRI appearance of the brain. 3. Bilateral mastoid effusions. -------- FINAL REPORT -------- Dictated By: Bryant Martin Dictated Date: 09/07/2025 12:54 ET Assigned Physician: Bryant Martin Reviewed and Electronically Signed By: Bryant Martin Signed Date: 09/07/2025 12:59 ET Workstation ID: [id number] Transcribed By: Self Edit Transcribed Date: 09/07/2025 12:55 ET us Jennifer WALLS IMG MRI PROCEDURES Final Resu lt * PET CT Skull to Mid Thigh Initial (09/06/2025 3:18 PM EDT) Anatomical Region Laterality Modality Body Radiographic Raven ging 09/08/2025 1:38 PM EDT Impressions 09/08/2025 1:46 PM EDT Metabolically active right hilar lymphadenopathy. No abnormal activity associated with groundglass right upper lobe nodule. Consider thoracic surgical consultation. -------- FINAL REPORT -------- Dictated By: Sarthka Carson Dictated Date: 09/08/2025 13:38 ET Assigned Physician: Sarthak Carson Reviewed and Electronically Signed By: Sarthak Carson Signed Date: 09/08/2025 13:46 ET Workstation ID: [id number] Transcribed By: Self Edit Transcribed Date: 09/08/2025 13:38 ET Narrative 09/08/2025 1:46 PM EDT INDICATION: Solitary pulmonary nodule, initial treatment strategy Prior relevant studies: Outside CT scan of the chest from August 10, 2025. CT scan of the abdomen and pelvis from August 07, 2025. Radiopharmaceutical: 13.1 mCi of F-18 FDG IV. Blood glucose: 118 mg/dl. PROCEDURE: Routine body FDG PET-CT imaging was performed from the skull base to the mid thighs and reconstructed in axial, coronal, and sagittal planes at the computer workstation with fused data from both the PET imaging study and attenuation correction CT. The CT portion of the examination was done strictly for attenuation correction and is not a true diagnostic CT examination. CTDI: 8.50 mGy FINDINGS: HEAD AND NECK: No abnormal FDG activity. THORAX: Increased FDG activity noted in the right hilar region concerning for abnormal azygos node with SUV max of 4.9. No abnormal activity associated with groundglass right upper lobe pulmonary nodule. ABDOMEN/PELVIS: No abnormal FDG activity. No abnormal splenic activity. MUSCULOSKELETAL: Diffuse bone marrow activity likely related to pharmacological stimulation. Patient has a history of CMML. Procedure Note Sarthak Carson MD - 09/08/2025 INDICATION: Solitary pulmonary nodule, initial treatment strategy Prior relevant studies: Outside CT scan of the chest from July. CT scan of the abdomen and pelvis from August 07, 2025. Radiopharmaceutical: 13.1 mCi of F-18 FDG IV. Blood glucose: 118 mg/dl. PROCEDURE: Routine body FDG PET-CT imaging was performed from the skullbase to the mid thighs and reconstructed in axial, coronal, and sagittalplanes at the computer workstation with fused data from both the PETimaging study and attenuation correction CT. The CT portion of theexamination was done strictly for attenuation correction and is not a truediagnostic CT examination. CTDI: 8.50 mGy FINDINGS: HEAD AND NECK: No abnormal FDG activity. THORAX: Increased FDG activity noted in the right hilar region concerningfor abnormal azygos node with SUV max of 4.9. No abnormal activity associated with groundglass right upper lobepulmonary nodule. ABDOMEN/PELVIS: No abnormal FDG activity. No abnormal splenic activity. MUSCULOSKELETAL: Diffuse bone marrow activity likely related topharmacological stimulation. Patient has a history of CMML. IMPRESSION: Metabolically active right hilar lymphadenopathy. No abnormal activity associated with groundglass right upper lobe nodule.Consider thoracic surgical consultation. -------- FINAL REPORT -------- Dictated By: Sarthak Carson Dictated Date: 09/08/2025 13:38 ET Assigned Physician: Sarthak Carson Reviewed and Electronically Signed By: Sarthak Carson Signed Date: 09/08/2025 13:46 ET Workstation ID: [id number] Transcribed By: Self Edit Transcribed Date: 09/08/2025 13:38 ET us Suhail Everett MD IMG NM PROCEDURES Final Re sult * Non-gynecologic cytology (08/15/2025 12:00 AM EDT) Addendum Results of [employer]ion fluorescence in situ hybridization (FISH) testing: CEP3: Normal CEP7: Normal CEP17: Normal LSI 9p21: Normal Interpretation: Normal profile Controls stained appropriately. Note: The results are intended as a screening device and should be interpreted in association with other clinical and pathological findings. 09/06/2025 8:34 AM [facility] Addendum electronically signed by Jose Rawls MD on 09/06/2025 at 0834 EDT Final Diagnosis A. Urine, Voided, [id number]: Negative for high grade urothelial carcinoma. Note: UroVysion testing to follow. 09/06/2025 8:34 AM [facility] at 1414 EDT Specimen A Adequacy Satisfactory for evaluation 09/06/2025 8:34 AM [facility] Clinical Information Gross hematuria R31.0 Urine Cytology/FISH (now) 09/06/2025 8:34 AM [facility] Gross Description A. Urine, Voided, [id number]: Received one ThinPrep slide for cytology and one ThinPrep slide for U[employer]ion FISH 09/06/2025 8:34 AM T [facility] Disclaimer Unless otherwise specified, all tissue is 10% NB formalin fixed and paraffin embedded. Technical pathology services provided by [facility] [address] [place] [address] (CLIA #[id number]/Pricila Dejesus MD, Heading Up Machine Operator) 09/06/2025 8:34 AM [facility] Urine Urine specimen from urethra / Unknown 08/15/2025 08/22/2025 9:40 AM EDT Koffi Saravia MD LAB CYTOLOGY ORDERABLES Alan yared Result - Final Performing Organization Address [facility]/ZIP Co de Phone Number [facility] [address] [place] [address], [place] [phone] * Muro urine culture tube (08/09/2025 3:37 PM EDT) [facility] Extra Tube Hold for add-ons. 08/09/2025 7:01 PM EDT [facility] Comment:Auto resulted. Urine Urine specimen obtained by clean catch procedure / Unknown Non-blood Collection / Unknown 08/09/2025 3:37 PM EDT 08/09/2025 3:37 PM EDT Jairo Bosch MD LAB URINE ORDERABLE S Final Result Performing Organization Address [facility] Co de Phone Number [facility] [address] [place] [address], [place] [phone] * (ABNORMAL) Urinalysis with reflex microscopic and culture (08/09/2025 3:36 PM EDT) [facility] Specific Elim Urine 1.020 1.003 - 1.030 LAB URINALYSIS - AUTOMATED METHOD 08/09/2025 6:41 PM T [facility] pH, Urine 6.5 5.0 - 8.0 pH LAB URINALYSIS - AUTOMATED METHOD 08/09/2025 6:41 PM T [facility] Leukocytes, Urine Moderate(A) Negative LAB URINALYSIS - AUTOMATED METHOD 08/09/2025 6:41 PM EDT [facility] Nitrite, Urine Positive(A) Negative LAB URINALYSIS - AUTOMATED METHOD 08/09/2025 6:41 PM T [facility] Protein, Urine >=300(A) <=Trace mg/dL LAB URINALYSIS - AUTOMATED METHOD 08/09/2025 6:41 PM [facility] Glucose, Urine Negative Negative mg/dL LAB URINALYSIS - AUTOMATED METHOD 08/09/2025 6:41 PM [facility] Ketones, Urine Negative Negative mg/dL LAB URINALYSIS - AUTOMATED METHOD 08/09/2025 6:41 PM [facility] Urobilinogen , Urine 1.0 0.2 - 1.0 mg/dL LAB URINALYSIS - AUTOMATED METHOD 08/09/2025 6:41 PM [facility] Bilirubin, Urine Moderate(A) Negative LAB URINALYSIS - AUTOMATED METHOD 08/09/2025 6:41 PM [facility] Blood, Urine Large(A) Negative LAB URINALYSIS - AUTOMATED METHOD 08/09/2025 6:41 PM [facility] RBC, Urine >100(H) 0 - 4 /HPF 08/09/2025 6:41 PM [facility] WBC, Urine 30(H) 0 - 4 /HPF 08/09/2025 6:41 PM [facility] Squamous Epithelial, Urine 15 0 - 60 /LPF 08/09/2025 6:41 PM [facility] Bacteria, Urine Moderate(A) Negative /HPF 08/09/2025 6:41 PM [facility] Hyaline Casts, Urine 5(H) 0 - 3 /LPF 08/09/2025 6:41 PM [facility] Yeast, Urine Present(A) None /HPF 08/09/2025 6:41 PM [facility] Urine Urine specimen obtained by clean catch procedure / Unknown Non-blood Collection / Unknown 08/09/2025 3:36 PM EDT 08/09/2025 3:36 PM EDT Jairo Bosch MD LAB URINE ORDERABLE S Final Result Performing Organization Address [facility] Co de Phone Number [facility] [address] [place] [address], [place] [phone] * Culture urine (08/09/2025 3:36 PM EDT) Pathologist [facility] Culture, Urine No growth 08/10/2025 1:48 PM EDT [facility] Urine Urine specimen obtained by clean catch procedure / Unknown Non-blood Collection / Unknown 08/09/2025 3:36 PM EDT 08/09/2025 6:41 PM EDT us Jairo Bosch MD LAB MICROBIOLOGY - GENERAL ORDERABLES Final Result Performing Organization Address [facility] Co de Phone Number [facility] [address] [place] [address], [place] [phone] * C antigen type (08/09/2025 2:12 PM EDT) Pathologist [facility] C Antigen Negative 08/10/2025 11:31 AM EDT [facility] Blood Venous blood specimen / Unknown Venipuncture / Unknown 08/09/2025 2:12 PM EDT 08/09/2025 2:12 PM EDT us Jairo Bosch MD LAB BLOOD BANK TEST ORDERABLES Final Result Performing Organization Address [facility]/ZIP Co de Phone Number [facility] [address] [place] [address], [place] [phone] * Antibody identification (08/09/2025 2:12 PM EDT) Only the most recent of2 resultswithin the time period is included. Antibody Identification C Antibody( RH2) 08/10/2025 11:29 AM EDT [facility] Antibody Identification E Antibody( RH3) 08/10/2025 11:29 AM EDT [facility] Blood Venous blood specimen / Unknown Venipuncture / Unknown 08/09/2025 2:12 PM EDT 08/09/2025 2:12 PM EDT us Jairo Bosch MD LAB BLOOD BANK TEST ORDERABLES Final Result Performing Organization Address City/[facility]/ZIP Co de Phone Number [facility] [address] [place] [address], [place] [phone] * Activated partial thromboplastin time (08/09/2025 2:12 PM EDT) aPTT 26.6 24.1 - 39.3 sec LAB COAGULATION METHOD 08/09/2025 3:48 PM EDT [facility] Blood Venous blood specimen / Unknown Venipuncture / Unknown 08/09/2025 2:12 PM EDT 08/09/2025 2:12 PM EDT us Jairo Bosch MD LAB BLOOD ORDERABLE S Final Result Performing Organization Address City/[facility] Co de Phone Number [facility] [address] [place] [address], [place] [phone] * Prothrombin time with INR (08/09/2025 2:12 PM EDT) Protime 12.1 10.6 - 13.9 sec LAB COAGULATION METHOD 08/09/2025 3:48 PM EDT [facility] INR 1.0 LAB COAGULATION METHOD 08/09/2025 3:48 PM EDT [facility] Blood Venous blood specimen / Unknown Venipuncture / Unknown 08/09/2025 2:12 PM EDT 08/09/2025 2:12 PM EDT us Jairo Bosch MD LAB BLOOD ORDERABLE S Final Result Performing Organization Address [facility]/ZIP Co de Phone Number [facility] [address] [place] [address], [place] [phone] * Type and screen (08/09/2025 2:12 PM EDT) Only the most recent of2 resultswithin the time period is included. ABO Group A 08/10/2025 8:54 AM EDT [facility] Rh Type Negative 08/10/2025 8:54 AM EDT [facility] Antibody Screen Positive 08/10/2025 8:54 AM EDT [facility] Blood Venous blood specimen / Unknown Venipuncture / Unknown 08/09/2025 2:12 PM EDT 08/09/2025 2:12 PM EDT Subramony Danitza KENNEDY LAB BLOOD BANK TEST ORDERABLES Final Result Performing Organization Address [facility] Co de Phone Number [facility] [address] [place] [address], [place] [phone] * CT Abdomen Pelvis w Contrast (08/07/2025 [...] Signed Date: 08/07/2025 09:30 ET Workstation ID: [id number] Transcribed By: Self Edit Transcribed Date: 08/07/2025 [...] Scoliosis with associated degenerative change. Procedure Note Cdaen Leslie MD - 08/07/2025 EXAMINATION: CT ABDOMEN/PELVIS [...] Signed Date: 08/07/2025 09:30 ET Workstation ID: [id number] Transcribed By: Self Edit Transcribed Date: 08/07/2025 09:17 ET Vaibhav Elizabeth MD IMG CT PROCEDURES Final Result * (ABNORMAL) Urinalysis with reflex microscopic (08/07/2025 8:11 AM EDT) Specific Elim Urine 1.012 1.003 - 1.030 LAB URINALYSIS - AUTOMATED METHOD 08/07/2025 8:43 AM [facility] pH, Urine 5.5 5.0 - 8.0 pH LAB URINALYSIS - AUTOMATED METHOD 08/07/2025 8:43 AM [facility] Leukocytes, Urine Moderate(A) Negative LAB URINALYSIS - AUTOMATED METHOD 08/07/2025 8:43 AM [facility] Nitrite, Urine Negative Negative LAB URINALYSIS - AUTOMATED METHOD 08/07/2025 8:43 AM [facility] Protein, Urine 30(A) <=Trace mg/dL LAB URINALYSIS - AUTOMATED METHOD 08/07/2025 8:43 AM [facility] Glucose, Urine Negative Negative mg/dL LAB URINALYSIS - AUTOMATED METHOD 08/07/2025 8:43 AM [facility] Ketones, Urine Negative Negative mg/dL LAB URINALYSIS - AUTOMATED METHOD 08/07/2025 8:43 AM [facility] Urobilinogen , Urine 0.2 0.2 - 1.0 mg/dL LAB URINALYSIS - AUTOMATED METHOD 08/07/2025 8:43 AM [facility] Bilirubin, Urine Negative Negative LAB URINALYSIS - AUTOMATED METHOD 08/07/2025 8:43 AM [facility] Blood, Urine Large(A) Negative LAB URINALYSIS - AUTOMATED METHOD 08/07/2025 8:43 AM [facility] RBC, Urine 23.8(H) 0 - 4 /HPF LAB URINALYSIS - AUTOMATED METHOD 08/07/2025 8:43 AM [facility] WBC, Urine 46.4(H) 0 - 4 /HPF LAB URINALYSIS - AUTOMATED METHOD 08/07/2025 8:43 AM [facility] Squamous Epithelial, Urine 80(H) 0 - 60 /LPF LAB URINALYSIS - AUTOMATED METHOD 08/07/2025 8:43 AM [facility] Bacteria, Urine Few(A) Negative /HPF LAB URINALYSIS - AUTOMATED METHOD 08/07/2025 8:43 AM [facility] Hyaline Casts, Urine 14.4(H) 0 - 3 /LPF LAB URINALYSIS - AUTOMATED METHOD 08/07/2025 8:43 AM [facility] Urine Urine specimen obtained by clean catch procedure / Unknown Non-blood Collection / Unknown 08/07/2025 8:11 AM EDT 08/07/2025 8:33 AM EDT Vaibhav Elizabeth MD LAB URINE ORDERABLES Final Resul t [facility] [address] [place] [address], * Magnesium (08/07/2025 7:47 AM EDT) Magnesium 2.1 1.9 - 2.6 mg/dL LAB CHEMISTRY METHOD 08/07/2025 8:21 AM [facility] Blood Venous blood specimen / Unknown Venipuncture / Unknown 08/07/2025 7:47 AM EDT 08/07/2025 7:57 AM EDT us Vaibhav Elizabeth MD LAB BLOOD ORDERABLES Final Resul t [facility] [address] [place] [address], * (ABNORMAL) Comprehensive metabolic panel (08/07/2025 7:47 AM EDT) Pathologist [facility] Sodium 138 133 - 145 mmol/L LAB CHEMISTRY METHOD 08/07/2025 8:21 AM [facility] Potassium 3.4(L) 3.5 - 5.5 mmol/L LAB CHEMISTRY METHOD 08/07/2025 8:21 AM [facility] Chloride 104 96 - 110 mmol/L LAB CHEMISTRY METHOD 08/07/2025 8:21 AM [facility] CO2 28 21 - 32 mmol/L LAB CHEMISTRY METHOD 08/07/2025 8:21 AM [facility] Anion Gap 6 3 - 11 LAB CHEMISTRY METHOD 08/07/2025 8:21 AM [facility] Glucose 107(H) 70 - 100 mg/dL LAB CHEMISTRY METHOD 08/07/2025 8:21 AM [facility] BUN 27(H) 5 - 25 mg/dL LAB CHEMISTRY METHOD 08/07/2025 8:21 AM [facility] Creatinine 1.26(H) 0.50 - 1.10 mg/dL LAB CHEMISTRY METHOD 08/07/2025 8:21 AM [facility] eGFR 43(L) >=60 mL/min/1. 73m2 LAB CHEMISTRY METHOD 08/07/2025 8:21 AM [facility] Comment:Calculation based on the Chronic Kidney Disease Epidemiology Collaboration (CKD-EPI) equation refit without adjustment for race. BUN/Creatinine Ratio 21.4 LAB CHEMISTRY METHOD 08/07/2025 8:21 AM [facility] Calcium 8.9 8.5 - 10.5 mg/dL LAB CHEMISTRY METHOD 08/07/2025 8:21 AM [facility] AST (SGOT) 22 10 - 42 unit/L LAB CHEMISTRY METHOD 08/07/2025 8:21 AM [facility] ALT (SGPT) 12 10 - 60 unit/L LAB CHEMISTRY METHOD 08/07/2025 8:21 AM [facility] Alkaline Phosphatase 66 42 - 121 unit/L LAB CHEMISTRY METHOD 08/07/2025 8:21 AM [facility] Total Protein 6.7 6.0 - 8.0 g/dL LAB CHEMISTRY METHOD 08/07/2025 8:21 AM [facility] Albumin 4.0 3.2 - 5.0 g/dL LAB CHEMISTRY METHOD 08/07/2025 8:21 AM [facility] Total Bilirubin 0.5 0.0 - 1.4 mg/dL LAB CHEMISTRY METHOD 08/07/2025 8:21 AM [facility] Blood Venous blood specimen / Unknown Venipuncture / Unknown 08/07/2025 7:47 AM EDT 08/07/2025 7:57 AM EDT us Vaibhav Elizabeth MD LAB BLOOD ORDERABLES Final Resul t [facility] [address] [place] [address], * (ABNORMAL) Basic metabolic panel (08/01/2025 10:34 AM EDT) Only the most recent of2 resultswithin the time period is included. Sodium 138 133 - 145 mmol/L LAB CHEMISTRY METHOD 08/01/2025 2:49 PM EDT [facility] Potassium 3.6 3.5 - 5.5 mmol/L LAB CHEMISTRY METHOD 08/01/2025 2:49 PM [facility] Chloride 102 96 - 110 mmol/L LAB CHEMISTRY METHOD 08/01/2025 2:49 PM [facility] CO2 27 21 - 32 mmol/L LAB CHEMISTRY METHOD 08/01/2025 2:49 PM [facility] Anion Gap 9 3 - 11 LAB CHEMISTRY METHOD 08/01/2025 2:49 PM [facility] Glucose 140(H) 70 - 100 mg/dL LAB CHEMISTRY METHOD 08/01/2025 2:49 PM [facility] BUN 32(H) 5 - 25 mg/dL LAB CHEMISTRY METHOD 08/01/2025 2:49 PM [facility] Creatinine 1.40(H) 0.50 - 1.10 mg/dL LAB CHEMISTRY METHOD 08/01/2025 2:49 PM [facility] eGFR 38(L) >=60 mL/min/1. 73m2 LAB CHEMISTRY METHOD 08/01/2025 2:49 PM [facility] Comment:Calculation based on the Chronic Kidney Disease Epidemiology Collaboration (CKD-EPI) equation refit without adjustment for race. BUN/Creatinine Ratio 22.9 LAB CHEMISTRY METHOD 08/01/2025 2:49 PM [facility] Calcium 9.8 8.5 - 10.5 mg/dL LAB CHEMISTRY METHOD 08/01/2025 2:49 PM [facility] Blood Venous blood specimen / Unknown Venipuncture / Unknown 08/01/2025 10:34 AM EDT 08/01/2025 10:34 AM EDT us Giles Campo MD LAB BLOOD ORDERABLES Viviaan l Result [facility] [address] [place] [address], [place] [phone] * Thyroid stimulating hormone with reflex to free t4 and free t3 (07/21/2025 11:05 AM EDT) [facility] TSH 3.44 0.40 - 4.00 mcIU/mL LAB CHEMISTRY METHOD 07/21/2025 2:04 PM EDT [facility] Blood Venous blood specimen / Unknown Venipuncture / Unknown 07/21/2025 11:05 AM EDT 07/21/2025 11:24 AM EDT us Giles Campo MD LAB BLOOD ORDERABLES Viviana mendez Result [facility] [address] [place] [address], [place] [phone] * (ABNORMAL) Lipid panel with reflex to direct LDL (07/21/2025 11:05 AM EDT) [facility] Cholesterol 124 0 - 200 mg/dL LAB CHEMISTRY METHOD 07/21/2025 1:27 PM EDT [facility] Triglycerides 157(H) 0 - 150 mg/dL LAB CHEMISTRY METHOD 07/21/2025 1:27 PM [facility] HDL 25(L) >=40 mg/dL LAB CHEMISTRY METHOD 07/21/2025 1:27 PM [facility] LDL Calculated 68 0 - 100 mg/dL LAB CHEMISTRY METHOD 07/21/2025 1:27 PM T [facility] Comment:Estimated LDL Calcul ated using equation: Total cholesterol - HDL cholesterol - (Triglycerides/5) VLDL Cholesterol Roberto 31.4 mg/dL LAB CHEMISTRY METHOD 07/21/2025 1:27 PM [facility] Non HDL Chol. (LDL+VLDL) 99 <145 mg/dL LAB CHEMISTRY METHOD 07/21/2025 1:27 PM [facility] Chol/HDL Ratio 5.0(H) 0.0 - 4.4 LAB CHEMISTRY METHOD 07/21/2025 1:27 PM EDT [facility] Blood Venous blood specimen / Unknown Venipuncture / Unknown 07/21/2025 11:05 AM EDT 07/21/2025 11:24 AM EDT us Giles Campo MD LAB BLOOD ORDERABLES Viviana mendez Result [facility] [address] [place] [address], [place] [phone] * BD Bone Density DXA Axial Skeleton [...] (World Health Organization Fracture Risk Assessment) [facility] Department of Internal Medicine recommends using [...] alternative screening schedule based on judy Armendariz., [facility] December 05, 2011 for patients [...] Signed Date: 07/12/2025 11:50 ET Workstation ID: [id number] Transcribed By: Self Edit Transcribed Date: 07/12/2025 [...] years. (World Health Organization Fracture RiskAssessment) 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 Patent vertebral arteries. POS - [id number] -------- FINAL REPORT -------- Dictated By: Inge Austin Dictated Date: 07/12/2025 15:15 ET Assigned Physician: Inge Austin Reviewed and Electronically Signed By: Inge Austin Signed Date: 07/12/2025 15:28 ET Workstation ID: [id number] Transcribed By: Self Edit Transcribed Date: 07/12/2025 [...] stenoses of 50-69%. Patent vertebralarteries. POS - [id number] -------- FINAL REPORT -------- Dictated By: Inge Austin Dictated Date: 07/12/2025 15:15 ET Assigned Physician: Inge Austin Reviewed and Electronically Signed By: Inge Austin Signed Date: 07/12/2025 15:28 ET Workstation ID: [id number] Transcribed By: Self Edit Transcribed Date: 07/12/2025 [...] year. [facility] [address], [address] -------- FINAL REPORT -------- Dictated By: Caden Leslie Dictated Date: 07/11/2025 15:06 ET Assigned Physician: Caden Leslie Reviewed and Electronically Signed By: Caden Leslie Signed Date: 07/11/2025 15:22 ET Workstation ID: [id number] Transcribed By: Self Edit Transcribed Date: 07/11/2025 15:06 ET Narrative 07/11/2025 3:22 PM EDT EXAM: SCREENING MAMMOGRAPHY, BILATERAL HISTORY: SCREENING. No additional history. COMPARISON: 01/27/24, 01/23/23, 01/16/22, 05/26/20 TECHNIQUE: Synthesized CC and MLO projections of each breast. Tomosynthesis of each breast in the CC and MLO projections. ADDITIONAL IMAGING: None Computer-aided detection was employed with the Eve AI 3-D. TISSUE DENSITY: There are scattered [...] None Computer-aided detection was employed with the Eve AI 3-D. TISSUE DENSITY: There are scattered [...] mammogram BILATERAL in 1 year. Mammography location: [facility] [address] [place], [address] -------- FINAL REPORT -------- Dictated By: Caden Leslie Dictated Date: 07/11/2025 15:06 ET Assigned Physician: Caden Leslie Reviewed and Electronically Signed By: Caden Leslie Signed Date: 07/11/2025 15:22 ET Workstation ID: [id number] Transcribed By: Self Edit Transcribed Date: 07/11/2025 15:06 ET us Giles Campo MD IMG BI PROCEDURES Final R esult from Last 3 Months Insurance [employer] [phone] Advance Directives Documents on File Type Date Recorded 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
--- OUTSIDE RECORDS SUMMARY | 2025-10-10 20:32 | XMS_ITS ---
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 Advised to speak to her tack puller machine regarding further treatment. Dyspnea on exertion 08/05/2024 [...] chest 07/17/2021 Simple chronic bronchitis (CMS/HCC V24, CMS/[facility] V28) 07/31/2020 History of COVID-19 02/24/2020 S/P [...] Future COPD (chronic obstructive pu lmonary disease) ([facility] V24, [facility] V28) 11/19/2017 Overview (01/02/2024): 08/18/2017 hospitalized [place], COPD exacerbation secondary to rhinovirus/enterovirus resp infection. Assessment & Plan (06/27/2025 1:47 PM EDT): Continue Symbicort, albuterol. She follows up with Dr. Everett and is scheduled follow-up appointment with CT chest. 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 Past Treatment and Therapy Plans No past plan information found.
--- NOTE | 2025-10-19 11:08 | P.DN_ITS ---
Discharge Sum: Prov Provider Primary care physician: Unknown Physician Discharge Sum: Diag PCOD Cause of : Stroke of unknown etiology Contributing Factors (1) CML (chronic myelocytic leukemia): (2) Cerebral infarction: Discharge Sum: Summary Date and Time Date of admission: 10/10/25 17:28 Date of : 10/10/25 Time of : 19:10 Summary Details: 80-year-old female who presented to the hospital complaining of worsening shortness of breath that has been ongoing for the past couple of months, patient today also noticed that she was experiencing right-sided weakness with dysarthria. with MRI showing CVA of left baer radiata, on 10/10 with new left- sided deficits, stat CT showed large posterior right parietal intraparenchymal hemorrhage as well as the parietal epidural hematoma. After conversation with daughter at bedside, patient transitioned to comfort care only and admitted to [facility] hospice. Patient found apneic, asystole with nonreactive pupils, time of 1910 on 10/10. Additional Data Confirmation of as documented by pronouncing clinician: no pulse Attending physician: Vincent Simon MD
== END 2025-10-10 19:10 | disposition expired | DRG 951 ==
LOC: HO.S3 17:32
PROVIDERS: Admitting Provider Student in an Organized Health Care Education/Training Program; Visit Provider Student in an Organized Health Care Education/Training Program
DX: Z51.5 Encounter for palliative care (principal); I63.9 Cerebral infarction, unspecified; E88.3 Tumor lysis syndrome; C92.10 Chronic myeloid leukemia, BCR/ABL-positive, not having achieved remission; N17.9 Acute kidney failure, unspecified; D69.6 Thrombocytopenia, unspecified; D63.0 Anemia in neoplastic disease; Z87.891 Personal history of nicotine dependence

== ENCOUNTER → 2025-10-10 | Outpatient (BNV) | payer MEDICARE, SELFPAY | PROVIDERS: Admitting Provider Student in an Organized Health Care Education/Training Program; Visit Provider Student in an Organized Health Care Education/Training Program | DX: C92.10 Chronic myeloid leukemia, BCR/ABL-positive, not having achieved remission (principal); I63.412 Cerebral infarction due to embolism of left middle cerebral artery | CPT/HCPCS: 99222; 99499 ==